=== PATIENT | female | born 1950 | race Caucasian/White ===

== ENCOUNTER 2016-01-20 12:05 | Inpatient (IN) | payer MEDICARE ==
[~2016-01-20] VITALS: Ht 154.9 cm; Wt 47.7 kg
[2016-01-20] VITALS (10 sets, daily range): BP systolic 81–174; BP diastolic 50–77
[~2016-01-20 12:05] MED LIST: ADV500INH INH; ALB2.5NEB INH; ALEN70TA39 PO; ASCO25TA PO; BACITAB3 PO; DOCU100C PO; DULO1CAP PO; FLEC50TA PO; FLUT1SPR2; GUAI1TAB PO; LEVA12INH INH; PRED10TA PO; PROTPAK PO; RANI300T PO; SPIR1CAP INH; TAMBOCAR PO; VITA100066 PO; VITMTA PO; XOPEAER INH
[2016-01-20] MEDS ORDERED: FLUMAZENIL 0.5 MG/5 ML VIAL As Ordered ONE (13:40)
[2016-01-20] MEDS ORDERED: MIDAZOLAM INJ 2 MG/2 ML VIAL (J2250) As Ordered ONE ×2 (13:40→13:41)
[2016-01-20] MEDS ORDERED: LIDOCAINE 1% MDV 20ML VIAL As Ordered ONE (13:41)
[2016-01-20] MEDS: LEVALBUTEROL 1.25 MG/0.5 ML CONCENTRATE NEB NEB SCH ×2 (14:00→21:18)
[2016-01-20] MEDS ORDERED: KCL 20MEQ IN D5/NS 1000ML 1,000 ML IV SCH (14:04)
[2016-01-20] MEDS ORDERED: ACETAMINOPHEN TAB 650MG DOSE (2X325MG) PO PRN (14:15)
[2016-01-20] MEDS ORDERED: BISACODYL 10 MG SUPP PR PRN (14:15)
[2016-01-20] MEDS ORDERED: LEVALBUTEROL 1.25 MG/0.5 ML CONCENTRATE NEB NEB PRN (14:15)
[2016-01-20] MEDS ORDERED: ONDANSETRON 4MG/2ML VIAL (J2405) IV PRN (14:15)
[2016-01-20] MEDS ORDERED: zolPIDEM TARTRATE 5 MG TAB PO PRN (14:15)
--- NOTE | 2016-01-20 14:19 | REP ---
CT chest without contrast 01/20/2016 Indication: Pneumothorax Comparison: CT chest without contrast 01/10/2016 Technique: 3 mm contiguous spiral axial sections were performed through the chest without contrast. Findings: The thoracic aorta is without aneurysm and there are scattered small nonspecific mediastinal nodes. There is right perihilar consolidation with diffuse infiltrate and/or atelectatic changes in the superior segment of the right lower lobe.. There does appear to be filling defect in the right side of the trachea on image 32 series 201 most compatible with retained secretions. There is significant hyperinflation and flattening of diaphragms consistent with COPD. There is a large right anterior pneumothorax of approximately 50% volume. Dense consolidation is present within the posterior segment right upper lobe, and to a greater extent superior segment right lower lobe. . There is posterior layering small right pleural effusion (hydropneumothorax ) Extensive bullous changes are noted bilaterally. Stranding densities and bullae are seen within the left upper lung field . There is a 6 mm pulmonary nodule in the superior segment left lower lobe image 67 series 201, and a 5 mm pulmonary nodule also superior segment left lower lobe image 58 series 201.. The liver is generous in size without focal lesions identified. The spleen is within normal limits. Visualized portions of the pancreas are unremarkable. There is likely a small right adrenal adenoma Impression: 1. Severe COPD with interval 50% right anterior pneumothorax. 2. Consolidation noted in the posterior segment right upper lobe and superior segment right lower lobe compatible with infiltrate Ddx includes atelectasis, inflammatory process . Small posterior layering right pleural effusion/ hydropneumothorax. 3. 2 lower lobe noncalcified pulmonary nodules are identified, largest 6 mm diameter. Interval follow-up is recommended for a visualized secretions within the trachea. Narrowing within the lobar and segmental bronchi to the right upper and right lower lobe Signed by Analisa Marks MD 01/20/2016 02:11 P
[2016-01-20 14:22] LABS: ABG BASE EXCESS -3.3 (-2.0-2.0); ABG HCO3 23.6 MEQ/L (22.0-26.0); ABG PARTIAL PRESSURE CO2 50.7 mmHg (35.0-45.0); ABG PARTIAL PRESSURE O2 214.6 mmHg (75.0-100.0); ABG STANDARD HCO3 21.8 MEQ/L (22.0-26.0); ABG TOTAL CO2 25.1 MEQ/L (23.0-31.0); ABG pH (ARTERIAL) 7.285 UNITS (7.350-7.450)
[2016-01-20] MEDS ORDERED: PRED10TA PO (14:24)
[2016-01-20] MEDS ORDERED: PROT1TAB2 PO (14:24)
[2016-01-20] MEDS ORDERED: LEVA500T PO (14:24)
[2016-01-20] MEDS ORDERED: ALBU0.63 INH (14:26)
[2016-01-20] MEDS: KETOROLAC 30 MG/ML VIAL (J1885) IV SCH ×2 (14:48→20:20)
[2016-01-20] MEDS: PERCOCET 5MG/325MG TAB PO PRN (14:56)
--- NOTE | 2016-01-20 15:26 | REP ---
Portable chest: 01/20/2016. Comparison CT chest 01/20/2016, PA and lateral chest 01/16/2016, 01/15/2016. Compared to the CT chest there is now a new right apex chest tube seen with the large apex pneumothorax on CT no longer evident. There is extensive consolidative opacity in the perihilar region involving posterior segment of the right upper lobe and superior segment right lower lobe. There is no pleural effusion. There is no left pneumothorax although there is severe bullous emphysematous change in the left upper lung zone. Cardiomediastinal silhouette unchanged. Pulmonary artery hypertension noted. Impression: 1. New right apex chest tube evacuating the right pneumothorax seen on chest CT within the past 1/2 hour. There is a consolidative opacity right mid lung zone and severe bullous emphysematous changes in both upper lung zones with basilar fibrosis. No other change. Signed by Dominick Chavira MD 01/20/2016 05:25 P
[2016-01-20 15:28] LABS: ANION GAP 8 MEQ/L (8-16); BLOOD UREA NITROGEN 11 MG/DL (7-18); CALCIUM LEVEL 8.2 MG/DL (8.8-10.2); CARBON DIOXIDE LEVEL 29 MEQ/L (21-32); CHLORIDE LEVEL 100 MEQ/L (98-107); CREATININE FOR GFR 0.75 MG/DL (0.55-1.02); GLOMERULAR FILTRATION RATE > 60.0 (>45); GLUCOSE, FASTING 334 MG/DL (80-110); POTASSIUM SERUM 4.6 MEQ/L (3.5-5.1); SODIUM LEVEL 137 MEQ/L (136-145)
[2016-01-20 16:27] LABS: MEAN CORPUSCULAR HEMOGLOBIN 32.2 pg (27.0-33.0); MEAN CORPUSCULAR HGB CONC 29.3 g/dl (32.0-36.5); MEAN CORPUSCULAR VOLUME 109.7 fl (80.0-96.0); PLATELET COUNT, AUTOMATED 452 k/mm3 (150-450); RED CELL DISTRIBUTION WIDTH 16.3 % (11.5-14.5); WHITE BLOOD COUNT 15.7 K/mm3 (4.0-10.0)
[2016-01-20] MEDS: ASCORBIC ACID 250 MG TAB PO SCH ×2 (17:19→20:20)
[2016-01-20] MEDS ORDERED: FLUMAZENIL 0.5 MG/5 ML VIAL IV STA (18:14)
[2016-01-20] MEDS ORDERED: MIDAZOLAM INJ 2 MG/2 ML VIAL (J2250) IV STA (18:14)
[2016-01-20] MEDS ORDERED: LIDOCAINE 1% MDV 20ML VIAL SC ONE (18:15)
[2016-01-20] MEDS: ADVAIR DISKUS 500/50 INH PWD INH SCH (19:15)
--- NOTE | 2016-01-20 19:24 | HPE ---
DATE OF ADMISSION: 01/20/2016 I received a call from the [place] [facility] at [facility] that Ms. Harrison was back in their emergency room with a large pneumothorax and very short of breath. I asked that she be sent immediately up here, and she was directly admitted to the progressive care unit (PCU). Upon getting to the PCU, she was in near respiratory failure. A chest tube was immediately placed with relief of her respiratory failure. I did not take an extensive history, only to note that she awoke this morning short of breath and presented to the emergency room. It is notable that she is a 65-year-old white female who was just discharged from here a few days ago after suffering the same problem with a persistent air leak on the right side. She has extensive emphysematous disease and end-stage lung disease. I undertook a blood patch when she was in the hospital, which seemed to have at least temporarily worked, such that I could remove her chest tube and send her home. I did not think that she was at all an operative candidate for talc pleurodesis or a wedge resection. It would be very unclear to me where she was leaking as her chest CT shows bulla and blebs throughout. She has a chronic cough at home and has been on chronic suppressive antibiotic therapy. She was bringing up green sputum, but by the end of her hospitalization here a few days ago, she was bringing up white sputum. She denied fever, chills or sweats. She does not choke with swallowing and has no dysphagia. She has a history of three pneumothoraces now, one iatrogenic after a needle biopsy and the second one in 2011 which was spontaneous. She now has a history of three spontaneous pneumothoraces. PAST MEDICAL HISTORY: 1. Chronic obstructive pulmonary disease (COPD). 2. The above mentioned pneumothoraces. 3. Uterine cancer for which she has undergone three cycles of chemotherapy, a total of six cycles are planned. 4. Prior pancreatitis. 5. Unknown heart arrhythmia, on flecainide. 6. Osteoporosis. 7. Depression. 8. Gastroesophageal reflux disease. PRIOR SURGERIES: 1. Hand surgery. 2. Remote appendectomy. HOME MEDICATIONS: - albuterol nebulizers every 4 hours as needed for shortness of breath - alendronate 70 mg every week - ascorbic acid 250 mg three times a day - vitamin D 1000 units daily - docusate twice a day - duloxetine 20 mg daily - flecainide 50 mg twice a day - Bacid one tablet daily - Xopenex 1.25 mg neb every 6 hours - Levaquin 500 mg nightly - Protonix 40 mg twice a day - prednisone 20 mg daily - ranitidine 300 mg nightly - Advair Diskus 500-50 one puff twice a day - Spiriva 18 mcg one puff daily EXPOSURES: Has a Mitchell Tzu dog at home. No cats or birds. HABITS: Smoked one pack per day for 40 years, brand of choice was Labette. She quit in the . Occasionally imbibes a glass of wine. No illicit drugs or marijuana. 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 There is no known asbestos exposure. TRAVEL HISTORY: She has been to [place]. No travel to the [facility] or to the extreme [facility]. No foreign travel. FAMILY HISTORY: To be determined at a later time, noncontributory due to the emergency at this point. ALLERGIES: None. REVIEW OF SYSTEMS: Not obtained at this admission due to emergent nature. Prior, however, her eyes were without diplopia, without transient monocular blindness, without prior jaundice. Nose with an occasional nosebleed from the drying effect of her oxygen that she wears at home. Mouth: Has upper dentures, has her own lower teeth. Pulmonary: See history of the present illness. Cardiac: Without prior history of myocardial infarction. She has occasional palpitations. No peripheral edema. No orthopnea or paroxysmal nocturnal dyspnea. GI: Without nausea, vomiting, diarrhea but does have occasional constipation. Without melena, hematochezia, hematemesis or abdominal pain. : Without hematuria, dysuria or prior history of renal stones. Endocrine: Without diabetes, without thyroid disease. Neurologic: Without paresthesias, paralyses or prior seizures. Lymphatics: Without lumps and bumps in her neck, axilla or groin. Psychiatric: Without pathological anxieties, depression, or psychosis. Hematological: Without prolonged bleeding times. PHYSICAL EXAMINATION: VITAL SIGNS: Temperature is 96.0, respiratory rate is 28 with the use of accessory muscles. Her pulse is 118. Blood pressure is 102/62. She is 100% saturated on a nonrebreather at 15 liters per minute. She is in obvious distress and with labored respirations. She is in a sinus rhythm. EYES: Pupils equal, round and reactive to light. Extraocular motor intact. Sclerae nonicteric. NOSE: Without deformity. MOUTH: Shows her mucous membranes to be pink and moist. Lips and commissures without lesions. There is no thrush. HEAD: Normocephalic. NECK: Supple. There is no jugular venous distention. No subcutaneous emphysema. Trachea is midline. There is no thyromegaly, no lymphadenopathy. LUNGS: Show markedly decreased breath sounds on the right side and also decreased breath sounds on the left but not as markedly decreased on the right. Percussion note is hyperresonant on the right. CARDIAC: Exam shows distant heart sounds without murmurs, clicks, gallops or rubs. I cannot feel her point of maximum impulse (PMI). S1, S2 are normal. ABDOMEN: Soft, nontender. Bowel sounds are positive but hypoactive. There is no hepatomegaly. No costovertebral angle tenderness. EXTREMITIES: Show no pretibial edema, no calf tenderness, no differential swelling of the upper extremities. SKIN: Sallow and mottled around the knees and nail beds. She looks very anemic. NEUROLOGIC: Shows II-XII intact along with gross motor and gross sensation intact. Gait is not tested. PSYCHIATRIC: Shows her to be somnolent and struggling to breathe and not able to really communicate. INVESTIGATIONS After placement of the chest tube, her electrolytes are normal with a BUN and creatinine of 11 and 0.75, a glucose of 334 with a calcium of 8.2. Blood gases taken after the chest tube was placed showed a pH of 7.28, a pCO2 of 50, a pO2 of 214 with a base excess of -3.3. Her hematology is pending. Her chest x-ray done at [facility] was sent on a disk; it is difficult to interpret, and I cannot tell if there are strands of parenchyma and bulla up to the chest wall anteriorly and superiorly. She certainly has a subpulmonic air collection. I did take her down to chest CT very quickly to find the distribution of the pneumothorax. Chest CT showed the pneumothorax extending into the cupola and anteriorly. There is one large bullous underneath the sternum, although I do not see it connected to anything. The second intercostal space is available for placement of a chest tube. She has what looks to be a left lower lobe 5 mm nodule. There is a small amount of fluid in the posterior portion of the right hemithorax. There is a consolidative pattern in the posterior aspect of the upper lobe. The heart and mediastinum are shifted over to the left side. IMPRESSION: 1. Respiratory failure. 2. Tension pneumothorax. 3. Chronic obstructive pulmonary disease. 4. Osteoporosis. 5. Uterine cancer, undergoing chemotherapy. 6. Depression. PLAN AND DISCUSSION: I have immediately placed a chest tube, and she is feeling better. She presently has a large air leak. This is going to be a very difficult problem to manage as I am not at all keen on taking her to the operating room for a talc pleurodesis. Even if I did, I would not know where to the place the staple line as I have no idea where she is leaking. Tomorrow I will obtain another CT scan. I do not think that she would tolerate one lung anesthesia. Perhaps the best we could do is a talc pleurodesis with a slurry. If that failed, however, there would be no other course to treat her operatively. OLIVER
[2016-01-20] MEDS: HEPARIN SOD (PORCINE) 5000 UNITS/ML VIAL SC SCH (20:19)
[2016-01-20 20:20] LABS: BANDS 8 % (< 11)
[2016-01-20] MEDS: FLECAINIDE 50MG TABLET PO SCH (20:20)
[2016-01-20] MEDS: LevoFLOXacin 500 MG TABLET PO SCH (20:20)
[2016-01-20] MEDS: DOCUSATE SODIUM 100 MG CAP PO SCH (20:20)
[2016-01-20 20:21] LABS: ANISOCYTOSIS 1+; HYPOCHROMASIA 2+; OVALOCYTES 1+; POIKILOCYTOSIS 1+; POLYCHROMASIA 1+
--- NOTE | 2016-01-20 21:48 | RO ---
DATE OF PROCEDURE: 01/20/2016 PREPROCEDURE DIAGNOSIS: Respiratory failure, tension pneumothorax. POSTPROCEDURE DIAGNOSIS: Respiratory failure, tension pneumothorax. PROCEDURE: Emergent insertion of right anterior superior chest tube. SURGEON: Dr. Rell Alvarado DETAIL MAKER AND FITTER: ANESTHESIA: DESCRIPTION OF PROCEDURE: Under satisfactory moderate sedation achieved with 2 mg of Versed, the patient was prepped and draped in the usual sterile fashion. Incision was made over the second rib and a tunnel created in the chest, into the first intercostal space. A #20 chest tube was placed without difficulty and then hooked to the Pleur-evac. Chest tube was secured to the chest wall with a #2 Tevdek suture. The patient was seen to have a very large persistent air leak even after evacuating the initial gush of air. The patient tolerated the procedure well and was given 0.2 mg of Romazicon to reverse her Versed.
[2016-01-21] VITALS: BP 86/53
[2016-01-21] MEDS: LEVALBUTEROL 1.25 MG/0.5 ML CONCENTRATE NEB NEB SCH ×4 (01:35→19:33)
[2016-01-21] MEDS: KETOROLAC 30 MG/ML VIAL (J1885) IV SCH ×4 (02:38→20:54)
[2016-01-21 04:00] VITALS: BP 81/52
[2016-01-21 05:36] LABS: BASO % 0.2 % (0.0-1.0); EOS % 0.3 % (0.0-3.0); LARGE UNSTAINED CELL # 0.1 K/mm3 (0.0-0.4); LARGE UNSTAINED CELL % 1.8 % (0.0-4.0); LYMPH # 0.6 K/mm3 (1.5-4.5); LYMPH % 8.1 % (24.0-44.0); MEAN CORPUSCULAR HEMOGLOBIN 32.6 pg (27.0-33.0); MEAN CORPUSCULAR HGB CONC 31.5 g/dl (32.0-36.5); MONO # 0.3 K/mm3 (0.0-0.8); MONO % 4.2 % (0.0-5.0); NEUTROPHILS # 6.1 K/mm3 (1.8-7.7); NEUTROPHILS % 85.5 % (36.0-66.0); PLATELET COUNT, AUTOMATED 355 k/mm3 (150-450); RED CELL DISTRIBUTION WIDTH 15.4 % (11.5-14.5); WHITE BLOOD COUNT 7.2 K/mm3 (4.0-10.0)
[2016-01-21 05:52] LABS: MEAN CORPUSCULAR VOLUME 103.4 fl (80.0-96.0)
[2016-01-21 06:05] LABS: ABG BASE EXCESS 4.3 (-2.0-2.0); ABG HCO3 29.1 MEQ/L (22.0-26.0); ABG PARTIAL PRESSURE CO2 44.9 mmHg (35.0-45.0); ABG PARTIAL PRESSURE O2 97.6 mmHg (75.0-100.0); ABG STANDARD HCO3 28.4 MEQ/L (22.0-26.0); ABG TOTAL CO2 30.5 MEQ/L (23.0-31.0)
[2016-01-21 06:08] LABS: ANION GAP 7 MEQ/L (8-16); BLOOD UREA NITROGEN 12 MG/DL (7-18); CALCIUM LEVEL 7.8 MG/DL (8.8-10.2); CARBON DIOXIDE LEVEL 30 MEQ/L (21-32); CHLORIDE LEVEL 104 MEQ/L (98-107); CREATININE FOR GFR 0.45 MG/DL (0.55-1.02); GLOMERULAR FILTRATION RATE > 60.0 (>45); GLUCOSE, FASTING 80 MG/DL (80-110); POTASSIUM SERUM 3.8 MEQ/L (3.5-5.1); SODIUM LEVEL 141 MEQ/L (136-145)
--- NOTE | 2016-01-21 06:30 | REPUSA ---
CLINICAL HISTORY: Pneumothorax. TECHNIQUE: Multiple axial CT images were obtained through chest without IV contrast material. MPR cor onal and sagittal sequences were obtained. COMMENTS: Comparison is made to the prior exam on 01/20/2016. Severe pulmonary emphysema. There has been insertion of the right pleural drainage catheter with its tip in the apex of the right pleural cavity. Resolution of pulmonary collapse. Residual small right pleural effusion. Residual associated passive atelectatic airspace disease of the right lower lobe. No change in pulmonary nodules. Decreased basilar atelectatic airspace disease of the lungs. The visualized portions of the liver are of uniform attenuation without mass or defect. There is no i ntra or extrahepatic biliary ductal dilatation. The spleen is unremarkable. The visualized pancreas i s of normal contour and attenuation characteristics. There is no evidence of adrenal mass. The visual ized portions of the kidneys present no abnormalities. The bony structures are free of lytic or blastic lesions. Multilevel degenerative changes are seen in volving the thoracic spine. Scattered calcifications are seen involving the aorta and visualized hossein r branches compatible with atherosclerosis. IMPRESSION: Severe pulmonary emphysema. Insertion of right chest tube in good pedestrian. Resolution of pulmonary collapse. Residual small right pleural effusion. This has mildly increased. Residual basilar atelectatic airspace disease of the right lower lobe. Thank you for your kind referral of this patient.
[2016-01-21] MEDS: ADVAIR DISKUS 500/50 INH PWD INH SCH ×2 (07:37→19:51)
[2016-01-21] MEDS: TIOTROPIUM INHALER/CAPSULE (SPIRIVA) INH SCH (07:37)
[2016-01-21 08:00] VITALS: BP 83/51
--- NOTE | 2016-01-21 08:55 | REP ---
CHEST X-RAY, PA AND LATERAL, 01/21/2016: Comparison portable chest 01/20/2016, CT chest 01/21/2016. Advanced bullous emphysematous changes are again seen bilaterally with large upper lung zone bullae as before. There is a right apex chest tube as before. I do not see definite recurrence of that pneumothorax. No left pneumothorax identified. Heavy fibrotic changes in the bases and dense air space opacification perihilar region in the superior segment of the left lower lobe on the lateral view. This is unchanged. Linear fibrotic changes notable in the perihilar region on the left. No gross effusion on the left. Trace CP angle blunting on the right suggesting a small effusion. No other changes. IMPRESSION: 1. Right apex chest tube without definite recurrence of pneumothorax with extensive advanced COPD, bullous emphysematous changes and giant bullae in the upper lung zones, left larger than right. 2. Extensive consolidative air space opacity posteriorly in the right mid chest presumably in the superior segment of the right lower lobe. Signed by Dominick Chavira MD 01/21/2016 04:23 P
[2016-01-21] MEDS: PANTOPRAZOLE 40MG TAB (PROTONIX) PO SCH (08:58)
[2016-01-21] MEDS: ASCORBIC ACID 250 MG TAB PO SCH ×3 (08:58→20:53)
[2016-01-21] MEDS: HEPARIN SOD (PORCINE) 5000 UNITS/ML VIAL SC SCH ×2 (08:59→20:53)
[2016-01-21] MEDS: FLECAINIDE 50MG TABLET PO SCH ×2 (08:59→20:53)
[2016-01-21] MEDS: predniSONE 10 MG TAB PO SCH (08:59)
[2016-01-21] MEDS: DULoxetine 20 MG CAP (CYMBALTA) PO SCH (08:59)
[2016-01-21] MEDS: DOCUSATE SODIUM 100 MG CAP PO SCH ×2 (08:59→20:53)
[2016-01-21] MEDS: MULTIVITAMINS/MINERALS THERAP 1 TAB PO SCH (08:59)
[2016-01-21] MEDS: VITAMIN D 1,000 INTERNATIONAL UNITS TABLET PO SCH (08:59)
[2016-01-21] MEDS ORDERED: PANTOPRAZOLE 40MG INJ (PROTONIX) (C9113) IV SCH (09:00)
[2016-01-21] MEDS: FLUTICASONE PROP 0.05% NASAL SPRAY 16 GM (FLONASE) SCH (09:00)
[2016-01-21] MEDS: MOM 30ML SUSPENSION UDC PO SCH (09:00)
[2016-01-21] MEDS: LACTOBACILLUS ACIDOPHILUS CAP (BACID) PO SCH (09:03)
[2016-01-21] MEDS: PERCOCET 5MG/325MG TAB PO PRN ×4 (09:04→23:35)
[2016-01-21] MEDS ORDERED: BABY POWDER 120GM TOP ONE (10:00)
[2016-01-21] MEDS ORDERED: SCLEROSOL INTRAPLEURAL AEROSOL IPL ONE (10:30)
[2016-01-21] MEDS ORDERED: FLUMAZENIL 0.5 MG/5 ML VIAL As Ordered ONE (10:45)
[2016-01-21] MEDS ORDERED: MIDAZOLAM INJ 2 MG/2 ML VIAL (J2250) As Ordered ONE (10:45)
[2016-01-21] MEDS ORDERED: LIDOCAINE 1% MDV 20ML VIAL As Ordered ONE (11:17)
[2016-01-21] MEDS ORDERED: MIDAZOLAM INJ 2 MG/2 ML VIAL (J2250) IV STA (12:27)
--- NOTE | 2016-01-21 12:33 | REP ---
AP PORTABLE CHEST: 01/21/2016 at 12:01 PM Clinical history: Right chest tube. This supine portable chest compared to the upright PA and lateral chest earlier today, A CT chest earlier today and a portable chest yesterday. Hyperinflation with severe bullous emphysematous changes noted in the upper lung zones with giant bulla. The right chest tube is at the apex. Opacity in the left mid lung zone with linear and nodular appearance unchanged representing fibrotic scarring. There is apical pleural thickening on the right with the right chest tube to that apex. No gross pneumothorax on this supine chest which would be relatively insensitive for that finding. Heart has projectional enlargement from AP portable technique. The perihilar chronic atelectasis or infiltrate in that superior segment of the right upper lobe again seen with patchy areas of atelectasis adjacent. All of this unchanged. No new finding. Impression: 1. Isabela right chest tube without gross evidence of pneumothorax. There is apical pleural thickening on the right and extensive airspace opacity representing chronic atelectasis or infiltrate in the superior segment of the right lower lobe in the right midchest, adjacent patchy atelectasis or infiltrates noted. There is bilateral lower lung zone fibrotic or atelectatic changes. No effusion suggested. The bullous emphysematous changes are as seen previously. Signed by Dominick Chavira MD 01/21/2016 04:27 P
[2016-01-21 16:20] VITALS: BP 93/58
--- NOTE | 2016-01-21 19:27 | REP ---
PORTABLE CHEST: HISTORY: Followup pneumothorax. Comparison 01/21/2016 obtained at 12:01 pm. Right-sided thoracotomy tube unchanged. Cardiomediastinal silhouette and lung dugan unchanged. Osseous structures unchanged. The technique utilized in obtaining the radiograph has magnified the cardiac silhouette and accentuated the interstitial markings. IMPRESSION: No significant change from the exam obtained earlier. Right upper lobe opacities with basilar opacities and chronic lung field changes and right sided thoracotomy tubes, status quo. There is no evidence of a pneumothorax. Signed by Baljeet Soto DO 01/23/2016 04:31 P
[2016-01-21 20:20] VITALS: BP 84/50
[2016-01-21] MEDS: LevoFLOXacin 500 MG TABLET PO SCH (20:53)
[2016-01-21 23:27] VITALS: BP 86/52
[2016-01-22] MEDS: LEVALBUTEROL 1.25 MG/0.5 ML CONCENTRATE NEB NEB SCH ×4 (01:36→19:14)
[2016-01-22 03:15] VITALS: BP 99/62
[2016-01-22] MEDS: KETOROLAC 30 MG/ML VIAL (J1885) IV SCH ×4 (03:17→21:09)
[2016-01-22] MEDS: SLF 3 ML SYR IV SCH ×3 (03:18→21:09)
[2016-01-22] MEDS: PERCOCET 5MG/325MG TAB PO PRN ×5 (03:48→23:11)
[2016-01-22 04:42] LABS: BASO % 0.1 % (0.0-1.0); EOS % 0.2 % (0.0-3.0); LARGE UNSTAINED CELL # 0.1 K/mm3 (0.0-0.4); LARGE UNSTAINED CELL % 1.2 % (0.0-4.0); LYMPH # 0.4 K/mm3 (1.5-4.5); LYMPH % 5.7 % (24.0-44.0); MEAN CORPUSCULAR HEMOGLOBIN 31.6 pg (27.0-33.0); MEAN CORPUSCULAR VOLUME 102.1 fl (80.0-96.0); MONO # 0.4 K/mm3 (0.0-0.8); MONO % 5.1 % (0.0-5.0); NEUTROPHILS # 6.4 K/mm3 (1.8-7.7); NEUTROPHILS % 87.6 % (36.0-66.0); PLATELET COUNT, AUTOMATED 332 k/mm3 (150-450); RED CELL DISTRIBUTION WIDTH 15.7 % (11.5-14.5); WHITE BLOOD COUNT 7.3 K/mm3 (4.0-10.0)
[2016-01-22 04:54] LABS: ANION GAP 5 MEQ/L (8-16); BLOOD UREA NITROGEN 8 MG/DL (7-18); CALCIUM LEVEL 8.2 MG/DL (8.8-10.2); CARBON DIOXIDE LEVEL 31 MEQ/L (21-32); CHLORIDE LEVEL 100 MEQ/L (98-107); CREATININE FOR GFR 0.52 MG/DL (0.55-1.02); GLOMERULAR FILTRATION RATE > 60.0 (>45); GLUCOSE, FASTING 118 MG/DL (80-110); SODIUM LEVEL 136 MEQ/L (136-145)
[2016-01-22 08:00] VITALS: BP 104/52
[2016-01-22] MEDS: HEPARIN SOD (PORCINE) 5000 UNITS/ML VIAL SC SCH ×2 (08:00→21:09)
[2016-01-22] MEDS: MULTIVITAMINS/MINERALS THERAP 1 TAB PO SCH (08:01)
[2016-01-22] MEDS: VITAMIN D 1,000 INTERNATIONAL UNITS TABLET PO SCH (08:01)
[2016-01-22] MEDS: predniSONE 10 MG TAB PO SCH (08:01)
[2016-01-22] MEDS: ASCORBIC ACID 250 MG TAB PO SCH ×3 (08:01→21:08)
[2016-01-22] MEDS: DULoxetine 20 MG CAP (CYMBALTA) PO SCH (08:01)
[2016-01-22] MEDS: LACTOBACILLUS ACIDOPHILUS CAP (BACID) PO SCH (08:01)
[2016-01-22] MEDS: FLUTICASONE PROP 0.05% NASAL SPRAY 16 GM (FLONASE) SCH (08:01)
[2016-01-22] MEDS: DOCUSATE SODIUM 100 MG CAP PO SCH ×2 (08:01→21:09)
[2016-01-22] MEDS: FLECAINIDE 50MG TABLET PO SCH ×2 (08:01→21:09)
[2016-01-22] MEDS: PANTOPRAZOLE 40MG TAB (PROTONIX) PO SCH (08:01)
--- NOTE | 2016-01-22 08:55 | REP ---
CHEST X-RAY, PA AND LATERAL: 01/22/2016 COMPARISON: Portable chest 01/21/2016, 01/20/2016, 01/16/2016. CT chest 01/21/2016 CLINICAL HISTORY: Pneumothorax. FINDINGS: Right apex chest tube again seen. There is a very small apical pneumothorax visible on the right with an air gap just less than 2 mm. Advanced bullous emphysematous changes, fibrosis, and extensive airspace opacity in the right mid and lower lung zone, all unchanged. Giant bulla in both apices. Blunting of the right CP angle consistent with some scarring. Trace effusion difficult to exclude. No other significant finding. IMPRESSION: Right apex chest tube with a tiny apical pneumothorax with a nearly 2 mm air gap. Giant bullae in both upper lung zones with severe emphysematous changes, fibrosis, chronic airspace opacity in the right mid and lower lung zone, all stable. Signed by Dominick Chavira MD 01/22/2016 04:35 P
[2016-01-22] MEDS: MOM 30ML SUSPENSION UDC PO SCH (09:00)
[2016-01-22] MEDS: ADVAIR DISKUS 500/50 INH PWD INH SCH ×2 (09:47→21:02)
[2016-01-22] MEDS: TIOTROPIUM INHALER/CAPSULE (SPIRIVA) INH SCH (09:47)
[2016-01-22 12:00] VITALS: BP 102/58
[2016-01-22 15:50] VITALS: BP 108/58
--- NOTE | 2016-01-22 16:43 | IPN ---
DATE: 01/22/2016 This is now the 2nd hospital day for Mrs. Harrison. She underwent a talc pleurodesis with a talc slurry through the chest tube yesterday. She however is still leaking today. The chest tube output however is serosanguineous with definite blood in it hopefully secondary to the inflammation response from the talc. She has not yet run a fever and her pain is being well controlled. Her vital signs show a maximum temperature (t-max) of 97.8 with a heart rate that ranges between 93 and 100 in a sinus rhythm, respiratory rate of 22 to 24 without the use of accessory muscles, who is 96 to 93% saturated on 6 liters nasal cannula, and whose blood pressure is ranging between 99/62 to 104/82. Her intake and output over the past 24 hours has been recorded as 960 in and 1477 out for a negativity 517 mL. She has put 227 mL out the chest tube. Weight today is at 51.7 compared to 50.7 yesterday. PHYSICAL EXAMINATION: She has equal breath sounds on either side, but they are still very decreased on either side, I do not hear pleural friction rub. Percussion is full to the diaphragm. CARDIAC EXAMINATION: Without murmurs, clicks, gallops or rubs. I cannot feel her point of maximum impulse (PMI). S1, S2 are normal. ABDOMEN: Soft, nontender. Bowel sounds positive. There is no hepatomegaly. No CVA tenderness. EXTREMITIES: Show no pretibial edema. No calf tenderness. No differential swelling of the upper extremities. SKIN: Warm, dry and perfused without cyanosis or mottling, including that of the nail beds and knees. NECK: Supple. There is no jugular venous distention. No subcutaneous emphysema. Trachea is midline. MOUTH: Shows his mucous membranes to be pink and moist. Lips and commissures without lesions. There is no thrush. EYES: Show her pupils to be equal and reactive. Extraocular motion intact. Sclerae anicteric. NEUROLOGIC: Shows II through XII intact with gross motor and gross sensation intact. Gait is not tested. PSYCHIATRIC: Shows her to be awake and alert, oriented times three with appropriate mood and affect and conversational. Her white count today is 7.3 unchanged from yesterday with a hemoglobin and hematocrit of 9.0 and 29.0, slightly up from 8.6 and 27.2 yesterday. Platelet count of 332. Her differential shows 87% neutrophils, 5% lymphocytes. There are no immature forms, no toxic granulations. There are no blood gases on her today. Her electrolytes are normal with a BUN and creatinine of 8 and 0.52 with a glucose of 1148 and a calcium 8.2. Her chest x-ray today shows the lung fully expanded to the chest wall. There may be a 1 mm airspace at the cupola. Right costophrenic angle has an opacity within it. There certainly seems to more of a diffuse opacity of the right chest versus the left chest which is hopefully secondary to pleural thickening from the inflammatory response. IMPRESSION: 1. Recurrent right pneumothorax with bronchoalveolar fistula. 2. Chronic obstructive pulmonary disease (COPD) severe. 3. Osteoporosis. 4. Uterine cancer, presently undergoing chemotherapy. 5. Depression PLAN AND DISCUSSION: I will give her 5 to 6 days to stop her air leak. Hopefully in the next couple of days the inflammatory response will become more intense and help her seal that air leak. I have warned her that her worst case scenario is having to go home with the chest tube and a Heimlich valve. She may develop a chronic bronchopleural fistula.
[2016-01-22 20:00] VITALS: BP 99/55
[2016-01-22] MEDS: LevoFLOXacin 500 MG TABLET PO SCH (21:08)
[2016-01-22 23:25] VITALS: BP 96/54
[2016-01-23] MEDS: LEVALBUTEROL 1.25 MG/0.5 ML CONCENTRATE NEB NEB SCH ×4 (01:45→20:00)
[2016-01-23] MEDS: KETOROLAC 30 MG/ML VIAL (J1885) IV SCH ×4 (03:52→20:33)
[2016-01-23] MEDS: SLF 3 ML SYR IV SCH ×3 (03:53→22:00)
[2016-01-23] MEDS: PERCOCET 5MG/325MG TAB PO PRN ×2 (03:55→16:19)
[2016-01-23 03:56] VITALS: BP 102/63
[2016-01-23 05:36] LABS: BASO # 0.1 K/mm3 (0.0-0.2); BASO % 1.8 % (0.0-1.0); EOS % 0.9 % (0.0-3.0); LARGE UNSTAINED CELL # 0.1 K/mm3 (0.0-0.4); LARGE UNSTAINED CELL % 1.2 % (0.0-4.0); LYMPH # 0.4 K/mm3 (1.5-4.5); LYMPH % 5.3 % (24.0-44.0); MEAN CORPUSCULAR HEMOGLOBIN 31.8 pg (27.0-33.0); MEAN CORPUSCULAR VOLUME 102.9 fl (80.0-96.0); MONO # 0.3 K/mm3 (0.0-0.8); MONO % 5.1 % (0.0-5.0); NEUTROPHILS % 85.6 % (36.0-66.0); PLATELET COUNT, AUTOMATED 312 k/mm3 (150-450); RED CELL DISTRIBUTION WIDTH 16.5 % (11.5-14.5); WHITE BLOOD COUNT 5.8 K/mm3 (4.0-10.0)
[2016-01-23 05:46] LABS: ANION GAP 5 MEQ/L (8-16); BLOOD UREA NITROGEN 7 MG/DL (7-18); CALCIUM LEVEL 8.4 MG/DL (8.8-10.2); CARBON DIOXIDE LEVEL 31 MEQ/L (21-32); CHLORIDE LEVEL 103 MEQ/L (98-107); GLOMERULAR FILTRATION RATE > 60.0 (>45); GLUCOSE, FASTING 100 MG/DL (80-110); POTASSIUM SERUM 4.2 MEQ/L (3.5-5.1); SODIUM LEVEL 139 MEQ/L (136-145)
[2016-01-23] MEDS: ADVAIR DISKUS 500/50 INH PWD INH SCH ×2 (07:16→20:52)
[2016-01-23] MEDS: TIOTROPIUM INHALER/CAPSULE (SPIRIVA) INH SCH (07:16)
[2016-01-23 08:00] VITALS: BP 113/57
[2016-01-23] MEDS: FLUTICASONE PROP 0.05% NASAL SPRAY 16 GM (FLONASE) SCH (08:54)
[2016-01-23] MEDS: predniSONE 10 MG TAB PO SCH (08:55)
[2016-01-23] MEDS: MOM 30ML SUSPENSION UDC PO SCH (08:55)
[2016-01-23] MEDS: ASCORBIC ACID 250 MG TAB PO SCH ×3 (08:55→20:33)
[2016-01-23] MEDS: VITAMIN D 1,000 INTERNATIONAL UNITS TABLET PO SCH (08:55)
[2016-01-23] MEDS: LACTOBACILLUS ACIDOPHILUS CAP (BACID) PO SCH (08:55)
[2016-01-23] MEDS: HEPARIN SOD (PORCINE) 5000 UNITS/ML VIAL SC SCH ×2 (08:56→20:34)
[2016-01-23] MEDS: DULoxetine 20 MG CAP (CYMBALTA) PO SCH (08:57)
[2016-01-23] MEDS: MULTIVITAMINS/MINERALS THERAP 1 TAB PO SCH (08:57)
[2016-01-23] MEDS: DOCUSATE SODIUM 100 MG CAP PO SCH ×2 (08:57→20:33)
[2016-01-23] MEDS: FLECAINIDE 50MG TABLET PO SCH ×2 (08:57→20:33)
[2016-01-23] MEDS: PANTOPRAZOLE 40MG TAB (PROTONIX) PO SCH (08:57)
[2016-01-23] MEDS: SLF 3 ML SYR IV PRN (08:58)
--- NOTE | 2016-01-23 09:02 | REP ---
Chest PA and lateral: 01/23/2016. Comparison: 01/22/2016, 01/21/2016, CT chest 01/21/2016. Clinical history: Followup pneumothorax, advanced COPD. Right apex chest tube is again seen. There is bullous emphysematous change in the bilateral upper lung zones with giant bulla larger left than right. Extensive consolidative opacity perihilar region and superior segment right lower lobe and other areas of linear and subsegmental atelectatic change right middle and lower lobes. Hyperinflation with flattening of the diaphragms, increased AP diameter of the chest and and significant pulmonary artery hypertension again seen, all consistent with advanced COPD. Aortic calcified at the arch, but without aneurysm. Heart size not grossly enlarged for degree of inflation. At the right apex there is a small right apical pneumothorax evident, the air gap is about 7 mm today, yesterday was about 2 mm. No other changes. Impression: 1. Right apex chest tube tip of the apex. The pneumothorax at the right apex now measuring 7 mm air gap, yesterday it was a 2 mm air gap. No other changes. Signed by Dominick Chavira MD 01/23/2016 08:00 P
[2016-01-23 12:00] VITALS: BP 100/53
[2016-01-23 16:00] VITALS: BP 105/56
[2016-01-23 19:50] VITALS: BP 94/56
[2016-01-23] MEDS: LevoFLOXacin 500 MG TABLET PO SCH (20:34)
--- NOTE | 2016-01-23 23:09 | IPN ---
DATE: 01/23/2016 Ms. Harrison still continues to have a rolling air leak. I have turned her suction up to 20 as the lung has from the chest wall today on chest x-ray. Her vital signs show a maximum temperature (T max) of 97.8 with a heart rate that ranges between 94 and 105 and is sinus rhythm, a respiratory rate of 18 to 20 without the use of accessory muscles who 96 to 92% saturated on 5 liters nasal cannula and a blood pressure that is ranging between 102/63 to113/57. Her intake and output over the past 24 hours has been recorded as 1200 in and 2175 out for a negativity of 975 mL. Her weight today is 52.3 kg compared to 51.7 kg yesterday. PHYSICAL EXAMINATION: Her lungs still show equal but decreased breath sounds on either side. Right lung, of course, shows an audible air leak. Percussion note is full to the diaphragm. There is no subcutaneous emphysema. Cardiac exam is without murmurs, clicks, gallops or rubs. I cannot feel her point of maximum impulse (PMI). S1, S2 are normal. Abdomen is soft and nontender. Bowel sounds are positive. There is no hepatomegaly. No costovertebral angle tenderness. Extremities show no pretibial edema. No calf tenderness. No differential swelling of the upper extremities. Skin is warm, dry and perfused without cyanosis or mottling, including that of the nail beds and the knees. Neck is supple. There is no jugular venous distention, no subcutaneous emphysema. Trachea is midline. Mouth shows her mucous membranes to be pink and moist. Lips and commissures without lesions. There is no thrush. Eyes show her pupils to be equal and reactive. Extraocular motions intact. Sclerae anicteric. Neurologic shows II-XII intact along with gross motor and gross sensation intact. Gait is not tested. Psychiatric shows her to be awake and alert, oriented times three with appropriate mood and affect and conversational. Her white count today is 5.8 with a hemoglobin and hematocrit of 8.6 and 27.9, essentially unchanged from yesterday. Platelet count is 312 with a differential that shows 85% neutrophils, 5% lymphocytes and 5% monocytes. There are no immature forms. No toxic granulations. Her chemistries show normal electrolytes with a BUN and creatinine of 7 and 0.50, glucose of 100 and a calcium of 8.4. There are no blood gases on her today. Her chest x-ray shows her lung having from the chest wall by 6 mm, which is greater than it was yesterday. She still has the infiltrative pneumonic process in the posterior segment of the upper lobe. Chest tube looks to be in good place. The second hole is definitely within the chest with the tip at the very apex of the hemithorax. IMPRESSION: 1. Recurrent right pneumothorax with bronchopleural fistula. 2. Chronic obstructive pulmonary disease, severe. 3. Osteoporosis. 4. Uterine cancer, presently undergoing chemotherapy. 5. Depression. PLAN AND DISCUSSION: We really are between a rock and a hard place. Dr. Mckeon and I have discussed it and have decided that perhaps the best strategy will be to isolate the bronchus that is leaking and inject glue within that subsegmental or if we are joya the subsegmental bronchus. Hopefully that will stop the leak. We plan, therefore, to do that tomorrow in the operating room under conscious sedation. She may need to be intubated, but we will try to do it without. I have explained the risks and benefits of the procedure to the patient, and she is willing to undertake it.
[2016-01-23 23:47] VITALS: BP 84/51
[2016-01-24] VITALS (10 sets, daily range): BP systolic 84–128; BP diastolic 50–62
[2016-01-24] MEDS: NORCO, ANEXSIA 5/325MG TABLET (HYDROcodone/ACETAMINOPHEN) PO PRN (01:31)
[2016-01-24] MEDS: LEVALBUTEROL 1.25 MG/0.5 ML CONCENTRATE NEB NEB SCH ×4 (02:00→20:00)
[2016-01-24] MEDS: KETOROLAC 30 MG/ML VIAL (J1885) IV SCH ×4 (02:35→21:15)
[2016-01-24 05:34] LABS: BASO % 0.1 % (0.0-1.0); EOS # 0.1 K/mm3 (0.0-0.50); EOS % 1.2 % (0.0-3.0); LARGE UNSTAINED CELL # 0.1 K/mm3 (0.0-0.4); LARGE UNSTAINED CELL % 1.4 % (0.0-4.0); LYMPH # 0.3 K/mm3 (1.5-4.5); LYMPH % 6.4 % (24.0-44.0); MEAN CORPUSCULAR HEMOGLOBIN 31.6 pg (27.0-33.0); MEAN CORPUSCULAR HGB CONC 30.1 g/dl (32.0-36.5); MONO # 0.2 K/mm3 (0.0-0.8); NEUTROPHILS # 4.6 K/mm3 (1.8-7.7); NEUTROPHILS % 86.9 % (36.0-66.0); PLATELET COUNT, AUTOMATED 349 k/mm3 (150-450); RED CELL DISTRIBUTION WIDTH 15.3 % (11.5-14.5); WHITE BLOOD COUNT 5.3 K/mm3 (4.0-10.0)
[2016-01-24 05:39] LABS: ANION GAP 5 MEQ/L (8-16); BLOOD UREA NITROGEN 8 MG/DL (7-18); CALCIUM LEVEL 8.9 MG/DL (8.8-10.2); CARBON DIOXIDE LEVEL 33 MEQ/L (21-32); CHLORIDE LEVEL 102 MEQ/L (98-107); CREATININE FOR GFR 0.44 MG/DL (0.55-1.02); GLOMERULAR FILTRATION RATE > 60.0 (>45); GLUCOSE, FASTING 90 MG/DL (80-110); POTASSIUM SERUM 4.3 MEQ/L (3.5-5.1); SODIUM LEVEL 140 MEQ/L (136-145)
[2016-01-24] MEDS: SLF 3 ML SYR IV SCH ×3 (06:00→21:16)
[2016-01-24] MEDS: TIOTROPIUM INHALER/CAPSULE (SPIRIVA) INH SCH (07:21)
[2016-01-24] MEDS: ADVAIR DISKUS 500/50 INH PWD INH SCH ×2 (07:21→19:55)
[2016-01-24] MEDS: PERCOCET 5MG/325MG TAB PO PRN ×2 (08:27→17:08)
--- NOTE | 2016-01-24 08:38 | REP ---
CHEST, TWO VIEWS: HISTORY: Pneumothorax. COMPARISON: 7:50 a.m., 01/23/2016. The lungs are hyperinflated. Bulla are present in the upper lobes. Increased density is present in the right middle and lower lobe consistent with atelectasis, unchanged compared to the previous study. A small right apical pneumothorax is present, unchanged compared to the previous study. The heart is normal in size. The pulmonary vasculature is normal in appearance. The bony structure is intact. A chest tube is present in the right hemithorax. IMPRESSION: 1. COPD. 2. Right middle and lower lobe atelectasis, unchanged compared to the previous study. 3. Small right apical pneumothorax, unchanged compared to the previous study. Signed by Nawaf Jose MD 01/26/2016 08:37 A
[2016-01-24] MEDS: MOM 30ML SUSPENSION UDC PO SCH (09:00)
[2016-01-24] MEDS ORDERED: SUCCINYLCHOLINE 100 MG/5 ML SYRINGE (J0330) As Ordered ONE (09:10)
[2016-01-24] MEDS ORDERED: ONDANSETRON 4MG/2ML VIAL (J2405) As Ordered ONE (09:10)
[2016-01-24] MEDS ORDERED: PROPOFOL 200 MG/20 ML VIAL As Ordered ONE (09:10)
[2016-01-24] MEDS ORDERED: LIDOCAINE 2% INJ 100 MG/5 ML SDV (FOR ANES.) As Ordered ONE (09:10)
[2016-01-24] MEDS ORDERED: MIDAZOLAM INJ 2 MG/2 ML VIAL (J2250) As Ordered ONE (09:11)
[2016-01-24] MEDS ORDERED: fentaNYL 100 MCG/2 ML INJECTION (J3010) As Ordered ONE (09:11)
[2016-01-24] MEDS ORDERED: KETAMINE HCL 200 MG/20 ML VIAL As Ordered ONE (09:15)
[2016-01-24] MEDS ORDERED: EPINEPHrine 1MG/10ML SYRINGE 1.5IN As Ordered ONE (09:34)
[2016-01-24] MEDS ORDERED: LIDOCAINE 1% SDV INJ 30 ML VIAL As Ordered ONE (09:43)
[2016-01-24] MEDS ORDERED: LR 1,000 ML IV SCH (11:00)
[2016-01-24] MEDS ORDERED: fentaNYL 100 MCG/2 ML INJECTION (J3010) IV PRN (11:00)
[2016-01-24] MEDS ORDERED: PERCOCET 5MG/325MG TAB PO PRN (11:00)
[2016-01-24] MEDS ORDERED: ONDANSETRON 4MG/2ML VIAL (J2405) IV PRN (11:00)
--- NOTE | 2016-01-24 12:30 | REP ---
PA AND LATERAL CHEST: 01/24/2016. Comparison: 01/22, 01/21 and 01/21/2016. Clinical history: Pneumothorax. Findings: Right apex chest tube is again seen. There is a tiny right apical pneumothorax suggested, very difficult to evaluate in the setting of advanced COPD, fibrosis and some apical pleural thickening. There is severe bullous emphysematous changes with giant bulla in both upper lung zones, left worse than right. Extensive airspace opacity in the superior segment of the right lower lobe at the level of the hilum and with some chronic atelectatic change in the perihilar region extending toward the periphery on the frontal view along with fibrosis and linear scarring in the left mid lung zone and hyperinflation throughout both lung zones from advanced COPD. Pulmonary hypertension is again seen. No new or superimposed findings. Impression: 1. No significant interval change, tiny right apical pneumothorax seen with right chest tube as before. No other change. Signed by Dominick Chavira MD 01/24/2016 07:34 P
[2016-01-24] MEDS: BENZONATATE 100 MG CAP PO SCH ×3 (13:10→21:14)
[2016-01-24] MEDS: predniSONE 10 MG TAB PO SCH (13:10)
[2016-01-24] MEDS: LACTOBACILLUS ACIDOPHILUS CAP (BACID) PO SCH (13:10)
[2016-01-24] MEDS: ASCORBIC ACID 250 MG TAB PO SCH ×3 (13:10→21:14)
[2016-01-24] MEDS: PANTOPRAZOLE 40MG TAB (PROTONIX) PO SCH (13:11)
[2016-01-24] MEDS: FLECAINIDE 50MG TABLET PO SCH ×2 (13:11→21:14)
[2016-01-24] MEDS: MULTIVITAMINS/MINERALS THERAP 1 TAB PO SCH (13:11)
[2016-01-24] MEDS: DULoxetine 20 MG CAP (CYMBALTA) PO SCH (13:11)
[2016-01-24] MEDS: DOCUSATE SODIUM 100 MG CAP PO SCH ×2 (13:11→21:14)
[2016-01-24] MEDS: HEPARIN SOD (PORCINE) 5000 UNITS/ML VIAL SC SCH ×2 (13:11→21:15)
[2016-01-24] MEDS: FLUTICASONE PROP 0.05% NASAL SPRAY 16 GM (FLONASE) SCH (13:12)
[2016-01-24] MEDS: VITAMIN D 1,000 INTERNATIONAL UNITS TABLET PO SCH (13:16)
[2016-01-24] MEDS: LevoFLOXacin 500 MG TABLET PO SCH (21:14)
[2016-01-25] MEDS: LEVALBUTEROL 1.25 MG/0.5 ML CONCENTRATE NEB NEB SCH ×4 (02:48→20:00)
[2016-01-25] MEDS: KETOROLAC 30 MG/ML VIAL (J1885) IV SCH ×2 (03:47→09:20)
[2016-01-25] MEDS: SLF 3 ML SYR IV PRN (03:48)
[2016-01-25 05:26] LABS: BASO % 0.5 % (0.0-1.0); EOS % 1.1 % (0.0-3.0); LARGE UNSTAINED CELL # 0.1 K/mm3 (0.0-0.4); LARGE UNSTAINED CELL % 2.1 % (0.0-4.0); LYMPH # 0.4 K/mm3 (1.5-4.5); MEAN CORPUSCULAR HEMOGLOBIN 31.7 pg (27.0-33.0); MEAN CORPUSCULAR HGB CONC 30.5 g/dl (32.0-36.5); MEAN CORPUSCULAR VOLUME 104.1 fl (80.0-96.0); MONO # 0.2 K/mm3 (0.0-0.8); MONO % 4.2 % (0.0-5.0); NEUTROPHILS % 83.2 % (36.0-66.0); PLATELET COUNT, AUTOMATED 382 k/mm3 (150-450); RED CELL DISTRIBUTION WIDTH 15.2 % (11.5-14.5); WHITE BLOOD COUNT 4.8 K/mm3 (4.0-10.0)
[2016-01-25 05:35] LABS: ANION GAP 8 MEQ/L (8-16); BLOOD UREA NITROGEN 6 MG/DL (7-18); CALCIUM LEVEL 8.6 MG/DL (8.8-10.2); CARBON DIOXIDE LEVEL 32 MEQ/L (21-32); CHLORIDE LEVEL 103 MEQ/L (98-107); CREATININE FOR GFR 0.42 MG/DL (0.55-1.02); GLOMERULAR FILTRATION RATE > 60.0 (>45); GLUCOSE, FASTING 94 MG/DL (80-110); SODIUM LEVEL 143 MEQ/L (136-145)
[2016-01-25] MEDS: SLF 3 ML SYR IV SCH ×3 (06:51→21:16)
[2016-01-25] MEDS: ADVAIR DISKUS 500/50 INH PWD INH SCH ×2 (07:16→20:08)
[2016-01-25] MEDS: TIOTROPIUM INHALER/CAPSULE (SPIRIVA) INH SCH (07:16)
[2016-01-25 08:00] VITALS: BP 115/55
[2016-01-25] MEDS: MOM 30ML SUSPENSION UDC PO SCH (09:00)
--- NOTE | 2016-01-25 09:02 | REP ---
CHEST, PA AND LATERAL: 01/24/2016. Clinical history: Right pneumothorax, chest tube. Findings: A single chest tube towards the right apex again noted. The tiny right apical pneumothorax is visible when magnified measuring about 5 mm air gap in the medial apex. Extensive bullous emphysematous change throughout the lungs with giant bulla in both upper lung zones, left more than right. Extensive perihilar opacity with fibrosis, consolidation and linear atelectatic or fibrotic change right mid lung zone, all stable from previous studies. Blunting right CP angle on the frontal view suggesting scar. No new or superimposed findings. Heart, mediastinal and hilar contours unchanged with pulmonary artery hypertension. Impression: 1. A right apex chest tube, unchanged in position with a tiny apical pneumothorax about 5 mm thick that may vary a few millimeters day to day, but is not completely resolved. No other changes of the extensive chronic findings. Signed by Dominick Chavira MD 01/25/2016 06:51 P
[2016-01-25] MEDS: FLECAINIDE 50MG TABLET PO SCH ×2 (09:19→21:14)
[2016-01-25] MEDS: PANTOPRAZOLE 40MG TAB (PROTONIX) PO SCH (09:19)
[2016-01-25] MEDS: DOCUSATE SODIUM 100 MG CAP PO SCH ×2 (09:19→21:14)
[2016-01-25] MEDS: BENZONATATE 100 MG CAP PO SCH ×3 (09:19→21:15)
[2016-01-25] MEDS: ASCORBIC ACID 250 MG TAB PO SCH ×3 (09:19→21:14)
[2016-01-25] MEDS: predniSONE 10 MG TAB PO SCH (09:19)
[2016-01-25] MEDS: MULTIVITAMINS/MINERALS THERAP 1 TAB PO SCH (09:19)
[2016-01-25] MEDS: DULoxetine 20 MG CAP (CYMBALTA) PO SCH (09:19)
[2016-01-25] MEDS: LACTOBACILLUS ACIDOPHILUS CAP (BACID) PO SCH (09:19)
[2016-01-25] MEDS: ALENDRONATE 70 MG TABLET (FOSAMAX) PO SCH (09:19)
[2016-01-25] MEDS: VITAMIN D 1,000 INTERNATIONAL UNITS TABLET PO SCH (09:19)
[2016-01-25] MEDS: FLUTICASONE PROP 0.05% NASAL SPRAY 16 GM (FLONASE) SCH (09:21)
[2016-01-25] MEDS: HEPARIN SOD (PORCINE) 5000 UNITS/ML VIAL SC SCH ×2 (09:21→21:14)
--- NOTE | 2016-01-25 10:14 | REP ---
CHEST, PA AND LATERAL: 01/25/2016. Clinical history: Pneumothorax follow-up. Comparison: Chest x-rays 01/24/2016, 01/23/2016, 01/21/2016. Findings: Right apex chest tube again seen. There is a 5-6 mm air gap at the right apex grossly unchanged from yesterday and best seen with zoom magnification of the image in that right apex. The advanced, severe bullous emphysematous changes of chronic perihilar opacities right mid lung zone are stable. Other chronic changes also stable without finding or interval change. Signed by Dominick Chavira MD 01/25/2016 06:56 P
[2016-01-25] MEDS ORDERED: KETOROLAC 30 MG/ML VIAL (J1885) IV PRN ×2 (10:15→15:00)
[2016-01-25 12:00] VITALS: BP 104/55
--- NOTE | 2016-01-25 13:21 | IPN ---
DATE: 01/24/2016 Ms. Harrison is still leaking, it is less than she was this morning, however. Dr. Mckeon and I took her to the operating room where she underwent a bronchial localization, which showed the posterior segmental bronchus of the upper lobe was the culprit where the leak was emanating. This was also the same bronchus where she has a necrotizing pneumonia. Tisseel glue was injected with diminution of her air leak. It did not completely clear, however. Her vital signs show a maximum temperature (T max) of 98.9 with a heart rate that ranges between 107 and 98 in a sinus rhythm, a respiratory rate of 18 to 20 without the use of accessory muscles who 96% saturated on 4 liters nasal cannula and a blood pressure that is ranging between 108/59 to 126/58. Her intake and output over the past 24 hours has been recorded as 1740 in and 1050 out for a positivity of 690 mL. She put out 100 mL from the chest tube this morning. Her weight today is 52.5 kg compared to 52.3 kg yesterday. PHYSICAL EXAMINATION: LUNGS: Her lungs show adventitial sounds consistent with a large air leak. Percussion note is full to the diaphragm. There is no subcutaneous emphysema on the chest wall. CARDIAC: Exam is without murmurs, clicks, gallops or rubs. I cannot feel her point of maximum impulse (PMI). S1, S2 are normal. ABDOMEN: Soft and nontender. Bowel sounds are positive. There is no hepatomegaly. No costovertebral angle tenderness. EXTREMITIES: Show no pretibial edema. No calf tenderness. No differential swelling of the upper extremities. SKIN: Warm, dry and perfused without cyanosis or mottling, including that of the nail beds and the knees. NECK: Supple. There is no jugular venous distention. No subcutaneous emphysema. Trachea is midline. Mouth shows her mucous membranes to be pink and moist. Lips and commissures without lesions. There is no thrush. Eyes show her pupils to be equal and reactive. Extraocular motions intact. Sclerae anicteric. NEUROLOGIC: Shows II-XII intact, along with gross motor and gross sensation intact. Gait is not tested. PSYCHIATRIC: Shows her to be awake and alert, oriented times three with appropriate mood and affect and conversational. Her white count today is 5.3 with a hemoglobin and hematocrit of 8.7 and 28.8 and a platelet count of 349 and stable. Differential that shows 86% neutrophils, 6% lymphocytes and 4% monocytes. There are no immature forms. No toxic granulations. Her electrolytes are normal except for a marginally high CO2 of 33. BUN and creatinine are 8 and 0.5, glucose of 90 and a calcium of 8.9. Her chest x-ray shows the lung fully expanded to the chest wall. There is the posterior segmental infiltrate of the right upper lobe. Costophrenic angles are fairly sharp. There is no subcutaneous emphysema. IMPRESSION: 1. Recurrent right pneumothorax with bronchopleural fistula. 2. Chronic obstructive pulmonary disease, severe. 3. Osteoporosis. 4. Uterine cancer, presently undergoing chemotherapy. 5. Depression. 6. Necrotizing pneumonia. PLAN AND DISCUSSION: As noted above, we will await to see if her air leak now stops after taking her to the operating room and doing the bronchial obliteration and gluing.
[2016-01-25 16:00] VITALS: BP 103/54
[2016-01-25] MEDS: PERCOCET 5MG/325MG TAB PO PRN ×2 (16:33→21:15)
[2016-01-25 20:00] VITALS: BP 102/58
[2016-01-25] MEDS: LevoFLOXacin 500 MG TABLET PO SCH (21:15)
[2016-01-26] VITALS (7 sets, daily range): BP systolic 100–118; BP diastolic 52–66
[2016-01-26] MEDS: LEVALBUTEROL 1.25 MG/0.5 ML CONCENTRATE NEB NEB SCH ×4 (01:37→19:31)
[2016-01-26 05:53] LABS: BASO % 0.9 % (0.0-1.0); EOS # 0.1 K/mm3 (0.0-0.50); EOS % 2.1 % (0.0-3.0); LARGE UNSTAINED CELL # 0.1 K/mm3 (0.0-0.4); LARGE UNSTAINED CELL % 2.2 % (0.0-4.0); LYMPH # 0.7 K/mm3 (1.5-4.5); LYMPH % 12.1 % (24.0-44.0); MEAN CORPUSCULAR HEMOGLOBIN 31.2 pg (27.0-33.0); MEAN CORPUSCULAR HGB CONC 29.8 g/dl (32.0-36.5); MEAN CORPUSCULAR VOLUME 104.7 fl (80.0-96.0); MONO # 0.2 K/mm3 (0.0-0.8); NEUTROPHILS # 3.6 K/mm3 (1.8-7.7); NEUTROPHILS % 77.7 % (36.0-66.0); PLATELET COUNT, AUTOMATED 379 k/mm3 (150-450); RED CELL DISTRIBUTION WIDTH 16.3 % (11.5-14.5); WHITE BLOOD COUNT 4.6 K/mm3 (4.0-10.0)
[2016-01-26 06:01] LABS: ANION GAP 7 MEQ/L (8-16); BLOOD UREA NITROGEN 7 MG/DL (7-18); CALCIUM LEVEL 8.8 MG/DL (8.8-10.2); CARBON DIOXIDE LEVEL 34 MEQ/L (21-32); CHLORIDE LEVEL 103 MEQ/L (98-107); GLOMERULAR FILTRATION RATE > 60.0 (>45); GLUCOSE, FASTING 82 MG/DL (80-110); POTASSIUM SERUM 4.4 MEQ/L (3.5-5.1); SODIUM LEVEL 144 MEQ/L (136-145)
[2016-01-26] MEDS: PERCOCET 5MG/325MG TAB PO PRN ×2 (06:12→20:47)
[2016-01-26] MEDS: SLF 3 ML SYR IV SCH ×3 (06:13→20:47)
[2016-01-26] MEDS: TIOTROPIUM INHALER/CAPSULE (SPIRIVA) INH SCH (07:34)
[2016-01-26] MEDS: ADVAIR DISKUS 500/50 INH PWD INH SCH ×2 (07:34→19:31)
--- NOTE | 2016-01-26 07:59 | RO ---
DATE OF PROCEDURE: 01/24/2016 PREPROCEDURE DIAGNOSIS: Bronchopleural fistula. POSTPROCEDURE DIAGNOSIS: Bronchopleural fistula. PROCEDURE: Fiberoptic bronchoscopy with installation of 6 mL of Fisseel glue into the anterior subsegment of the posterior segment of the right upper lobe following balloon occlusion maneuvers. SURGEON: Dr. Rick Mckeon. LIFTER/DRIVER: ANESTHESIA: ESTIMATED BLOOD LOSS: The patient was seen and the procedure explained to the patient as were all of the possible complications pertaining thereto. A written and informed consent were obtained and placed in the chart. The patient was brought to the operative suite, placed under conscious sedation. When the anesthetic had sufficient time to take effect, the left nares was topically anesthetized with Xylocaine and the bronchoscope prepared and placed in through the left nares and into the posterior pharynx. The epiglottis and vocal cords were visualized noted to be free of lesion, moving normally. The bronchoscope was placed through the vocal cords and into the trachea. The trachea was ectatic. Berenice was sharp. Airways of the left lung were examined in a subsegmental fashion for any evidence of tumor, ulcer, necrosis, vessel engorgement or mucosal irregularity. There was hypertrophy of mucus pits and copious tenacious albeit clear sputum appreciated. This was suctioned free. The bronchoscope was then retracted and reintroduced into the right main stem bronchus. The right lung was examined in a similar fashion to the left with similar findings. The upper lobe was cannulated and using an occluder balloon, sequential subsegmental occlusion was performed throughout the segments of the right upper lobe. When occluding the anterior most subsegment of the posterior segment of the right upper lobe, a significant reduction in air through the patient's chest tube was identified. This maneuver was repeated to confirm this finding. Having confirmed the area of significant leak, the balloon catheter was removed and an infusion catheter placed into the same segment. Using direct visualization after photographs were taken, the catheter was placed distally into the anterior most segment of the posterior segment of the right upper lobe and 6 mL of Fisseel glue was slowly introduced while the catheter was being withdrawn. The catheter was fully withdrawn and allowed to remain in position for a short time. The catheter was then removed out through the bronchoscope and the bronchoscope retracted out through the patient's nose. The bronchoscope was reintroduced and the area inspected and photographs taken. Near total occlusion of the posterior segment was identified with a small amount of material laying on the lateral wall of the right upper lobe bronchus. The anterior segment of the right upper lobe and the apical segment remained patent. The bronchoscope was then retracted out through the patient's nose. She tolerated the procedure well, suffered no apparent complication and is in stable condition in the recovery room. OLIVER
[2016-01-26] MEDS: MOM 30ML SUSPENSION UDC PO SCH (09:00)
[2016-01-26] MEDS: FLUTICASONE PROP 0.05% NASAL SPRAY 16 GM (FLONASE) SCH (09:03)
[2016-01-26] MEDS: VITAMIN D 1,000 INTERNATIONAL UNITS TABLET PO SCH (09:04)
[2016-01-26] MEDS: DULoxetine 20 MG CAP (CYMBALTA) PO SCH (09:04)
[2016-01-26] MEDS: predniSONE 10 MG TAB PO SCH (09:04)
[2016-01-26] MEDS: DOCUSATE SODIUM 100 MG CAP PO SCH ×2 (09:04→20:46)
[2016-01-26] MEDS: BENZONATATE 100 MG CAP PO SCH ×3 (09:04→20:46)
[2016-01-26] MEDS: ASCORBIC ACID 250 MG TAB PO SCH ×3 (09:04→20:46)
[2016-01-26] MEDS: MULTIVITAMINS/MINERALS THERAP 1 TAB PO SCH (09:05)
[2016-01-26] MEDS: PANTOPRAZOLE 40MG TAB (PROTONIX) PO SCH (09:05)
[2016-01-26] MEDS: HEPARIN SOD (PORCINE) 5000 UNITS/ML VIAL SC SCH ×2 (09:05→20:47)
[2016-01-26] MEDS: FLECAINIDE 50MG TABLET PO SCH ×2 (09:05→20:46)
[2016-01-26] MEDS: LACTOBACILLUS ACIDOPHILUS CAP (BACID) PO SCH (09:06)
--- NOTE | 2016-01-26 10:00 | REP ---
CHEST X-RAY: TWO VIEWS. History: Pneumothorax. Comparison chest x-ray January 25, 2016. Findings: A right apical chest tube is again seen. There is perihilar plate-like atelectasis on the right and some linear fibrosis in the perihilar region on the left. The lungs are hyperinflated bilaterally consistent with COPD with upper lobe emphysema. I cannot resolve the small pneumothorax noted on the previous day's radiograph. The EKG monitoring electrodes overlie the right apex. There is no evidence of large right-sided pneumothorax. There is a little less parenchymal opacification posteriorly in the right mid chest. No new infiltrate is seen. Signed by David Llamas MD 01/26/2016 01:09 P
[2016-01-26] MEDS: NORCO, ANEXSIA 5/325MG TABLET (HYDROcodone/ACETAMINOPHEN) PO PRN (13:06)
--- NOTE | 2016-01-26 13:53 | IPN ---
DATE OF SERVICE: 01/25/2016 Ms. Harrison still has an air leak. I perceive that it is smaller than it has been, but it is still quite prominent. She states that she has not coughed up anything unusual. Other than that, she is pain-free and not short of breath. Pain is being well controlled at the chest insertion site. Her vital signs show a maximum temperature (Tmax) of 98.3 with a heart rate that ranges between 57 and 99 in a sinus rhythm, a respiratory rate of 18-20 without the use of accessory muscles, who 96% to 98% saturated on 3 liters nasal cannula. Blood pressure is ranging between 84/51 to 115/55. Her intake and output over the past 24 hours has been recorded as 1120 in and 680 out for a positivity of 440 mL. She has put 80 mL out from the chest tube, and there is a moderate-sized air leak. She has only put out 10 mL today. Weight today is 51.6 kg compared to 52.5 kg yesterday. On physical examination, she has equal breath sounds on either side. They are both, however, markedly decreased. CARDIAC: Examination is without murmurs, clicks, gallops, or rubs. I cannot feel her point of maximum impulse (PMI). S1 and S2 are normal. ABDOMEN: Soft and nontender. Bowel sounds are positive. There is no hepatomegaly. No costovertebral angle tenderness. EXTREMITIES: Show no pretibial edema. No calf tenderness. No differential swelling of the upper extremities. SKIN: Warm, dry, and perfused without cyanosis or mottling, including that of the nail beds and the knees. NECK: Supple. There is no jugular venous distention. No subcutaneous emphysema. Trachea is midline. Mouth shows her mucous membranes to be pink and moist. Lips and commissures without lesions. There is no thrush. Eyes show her pupils to be equal and reactive. Extraocular motions intact. Sclerae anicteric. NEUROLOGIC: Shows II-XII intact, along with gross motor and gross sensation intact. Gait is not tested. PSYCHIATRIC: Shows her to be awake and alert, oriented times three with appropriate mood and affect and conversational. Her white count today is 4.8 with a hemoglobin and hematocrit of 8.7 and 28.5 with a platelet count of 382 and stable. Differential shows 83% neutrophils, 9% lymphocytes, and 4% monocytes. There are no immature forms. No toxic granulations. Her electrolytes are normal with a BUN and creatinine of 6 and 0.42 with a glucose of 94 and a calcium of 8.6. Her chest x-ray shows her lung fully expanded to the chest wall with maybe a 5 mm air space at the top. She has the posterior segmental upper lobe consolidation. IMPRESSION: 1. Bronchopleural fistula. 2. Chronic obstructive pulmonary disease. 3. Status post necrotizing pneumonia. 4. Osteoporosis. 5. Uterine cancer, presently undergoing chemotherapy. 6. Depression. PLAN AND DISCUSSION: Dr. Mckeon and I will take her back to the operating room tomorrow, where we will undertake yet another gluing of the posterior bronchus. We will completely fill the posterior segment and both subsegments completely with Tisseel glue, assuming that posterior segment is completely obliterated and necrotic. I will keep her on a chest tube. This is quite a problematic issue. If we cannot stop this air leak by bronchial occlusion, she is going to have to go home with a chest tube.
[2016-01-26] MEDS: LevoFLOXacin 500 MG TABLET PO SCH (20:46)
[2016-01-27] VITALS (7 sets, daily range): BP systolic 97–116; BP diastolic 57–64
[2016-01-27] MEDS: SLF 3 ML SYR IV SCH ×3 (05:26→20:09)
[2016-01-27] MEDS: PERCOCET 5MG/325MG TAB PO PRN ×3 (06:12→23:31)
--- NOTE | 2016-01-27 07:26 | IPN ---
DATE: 01/26/2016 Mrs. Harrison is still leaking. We took her off suction yesterday. She did not have any complaints of pressure or chest pain or shortness of breath. Nonetheless, with forceful cough, she still leaks. We were going to take her back down to the operating room today, however, we do not have the proper equipment at the present time and it is being delivered to the hospital tomorrow. She is breathing well and her pain is being well controlled at chest tube insertion site. Her vital signs show a T-max of 98.2 with a heart rate that ranges between 82-99 in sinus rhythm, respiratory rate is constant at 18 who is 98% saturated on 2 liters nasal cannula, and has blood pressures ranging between 102/65 to 118/56. Her intake and output over the past 24 hours has been recorded at 3300 in and 1745 out for a positivity of 1555 mL. She has put out 10 mL from the chest tube. She has put out 1735 mL in urine output. She weighs 46.9 kg today compared to 51.6 kg yesterday. On physical examination, her lungs show equal breath sounds on either side although they have both decreased. I can hear an air leak when she coughs. Percussion note is full to the diaphragm. Cardiac exam is without murmurs, clicks, gallops or rubs. I cannot feel her PMI. S1 and S2 are normal. Abdomen is soft, nontender, bowel sounds are positive. There is no hepatomegaly. No CVA tenderness. Extremities show no pretibial edema. No calf tenderness. No differential swelling of the upper extremities. Skin is warm, dry and perfused without cyanosis or mottling including that of the nail beds and knees. Neck is supple. There is no jugular venous distention. No subcutaneous emphysema. Trachea is midline. Mouth shows her mucous membranes to be pink and moist. Lips and commissures are without lesions. No thrush. Eyes show her pupils to be equal and reactive. Extraocular motor intact. Sclera anicteric. Neuro shows II through XII intact with gross motor and gross sensation intact. Gait is not tested. Psychiatric shows her to be awake and alert, oriented times three with appropriate mood and affect and conversational. Her white count today is 4.6 with hemoglobin and hematocrit of 9.3 and 31.1 increased from yesterday of 8.7 and 28.5. Platelet count is 379 and differential shows 77% neutrophils, 12% lymphocytes, 5% monocytes. There are no immature forms. No toxic granulations. Electrolytes are normal except for a marginally high CO2 of 34. BUN and creatinine are 7 and 0.50 with glucose of 82 and calcium of 8.8. Chest x-ray probably shows her lung fully expanded to the chest wall, though there is a line down the middle of the hemithorax. We saw the same line yesterday and it had lung markings beyond it. Today I cannot reliably demonstrate lung markings beyond the line, but it is quite discrete and loculated. The lateral chest x-ray does not show any air accumulation anteriorly. There is no subcutaneous emphysema either on the lateral or the PA views. IMPRESSION: 1. Necrotizing pneumonia. 2. Bronchopleural fistula. 3. Resultant right pneumothorax. 4. Depression. 5. Uterine cancer presently undergoing chemotherapy. 6. Osteoporosis. 7. Chronic obstructive pulmonary disease (COPD), severe. PLAN AND DISCUSSION: We will try re-gluing her bronchus tomorrow. The double lumen catheter to deliver the glue has got to be delivered to the hospital. She is doing very well otherwise.
[2016-01-27] MEDS: LEVALBUTEROL 1.25 MG/0.5 ML CONCENTRATE NEB NEB SCH ×3 (08:00→19:08)
[2016-01-27] MEDS: TIOTROPIUM INHALER/CAPSULE (SPIRIVA) INH SCH (08:08)
[2016-01-27] MEDS: ADVAIR DISKUS 500/50 INH PWD INH SCH ×2 (08:08→21:49)
[2016-01-27 09:00] LABS: BASO % 0.6 % (0.0-1.0); EOS # 0.1 K/mm3 (0.0-0.50); EOS % 2.6 % (0.0-3.0); LARGE UNSTAINED CELL # 0.1 K/mm3 (0.0-0.4); LARGE UNSTAINED CELL % 1.9 % (0.0-4.0); LYMPH # 0.6 K/mm3 (1.5-4.5); LYMPH % 10.5 % (24.0-44.0); MEAN CORPUSCULAR HEMOGLOBIN 30.8 pg (27.0-33.0); MEAN CORPUSCULAR HGB CONC 29.3 g/dl (32.0-36.5); MEAN CORPUSCULAR VOLUME 105.1 fl (80.0-96.0); MONO # 0.3 K/mm3 (0.0-0.8); MONO % 5.7 % (0.0-5.0); NEUTROPHILS # 4.2 K/mm3 (1.8-7.7); NEUTROPHILS % 78.6 % (36.0-66.0); PLATELET COUNT, AUTOMATED 372 k/mm3 (150-450); RED CELL DISTRIBUTION WIDTH 16.4 % (11.5-14.5); WHITE BLOOD COUNT 5.3 K/mm3 (4.0-10.0)
[2016-01-27] MEDS: MOM 30ML SUSPENSION UDC PO SCH (09:00)
[2016-01-27 09:23] LABS: ANION GAP 8 MEQ/L (8-16); BLOOD UREA NITROGEN 7 MG/DL (7-18); CALCIUM LEVEL 8.9 MG/DL (8.8-10.2); CARBON DIOXIDE LEVEL 33 MEQ/L (21-32); CHLORIDE LEVEL 103 MEQ/L (98-107); CREATININE FOR GFR 0.43 MG/DL (0.55-1.02); GLOMERULAR FILTRATION RATE > 60.0 (>45); GLUCOSE, FASTING 94 MG/DL (80-110); POTASSIUM SERUM 4.2 MEQ/L (3.5-5.1); SODIUM LEVEL 144 MEQ/L (136-145)
[2016-01-27] MEDS: VITAMIN D 1,000 INTERNATIONAL UNITS TABLET PO SCH (09:40)
[2016-01-27] MEDS: DULoxetine 20 MG CAP (CYMBALTA) PO SCH (09:40)
[2016-01-27] MEDS: BENZONATATE 100 MG CAP PO SCH ×3 (09:40→20:08)
[2016-01-27] MEDS: predniSONE 10 MG TAB PO SCH (09:40)
[2016-01-27] MEDS: ASCORBIC ACID 250 MG TAB PO SCH ×3 (09:40→20:08)
[2016-01-27] MEDS: LACTOBACILLUS ACIDOPHILUS CAP (BACID) PO SCH (09:40)
[2016-01-27] MEDS: DOCUSATE SODIUM 100 MG CAP PO SCH ×2 (09:41→20:08)
[2016-01-27] MEDS: HEPARIN SOD (PORCINE) 5000 UNITS/ML VIAL SC SCH ×2 (09:41→20:09)
[2016-01-27] MEDS: PANTOPRAZOLE 40MG TAB (PROTONIX) PO SCH (09:41)
[2016-01-27] MEDS: FLECAINIDE 50MG TABLET PO SCH ×2 (09:41→20:08)
[2016-01-27] MEDS: MULTIVITAMINS/MINERALS THERAP 1 TAB PO SCH (09:41)
[2016-01-27] MEDS: FLUTICASONE PROP 0.05% NASAL SPRAY 16 GM (FLONASE) SCH (09:47)
--- NOTE | 2016-01-27 09:47 | REP ---
TWO VIEW CHEST: Two views of the chest are performed and compared with a prior study of 01/26/2016. Scattered fibrotic changes are again seen in the left lung as well as bilateral upper lobe emphysematous change. A band of parenchymal opacity in the right mid lung is unchanged. Cardiomediastinal silhouette is unchanged. There is a right chest tube with no significant pneumothorax identified. IMPRESSION: Stable exam. Signed by Kory Peña MD 01/27/2016 01:06 P
[2016-01-27] MEDS ORDERED: KETAMINE HCL 200 MG/20 ML VIAL As Ordered ONE (14:52)
[2016-01-27] MEDS ORDERED: MIDAZOLAM INJ 2 MG/2 ML VIAL (J2250) As Ordered ONE (15:23)
[2016-01-27] MEDS ORDERED: LIDOCAINE 2% MDV 20 ML VIAL As Ordered ONE (15:25)
[2016-01-27] MEDS ORDERED: LIDOCAINE VISCOUS 2% SOLN 15ML UDC As Ordered ONE (15:25)
[2016-01-27] MEDS ORDERED: EPINEPHrine 1MG/10ML SYRINGE 1.5IN As Ordered ONE (15:25)
[2016-01-27] MEDS: LevoFLOXacin 500 MG TABLET PO SCH (20:08)
[2016-01-28 00:54] VITALS: BP 100/59
[2016-01-28] MEDS: LEVALBUTEROL 1.25 MG/0.5 ML CONCENTRATE NEB NEB SCH ×4 (02:00→20:00)
[2016-01-28 05:33] VITALS: BP 116/67
[2016-01-28] MEDS: SLF 3 ML SYR IV SCH ×3 (05:49→21:06)
[2016-01-28] MEDS: PERCOCET 5MG/325MG TAB PO PRN ×4 (06:15→21:52)
[2016-01-28] MEDS: TIOTROPIUM INHALER/CAPSULE (SPIRIVA) INH SCH (07:28)
[2016-01-28 07:44] VITALS: BP 110/59
[2016-01-28] MEDS: DULoxetine 20 MG CAP (CYMBALTA) PO SCH (08:30)
[2016-01-28] MEDS: DOCUSATE SODIUM 100 MG CAP PO SCH ×2 (08:30→21:00)
[2016-01-28] MEDS: LACTOBACILLUS ACIDOPHILUS CAP (BACID) PO SCH (08:30)
[2016-01-28] MEDS: MULTIVITAMINS/MINERALS THERAP 1 TAB PO SCH (08:31)
[2016-01-28] MEDS: VITAMIN D 1,000 INTERNATIONAL UNITS TABLET PO SCH (08:31)
[2016-01-28] MEDS: PANTOPRAZOLE 40MG TAB (PROTONIX) PO SCH (08:31)
[2016-01-28] MEDS: MOM 30ML SUSPENSION UDC PO SCH (08:31)
[2016-01-28] MEDS: BENZONATATE 100 MG CAP PO SCH ×3 (08:31→21:06)
[2016-01-28] MEDS: FLECAINIDE 50MG TABLET PO SCH ×2 (08:31→21:05)
[2016-01-28] MEDS: predniSONE 10 MG TAB PO SCH (08:31)
[2016-01-28] MEDS: ASCORBIC ACID 250 MG TAB PO SCH ×3 (08:31→21:06)
[2016-01-28] MEDS: HEPARIN SOD (PORCINE) 5000 UNITS/ML VIAL SC SCH ×2 (08:32→21:05)
[2016-01-28] MEDS: FLUTICASONE PROP 0.05% NASAL SPRAY 16 GM (FLONASE) SCH (09:10)
--- NOTE | 2016-01-28 09:23 | REP ---
TWO-VIEW CHEST: Two views of the chest are performed and compared to a prior study of 01/27/2016. The right chest tube remains in place. I do not see a significant pneumothorax. A band-like opacity in the right perihilar region is unchanged. Bilateral fibrotic changes are stable. The cardiomediastinal silhouette is unchanged. IMPRESSION: Stable exam. Signed by Kory Peña MD 01/28/2016 02:03 P
[2016-01-28] MEDS: ADVAIR DISKUS 500/50 INH PWD INH SCH ×2 (10:01→20:36)
[2016-01-28 11:16] LABS: ANION GAP 4 MEQ/L (8-16); BLOOD UREA NITROGEN 9 MG/DL (7-18); CARBON DIOXIDE LEVEL 37 MEQ/L (21-32); CHLORIDE LEVEL 100 MEQ/L (98-107); CREATININE FOR GFR 0.57 MG/DL (0.55-1.02); GLOMERULAR FILTRATION RATE > 60.0 (>45); GLUCOSE, FASTING 90 MG/DL (80-110); SODIUM LEVEL 141 MEQ/L (136-145)
[2016-01-28 11:38] LABS: BASO % 0.2 % (0.0-1.0); EOS # 0.1 K/mm3 (0.0-0.50); EOS % 0.8 % (0.0-3.0); LARGE UNSTAINED CELL # 0.1 K/mm3 (0.0-0.4); LARGE UNSTAINED CELL % 0.6 % (0.0-4.0); LYMPH # 0.3 K/mm3 (1.5-4.5); LYMPH % 3.3 % (24.0-44.0); MEAN CORPUSCULAR HEMOGLOBIN 31.8 pg (27.0-33.0); MEAN CORPUSCULAR HGB CONC 30.4 g/dl (32.0-36.5); MEAN CORPUSCULAR VOLUME 104.6 fl (80.0-96.0); MONO # 0.3 K/mm3 (0.0-0.8); MONO % 3.3 % (0.0-5.0); NEUTROPHILS # 7.5 K/mm3 (1.8-7.7); NEUTROPHILS % 91.8 % (36.0-66.0); PLATELET COUNT, AUTOMATED 427 k/mm3 (150-450); RED CELL DISTRIBUTION WIDTH 15.6 % (11.5-14.5); WHITE BLOOD COUNT 8.1 K/mm3 (4.0-10.0)
[2016-01-28 12:00] VITALS: BP 102/60
[2016-01-28 12:02] LABS: ADD MORPHOLOGY? YES
[2016-01-28 12:21] LABS: HYPOCHROMASIA 2+
[2016-01-28 12:22] LABS: ANISOCYTOSIS 2+; OVALOCYTES 1+; POLYCHROMASIA 1+
[2016-01-28 15:45] VITALS: BP 111/55
--- NOTE | 2016-01-28 19:09 | IPN ---
DATE: 01/27/2016 Mrs. Harrison continues to leak and we are going to bring her down to the operating room (OR) to reapply glue to the posterior segment. She is leaking less. She remains off suction and her lung is up to the chest wall. Her vital signs show a T-max of 99.4, with a heart rate that ranges between 88 and 111 in a sinus rhythm, a respiratory rate of 18 to 22 without the use of accessory muscles who is 98% saturated on 2 liters nasal cannula. Blood pressure is ranging between 98/58 to 116/58. Intake and output the past 24 hours has been recorded as 1320 in and 1485 out for a negativity of 165 mL. She has put out 10 mL from the chest tube. Weight today is 50.1 kg compared to 46.9 kg yesterday. On physical examination, she has equal breath sounds on either side. I can hear the air leak on the right side. Percussion note is full to the diaphragm. I feel no subcutaneous emphysema. Cardiac Exam: Without murmurs, clicks, gallops, or rubs. I cannot feel her PMI. S1, S2 are normal. Abdomen: Soft. Nontender. Bowel sounds are positive. There is no hepatomegaly. No costovertebral angle (CVA) tenderness. Extremities: Show no pretibial edema. No calf tenderness. No differential swelling of the upper extremities. Skin: Warm, dry and perfused. Without cyanosis or mottling, including that of the nail beds and knees. Neck: Supple. There is no jugular venous distention. No subcutaneous emphysema. Trachea is midline. Mouth: Shows her mucous membranes to be pink and moist. Lips and commissures are without lesions. There is no thrush. Eyes: Show her pupils to be equal and reactive. Extraocular movements intact. Sclerae nonicteric. Neurologic: Shows II-XII intact along with gross motor and gross sensation intact. Gait is not tested. Psychiatric shows her to be awake, alert, and oriented times three with appropriate mood and affect and conversational. Her white count today is 5.3 with a hemoglobin and hematocrit of 9.6 and 32.6, essentially unchanged from yesterday. Platelet count is 372. Her differential shows 78% neutrophils, 10% lymphocytes and 5% monocytes. There are no immature forms and no toxic granulations. Her electrolytes today are normal with a BUN and creatinine of 7 and 0.43. Glucose is 94 with a calcium of 8.9. There are no blood gases on her today. Her chest x-ray today shows the lung fully expanded to the chest wall. I see no pneumothorax. She has the necrotizing pneumonia and consolidation in the posterior segment of the upper lobe. Costophrenic angles are sharp. IMPRESSION: 1. Bronchopleural fistula. 2. Necrotizing pneumonia. 3. Resultant right pneumothorax. 4. Depression. 5. Uterine cancer, presently undergoing chemotherapy. 6. Osteoporosis. 7. Chronic obstructive pulmonary disease. PLAN AND DISCUSSION: As noted above, Dr. Mckeon and I are going to take her to the operating room later today and undertake a reocclusion of her posterior segment subsegmental bronchi in order to stop her air leak. Will keep her chest tube off suction so long as the lung remains applied to the chest wall.
[2016-01-28 20:00] VITALS: BP 108/64
[2016-01-28] MEDS: LevoFLOXacin 500 MG TABLET PO SCH (21:05)
--- NOTE | 2016-01-28 23:30 | REPUSA ---
HISTORY: Shortness of breath TECHNIQUE : Frontal and lateral radiograph views of the chest were obtained. COMPARISON : Chest x-ray 01/11/2016 FINDINGS: Cardiac silhouette within normal limits. Grossly stable inferior right upper lobe/perihilar opacity w ith associated atelectasis. Increased lucency left upper lobe which may be secondary to emphysematous or bullous changes. No definitive pneumothorax. Osseous structures demonstrate no acute displaced fracture, destructive lesion, or compression deform ity. Soft tissues demonstrate no suspicious focal abnormalities. No evidence of gross subdiaphragmatic jason e air. Lines and devices : Stable right apical directed chest tube. IMPRESSION: Stable inferior right upper lobe perihilar opacity for which further evaluation with CT chest is zaina mmended to exclude possibility of neoplasm. Thank you for the kind referral of this patient.
[2016-01-29 00:31] VITALS: BP 105/66
[2016-01-29] MEDS: LEVALBUTEROL 1.25 MG/0.5 ML CONCENTRATE NEB NEB SCH ×4 (01:26→20:00)
[2016-01-29 04:00] VITALS: BP 117/67
[2016-01-29 05:38] LABS: MEAN CORPUSCULAR HEMOGLOBIN 32.4 pg (27.0-33.0); MEAN CORPUSCULAR VOLUME 104.4 fl (80.0-96.0); RED CELL DISTRIBUTION WIDTH 15.7 % (11.5-14.5); WHITE BLOOD COUNT 5.2 K/mm3 (4.0-10.0)
[2016-01-29] MEDS: SLF 3 ML SYR IV SCH ×3 (06:07→21:20)
[2016-01-29] MEDS: PERCOCET 5MG/325MG TAB PO PRN (06:08)
[2016-01-29 07:05] VITALS: BP 114/65
--- NOTE | 2016-01-29 07:14 | RO ---
DATE OF PROCEDURE: 01/27/2016 PREOPERATIVE DIAGNOSIS: Bronchopleural fistula. POSTOPERATIVE DIAGNOSIS: Bronchopleural fistula. PROCEDURE: Fiberoptic bronchoscopy with transbronchoscopic washing and balloon occlusion of the right upper lobe, followed by Tisseel glue application right upper lobe posterior segment. SURGEON: Rick Mckeon DO SEAFOOD PROCESSOR: ANESTHESIA: DESCRIPTION OF PROCEDURE: The patient was seen and the procedure explained to the patient as were all possible complications pertaining thereto. Written and informed consent were obtained and placed in the chart. Patient was brought to the operative suite, placed under conscious sedation using ketamine and Versed. When the anesthetic had sufficient time to take effect, the bronchoscope was placed in through the left nares into the posterior pharynx. The epiglottis and vocal cords were visualized and noted be free of lesion moving normally. The bronchoscope was placed through the vocal cords and into the trachea. The lwoell was sharp. The airways of the left lung were briefly evaluated. There was copious mucus this was suctioned free the right lung was examined in similar fashion was copious mucus again suctioned free. The right upper lobe was entered and the previous application of glue was observed. There was a flap of cement, which was removed with a biopsy forceps. One of two sub segments of the posterior segment of the right upper lobe remained occluded and the other a balloon-tip catheter was inserted and inflated with significant improvement in air leak. The balloon was deflated and reinflated in each segment of the right lung, right middle lobe, right lower lobe superior segment of the right lower lobe, anterior segment right upper lobe and apical segment right upper lobe. On none of these occasions did the air leak change significantly. When the balloon was inserted into the remaining patent segments of the posterior segment of right upper lobe, there was a significant reduction in bubbling in the Pleur-Evac. The balloon catheter was removed and glue instilling catheter was placed into the patent posterior segment. Slowly glue was infused and the catheter was slowly withdrawn. When the airway was completely occluded by the Tisseel glue, the catheter and bronchoscope were retracted out through the patient's nose. She tolerated procedure well, suffered no apparent complication. At this time, on waterseal, there is no air leak in the Pleur-Evac identified.
[2016-01-29] MEDS: ADVAIR DISKUS 500/50 INH PWD INH SCH ×2 (07:24→20:03)
[2016-01-29] MEDS: TIOTROPIUM INHALER/CAPSULE (SPIRIVA) INH SCH (07:24)
[2016-01-29] MEDS ORDERED: LIDOCAINE 1% MDV 20ML VIAL As Ordered ONE (08:21)
[2016-01-29] MEDS: LACTOBACILLUS ACIDOPHILUS CAP (BACID) PO SCH (08:24)
[2016-01-29] MEDS: FLECAINIDE 50MG TABLET PO SCH ×2 (08:25→21:20)
[2016-01-29] MEDS: MOM 30ML SUSPENSION UDC PO SCH (08:25)
[2016-01-29] MEDS: PANTOPRAZOLE 40MG TAB (PROTONIX) PO SCH (08:25)
[2016-01-29] MEDS: DOCUSATE SODIUM 100 MG CAP PO SCH ×2 (08:25→21:19)
[2016-01-29] MEDS: DULoxetine 20 MG CAP (CYMBALTA) PO SCH (08:25)
[2016-01-29] MEDS: predniSONE 10 MG TAB PO SCH (08:25)
[2016-01-29] MEDS: BENZONATATE 100 MG CAP PO SCH ×3 (08:26→21:20)
[2016-01-29] MEDS: ASCORBIC ACID 250 MG TAB PO SCH ×3 (08:26→21:19)
[2016-01-29] MEDS: VITAMIN D 1,000 INTERNATIONAL UNITS TABLET PO SCH (08:26)
[2016-01-29] MEDS: HEPARIN SOD (PORCINE) 5000 UNITS/ML VIAL SC SCH (08:26)
[2016-01-29] MEDS: MULTIVITAMINS/MINERALS THERAP 1 TAB PO SCH (08:26)
[2016-01-29] MEDS: FLUTICASONE PROP 0.05% NASAL SPRAY 16 GM (FLONASE) SCH (08:27)
--- NOTE | 2016-01-29 08:52 | REP ---
TWO VIEW CHEST: Two views of the chest performed and compared to a prior study of 01/28/2016. Right chest tube remains in place. I do not see a significant pneumothorax. Bilateral parenchymal opacities are unchanged. The cardiomediastinal silhouette is unchanged. IMPRESSION: Stable exam. Signed by Kory Peña MD 01/29/2016 04:40 P
[2016-01-29 10:55] LABS: ALBUMIN 2.5 GM/DL (3.2-5.2); ALBUMIN/GLOBULIN RATIO 0.81 (1.00-1.93); ALKALINE PHOSPHATASE 59 U/L (45-117); ALT/SGPT 19 U/L (12-78); ANION GAP 7 MEQ/L (8-16); AST/SGOT 18 U/L (15-37); BILIRUBIN,TOTAL 0.3 MG/DL (0.2-1.0); BLOOD UREA NITROGEN 10 MG/DL (7-18); CALCIUM LEVEL 8.6 MG/DL (8.8-10.2); CARBON DIOXIDE LEVEL 35 MEQ/L (21-32); CHLORIDE LEVEL 101 MEQ/L (98-107); CHOLESTEROL LEVEL 172 MG/DL (< 200); CREATININE FOR GFR 0.52 MG/DL (0.55-1.02); GLOMERULAR FILTRATION RATE > 60.0 (>45); GLUCOSE, FASTING 85 MG/DL (80-110); PHOSPHORUS LEVEL 2.9 MG/DL (2.5-4.9); SODIUM LEVEL 143 MEQ/L (136-145); TOTAL PROTEIN 5.6 GM/DL (6.4-8.2); TRIGLYCERIDES LEVEL 170 MG/DL (<150)
[2016-01-29 12:00] VITALS: BP 112/60
--- NOTE | 2016-01-29 13:43 | IPN ---
DATE: 01/28/2016 Ms. Harrison is not leaking from her chest tube today. She is feeling a bit more subjectively short of breath and I can see that just in speaking with her. She is complaining of some pain at the chest tube insertion site. The big news is that she is not leaking however. Her vital signs show a T-max of 99.0 and now 97.8. Heart rate ranges between 84 to 100 in a sinus rhythm with a respiratory rate of 17 to 20 without the use of accessory muscles who is 97% saturated with an increasing oxygen requirement of 4 liters per minute. Her blood pressure is 110/59 two 102/57. Her intake and output the past 24 hours has been recorded as nothing in as she was nothing by mouth yesterday and 980 out for a negativity of 980 mL. She put 5 mL out the chest tube. Weight today is 49.8 kg compared to 50.1 kg yesterday. On physical examination, lungs show equally decreased breath sounds on either side. Percussion notes are full to the diaphragm. Cardiac exam is without murmurs, clicks, gallops or rubs. I cannot feel her PMI. S1, S2 are normal. Abdomen is soft, nontender. Bowel sounds are positive. No hepatomegaly. No costovertebral angle tenderness. Extremities show no pretibial edema and no calf tenderness. No differential swelling of the upper extremities. Skin is warm, dry and perfused, without cyanosis or mottling, including that of the nail beds and the knees. Neck is supple. There is no jugular venous distension. No subcutaneous emphysema. Trachea is midline. Mouth shows the mucous membranes to be pink and moist. Lips and commissures without lesions. There is no thrush. Eyes show her pupils to be equal and reactive. Extraocular movements intact. Sclerae nonicteric. Neurologic shows II-XII intact along with gross motor and gross sensation intact. Gait is not tested. Psychiatric shows her to be awake, alert and oriented times three with appropriate mood and affect and conversational. Her laboratories are still pending. Her chest x-ray shows her lung fully expanded to the chest wall with the same necrotizing pneumonia and infiltrative process in the posterior segment of the upper lobe. Costophrenic angles are sharp. There is no subcutaneous emphysema. IMPRESSION: 1. Necrotizing pneumonia. 2. Bronchopleural fistula, hopefully resolved with occlusion of the posterior segment bronchi. 3. Resultant right pneumothorax, resolved. 4. Depression. 5. Uterine cancer, presently undergoing chemotherapy. 6. Osteoporosis. 7. Severe chronic obstructive pulmonary disease. PLAN AND DISCUSSION: Later on today we will clamp the chest tube. If her lung remains expanded to the chest wall, we will remove the chest tube tomorrow and even consider discharging her tomorrow. I am a little bit more concerned about shortness of breath and I will review her labs in a couple of minutes when they come back. I see no change in the chest x-ray to explain her shortness of breath. It may be that she has some minimally functioning open alveoli in the posterior segment which are now occluded and could be giving her subjective shortness of breath as she has such severe COPD.
[2016-01-29 16:00] VITALS: BP 119/62
[2016-01-29 20:00] VITALS: BP 116/62
[2016-01-29] MEDS: LevoFLOXacin 500 MG TABLET PO SCH (21:19)
[2016-01-30] VITALS (7 sets, daily range): BP systolic 102–129; BP diastolic 57–72
[2016-01-30] MEDS: LEVALBUTEROL 1.25 MG/0.5 ML CONCENTRATE NEB NEB SCH ×4 (02:14→19:14)
[2016-01-30 05:39] LABS: BASO % 0.3 % (0.0-1.0); EOS % 0.8 % (0.0-3.0); LARGE UNSTAINED CELL # 0.1 K/mm3 (0.0-0.4); LARGE UNSTAINED CELL % 1.4 % (0.0-4.0); LYMPH # 0.5 K/mm3 (1.5-4.5); LYMPH % 8.9 % (24.0-44.0); MEAN CORPUSCULAR HEMOGLOBIN 31.8 pg (27.0-33.0); MEAN CORPUSCULAR HGB CONC 30.8 g/dl (32.0-36.5); MEAN CORPUSCULAR VOLUME 103.3 fl (80.0-96.0); MONO # 0.4 K/mm3 (0.0-0.8); MONO % 6.3 % (0.0-5.0); NEUTROPHILS # 4.8 K/mm3 (1.8-7.7); NEUTROPHILS % 82.2 % (36.0-66.0); PLATELET COUNT, AUTOMATED 437 k/mm3 (150-450); RED CELL DISTRIBUTION WIDTH 15.7 % (11.5-14.5); WHITE BLOOD COUNT 5.8 K/mm3 (4.0-10.0)
[2016-01-30 05:54] LABS: ALBUMIN 2.8 GM/DL (3.2-5.2); ALBUMIN/GLOBULIN RATIO 0.78 (1.00-1.93); ALKALINE PHOSPHATASE 66 U/L (45-117); ALT/SGPT 20 U/L (12-78); ANION GAP 5 MEQ/L (8-16); AST/SGOT 17 U/L (15-37); BILIRUBIN,TOTAL 0.3 MG/DL (0.2-1.0); BLOOD UREA NITROGEN 8 MG/DL (7-18); CALCIUM LEVEL 9.1 MG/DL (8.8-10.2); CARBON DIOXIDE LEVEL 34 MEQ/L (21-32); CHLORIDE LEVEL 89 MEQ/L (98-107); CHOLESTEROL LEVEL 184 MG/DL (< 200); CREATININE FOR GFR 0.48 MG/DL (0.55-1.02); GLOMERULAR FILTRATION RATE > 60.0 (>45); GLUCOSE, FASTING 100 MG/DL (80-110); PHOSPHORUS LEVEL 2.7 MG/DL (2.5-4.9); POTASSIUM SERUM 3.1 MEQ/L (3.5-5.1); SODIUM LEVEL 128 MEQ/L (136-145); TOTAL PROTEIN 6.4 GM/DL (6.4-8.2); TRIGLYCERIDES LEVEL 152 MG/DL (<150)
[2016-01-30] MEDS: SLF 3 ML SYR IV SCH ×3 (06:41→21:39)
[2016-01-30] MEDS: ADVAIR DISKUS 500/50 INH PWD INH SCH ×2 (07:04→19:59)
[2016-01-30] MEDS: TIOTROPIUM INHALER/CAPSULE (SPIRIVA) INH SCH (07:04)
[2016-01-30] MEDS: MULTIVITAMINS/MINERALS THERAP 1 TAB PO SCH (08:01)
[2016-01-30] MEDS: FLECAINIDE 50MG TABLET PO SCH ×2 (08:01→21:38)
[2016-01-30] MEDS: VITAMIN D 1,000 INTERNATIONAL UNITS TABLET PO SCH (08:02)
[2016-01-30] MEDS: PANTOPRAZOLE 40MG TAB (PROTONIX) PO SCH (08:02)
[2016-01-30] MEDS: ASCORBIC ACID 250 MG TAB PO SCH ×3 (08:02→21:38)
[2016-01-30] MEDS: DULoxetine 20 MG CAP (CYMBALTA) PO SCH (08:02)
[2016-01-30] MEDS: LACTOBACILLUS ACIDOPHILUS CAP (BACID) PO SCH (08:02)
[2016-01-30] MEDS: BENZONATATE 100 MG CAP PO SCH ×3 (08:03→21:38)
[2016-01-30] MEDS: MOM 30ML SUSPENSION UDC PO SCH (08:04)
[2016-01-30] MEDS: predniSONE 10 MG TAB PO SCH (08:04)
[2016-01-30] MEDS: DOCUSATE SODIUM 100 MG CAP PO SCH ×2 (08:04→21:38)
[2016-01-30] MEDS: PERCOCET 5MG/325MG TAB PO PRN ×4 (08:05→21:39)
[2016-01-30] MEDS: FLUTICASONE PROP 0.05% NASAL SPRAY 16 GM (FLONASE) SCH (08:09)
--- NOTE | 2016-01-30 09:33 | IPN ---
DATE: 01/29/2016 Ms. Harrison had a little bit of pain last night, for which she was given some Percocet. She does feel a bit short of breath, I do not perceive that as any different from her baseline. Her chest tube has been clamped for 24 hours. Her chest x-ray shows the lung fully expanded to the chest wall except for a very slight sliver of accumulated air with a small air fluid level at the diaphragm. Her vital signs show a maximum temperature (t-max) of 98.1, with a heart rate that ranges between 80 and 93 in a sinus rhythm, respiratory rate of 18 to 24 without the use of accessory muscles who is 97 to 98% saturated on 3 liters nasal cannula, and whose blood pressure is ranging between 105/66 to 117/67. Her intake and output for the past 24 hours has been recorded as 960 in and 1100 out for a negativity of 140 mL. As her chest tube has been clamped, there has been no output from the chest tube. Her weight today is 50.9 kg compared to 49.8 kg yesterday. PHYSICAL EXAMINATION: LUNGS: She has equal breath sounds on either side. They are both equally decreased, however, secondary to her underlying lung disease. Percussion notes are full to the diaphragm. There is no subcutaneous emphysema over the chest wall or at the base of the neck. CARDIAC EXAM: Without murmurs, clicks, gallops or rubs. I cannot feel his point of maximum impulse (PMI). S1, S2 are normal. ABDOMEN: Soft, nontender. Bowel sounds positive. There is no hepatomegaly. No costovertebral angle tenderness. EXTREMITIES: Show no pretibial edema. No calf tenderness. No differential swelling of the upper extremities. SKIN: Warm, dry and perfused without cyanosis or mottling, including that of the nail beds and knees. NECK: Supple. There is no jugular venous distention. No subcutaneous emphysema. Trachea is midline. MOUTH: Shows his mucous membranes to be pink and moist. Lips and commissures without lesions. There is no thrush. EYES: Show her pupils to be equal and reactive. Extraocular muscles are intact. Sclerae nonicteric. NEUROLOGIC: Shows II through XII intact with gross motor and gross sensation intact. Gait is not tested. PSYCHIATRIC: Shows her to be awake and alert, oriented times three with appropriate mood and affect and conversational. Her white count today is 5.2 with a hemoglobin and hematocrit of 9.6 and 31.1. Platelet count is 363. Electrolytes are normal except for a high total CO2 of 37. BUN and creatinine are 9 and 0.57 with a calcium of 9.0 and a glucose of 90. IMPRESSION: 1. Bronchopleural fistula, now hopefully resolved with bronchial obstruction and talc pleurodesis. 2. Necrotizing pneumonia. 3. Resultant right pneumothorax. 4. Depression. 5. Uterine cancer, presently undergoing chemotherapy. 6. Osteoporosis. 7. Severe chronic obstructive pulmonary disease. PLAN AND DISCUSSION: I am going to remove her chest tube today. So she does not suck air in through the chest tube site, because she is quite thin and emaciated, I will place a purse-string suture. We will hold her for 24 more hours, even though her chest tube has been clamped, and plan for discharge in the morning, per the patient's request, as she is very anxious.
[2016-01-30 09:35] LABS: ANION GAP 3 MEQ/L (8-16); BLOOD UREA NITROGEN 7 MG/DL (7-18); CARBON DIOXIDE LEVEL 38 MEQ/L (21-32); CHLORIDE LEVEL 98 MEQ/L (98-107); CREATININE FOR GFR 0.55 MG/DL (0.55-1.02); GLOMERULAR FILTRATION RATE > 60.0 (>45); GLUCOSE, FASTING 157 MG/DL (80-110); POTASSIUM SERUM 3.7 MEQ/L (3.5-5.1); SODIUM LEVEL 139 MEQ/L (136-145)
--- NOTE | 2016-01-30 09:38 | REP ---
TWO VIEW CHEST: Two views of the chest are performed and compared to a prior study of 01/29/2016. A right chest tube has been removed. There is subcutaneous emphysema in the right chest wall which is new. There appears to be a small right basilar pneumothorax. Bilateral parenchymal opacities in the lungs are stable. The cardiomediastinal silhouette is unchanged. IMPRESSION: Removal of right chest tube. There is new subcutaneous emphysema in the right chest wall. There appears to be a small right basilar pneumothorax. Signed by Kory Peña MD 01/30/2016 04:13 P
[2016-01-30] MEDS ORDERED: LIDOCAINE 1% MDV 20ML VIAL As Ordered ONE (09:48)
[2016-01-30] MEDS: NORCO, ANEXSIA 5/325MG TABLET (HYDROcodone/ACETAMINOPHEN) PO PRN ×2 (10:53→13:48)
[2016-01-30] MEDS: HEPARIN SOD (PORCINE) 5000 UNITS/ML VIAL SC SCH ×3 (12:20→21:38)
--- NOTE | 2016-01-30 15:11 | REP ---
TWO VIEW CHEST: Two views of the chest are performed status post right chest tube insertion. A pigtail catheter is seen in the anterior right hemithorax. The recently noted pneumothorax is not definitely visualized. There is extensive subcutaneous emphysema in the right chest wall. There is mild atelectatic change in the right lung base. The lungs otherwise appear unchanged. The cardiomediastinal silhouette is essentially unchanged. IMPRESSION: Placement of right pigtail catheter chest tube. I do not see a significant pneumothorax. Mild atelectatic changes right lung base. Extensive subcutaneous emphysema in the right chest wall. Signed by Kory Peña MD 01/30/2016 04:19 P
--- NOTE | 2016-01-30 15:27 | REP ---
CT study of the chest without IV contrast: History: Subcutaneous air on chest x-ray, possible loculated pneumothorax. Findings: Noncontrast chest CT demonstrates a large right-sided recurrent pneumothorax approximately 60%. There is a large amount of subcutaneous air in the extrathoracic soft tissues. There is advanced COPD as before. Impression: Large recurrent right-sided pneumothorax. A right-sided pleural drainage catheter will be placed. Right chest tube placement: At Dr. Lau's request a right chest tube was positioned. The patient was interviewed and informed consent was obtained. The patient was placed semi-erect and supine. After patient safety time-out was articulated and agreed to, the right inframammary fold skin was prepped and draped and 8 ml of 1% lidocaine was instilled into the skin subcutaneous space and intercostal soft tissues in the right inframammary fold region. A 10-Bulgarian string fixed multi side-hole pigtail catheter was passed over a trocar into the right pleural space without significant technical difficulty. This was connected to Pleur-Evac and wall suction drainage and the patient's dyspnea improved promptly. Impression: Right chest tube placement procedure. Signed by David Llamas MD 01/30/2016 04:56 P
[2016-01-30] MEDS: KETOROLAC 30 MG/ML VIAL (J1885) IV SCH (17:50)
--- NOTE | 2016-01-30 18:10 | REP ---
Clinical: Follow up chest tube placement. Comparison: 01/30/2016 at 10:26 a.m. Findings: Right pigtail catheter in stable position. Moderate to significant subcutaneous emphysema involving the right hemithorax is again identified along with subtle areas of predominately perihilar, mid lung and basilar atelectasis suggested. No obvious pneumothorax identified. Left hemithorax demonstrates stable chronic significant bullous and emphysematous changes as well as possible left basilar atelectasis. No obvious pneumothorax identified. Mediastinum and cardiac silhouette within normal limits. Skeletal structures appear intact. Impression: 1. Right subcutaneous emphysema along with scattered right-sided atelectasis essentially unchanged. No obvious right pneumothorax. 2. Chronic emphysematous and bullous changes as well as left basilar atelectasis. Signed by Brannon Zepeda MD 01/30/2016 06:03 P
[2016-01-30] MEDS: LevoFLOXacin 500 MG TABLET PO SCH (21:38)
[2016-01-31] VITALS (7 sets, daily range): BP systolic 90–107; BP diastolic 51–58; O2SAT 97
[2016-01-31] MEDS: KETOROLAC 30 MG/ML VIAL (J1885) IV SCH ×5 (00:45→22:22)
[2016-01-31] MEDS: LEVALBUTEROL 1.25 MG/0.5 ML CONCENTRATE NEB NEB SCH ×4 (01:47→20:00)
[2016-01-31 05:16] LABS: BASO % 0.5 % (0.0-1.0); EOS % 0.9 % (0.0-3.0); LARGE UNSTAINED CELL # 0.1 K/mm3 (0.0-0.4); LARGE UNSTAINED CELL % 1.6 % (0.0-4.0); LYMPH # 0.5 K/mm3 (1.5-4.5); LYMPH % 8.5 % (24.0-44.0); MEAN CORPUSCULAR HEMOGLOBIN 31.7 pg (27.0-33.0); MEAN CORPUSCULAR HGB CONC 30.5 g/dl (32.0-36.5); MEAN CORPUSCULAR VOLUME 103.8 fl (80.0-96.0); MONO # 0.3 K/mm3 (0.0-0.8); MONO % 5.8 % (0.0-5.0); NEUTROPHILS # 4.5 K/mm3 (1.8-7.7); NEUTROPHILS % 82.6 % (36.0-66.0); PLATELET COUNT, AUTOMATED 398 k/mm3 (150-450); RED CELL DISTRIBUTION WIDTH 15.4 % (11.5-14.5); WHITE BLOOD COUNT 5.4 K/mm3 (4.0-10.0)
[2016-01-31 05:34] LABS: ALBUMIN 2.6 GM/DL (3.2-5.2); ALBUMIN/GLOBULIN RATIO 0.76 (1.00-1.93); ALKALINE PHOSPHATASE 62 U/L (45-117); ALT/SGPT 18 U/L (12-78); ANION GAP 7 MEQ/L (8-16); AST/SGOT 17 U/L (15-37); BILIRUBIN,TOTAL 0.3 MG/DL (0.2-1.0); BLOOD UREA NITROGEN 15 MG/DL (7-18); CALCIUM LEVEL 9.4 MG/DL (8.8-10.2); CARBON DIOXIDE LEVEL 34 MEQ/L (21-32); CHLORIDE LEVEL 100 MEQ/L (98-107); CHOLESTEROL LEVEL 168 MG/DL (< 200); CREATININE FOR GFR 0.62 MG/DL (0.55-1.02); GLOMERULAR FILTRATION RATE > 60.0 (>45); GLUCOSE, FASTING 93 MG/DL (80-110); PHOSPHORUS LEVEL 4.2 MG/DL (2.5-4.9); POTASSIUM SERUM 4.1 MEQ/L (3.5-5.1); SODIUM LEVEL 141 MEQ/L (136-145); TRIGLYCERIDES LEVEL 133 MG/DL (<150)
[2016-01-31] MEDS: SLF 3 ML SYR IV SCH ×3 (06:14→22:22)
--- NOTE | 2016-01-31 07:55 | DSES ---
DATE OF ADMISSION: 01/20/2016 DATE OF DISCHARGE: DISCHARGE DIAGNOSES: 1. Necrotizing pneumonia. 2. Resultant bronchopleural fistula. 3. Resultant right recurrent pneumothorax. 4. Depression. 5. Severe chronic obstructive pulmonary disease. 6. Osteoporosis. 7. Uterine cancer presently undergoing chemotherapy. 8. Acute respiratory failure. HOSPITAL COURSE: Patient is a 65-year-old white female who had been discharged from this hospital in early January for a pneumothorax. She had originally come from [facility] emergency room at that time, and again, appeared in [facility] emergency room on 01/20/2016 with a very large pneumothorax and very short of breath. She was immediately sent here and was in near respiratory failure when she got here. Chest tube was replaced with immediate relief of her shortness of breath. After placement of the chest tube, she continued to have an air leak. She previously had been judged not to be able to undergo a talc pleurodesis and wedge resection, potential leaking bulla or of her necrotizing pneumonic process because of her very severe chronic obstructive pulmonary disease (COPD). Therefore a talc slurry pleurodesis was undertaken through the chest tube. Chest tube was off suction for 24 hours but she still continued to leak. It was placed back on suction. She continued to leak after 3 or 4 days and we therefore decided to obstruct the offending bronchi that were contributing to the bronchopleural fistula. She was therefore taken to the operating room and under MAC anesthesia, Dr. Mckeon undertook a bronchoscopy. The various orifice of the segmental bronchi and sub-bronchi were cleared with a balloon and it was found that the posterior segment of the upper lobe which corresponded to her necrotizing pneumonia were the offenders that were contributing to the bronchopleural fistula. These were then filled with fibrin glue with initial diminution of her air leak. The next day, however, she was leaking again but not as much and she was therefore taken back to the operating room where another subsegment was completely filled by placing the catheter very distally and injecting the whole bronchus with fibrin glue so as to make a cast as we did prior with the other subsegmental bronchus 2 days prior. This time, she stopped leaking. Chest tube was kept off suction for 24 hours and then subsequently clamped. She had a little bit of pain and a subsequent chest x-ray after her chest tube was clamped showed a very small sliver of a some subpulmonic air with a very small air fluid level in the costophrenic angle. 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 The tube was then removed and a purse string suture placed. She is being discharged today on her home medications which include albuterol inhaler every 4 hours, two puffs every 4 hours as needed shortness of breath, alendronate 70 mg every weekly, ascorbic acid 250 mg three times daily, cholecalciferol 1000 units daily, docusate sodium 100 mg twice daily as needed constipation, duloxetine 20 mg daily, flecainide 50 mg twice daily, Bacid one tablet daily, levofloxacin 500 mg daily at bedtime, multivitamins one tablet daily, Protonix 40 mg twice daily, prednisone 20 mg daily, ranitidine 300 mg daily at bedtime, Advair Discus 500/50 one puff twice daily, and Spiriva 18 mcg one puff daily. Dr. Mckeon will see her back in followup in 1 week. I will see her back in followup in 2-1/2 weeks when I return from vacation. She has been instructed that should he become more short of breath, that she should immediately again contact the emergency room. This is going to be last try we make to keep her from a permanent chest tube for a chronic bronchopleural fistula. If she returns with a pneumothorax, we will have to place a small tube and place it to a Heimlich valve for chronic control for her bronchopleural fistula. Her discharge white count is 5.2 with a discharge hemoglobin and hematocrit of 9.6 and 31.1. Her electrolytes are normal except for a high total CO2 of 37 reflecting on her severe chronic obstructive pulmonary disease (COPD), and BUN and creatinine of 9 and 0.57.
[2016-01-31] MEDS: ADVAIR DISKUS 500/50 INH PWD INH SCH ×2 (08:17→20:52)
[2016-01-31] MEDS: TIOTROPIUM INHALER/CAPSULE (SPIRIVA) INH SCH (08:17)
[2016-01-31] MEDS: FLECAINIDE 50MG TABLET PO SCH ×2 (08:28→22:21)
[2016-01-31] MEDS: DULoxetine 20 MG CAP (CYMBALTA) PO SCH (08:28)
[2016-01-31] MEDS: PANTOPRAZOLE 40MG TAB (PROTONIX) PO SCH (08:28)
[2016-01-31] MEDS: HEPARIN SOD (PORCINE) 5000 UNITS/ML VIAL SC SCH ×2 (08:28→22:21)
[2016-01-31] MEDS: MOM 30ML SUSPENSION UDC PO SCH (08:28)
[2016-01-31] MEDS: DOCUSATE SODIUM 100 MG CAP PO SCH ×2 (08:28→22:21)
[2016-01-31] MEDS: LACTOBACILLUS ACIDOPHILUS CAP (BACID) PO SCH (08:28)
[2016-01-31] MEDS: BENZONATATE 100 MG CAP PO SCH ×3 (08:28→22:21)
[2016-01-31] MEDS: MULTIVITAMINS/MINERALS THERAP 1 TAB PO SCH (08:28)
[2016-01-31] MEDS: VITAMIN D 1,000 INTERNATIONAL UNITS TABLET PO SCH (08:28)
[2016-01-31] MEDS: ASCORBIC ACID 250 MG TAB PO SCH ×3 (08:28→22:21)
[2016-01-31] MEDS: predniSONE 10 MG TAB PO SCH (08:28)
[2016-01-31] MEDS: FLUTICASONE PROP 0.05% NASAL SPRAY 16 GM (FLONASE) SCH (08:29)
--- NOTE | 2016-01-31 09:20 | REP ---
Clinical: Follow up pneumothorax and chest tube placement. Comparison: 01/30/2016. Findings: Right pigtail catheter again identified in the mid lung zone. Extensive subcutaneous emphysema involving the right hemithorax extending into the right shoulder. Underlying perihilar and right basilar atelectasis/opacities may be minimally improved compared to prior examination. No obvious pneumothorax. Left hemithorax demonstrates chronic stable emphysematous and bullous changes without acute/new process. Mediastinum and cardiac silhouette stable and normal position. Skeletal structures intact. Impression: 1. Right pigtail catheter. 2. Extensive subcutaneous emphysema involving the right hemithorax into the right shoulder. 3. No obvious new acute pulmonary parenchymal process or pneumothorax. Signed by Brannon Zepeda MD 01/31/2016 09:12 A
[2016-01-31] MEDS: NORCO, ANEXSIA 5/325MG TABLET (HYDROcodone/ACETAMINOPHEN) PO PRN (15:46)
[2016-01-31] MEDS: PERCOCET 5MG/325MG TAB PO PRN ×2 (18:31→22:21)
[2016-01-31] MEDS: LevoFLOXacin 500 MG TABLET PO SCH (22:21)
[2016-02-01] VITALS (7 sets, daily range): BP systolic 94–106; BP diastolic 52–59; O2SAT 97
[2016-02-01] MEDS: LEVALBUTEROL 1.25 MG/0.5 ML CONCENTRATE NEB NEB SCH ×4 (01:56→19:46)
[2016-02-01 05:12] LABS: ALBUMIN 2.5 GM/DL (3.2-5.2); ALBUMIN/GLOBULIN RATIO 0.81 (1.00-1.93); ALKALINE PHOSPHATASE 52 U/L (45-117); ALT/SGPT 17 U/L (12-78); ANION GAP 8 MEQ/L (8-16); AST/SGOT 15 U/L (15-37); BILIRUBIN,TOTAL 0.2 MG/DL (0.2-1.0); BLOOD UREA NITROGEN 13 MG/DL (7-18); CALCIUM LEVEL 8.4 MG/DL (8.8-10.2); CARBON DIOXIDE LEVEL 35 MEQ/L (21-32); CHLORIDE LEVEL 101 MEQ/L (98-107); CHOLESTEROL LEVEL 168 MG/DL (< 200); CREATININE FOR GFR 0.63 MG/DL (0.55-1.02); GLOMERULAR FILTRATION RATE > 60.0 (>45); GLUCOSE, FASTING 87 MG/DL (80-110); PHOSPHORUS LEVEL 3.3 MG/DL (2.5-4.9); POTASSIUM SERUM 4.1 MEQ/L (3.5-5.1); SODIUM LEVEL 144 MEQ/L (136-145); TOTAL PROTEIN 5.6 GM/DL (6.4-8.2); TRIGLYCERIDES LEVEL 125 MG/DL (<150)
[2016-02-01 05:15] LABS: BASO % 0.1 % (0.0-1.0); EOS # 0.1 K/mm3 (0.0-0.50); EOS % 1.5 % (0.0-3.0); LARGE UNSTAINED CELL # 0.2 K/mm3 (0.0-0.4); LARGE UNSTAINED CELL % 2.7 % (0.0-4.0); LYMPH # 0.5 K/mm3 (1.5-4.5); LYMPH % 9.2 % (24.0-44.0); MEAN CORPUSCULAR HEMOGLOBIN 31.5 pg (27.0-33.0); MEAN CORPUSCULAR HGB CONC 30.2 g/dl (32.0-36.5); MEAN CORPUSCULAR VOLUME 104.4 fl (80.0-96.0); MONO # 0.3 K/mm3 (0.0-0.8); MONO % 5.3 % (0.0-5.0); NEUTROPHILS # 4.6 K/mm3 (1.8-7.7); NEUTROPHILS % 81.2 % (36.0-66.0); PLATELET COUNT, AUTOMATED 378 k/mm3 (150-450); RED CELL DISTRIBUTION WIDTH 15.7 % (11.5-14.5); WHITE BLOOD COUNT 5.7 K/mm3 (4.0-10.0)
[2016-02-01] MEDS: KETOROLAC 30 MG/ML VIAL (J1885) IV SCH ×3 (06:47→17:54)
[2016-02-01] MEDS: SLF 3 ML SYR IV SCH ×3 (06:47→20:47)
[2016-02-01] MEDS: TIOTROPIUM INHALER/CAPSULE (SPIRIVA) INH SCH (07:52)
[2016-02-01] MEDS: ADVAIR DISKUS 500/50 INH PWD INH SCH ×2 (07:52→19:46)
[2016-02-01] MEDS: DULoxetine 20 MG CAP (CYMBALTA) PO SCH (08:00)
[2016-02-01] MEDS: VITAMIN D 1,000 INTERNATIONAL UNITS TABLET PO SCH (08:00)
[2016-02-01] MEDS: ALENDRONATE 70 MG TABLET (FOSAMAX) PO SCH (08:00)
[2016-02-01] MEDS: LACTOBACILLUS ACIDOPHILUS CAP (BACID) PO SCH (08:00)
[2016-02-01] MEDS: DOCUSATE SODIUM 100 MG CAP PO SCH ×2 (08:01→20:46)
[2016-02-01] MEDS: ASCORBIC ACID 250 MG TAB PO SCH ×3 (08:01→20:46)
[2016-02-01] MEDS: BENZONATATE 100 MG CAP PO SCH ×3 (08:01→20:46)
[2016-02-01] MEDS: HEPARIN SOD (PORCINE) 5000 UNITS/ML VIAL SC SCH ×2 (08:01→20:47)
[2016-02-01] MEDS: predniSONE 10 MG TAB PO SCH (08:01)
[2016-02-01] MEDS: MULTIVITAMINS/MINERALS THERAP 1 TAB PO SCH (08:01)
[2016-02-01] MEDS: PANTOPRAZOLE 40MG TAB (PROTONIX) PO SCH (08:01)
[2016-02-01] MEDS: FLECAINIDE 50MG TABLET PO SCH ×2 (08:01→20:46)
[2016-02-01] MEDS: MOM 30ML SUSPENSION UDC PO SCH (08:02)
[2016-02-01] MEDS: FLUTICASONE PROP 0.05% NASAL SPRAY 16 GM (FLONASE) SCH (08:03)
--- NOTE | 2016-02-01 08:33 | REP ---
Clinical: Follow up pneumothorax and chest tube placement. Comparison: 01/31/2016. Findings: Right pigtail catheter identified at the lung base. Extensive right-sided subcutaneous emphysema is again noted along with underlying right mid and bibasilar pulmonary opacities and evidence for COPD and extensive bullous disease bilaterally. Small residual right apical pneumothorax cannot be excluded. Mediastinum and cardiac silhouette are normal. Impression: 1. Repositioned pigtail catheter now along the right lung base. II. Similar findings compared to prior examination. Cannot exclude increased basilar infiltrates. Signed by Brannon Zepeda MD 02/01/2016 08:25 A
[2016-02-01] MEDS: LevoFLOXacin 500 MG TABLET PO SCH (20:46)
[2016-02-01] MEDS: PERCOCET 5MG/325MG TAB PO PRN (20:48)
[2016-02-02] VITALS (7 sets, daily range): BP systolic 83–128; BP diastolic 50–68
[2016-02-02] MEDS: KETOROLAC 30 MG/ML VIAL (J1885) IV SCH ×5 (00:46→23:22)
[2016-02-02] MEDS: LEVALBUTEROL 1.25 MG/0.5 ML CONCENTRATE NEB NEB SCH ×4 (02:00→19:08)
[2016-02-02] MEDS: SLF 3 ML SYR IV SCH ×3 (05:07→20:58)
[2016-02-02 05:43] LABS: BASO % 0.3 % (0.0-1.0); EOS # 0.1 K/mm3 (0.0-0.50); EOS % 1.9 % (0.0-3.0); LARGE UNSTAINED CELL # 0.1 K/mm3 (0.0-0.4); LARGE UNSTAINED CELL % 2.3 % (0.0-4.0); LYMPH # 0.6 K/mm3 (1.5-4.5); LYMPH % 9.5 % (24.0-44.0); MEAN CORPUSCULAR HEMOGLOBIN 31.9 pg (27.0-33.0); MEAN CORPUSCULAR HGB CONC 30.2 g/dl (32.0-36.5); MEAN CORPUSCULAR VOLUME 105.9 fl (80.0-96.0); MONO # 0.3 K/mm3 (0.0-0.8); MONO % 4.3 % (0.0-5.0); NEUTROPHILS # 4.7 K/mm3 (1.8-7.7); NEUTROPHILS % 81.6 % (36.0-66.0); PLATELET COUNT, AUTOMATED 384 k/mm3 (150-450); RED CELL DISTRIBUTION WIDTH 15.6 % (11.5-14.5); WHITE BLOOD COUNT 5.8 K/mm3 (4.0-10.0)
[2016-02-02 06:06] LABS: ALBUMIN 2.4 GM/DL (3.2-5.2); ALBUMIN/GLOBULIN RATIO 0.75 (1.00-1.93); ALKALINE PHOSPHATASE 50 U/L (45-117); ALT/SGPT 16 U/L (12-78); ANION GAP 7 MEQ/L (8-16); AST/SGOT 16 U/L (15-37); BILIRUBIN,TOTAL 0.3 MG/DL (0.2-1.0); BLOOD UREA NITROGEN 17 MG/DL (7-18); CALCIUM LEVEL 8.3 MG/DL (8.8-10.2); CARBON DIOXIDE LEVEL 32 MEQ/L (21-32); CHLORIDE LEVEL 103 MEQ/L (98-107); CHOLESTEROL LEVEL 165 MG/DL (< 200); CREATININE FOR GFR 0.56 MG/DL (0.55-1.02); GLOMERULAR FILTRATION RATE > 60.0 (>45); GLUCOSE, FASTING 83 MG/DL (80-110); PHOSPHORUS LEVEL 2.9 MG/DL (2.5-4.9); POTASSIUM SERUM 3.8 MEQ/L (3.5-5.1); SODIUM LEVEL 142 MEQ/L (136-145); TOTAL PROTEIN 5.6 GM/DL (6.4-8.2); TRIGLYCERIDES LEVEL 129 MG/DL (<150)
[2016-02-02] MEDS: ADVAIR DISKUS 500/50 INH PWD INH SCH ×2 (07:03→19:08)
[2016-02-02] MEDS: TIOTROPIUM INHALER/CAPSULE (SPIRIVA) INH SCH (07:03)
--- NOTE | 2016-02-02 09:18 | REP ---
Clinical: Follow up pneumothorax. Comparison: 02/01/2016. Findings: Pigtail catheter at the right lung base is again identified. Subcutaneous emphysema along the right chest wall noted and essentially unchanged. Improved aeration to the right hemithorax is suggested and no obvious pleural fluid or definite pneumothorax is appreciated. Underlying chronic ill-defined opacities and scarring predominantly involving the right mid lung zone are similar to prior examination. Chronic COPD and emphysematous changes noted. Impression: 1. Findings suggest mildly improved aeration to the right hemithorax. 2. No obvious residual pneumothorax. 3. Evidence for chronic COPD and ill-defined opacities/scarring. Signed by Brannon Zepeda MD 02/02/2016 09:10 A
[2016-02-02] MEDS: VITAMIN D 1,000 INTERNATIONAL UNITS TABLET PO SCH (09:52)
[2016-02-02] MEDS: MOM 30ML SUSPENSION UDC PO SCH (09:52)
[2016-02-02] MEDS: LACTOBACILLUS ACIDOPHILUS CAP (BACID) PO SCH (09:52)
[2016-02-02] MEDS: ASCORBIC ACID 250 MG TAB PO SCH ×3 (09:53→20:57)
[2016-02-02] MEDS: BENZONATATE 100 MG CAP PO SCH ×3 (09:53→20:57)
[2016-02-02] MEDS: predniSONE 10 MG TAB PO SCH (09:53)
[2016-02-02] MEDS: DULoxetine 20 MG CAP (CYMBALTA) PO SCH (09:53)
[2016-02-02] MEDS: FLECAINIDE 50MG TABLET PO SCH ×2 (09:54→20:57)
[2016-02-02] MEDS: PANTOPRAZOLE 40MG TAB (PROTONIX) PO SCH (09:54)
[2016-02-02] MEDS: MULTIVITAMINS/MINERALS THERAP 1 TAB PO SCH (09:54)
[2016-02-02] MEDS: DOCUSATE SODIUM 100 MG CAP PO SCH ×2 (09:54→20:57)
[2016-02-02] MEDS: FLUTICASONE PROP 0.05% NASAL SPRAY 16 GM (FLONASE) SCH (09:55)
[2016-02-02] MEDS: HEPARIN SOD (PORCINE) 5000 UNITS/ML VIAL SC SCH ×2 (09:55→20:58)
[2016-02-02] MEDS: PERCOCET 5MG/325MG TAB PO PRN ×2 (10:04→16:12)
--- NOTE | 2016-02-02 16:24 | REP ---
Clinical: Follow up pneumothorax. Comparison: 02/02/2016 at 07:37 a.m. Findings: Pigtail catheter at the right lung base stable. Moderate subcutaneous emphysema along the right chest wall extends to the neck. Lung dugan demonstrate diffuse chronic COPD/emphysematous changes with bullae as well as scattered scarring and ill-defined opacities primarily involving the right mid lung zone and left base. Findings are stable. No obvious residual pneumothorax identified. Mediastinum and cardiac silhouette normal Impression: Stable changes. No obvious residual pneumothorax. Signed by Brannon Zepeda MD 02/02/2016 04:16 P
[2016-02-02] MEDS: LevoFLOXacin 500 MG TABLET PO SCH (20:58)
[2016-02-03] MEDS: LEVALBUTEROL 1.25 MG/0.5 ML CONCENTRATE NEB NEB SCH ×4 (02:00→20:00)
[2016-02-03 04:00] VITALS: BP 105/58
[2016-02-03] MEDS: KETOROLAC 30 MG/ML VIAL (J1885) IV SCH ×3 (05:41→18:06)
[2016-02-03] MEDS: SLF 3 ML SYR IV SCH ×3 (05:41→20:57)
[2016-02-03 06:16] LABS: ALBUMIN 2.4 GM/DL (3.2-5.2); ALBUMIN/GLOBULIN RATIO 0.73 (1.00-1.93); ALKALINE PHOSPHATASE 54 U/L (45-117); ALT/SGPT 14 U/L (12-78); ANION GAP 7 MEQ/L (8-16); AST/SGOT 15 U/L (15-37); BILIRUBIN,TOTAL 0.2 MG/DL (0.2-1.0); BLOOD UREA NITROGEN 13 MG/DL (7-18); CALCIUM LEVEL 8.6 MG/DL (8.8-10.2); CARBON DIOXIDE LEVEL 32 MEQ/L (21-32); CHLORIDE LEVEL 105 MEQ/L (98-107); CHOLESTEROL LEVEL 172 MG/DL (< 200); GLOMERULAR FILTRATION RATE > 60.0 (>45); GLUCOSE, FASTING 84 MG/DL (80-110); PHOSPHORUS LEVEL 2.6 MG/DL (2.5-4.9); POTASSIUM SERUM 4.2 MEQ/L (3.5-5.1); SODIUM LEVEL 144 MEQ/L (136-145); TOTAL PROTEIN 5.7 GM/DL (6.4-8.2); TRIGLYCERIDES LEVEL 139 MG/DL (<150)
[2016-02-03 06:18] LABS: BASO % 0.4 % (0.0-1.0); EOS # 0.1 K/mm3 (0.0-0.50); EOS % 2.1 % (0.0-3.0); LARGE UNSTAINED CELL # 0.1 K/mm3 (0.0-0.4); LARGE UNSTAINED CELL % 1.5 % (0.0-4.0); LYMPH # 0.6 K/mm3 (1.5-4.5); LYMPH % 9.2 % (24.0-44.0); MEAN CORPUSCULAR HEMOGLOBIN 32.1 pg (27.0-33.0); MEAN CORPUSCULAR HGB CONC 30.1 g/dl (32.0-36.5); MEAN CORPUSCULAR VOLUME 106.8 fl (80.0-96.0); MONO # 0.3 K/mm3 (0.0-0.8); MONO % 4.6 % (0.0-5.0); NEUTROPHILS # 5.1 K/mm3 (1.8-7.7); NEUTROPHILS % 82.3 % (36.0-66.0); PLATELET COUNT, AUTOMATED 387 k/mm3 (150-450); RED CELL DISTRIBUTION WIDTH 15.5 % (11.5-14.5); WHITE BLOOD COUNT 6.2 K/mm3 (4.0-10.0)
[2016-02-03] MEDS: TIOTROPIUM INHALER/CAPSULE (SPIRIVA) INH SCH (07:15)
[2016-02-03] MEDS: ADVAIR DISKUS 500/50 INH PWD INH SCH ×2 (07:15→20:15)
[2016-02-03 08:00] VITALS: BP 119/68
[2016-02-03] MEDS: MOM 30ML SUSPENSION UDC PO SCH ×2 (09:00→09:14)
[2016-02-03] MEDS: DULoxetine 20 MG CAP (CYMBALTA) PO SCH (09:14)
[2016-02-03] MEDS: FLECAINIDE 50MG TABLET PO SCH ×2 (09:14→20:56)
[2016-02-03] MEDS: FLUTICASONE PROP 0.05% NASAL SPRAY 16 GM (FLONASE) SCH (09:14)
[2016-02-03] MEDS: MULTIVITAMINS/MINERALS THERAP 1 TAB PO SCH (09:14)
[2016-02-03] MEDS: PANTOPRAZOLE 40MG TAB (PROTONIX) PO SCH (09:14)
[2016-02-03] MEDS: HEPARIN SOD (PORCINE) 5000 UNITS/ML VIAL SC SCH ×2 (09:14→20:56)
[2016-02-03] MEDS: predniSONE 10 MG TAB PO SCH (09:14)
[2016-02-03] MEDS: DOCUSATE SODIUM 100 MG CAP PO SCH ×2 (09:15→20:56)
[2016-02-03] MEDS: VITAMIN D 1,000 INTERNATIONAL UNITS TABLET PO SCH (09:15)
[2016-02-03] MEDS: ASCORBIC ACID 250 MG TAB PO SCH ×3 (09:15→20:56)
[2016-02-03] MEDS: LACTOBACILLUS ACIDOPHILUS CAP (BACID) PO SCH (09:15)
[2016-02-03] MEDS: BENZONATATE 100 MG CAP PO SCH ×3 (09:15→20:56)
--- NOTE | 2016-02-03 09:38 | REP ---
SINGLE VIEW CHEST: Single view of the chest is performed. COMPARISON: 02/02/2016. There may be a tiny right apical pneumothorax. The right chest tube is seen inferiorly. Bilateral pleural and parenchymal opacities are unchanged. The cardiomediastinal silhouette is unchanged. There is subcutaneous emphysema again seen in the right chest wall. IMPRESSION: There may be a tiny right apical pneumothorax. Otherwise stable. Signed by Kory Peña MD 02/03/2016 04:10 P
[2016-02-03 12:00] VITALS: BP 98/62
[2016-02-03 16:00] VITALS: BP 87/59
[2016-02-03 20:00] VITALS: BP 113/60
[2016-02-03] MEDS: LevoFLOXacin 500 MG TABLET PO SCH (20:56)
[2016-02-04] VITALS (7 sets, daily range): BP systolic 111–123; BP diastolic 56–68
[2016-02-04] MEDS: LEVALBUTEROL 1.25 MG/0.5 ML CONCENTRATE NEB NEB SCH ×4 (01:46→19:05)
[2016-02-04] MEDS: PERCOCET 5MG/325MG TAB PO PRN ×2 (02:00→23:52)
[2016-02-04 05:36] LABS: BASO % 0.4 % (0.0-1.0); EOS # 0.1 K/mm3 (0.0-0.50); EOS % 1.6 % (0.0-3.0); LARGE UNSTAINED CELL # 0.2 K/mm3 (0.0-0.4); LARGE UNSTAINED CELL % 2.4 % (0.0-4.0); LYMPH # 0.6 K/mm3 (1.5-4.5); LYMPH % 10.3 % (24.0-44.0); MEAN CORPUSCULAR HEMOGLOBIN 31.7 pg (27.0-33.0); MEAN CORPUSCULAR HGB CONC 30.1 g/dl (32.0-36.5); MEAN CORPUSCULAR VOLUME 105.4 fl (80.0-96.0); MONO # 0.3 K/mm3 (0.0-0.8); NEUTROPHILS % 80.2 % (36.0-66.0); PLATELET COUNT, AUTOMATED 380 k/mm3 (150-450); RED CELL DISTRIBUTION WIDTH 15.4 % (11.5-14.5); WHITE BLOOD COUNT 6.2 K/mm3 (4.0-10.0)
[2016-02-04 05:56] LABS: ALBUMIN 2.5 GM/DL (3.2-5.2); ALBUMIN/GLOBULIN RATIO 0.81 (1.00-1.93); ALKALINE PHOSPHATASE 51 U/L (45-117); ALT/SGPT 15 U/L (12-78); ANION GAP 6 MEQ/L (8-16); AST/SGOT 13 U/L (15-37); BILIRUBIN,TOTAL 0.2 MG/DL (0.2-1.0); BLOOD UREA NITROGEN 12 MG/DL (7-18); CALCIUM LEVEL 8.5 MG/DL (8.8-10.2); CARBON DIOXIDE LEVEL 33 MEQ/L (21-32); CHLORIDE LEVEL 105 MEQ/L (98-107); CHOLESTEROL LEVEL 176 MG/DL (< 200); CREATININE FOR GFR 0.56 MG/DL (0.55-1.02); GLOMERULAR FILTRATION RATE > 60.0 (>45); GLUCOSE, FASTING 93 MG/DL (80-110); PHOSPHORUS LEVEL 2.6 MG/DL (2.5-4.9); POTASSIUM SERUM 4.6 MEQ/L (3.5-5.1); SODIUM LEVEL 144 MEQ/L (136-145); TOTAL PROTEIN 5.6 GM/DL (6.4-8.2); TRIGLYCERIDES LEVEL 139 MG/DL (<150)
[2016-02-04] MEDS: SLF 3 ML SYR IV SCH ×3 (06:35→20:54)
[2016-02-04] MEDS: ADVAIR DISKUS 500/50 INH PWD INH SCH ×2 (07:14→20:40)
[2016-02-04] MEDS: TIOTROPIUM INHALER/CAPSULE (SPIRIVA) INH SCH (07:14)
[2016-02-04] MEDS: FLECAINIDE 50MG TABLET PO SCH ×2 (08:18→20:53)
[2016-02-04] MEDS: MULTIVITAMINS/MINERALS THERAP 1 TAB PO SCH (08:18)
[2016-02-04] MEDS: DULoxetine 20 MG CAP (CYMBALTA) PO SCH (08:18)
[2016-02-04] MEDS: BENZONATATE 100 MG CAP PO SCH ×3 (08:18→20:53)
[2016-02-04] MEDS: ASCORBIC ACID 250 MG TAB PO SCH ×3 (08:18→20:53)
[2016-02-04] MEDS: VITAMIN D 1,000 INTERNATIONAL UNITS TABLET PO SCH (08:18)
[2016-02-04] MEDS: DOCUSATE SODIUM 100 MG CAP PO SCH ×2 (08:18→20:53)
[2016-02-04] MEDS: PANTOPRAZOLE 40MG TAB (PROTONIX) PO SCH (08:18)
[2016-02-04] MEDS: HEPARIN SOD (PORCINE) 5000 UNITS/ML VIAL SC SCH ×2 (08:18→20:53)
[2016-02-04] MEDS: LACTOBACILLUS ACIDOPHILUS CAP (BACID) PO SCH (08:18)
[2016-02-04] MEDS: FLUTICASONE PROP 0.05% NASAL SPRAY 16 GM (FLONASE) SCH (08:19)
[2016-02-04] MEDS: MOM 30ML SUSPENSION UDC PO SCH (08:19)
[2016-02-04] MEDS: predniSONE 10 MG TAB PO SCH (08:19)
--- NOTE | 2016-02-04 10:21 | REP ---
PORTABLE CHEST X-RAY: SITTING AP VIEW. HISTORY: Chest tube, pneumothorax. COMPARISON STUDY: February 03, 2016 FINDINGS: Oxygen tubing and EKG electrodes are seen. A right-sided pleural pigtail catheter is again noted projecting at the base. There is no discernible pneumothorax. Subcutaneous gas is seen in the extrathoracic soft tissues as on the previous day's film. There is advanced evidence of COPD especially in the upper lobes. A right parahilar opacity persists, and there is some fibronodular change in the left parahilar region. No new infiltrate is seen. Signed by David Llamas MD 02/04/2016 02:42 P
[2016-02-04] MEDS: NORCO, ANEXSIA 5/325MG TABLET (HYDROcodone/ACETAMINOPHEN) PO PRN ×2 (10:53→20:59)
[2016-02-04] MEDS: LevoFLOXacin 500 MG TABLET PO SCH (20:53)
[2016-02-05] MEDS: LEVALBUTEROL 1.25 MG/0.5 ML CONCENTRATE NEB NEB SCH ×4 (01:33→18:51)
[2016-02-05 04:54] VITALS: BP 121/67
[2016-02-05 05:47] LABS: MEAN CORPUSCULAR HEMOGLOBIN 31.6 pg (27.0-33.0); MEAN CORPUSCULAR HGB CONC 30.1 g/dl (32.0-36.5); MEAN CORPUSCULAR VOLUME 104.9 fl (80.0-96.0); RED CELL DISTRIBUTION WIDTH 15.4 % (11.5-14.5); WHITE BLOOD COUNT 5.8 K/mm3 (4.0-10.0)
[2016-02-05] MEDS: SLF 3 ML SYR IV SCH ×3 (05:53→21:22)
[2016-02-05 05:56] LABS: ANION GAP 6 MEQ/L (8-16); BLOOD UREA NITROGEN 11 MG/DL (7-18); CARBON DIOXIDE LEVEL 34 MEQ/L (21-32); CHLORIDE LEVEL 104 MEQ/L (98-107); CREATININE FOR GFR 0.56 MG/DL (0.55-1.02); GLOMERULAR FILTRATION RATE > 60.0 (>45); GLUCOSE, FASTING 91 MG/DL (80-110); POTASSIUM SERUM 4.3 MEQ/L (3.5-5.1); SODIUM LEVEL 144 MEQ/L (136-145)
[2016-02-05] MEDS: ADVAIR DISKUS 500/50 INH PWD INH SCH ×2 (07:01→20:37)
[2016-02-05] MEDS: TIOTROPIUM INHALER/CAPSULE (SPIRIVA) INH SCH (07:01)
[2016-02-05 07:44] VITALS: BP 109/65
[2016-02-05] MEDS: BENZONATATE 100 MG CAP PO SCH ×3 (07:49→21:22)
[2016-02-05] MEDS: FLECAINIDE 50MG TABLET PO SCH ×2 (07:49→21:22)
[2016-02-05] MEDS: LACTOBACILLUS ACIDOPHILUS CAP (BACID) PO SCH (07:49)
[2016-02-05] MEDS: PANTOPRAZOLE 40MG TAB (PROTONIX) PO SCH (07:49)
[2016-02-05] MEDS: HEPARIN SOD (PORCINE) 5000 UNITS/ML VIAL SC SCH ×2 (07:49→21:22)
[2016-02-05] MEDS: DULoxetine 20 MG CAP (CYMBALTA) PO SCH (07:49)
[2016-02-05] MEDS: MULTIVITAMINS/MINERALS THERAP 1 TAB PO SCH (07:49)
[2016-02-05] MEDS: DOCUSATE SODIUM 100 MG CAP PO SCH ×2 (07:49→21:22)
[2016-02-05] MEDS: VITAMIN D 1,000 INTERNATIONAL UNITS TABLET PO SCH (07:49)
[2016-02-05] MEDS: MOM 30ML SUSPENSION UDC PO SCH (07:50)
[2016-02-05] MEDS: predniSONE 10 MG TAB PO SCH (07:50)
[2016-02-05] MEDS: ASCORBIC ACID 250 MG TAB PO SCH ×3 (07:50→21:22)
[2016-02-05] MEDS: FLUTICASONE PROP 0.05% NASAL SPRAY 16 GM (FLONASE) SCH (07:51)
[2016-02-05] MEDS: PERCOCET 5MG/325MG TAB PO PRN ×2 (07:59→18:50)
--- NOTE | 2016-02-05 09:49 | REP ---
SINGLE VIEW CHEST: Single view of the chest is performed and compared to a prior study of 02/04/2016. A right chest tube inferiorly is again seen. There may be a tiny pneumothorax at the right costophrenic angle. Bilateral parenchymal opacities are unchanged. The cardiomediastinal silhouette is unchanged. There is persistent subcutaneous emphysema in the right chest wall. IMPRESSION: Essentially stable exam. Signed by Kory Peña MD 02/05/2016 04:49 P
[2016-02-05 12:00] VITALS: BP 111/65
[2016-02-05 15:37] VITALS: BP 105/68
[2016-02-05 20:42] VITALS: BP 119/57
[2016-02-05] MEDS: LevoFLOXacin 500 MG TABLET PO SCH (21:22)
[2016-02-06] VITALS (16 sets, daily range): BP systolic 103–129; BP diastolic 59–73
[2016-02-06] MEDS: LEVALBUTEROL 1.25 MG/0.5 ML CONCENTRATE NEB NEB SCH ×4 (01:14→20:00)
--- NOTE | 2016-02-06 03:40 | REPUSA ---
CLINICAL HISTORY: Chest tube placement. COMMENTS: Comparison is made to the prior exam performed on 01/28/2016. Right chest tube is in good position. Right hilar opacity is again noted without change. Minimal right apical pneumothorax. The heart, mediastinum and pulmonary vessels appear normal. IMPRESSION: Minimal right apical pneumothorax. Right chest tube is in good position. Right hilar opacity. Thank you for your kind referral of this patient.
[2016-02-06 05:02] LABS: MEAN CORPUSCULAR HEMOGLOBIN 31.8 pg (27.0-33.0); MEAN CORPUSCULAR HGB CONC 30.5 g/dl (32.0-36.5); MEAN CORPUSCULAR VOLUME 104.3 fl (80.0-96.0); RED CELL DISTRIBUTION WIDTH 15.4 % (11.5-14.5); WHITE BLOOD COUNT 5.8 K/mm3 (4.0-10.0)
[2016-02-06 05:16] LABS: ANION GAP 6 MEQ/L (8-16); BLOOD UREA NITROGEN 13 MG/DL (7-18); CALCIUM LEVEL 8.9 MG/DL (8.8-10.2); CARBON DIOXIDE LEVEL 35 MEQ/L (21-32); CHLORIDE LEVEL 103 MEQ/L (98-107); CREATININE FOR GFR 0.65 MG/DL (0.55-1.02); GLOMERULAR FILTRATION RATE > 60.0 (>45); GLUCOSE, FASTING 91 MG/DL (80-110); POTASSIUM SERUM 4.3 MEQ/L (3.5-5.1); SODIUM LEVEL 144 MEQ/L (136-145)
[2016-02-06] MEDS: SLF 3 ML SYR IV SCH ×3 (05:17→20:18)
[2016-02-06] MEDS: ADVAIR DISKUS 500/50 INH PWD INH SCH ×2 (07:28→20:05)
[2016-02-06] MEDS: TIOTROPIUM INHALER/CAPSULE (SPIRIVA) INH SCH (07:28)
[2016-02-06] MEDS: LACTOBACILLUS ACIDOPHILUS CAP (BACID) PO SCH (08:59)
[2016-02-06] MEDS: BENZONATATE 100 MG CAP PO SCH ×3 (08:59→20:15)
[2016-02-06] MEDS: predniSONE 10 MG TAB PO SCH (08:59)
[2016-02-06] MEDS: VITAMIN D 1,000 INTERNATIONAL UNITS TABLET PO SCH (08:59)
[2016-02-06] MEDS: DOCUSATE SODIUM 100 MG CAP PO SCH ×2 (09:00→20:14)
[2016-02-06] MEDS: MULTIVITAMINS/MINERALS THERAP 1 TAB PO SCH (09:00)
[2016-02-06] MEDS: FLECAINIDE 50MG TABLET PO SCH ×2 (09:00→20:14)
[2016-02-06] MEDS: MOM 30ML SUSPENSION UDC PO SCH (09:00)
[2016-02-06] MEDS: HEPARIN SOD (PORCINE) 5000 UNITS/ML VIAL SC SCH ×2 (09:00→20:15)
[2016-02-06] MEDS: DULoxetine 20 MG CAP (CYMBALTA) PO SCH (09:00)
[2016-02-06] MEDS: PANTOPRAZOLE 40MG TAB (PROTONIX) PO SCH (09:00)
[2016-02-06] MEDS: ASCORBIC ACID 250 MG TAB PO SCH ×3 (09:00→20:14)
[2016-02-06] MEDS: FLUTICASONE PROP 0.05% NASAL SPRAY 16 GM (FLONASE) SCH (09:07)
--- NOTE | 2016-02-06 10:33 | REP ---
Portable chest x-ray: Single semi-erect AP view. History: Pneumothorax. Findings: There is extensive soft tissue extrathoracic emphysema as on the previous day's study. A right pleural drainage catheter is seen a little lower in the right base. There is no discernible pneumothorax. Evidence of COPD is again seen with emphysematous changes in the upper lobes bilaterally. There is some improved aeration in the right perihilar region although this may be due to change in projection. Impression: No pneumothorax visible. Pigtail catheter noted at the right base. Extensive extrathoracic soft tissue emphysema on the right. Signed by David Llamas MD 02/06/2016 10:56 A
--- NOTE | 2016-02-06 11:37 | REP ---
CT study of the chest without contrast: History: Increasing subcutaneous air. Comparison chest CT study January 30, 2016. Findings: Today's repeat CT study again demonstrates a [id number] size right-sided pneumothorax recurrent despite the presence of a pigtail catheter in good position in the pleural space. The catheter does not appear to be kinked on CT images. There are atelectatic and bronchiectatic changes in the right perihilar region again noted essentially unchanged. Advanced emphysematous changes are noted in the left lung. There is extensive extrathoracic soft tissue emphysema on the right as noted radiographically. Impression: Recurrent large right-sided pneumothorax despite the presence of a pigtail catheter in the right pleural space. The catheter does not appear kinked. Signed by David Llamas MD 02/06/2016 02:42 P
[2016-02-06] MEDS: PERCOCET 5MG/325MG TAB PO PRN ×2 (14:22→20:16)
[2016-02-06] MEDS ORDERED: LIDOCAINE 1% MDV 20ML VIAL IM ONE (18:00)
[2016-02-06] MEDS ORDERED: MIDAZOLAM INJ 2 MG/2 ML VIAL (J2250) IV STA (18:00)
[2016-02-06] MEDS ORDERED: FLUMAZENIL 0.5 MG/5 ML VIAL As Ordered ONE (18:06)
[2016-02-06] MEDS: LevoFLOXacin 500 MG TABLET PO SCH (20:14)
[2016-02-06] MEDS: KETOROLAC 30 MG/ML VIAL (J1885) IV SCH (22:24)
[2016-02-07] VITALS (7 sets, daily range): BP systolic 100–116; BP diastolic 53–64
[2016-02-07] MEDS: LEVALBUTEROL 1.25 MG/0.5 ML CONCENTRATE NEB NEB SCH ×4 (03:29→20:00)
[2016-02-07] MEDS: PERCOCET 5MG/325MG TAB PO PRN ×3 (03:39→15:38)
[2016-02-07 05:28] LABS: MEAN CORPUSCULAR HEMOGLOBIN 31.6 pg (27.0-33.0); MEAN CORPUSCULAR HGB CONC 30.4 g/dl (32.0-36.5); RED CELL DISTRIBUTION WIDTH 16.6 % (11.5-14.5); WHITE BLOOD COUNT 5.7 K/mm3 (4.0-10.0)
[2016-02-07 05:33] LABS: ANION GAP 7 MEQ/L (8-16); BLOOD UREA NITROGEN 18 MG/DL (7-18); CARBON DIOXIDE LEVEL 33 MEQ/L (21-32); CHLORIDE LEVEL 103 MEQ/L (98-107); CREATININE FOR GFR 0.49 MG/DL (0.55-1.02); GLOMERULAR FILTRATION RATE > 60.0 (>45); GLUCOSE, FASTING 100 MG/DL (80-110); SODIUM LEVEL 143 MEQ/L (136-145)
[2016-02-07] MEDS: KETOROLAC 30 MG/ML VIAL (J1885) IV SCH ×4 (05:37→23:31)
[2016-02-07] MEDS: SLF 3 ML SYR IV SCH ×3 (05:38→20:32)
[2016-02-07] MEDS: TIOTROPIUM INHALER/CAPSULE (SPIRIVA) INH SCH (07:03)
[2016-02-07] MEDS: ADVAIR DISKUS 500/50 INH PWD INH SCH ×2 (07:03→19:36)
[2016-02-07] MEDS: MOM 30ML SUSPENSION UDC PO SCH (08:19)
[2016-02-07] MEDS: HEPARIN SOD (PORCINE) 5000 UNITS/ML VIAL SC SCH ×2 (08:19→20:32)
[2016-02-07] MEDS: LACTOBACILLUS ACIDOPHILUS CAP (BACID) PO SCH (08:20)
[2016-02-07] MEDS: FLECAINIDE 50MG TABLET PO SCH ×2 (08:20→20:31)
[2016-02-07] MEDS: DULoxetine 20 MG CAP (CYMBALTA) PO SCH (08:20)
[2016-02-07] MEDS: DOCUSATE SODIUM 100 MG CAP PO SCH ×2 (08:20→20:31)
[2016-02-07] MEDS: predniSONE 10 MG TAB PO SCH (08:20)
[2016-02-07] MEDS: PANTOPRAZOLE 40MG TAB (PROTONIX) PO SCH (08:20)
[2016-02-07] MEDS: ASCORBIC ACID 250 MG TAB PO SCH ×3 (08:20→20:31)
[2016-02-07] MEDS: MULTIVITAMINS/MINERALS THERAP 1 TAB PO SCH (08:20)
[2016-02-07] MEDS: BENZONATATE 100 MG CAP PO SCH ×3 (08:20→20:31)
--- NOTE | 2016-02-07 08:27 | REP ---
Clinical: Follow up pneumothorax. Technique: Portable semiupright. Comparison: 02/06/2016. Findings: Right apical chest tube is in stable position. No obvious residual pneumothorax is appreciated. Right mid lung and right basilar atelectasis along with suspected trace left basilar atelectasis is appreciated. Underlying chronic COPD and emphysematous changes noted. Overlying subcutaneous emphysema involving the right hemithorax extending into the neck and right flank similar to prior examination. Impression: 1. Right apical chest tube without obvious residual pneumothorax. 2. Increasing areas of opacity/atelectasis in the right mid lung zone and bilateral bases. 3. Extensive subcutaneous emphysema. Signed by Brannon Zepeda MD 02/07/2016 08:18 A
[2016-02-07] MEDS: FLUTICASONE PROP 0.05% NASAL SPRAY 16 GM (FLONASE) SCH (08:28)
[2016-02-07] MEDS: VITAMIN D 1,000 INTERNATIONAL UNITS TABLET PO SCH (08:28)
--- NOTE | 2016-02-07 09:32 | REP ---
Clinical: Status post chest tube placement. Comparison: 02/06/1967. Findings: Right apical chest tube. No obvious residual pneumothorax. Right mid to lower lobe opacities with underlying chronic COPD and emphysematous changes noted. Left basilar atelectasis cannot be excluded. Extensive right sided subcutaneous emphysema. Impression: Right apical chest tube without significant residual pneumothorax identified. Right mid lung and suspected bibasilar atelectasis. Extensive right-sided subcutaneous emphysema. Signed by Brannon Zepeda MD 02/07/2016 09:24 A
[2016-02-07] MEDS: NORCO, ANEXSIA 5/325MG TABLET (HYDROcodone/ACETAMINOPHEN) PO PRN ×2 (10:48→20:46)
[2016-02-07] MEDS: LevoFLOXacin 500 MG TABLET PO SCH (20:31)
[2016-02-08] MEDS: LEVALBUTEROL 1.25 MG/0.5 ML CONCENTRATE NEB NEB SCH ×4 (02:00→20:00)
[2016-02-08 04:00] VITALS: BP 109/58
[2016-02-08] MEDS: SLF 3 ML SYR IV SCH ×3 (04:37→21:31)
[2016-02-08] MEDS: KETOROLAC 30 MG/ML VIAL (J1885) IV SCH ×3 (04:37→16:20)
[2016-02-08] MEDS: PERCOCET 5MG/325MG TAB PO PRN ×4 (05:19→22:03)
[2016-02-08 06:12] LABS: ANION GAP 8 MEQ/L (8-16); BLOOD UREA NITROGEN 14 MG/DL (7-18); CALCIUM LEVEL 8.6 MG/DL (8.8-10.2); CARBON DIOXIDE LEVEL 32 MEQ/L (21-32); CHLORIDE LEVEL 102 MEQ/L (98-107); GLOMERULAR FILTRATION RATE > 60.0 (>45); GLUCOSE, FASTING 82 MG/DL (80-110); SODIUM LEVEL 142 MEQ/L (136-145)
[2016-02-08 06:17] LABS: MEAN CORPUSCULAR HEMOGLOBIN 32.3 pg (27.0-33.0); MEAN CORPUSCULAR HGB CONC 31.2 g/dl (32.0-36.5); MEAN CORPUSCULAR VOLUME 103.3 fl (80.0-96.0); RED CELL DISTRIBUTION WIDTH 15.5 % (11.5-14.5); WHITE BLOOD COUNT 6.4 K/mm3 (4.0-10.0)
[2016-02-08] MEDS: TIOTROPIUM INHALER/CAPSULE (SPIRIVA) INH SCH (07:21)
[2016-02-08] MEDS: ADVAIR DISKUS 500/50 INH PWD INH SCH ×2 (07:21→19:39)
[2016-02-08 07:49] VITALS: BP_SYST 110; BP_SYST 133; BP_DIAS 60; BP_DIAS 61
--- NOTE | 2016-02-08 08:49 | REP ---
Clinical: Follow up pneumothorax. Comparison: 02/07/2016. Findings: Right apical chest tube in stable position. No obvious residual right pneumothorax. Chronic pleural parenchymal changes are appreciated with right mid lung opacities similar to prior examination. Subcutaneous emphysema again noted and relatively unchanged. Left hemithorax appears stable and trace basilar atelectasis cannot be excluded. Impression: 1. Extensive subcutaneous emphysema similar to prior examination. II. No obvious pneumothorax. 3. Right mid lung opacities similar to prior examination. Trace left basilar atelectasis cannot be excluded. Signed by Brannon Zepeda MD 02/08/2016 08:39 A
[2016-02-08] MEDS: VITAMIN D 1,000 INTERNATIONAL UNITS TABLET PO SCH (09:09)
[2016-02-08] MEDS: predniSONE 10 MG TAB PO SCH (09:09)
[2016-02-08] MEDS: LACTOBACILLUS ACIDOPHILUS CAP (BACID) PO SCH (09:09)
[2016-02-08] MEDS: HEPARIN SOD (PORCINE) 5000 UNITS/ML VIAL SC SCH ×2 (09:09→21:31)
[2016-02-08] MEDS: BENZONATATE 100 MG CAP PO SCH ×3 (09:09→21:30)
[2016-02-08] MEDS: DULoxetine 20 MG CAP (CYMBALTA) PO SCH (09:10)
[2016-02-08] MEDS: ALENDRONATE 70 MG TABLET (FOSAMAX) PO SCH (09:10)
[2016-02-08] MEDS: ASCORBIC ACID 250 MG TAB PO SCH ×3 (09:10→21:31)
[2016-02-08] MEDS: FLECAINIDE 50MG TABLET PO SCH ×2 (09:10→21:30)
[2016-02-08] MEDS: MULTIVITAMINS/MINERALS THERAP 1 TAB PO SCH (09:10)
[2016-02-08] MEDS: DOCUSATE SODIUM 100 MG CAP PO SCH ×2 (09:10→21:31)
[2016-02-08] MEDS: PANTOPRAZOLE 40MG TAB (PROTONIX) PO SCH (09:10)
[2016-02-08] MEDS: MOM 30ML SUSPENSION UDC PO SCH (09:11)
[2016-02-08] MEDS: FLUTICASONE PROP 0.05% NASAL SPRAY 16 GM (FLONASE) SCH (09:11)
[2016-02-08 12:00] VITALS: BP 120/62
[2016-02-08 16:00] VITALS: BP 112/68
[2016-02-08 20:28] VITALS: BP 119/59
[2016-02-08 23:59] VITALS: BP 104/58
[2016-02-09] MEDS: KETOROLAC 30 MG/ML VIAL (J1885) IV SCH ×4 (00:47→20:05)
[2016-02-09] MEDS: LEVALBUTEROL 1.25 MG/0.5 ML CONCENTRATE NEB NEB SCH ×4 (03:13→20:06)
--- NOTE | 2016-02-09 04:26 | CR ---
DATE OF CONSULTATION: 02/06/2016 REASON FOR CONSULTATION: Recurrent pneumothorax right chest. HISTORY OF PRESENT ILLNESS: Patient is a very pleasant 65-year-old woman with severe emphysematous changes both lungs. She has recently had problems with a pneumothorax on the right. This was treated with a chest tube, with a blood patch and her leak seemed to have cleared. She was discharged, but returned with a recurrent pneumothorax. She had a chest tube inserted again. She has apparently also undergone a talc slurry pleurodesis attempt, as well as two bronchoscopies with injection of Tisseel into the bronchus that appeared to be responsible for her air leak. She had been doing fairly well recently. A recurrent pneumothorax had been treated with a small percutaneous drain just below the right breast. However, repeat imaging today suggested a recurrent pneumothorax and a chest CT confirmed a large right-sided pneumothorax, particularly in the upper lung dugan. I was counseled to place a chest tube. MEDICATIONS: The patient's current medications include: - analgesics as needed - Protonix 40 mg by mouth daily - docusate and milk of magnesia - heparin 5000 units subcutaneously every 12 hours - Xopenex nebulizers - Fosamax - vitamin C - vitamin D - Cymbalta - Tambocor - Flonase nasal spray - Bacid - Levaquin - multivitamin - prednisone - Advair Diskus - Spiriva HandiHaler - Tessalon Perles ALLERGIES: Reported to BETA BLOCKERS and CIPROFLOXACIN. MEDICAL HISTORY: Significant for her severe chronic lung disease with bullous emphysema. She has a history of some gastroesophageal reflux. She has had some sort of cardiac arrhythmia leading to her current medications. SURGICAL HISTORY: Includes an appendectomy and there is a report that she has had a tubal ligation in the past and then the various chest tubes and bronchoscopies associated with her current problem. PHYSICAL EXAMINATION: Reveals a pleasant woman appearing older than her stated age of 65 years. She is alert and oriented. She appears to be breathing fairly comfortably. Sclerae are anicteric. Her mucous membranes are moist. The neck is supple. She has some significant subcutaneous emphysema of the right upper chest wall and right upper lateral chest wall. This is fairly impressive and also involves the right breast. There is an old sutured wound just to the right of the sternum at about the third or fourth intercostal space. This appears to be healed. There is another scar with a suture in place on the lateral chest wall on the right. Heart exam shows a regular rhythm at about 95-100. Breath sounds are very distant. Abdomen is soft and nontender. She had a CBC today, as well as a BMP and these are reviewed. She had a CT scan of her chest, as well as a plain chest x-ray. She has very prominent and severe chronic lung changes noted on the CT scan in particular. On the plain chest x-ray, the upper lung dugan are very hyperlucent bilaterally. The CT scan confirms a large pneumothorax on the right with primarily collapse of the upper lobe. There is a suggestion of some tethering of the lateral aspect of the lung at about the mid chest level laterally. The existing small bore chest catheter is noted anteriorly in the lower aspect of the lung dugan. IMPRESSION: Recurrent pneumothorax with inadequate drainage. PLAN: The patient was counseled for placement of an anterior chest tube in the right upper chest. I advised her that there is a small risk of bleeding or infection. There is a chance that this will not adequately control her air leak. 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 She had an opportunity to ask questions and she desires to proceed. The patient will have a right tube thoracostomy performed at the bedside. OLIVER
[2016-02-09 04:57] VITALS: BP 115/56
[2016-02-09 05:20] LABS: MEAN CORPUSCULAR HEMOGLOBIN 31.7 pg (27.0-33.0); MEAN CORPUSCULAR HGB CONC 30.3 g/dl (32.0-36.5); MEAN CORPUSCULAR VOLUME 104.6 fl (80.0-96.0); RED CELL DISTRIBUTION WIDTH 15.3 % (11.5-14.5)
[2016-02-09] MEDS: SLF 3 ML SYR IV SCH ×3 (05:21→21:13)
[2016-02-09 05:40] LABS: ANION GAP 6 MEQ/L (8-16); BLOOD UREA NITROGEN 12 MG/DL (7-18); CALCIUM LEVEL 8.7 MG/DL (8.8-10.2); CARBON DIOXIDE LEVEL 33 MEQ/L (21-32); CHLORIDE LEVEL 103 MEQ/L (98-107); CREATININE FOR GFR 0.56 MG/DL (0.55-1.02); GLOMERULAR FILTRATION RATE > 60.0 (>45); GLUCOSE, FASTING 90 MG/DL (80-110); POTASSIUM SERUM 4.2 MEQ/L (3.5-5.1); SODIUM LEVEL 142 MEQ/L (136-145)
[2016-02-09] MEDS: TIOTROPIUM INHALER/CAPSULE (SPIRIVA) INH SCH (07:07)
[2016-02-09] MEDS: ADVAIR DISKUS 500/50 INH PWD INH SCH ×2 (07:07→21:00)
[2016-02-09 08:00] VITALS: BP 109/55
--- NOTE | 2016-02-09 08:07 | RO ---
DATE OF PROCEDURE: 02/06/2016 PREPROCEDURE DIAGNOSIS: Recurrent right pneumothorax. POSTPROCEDURE DIAGNOSIS: Recurrent right pneumothorax. PROCEDURE PERFORMED: Insertion of 28-Libyan right tube thoracostomy. SURGEON: Dr. Rell Celaya PROGRAM OR PROJECT ADMINISTRATOR: ANESTHESIA: Local of 1% Xylocaine with Versed 2 mg IV. INDICATIONS FOR PROCEDURE: The patient is a 65-year-old woman with severe bullous emphysema. She has had recurring problems with a pneumothorax. She has undergone a talc slurry pleurodesis as well as attempts to occlude the offending bronchus using bronchoscopy. She has now redeveloped a right pneumothorax, particularly in the upper lung dugan. I was requested to insert a chest tube. OPERATIVE PROCEDURE: The patient was placed supine in bed with the head raised slightly. The right upper chest was prepped with a Chloraprep prep stick and then draped sterilely. She received 1 mg of Versed intravenously while the prep was taking place. A second milligram of Versed was administered. Local anesthesia was achieved at approximately the third to fourth interspace slightly to the right of the midline. This was several centimeters lateral to a suture from a previous chest tube. 1% Xylocaine was infiltrated down into the deeper tissues of the chest wall and then onto the underlying rib and then superiorly above that rib. An approximately 1 to 1.5 cm skin incision was made. There was release of a moderately large amount of air from some significant subcutaneous emphysema of the chest wall. A small clamp was used to spread the subcutaneous tissues and then to extend the tract down to and then up over the underlying rib. The pleura was penetrated. A 28-Libyan trocared chest tube was then inserted through the skin opening and advanced into the thoracic cavity over the underlying rib. The chest tube was then advanced off the trocar to a depth of approximately 14 cm at the skin. There was immediate return of some air. The tube was clamped. A U-stitch of #2-0 silk was placed at the entry site. A second #2-0 silk was placed in the skin and tied about the tube. 2x2s were placed about the tube and the tube was then taped securely to the chest with tape. The chest tube was then connected to the Pleur-Evac suction unit on water seal and the tube was unclamped. The patient had immediate return of air and with each breath she was noted to have some significant bubbling. With coughing , there was a large return of air. She was connected to 10 cm of water suction with additional return of air. She appeared to have a continuing small air leak with a few bubbles returning with every breath. The small chest drainage catheter below the right breast was then removed and the site dressed sterilely with an occlusive chlorhexidine gluconate OpSite. Several additional sutures from old chest tube sites of the lateral chest and the anterior chest were then removed. The patient tolerated the procedure well without apparent complication. A chest x-ray was ordered. MIKD
--- NOTE | 2016-02-09 08:50 | REP ---
Clinical: Follow up pneumothorax. Comparison: 02/08/2016. Findings: Right apical chest tube in stable position. No obvious residual pneumothorax. Decreased subcutaneous emphysema is appreciated. Mediastinum remains stable. Underlying bilateral pleuroparenchymal changes are essentially unchanged. Impression: Decreased subcutaneous emphysema noted. No obvious residual pneumothorax. Stable pleuroparenchymal changes noted bilaterally. Signed by Brannon Zepeda MD 02/09/2016 08:42 A
[2016-02-09] MEDS: MOM 30ML SUSPENSION UDC PO SCH (09:00)
[2016-02-09] MEDS: HEPARIN SOD (PORCINE) 5000 UNITS/ML VIAL SC SCH ×2 (09:08→21:12)
[2016-02-09] MEDS: MULTIVITAMINS/MINERALS THERAP 1 TAB PO SCH (09:09)
[2016-02-09] MEDS: FLECAINIDE 50MG TABLET PO SCH ×2 (09:09→21:12)
[2016-02-09] MEDS: PANTOPRAZOLE 40MG TAB (PROTONIX) PO SCH (09:09)
[2016-02-09] MEDS: DULoxetine 20 MG CAP (CYMBALTA) PO SCH (09:09)
[2016-02-09] MEDS: VITAMIN D 1,000 INTERNATIONAL UNITS TABLET PO SCH (09:09)
[2016-02-09] MEDS: predniSONE 10 MG TAB PO SCH (09:09)
[2016-02-09] MEDS: BENZONATATE 100 MG CAP PO SCH ×3 (09:09→21:12)
[2016-02-09] MEDS: LACTOBACILLUS ACIDOPHILUS CAP (BACID) PO SCH (09:09)
[2016-02-09] MEDS: PERCOCET 5MG/325MG TAB PO PRN ×3 (09:10→21:13)
[2016-02-09] MEDS: ASCORBIC ACID 250 MG TAB PO SCH ×3 (09:10→21:13)
[2016-02-09] MEDS: DOCUSATE SODIUM 100 MG CAP PO SCH ×2 (09:10→21:12)
[2016-02-09 12:00] VITALS: BP 110/63
[2016-02-09] MEDS: FLUTICASONE PROP 0.05% NASAL SPRAY 16 GM (FLONASE) SCH (12:06)
[2016-02-09 16:00] VITALS: BP 106/55
[2016-02-09 19:17] VITALS: BP 108/55
[2016-02-09 23:56] VITALS: BP 120/60
[2016-02-10] MEDS: LEVALBUTEROL 1.25 MG/0.5 ML CONCENTRATE NEB NEB SCH ×5 (01:29→20:00)
[2016-02-10 04:51] VITALS: BP 102/59
[2016-02-10] MEDS: SLF 3 ML SYR IV SCH ×3 (06:22→22:24)
[2016-02-10 08:00] VITALS: BP 109/62
[2016-02-10] MEDS: PANTOPRAZOLE 40MG TAB (PROTONIX) PO SCH (08:02)
[2016-02-10] MEDS: MULTIVITAMINS/MINERALS THERAP 1 TAB PO SCH (08:02)
[2016-02-10] MEDS: ASCORBIC ACID 250 MG TAB PO SCH ×3 (08:02→22:23)
[2016-02-10] MEDS: DOCUSATE SODIUM 100 MG CAP PO SCH ×2 (08:02→22:23)
[2016-02-10] MEDS: PERCOCET 5MG/325MG TAB PO PRN ×3 (08:02→22:30)
[2016-02-10] MEDS: VITAMIN D 1,000 INTERNATIONAL UNITS TABLET PO SCH (08:02)
[2016-02-10] MEDS: FLECAINIDE 50MG TABLET PO SCH ×2 (08:02→22:23)
[2016-02-10] MEDS: DULoxetine 20 MG CAP (CYMBALTA) PO SCH (08:02)
[2016-02-10] MEDS: HEPARIN SOD (PORCINE) 5000 UNITS/ML VIAL SC SCH ×2 (08:03→22:24)
[2016-02-10] MEDS: predniSONE 10 MG TAB PO SCH (08:03)
[2016-02-10] MEDS: BENZONATATE 100 MG CAP PO SCH ×3 (08:03→22:23)
[2016-02-10] MEDS: FLUTICASONE PROP 0.05% NASAL SPRAY 16 GM (FLONASE) SCH (08:04)
[2016-02-10] MEDS: TIOTROPIUM INHALER/CAPSULE (SPIRIVA) INH SCH (08:42)
[2016-02-10] MEDS: ADVAIR DISKUS 500/50 INH PWD INH SCH ×2 (08:42→20:14)
[2016-02-10] MEDS: MOM 30ML SUSPENSION UDC PO SCH (09:00)
[2016-02-10 12:00] VITALS: BP 106/57
[2016-02-10] MEDS: LACTOBACILLUS ACIDOPHILUS CAP (BACID) PO SCH (12:06)
--- NOTE | 2016-02-10 15:16 | REP ---
PORTABLE CHEST: Single view of the chest is performed and compared to a prior study of 02/09/2016. Right chest tube drains in place. I do not see a significant pneumothorax. Subcutaneous emphysema is again seen in the right chest wall. Bilateral parenchymal opacities are stable. The cardiomediastinal silhouette is unchanged. IMPRESSION: Stable exam. Signed by Kory Peña MD 02/10/2016 03:29 P
[2016-02-10 16:00] VITALS: BP 101/57
[2016-02-10 20:04] VITALS: BP 106/57
[2016-02-10 23:59] VITALS: BP 99/57
[2016-02-11] MEDS: LEVALBUTEROL 1.25 MG/0.5 ML CONCENTRATE NEB NEB SCH ×4 (02:00→19:06)
[2016-02-11 04:53] VITALS: BP 97/57
[2016-02-11] MEDS: SLF 3 ML SYR IV SCH ×3 (05:13→20:35)
[2016-02-11] MEDS: ADVAIR DISKUS 500/50 INH PWD INH SCH ×2 (07:34→19:06)
[2016-02-11] MEDS: TIOTROPIUM INHALER/CAPSULE (SPIRIVA) INH SCH (07:35)
[2016-02-11 08:00] VITALS: BP 110/57
[2016-02-11] MEDS: predniSONE 10 MG TAB PO SCH (08:23)
[2016-02-11] MEDS: MULTIVITAMINS/MINERALS THERAP 1 TAB PO SCH (08:23)
[2016-02-11] MEDS: FLECAINIDE 50MG TABLET PO SCH ×2 (08:23→20:35)
[2016-02-11] MEDS: PANTOPRAZOLE 40MG TAB (PROTONIX) PO SCH (08:23)
[2016-02-11] MEDS: ASCORBIC ACID 250 MG TAB PO SCH ×3 (08:23→20:35)
[2016-02-11] MEDS: DULoxetine 20 MG CAP (CYMBALTA) PO SCH (08:23)
[2016-02-11] MEDS: LACTOBACILLUS ACIDOPHILUS CAP (BACID) PO SCH (08:23)
[2016-02-11] MEDS: DOCUSATE SODIUM 100 MG CAP PO SCH ×2 (08:23→20:35)
[2016-02-11] MEDS: VITAMIN D 1,000 INTERNATIONAL UNITS TABLET PO SCH (08:23)
[2016-02-11] MEDS: BENZONATATE 100 MG CAP PO SCH ×3 (08:24→20:35)
[2016-02-11] MEDS: HEPARIN SOD (PORCINE) 5000 UNITS/ML VIAL SC SCH ×2 (08:24→20:35)
[2016-02-11] MEDS: MOM 30ML SUSPENSION UDC PO SCH (08:24)
[2016-02-11] MEDS: FLUTICASONE PROP 0.05% NASAL SPRAY 16 GM (FLONASE) SCH (08:25)
--- NOTE | 2016-02-11 09:14 | REP ---
CHEST, PORTABLE: AP portable view of the chest is performed and compared to prior study of 02/10/2016. Right chest tube remains in place. I do not see a significant pneumothorax. Bilateral parenchymal opacities are unchanged. Cardiomediastinal silhouette is unchanged. Subcutaneous emphysema is again seen in the right chest wall. IMPRESSION: Stable exam. Signed by Kory Peña MD 02/11/2016 05:18 P
[2016-02-11] MEDS: PERCOCET 5MG/325MG TAB PO PRN ×2 (10:44→22:38)
[2016-02-11 12:00] VITALS: BP 111/56
[2016-02-11 16:00] VITALS: BP 120/65
[2016-02-11 20:00] VITALS: BP 112/57
[2016-02-11 23:59] VITALS: BP 106/56
[2016-02-12] MEDS: LEVALBUTEROL 1.25 MG/0.5 ML CONCENTRATE NEB NEB SCH ×4 (02:00→19:21)
[2016-02-12] MEDS: PERCOCET 5MG/325MG TAB PO PRN ×4 (03:42→22:24)
[2016-02-12 04:00] VITALS: BP 107/58
[2016-02-12] MEDS: SLF 3 ML SYR IV SCH ×3 (05:23→22:20)
[2016-02-12] MEDS: TIOTROPIUM INHALER/CAPSULE (SPIRIVA) INH SCH (07:06)
[2016-02-12] MEDS: ADVAIR DISKUS 500/50 INH PWD INH SCH ×2 (07:06→19:20)
[2016-02-12 07:30] VITALS: BP 117/59
[2016-02-12 07:58] LABS: BASO % 0.2 % (0.0-1.0); EOS # 0.2 K/mm3 (0.0-0.50); EOS % 4.1 % (0.0-3.0); LARGE UNSTAINED CELL # 0.1 K/mm3 (0.0-0.4); LARGE UNSTAINED CELL % 2.3 % (0.0-4.0); LYMPH # 0.6 K/mm3 (1.5-4.5); LYMPH % 13.7 % (24.0-44.0); MEAN CORPUSCULAR HEMOGLOBIN 31.9 pg (27.0-33.0); MEAN CORPUSCULAR HGB CONC 30.8 g/dl (32.0-36.5); MEAN CORPUSCULAR VOLUME 103.6 fl (80.0-96.0); MONO # 0.3 K/mm3 (0.0-0.8); MONO % 5.7 % (0.0-5.0); NEUTROPHILS # 3.5 K/mm3 (1.8-7.7); PLATELET COUNT, AUTOMATED 285 k/mm3 (150-450); RED CELL DISTRIBUTION WIDTH 15.3 % (11.5-14.5); WHITE BLOOD COUNT 4.7 K/mm3 (4.0-10.0)
[2016-02-12 08:32] LABS: ANION GAP 8 MEQ/L (8-16); BLOOD UREA NITROGEN 11 MG/DL (7-18); CALCIUM LEVEL 8.6 MG/DL (8.8-10.2); CARBON DIOXIDE LEVEL 31 MEQ/L (21-32); CHLORIDE LEVEL 104 MEQ/L (98-107); GLOMERULAR FILTRATION RATE > 60.0 (>45); GLUCOSE, FASTING 86 MG/DL (80-110); POTASSIUM SERUM 3.9 MEQ/L (3.5-5.1); SODIUM LEVEL 143 MEQ/L (136-145)
[2016-02-12] MEDS: MOM 30ML SUSPENSION UDC PO SCH (09:00)
[2016-02-12] MEDS: VITAMIN D 1,000 INTERNATIONAL UNITS TABLET PO SCH (09:06)
[2016-02-12] MEDS: DULoxetine 20 MG CAP (CYMBALTA) PO SCH (09:06)
[2016-02-12] MEDS: LACTOBACILLUS ACIDOPHILUS CAP (BACID) PO SCH (09:06)
[2016-02-12] MEDS: DOCUSATE SODIUM 100 MG CAP PO SCH ×2 (09:06→22:21)
[2016-02-12] MEDS: predniSONE 10 MG TAB PO SCH (09:06)
[2016-02-12] MEDS: BENZONATATE 100 MG CAP PO SCH ×3 (09:06→22:21)
[2016-02-12] MEDS: MULTIVITAMINS/MINERALS THERAP 1 TAB PO SCH (09:06)
[2016-02-12] MEDS: ASCORBIC ACID 250 MG TAB PO SCH ×3 (09:06→22:22)
[2016-02-12] MEDS: FLECAINIDE 50MG TABLET PO SCH ×2 (09:06→22:21)
[2016-02-12] MEDS: HEPARIN SOD (PORCINE) 5000 UNITS/ML VIAL SC SCH ×2 (09:06→22:21)
[2016-02-12] MEDS: PANTOPRAZOLE 40MG TAB (PROTONIX) PO SCH (09:07)
--- NOTE | 2016-02-12 09:34 | REP ---
Clinical: Pneumothorax. Comparison: 02/11/2016. Findings: Right apical chest tube in satisfactory and stable position. Right-sided subcutaneous emphysema appears to be improving. Diffuse bilateral pleuroparenchymal changes (right greater than left) and underlying chronic COPD remains relatively stable. No new acute process identified. No residual pneumothorax appreciated. Skeletal structures intact. Impression: Improving subcutaneous emphysema. Remainder examination appears relatively stable and without acute process. No residual pneumothorax identified. Signed by Brannon Zepeda MD 02/12/2016 09:25 A
[2016-02-12] MEDS: FLUTICASONE PROP 0.05% NASAL SPRAY 16 GM (FLONASE) SCH (09:41)
[2016-02-12 12:00] VITALS: BP 109/64
[2016-02-12 16:00] VITALS: BP 97/63
[2016-02-12 20:00] VITALS: BP 107/64
[2016-02-12 23:59] VITALS: BP 107/62
[2016-02-13] MEDS: LEVALBUTEROL 1.25 MG/0.5 ML CONCENTRATE NEB NEB SCH ×4 (01:25→20:00)
[2016-02-13 04:00] VITALS: BP 101/60
[2016-02-13] MEDS: SLF 3 ML SYR IV SCH ×3 (05:21→22:00)
[2016-02-13] MEDS: PERCOCET 5MG/325MG TAB PO PRN ×3 (05:25→22:10)
[2016-02-13 07:05] VITALS: BP 103/58
[2016-02-13] MEDS: TIOTROPIUM INHALER/CAPSULE (SPIRIVA) INH SCH (08:24)
[2016-02-13] MEDS: ADVAIR DISKUS 500/50 INH PWD INH SCH ×2 (08:24→21:01)
--- NOTE | 2016-02-13 08:28 | REP ---
Clinical: Follow up pneumothorax. Comparison: 02/12/2016. Findings: Right apical chest tube in stable position. Decreased subcutaneous emphysema over the right hemithorax noted. Increasing area of opacity in the right mid lung zone is concerning for active process. Remainder of the bilateral lung dugan appear relatively stable again demonstrating underlying COPD and emphysematous changes with fibrosis and scarring. Mediastinum and cardiac silhouette stable within normal limits. Skeletal structures intact. Impression: 1. Increasing area of opacity in the right mid lung zone concerning for active process. 2. Decreased subcutaneous emphysema. Signed by Brannon Zepeda MD 02/13/2016 08:19 A
[2016-02-13] MEDS: MULTIVITAMINS/MINERALS THERAP 1 TAB PO SCH (08:58)
[2016-02-13] MEDS: DULoxetine 20 MG CAP (CYMBALTA) PO SCH (08:58)
[2016-02-13] MEDS: LACTOBACILLUS ACIDOPHILUS CAP (BACID) PO SCH (08:58)
[2016-02-13] MEDS: MOM 30ML SUSPENSION UDC PO SCH (08:58)
[2016-02-13] MEDS: predniSONE 10 MG TAB PO SCH (08:58)
[2016-02-13] MEDS: DOCUSATE SODIUM 100 MG CAP PO SCH ×2 (08:59→22:09)
[2016-02-13] MEDS: FLECAINIDE 50MG TABLET PO SCH ×2 (08:59→22:10)
[2016-02-13] MEDS: HEPARIN SOD (PORCINE) 5000 UNITS/ML VIAL SC SCH ×2 (08:59→22:09)
[2016-02-13] MEDS: ASCORBIC ACID 250 MG TAB PO SCH ×3 (08:59→22:10)
[2016-02-13] MEDS: VITAMIN D 1,000 INTERNATIONAL UNITS TABLET PO SCH (08:59)
[2016-02-13] MEDS: BENZONATATE 100 MG CAP PO SCH ×3 (08:59→22:08)
[2016-02-13] MEDS: PANTOPRAZOLE 40MG TAB (PROTONIX) PO SCH (08:59)
[2016-02-13] MEDS: FLUTICASONE PROP 0.05% NASAL SPRAY 16 GM (FLONASE) SCH (09:00)
[2016-02-13 12:00] VITALS: BP 103/55
--- NOTE | 2016-02-13 13:59 | REP ---
PORTABLE CHEST: AP portable view of the chest is performed. I see no definite pneumothorax. The right chest tube remains in place. Comparing to the prior study of 02/13/2016, I see no definite change in the bilateral parenchymal opacities in the cardiomediastinal silhouette. There is still some subcutaneous emphysema in the right chest wall. IMPRESSION: Essentially stable exam. Signed by Kory Peña MD 02/13/2016 05:26 P
[2016-02-13 16:00] VITALS: BP 98/57
[2016-02-13 20:28] VITALS: BP 108/62
[2016-02-13 23:59] VITALS: BP 113/69
[2016-02-14] MEDS: LEVALBUTEROL 1.25 MG/0.5 ML CONCENTRATE NEB NEB SCH ×4 (02:00→19:42)
[2016-02-14 04:57] VITALS: BP 108/64
[2016-02-14] MEDS: SLF 3 ML SYR IV SCH ×3 (04:57→20:37)
[2016-02-14] MEDS: TIOTROPIUM INHALER/CAPSULE (SPIRIVA) INH SCH (07:34)
[2016-02-14] MEDS: ADVAIR DISKUS 500/50 INH PWD INH SCH ×2 (07:35→19:41)
[2016-02-14 08:00] VITALS: BP 112/57
[2016-02-14] MEDS: BENZONATATE 100 MG CAP PO SCH ×3 (08:20→20:37)
[2016-02-14] MEDS: PANTOPRAZOLE 40MG TAB (PROTONIX) PO SCH (08:20)
[2016-02-14] MEDS: LACTOBACILLUS ACIDOPHILUS CAP (BACID) PO SCH (08:20)
[2016-02-14] MEDS: FLECAINIDE 50MG TABLET PO SCH ×2 (08:20→20:37)
[2016-02-14] MEDS: VITAMIN D 1,000 INTERNATIONAL UNITS TABLET PO SCH (08:20)
[2016-02-14] MEDS: HEPARIN SOD (PORCINE) 5000 UNITS/ML VIAL SC SCH ×2 (08:20→20:36)
[2016-02-14] MEDS: MULTIVITAMINS/MINERALS THERAP 1 TAB PO SCH (08:20)
[2016-02-14] MEDS: ASCORBIC ACID 250 MG TAB PO SCH ×3 (08:20→20:37)
[2016-02-14] MEDS: FLUTICASONE PROP 0.05% NASAL SPRAY 16 GM (FLONASE) SCH (08:21)
[2016-02-14] MEDS: predniSONE 10 MG TAB PO SCH (08:21)
[2016-02-14] MEDS: DULoxetine 20 MG CAP (CYMBALTA) PO SCH (08:21)
[2016-02-14] MEDS: DOCUSATE SODIUM 100 MG CAP PO SCH ×2 (08:21→20:36)
[2016-02-14] MEDS: MOM 30ML SUSPENSION UDC PO SCH (08:23)
--- NOTE | 2016-02-14 08:24 | REP ---
Portable chest x-ray: Sitting AP view. History: Pneumothorax. Findings: EKG monitoring electrodes overlie the chest. Oxygen tubing is seen. A right apical chest tube remains in place with soft-tissue emphysematous change in the extrathoracic soft tissues on the right. This soft tissue emphysema is slightly more prominent in the axillary region. There is no visible pneumothorax. There is coarse fibroatelectatic change in the right mid lung zone. Advanced emphysematous changes are seen with bolus emphysema on the left and right upper lobe region. No new infiltrate. Signed by David Llamas MD 02/14/2016 08:47 A
[2016-02-14] MEDS: PERCOCET 5MG/325MG TAB PO PRN ×2 (11:42→22:54)
[2016-02-14 12:00] VITALS: BP 132/61
[2016-02-14 16:00] VITALS: BP 122/62
[2016-02-14 21:25] VITALS: BP 112/71
[2016-02-14 23:59] VITALS: BP 111/65
[2016-02-15 04:53] VITALS: BP 107/64
[2016-02-15] MEDS: SLF 3 ML SYR IV SCH ×3 (04:58→21:57)
[2016-02-15 05:58] LABS: MEAN CORPUSCULAR HEMOGLOBIN 31.9 pg (27.0-33.0); MEAN CORPUSCULAR VOLUME 106.2 fl (80.0-96.0); RED CELL DISTRIBUTION WIDTH 16.4 % (11.5-14.5); WHITE BLOOD COUNT 5.4 K/mm3 (4.0-10.0)
--- NOTE | 2016-02-15 06:50 | REPUSA ---
CLINICAL HISTORY: Bronchopleural fistula. TECHNIQUE: Multiple axial CT images were obtained through chest without IV contrast material. MPR cor onal and sagittal sequences were obtained. COMMENTS: Comparison is made to prior exam performed on 01/20/2016. Right pig tail pleural drainage catheter was removed. Right thoracostomy was inserted in good position with its tip in the apex of the right pleural cavity . Significant decrease in right pneumothorax. Decrease in mediastinal shift to the left side. Mild residual right apical pneumothorax. Decreased right subcutaneous soft tissue emphysema. Mild increase in right pleural effusion which remains small. There is no evidence of pleural or parenchymal mass. There is no evidence of hilar or mediastinal lymphadenopathy. The heart and great vessels are within normal limits. The visualized portions of the liver are of uniform attenuation without mass or defect. There is no i ntra or extrahepatic biliary ductal dilatation. The spleen is unremarkable. The visualized pancreas i s of normal contour and attenuation characteristics. There is no evidence of adrenal mass. The visual ized portions of the kidneys present no abnormalities. The bony structures are free of lytic or blastic lesions. Multilevel degenerative changes are seen in volving the thoracic spine. Scattered calcifications are seen involving the aorta and visualized hossein r branches compatible with atherosclerosis. IMPRESSION: Significant decrease in right pneumothorax. Right pigtail pleural drainage catheter was removed. Right thoracostomy tube was inserted in good position with its tip in the apex of the right pleural c avity. Better aeration of the right lung with decreased atelectasis. Addendum percent residual right pneumothorax. Decreased right subcutaneous soft tissue emphysema. Mild increase in right pleural effusion which remains small. Thank you for your kind referral of this patient.
[2016-02-15] MEDS: ADVAIR DISKUS 500/50 INH PWD INH SCH ×2 (07:35→19:27)
[2016-02-15] MEDS: TIOTROPIUM INHALER/CAPSULE (SPIRIVA) INH SCH (07:35)
[2016-02-15] MEDS: LEVALBUTEROL 1.25 MG/0.5 ML CONCENTRATE NEB NEB SCH ×4 (07:37→19:32)
[2016-02-15 08:00] VITALS: BP 112/63
[2016-02-15] MEDS: predniSONE 1 MG TAB PO SCH (08:48)
[2016-02-15] MEDS: DOCUSATE SODIUM 100 MG CAP PO SCH ×2 (08:48→21:54)
[2016-02-15] MEDS: predniSONE 5 MG TAB PO SCH (08:49)
[2016-02-15] MEDS: FLECAINIDE 50MG TABLET PO SCH ×2 (08:49→21:55)
[2016-02-15] MEDS: LACTOBACILLUS ACIDOPHILUS CAP (BACID) PO SCH (08:49)
[2016-02-15] MEDS: PANTOPRAZOLE 40MG TAB (PROTONIX) PO SCH (08:49)
[2016-02-15] MEDS: MULTIVITAMINS/MINERALS THERAP 1 TAB PO SCH (08:49)
[2016-02-15] MEDS: ALENDRONATE 70 MG TABLET (FOSAMAX) PO SCH (08:50)
[2016-02-15] MEDS: BENZONATATE 100 MG CAP PO SCH ×3 (08:50→21:55)
[2016-02-15] MEDS: VITAMIN D 1,000 INTERNATIONAL UNITS TABLET PO SCH (08:50)
[2016-02-15] MEDS: ASCORBIC ACID 250 MG TAB PO SCH ×3 (08:50→21:55)
[2016-02-15] MEDS: DULoxetine 20 MG CAP (CYMBALTA) PO SCH (08:50)
[2016-02-15] MEDS: MOM 30ML SUSPENSION UDC PO SCH (08:51)
[2016-02-15] MEDS: FLUTICASONE PROP 0.05% NASAL SPRAY 16 GM (FLONASE) SCH (08:51)
[2016-02-15] MEDS: HEPARIN SOD (PORCINE) 5000 UNITS/ML VIAL SC SCH ×2 (08:51→21:55)
[2016-02-15 11:30] LABS: ALKALINE PHOSPHATASE 51 U/L (45-117); ALT/SGPT 16 U/L (12-78); ANION GAP 8 MEQ/L (8-16); AST/SGOT 13 U/L (15-37); BILIRUBIN,TOTAL 0.4 MG/DL (0.2-1.0); BLOOD UREA NITROGEN 13 MG/DL (7-18); CALCIUM LEVEL 8.8 MG/DL (8.8-10.2); CARBON DIOXIDE LEVEL 32 MEQ/L (21-32); CHLORIDE LEVEL 104 MEQ/L (98-107); CREATININE FOR GFR 0.52 MG/DL (0.55-1.02); GLOMERULAR FILTRATION RATE > 60.0 (>45); GLUCOSE, FASTING 77 MG/DL (80-110); POTASSIUM SERUM 3.6 MEQ/L (3.5-5.1); SODIUM LEVEL 144 MEQ/L (136-145)
[2016-02-15 12:00] VITALS: BP 108/68
[2016-02-15] MEDS: PERCOCET 5MG/325MG TAB PO PRN (12:07)
[2016-02-15] MEDS: NORCO, ANEXSIA 5/325MG TABLET (HYDROcodone/ACETAMINOPHEN) PO PRN (14:15)
[2016-02-15 16:00] VITALS: BP 100/67
[2016-02-15 20:24] VITALS: BP 111/60
[2016-02-15 23:51] VITALS: BP 118/66
[2016-02-16] MEDS: PERCOCET 5MG/325MG TAB PO PRN ×2 (00:20→15:10)
[2016-02-16] MEDS: LEVALBUTEROL 1.25 MG/0.5 ML CONCENTRATE NEB NEB SCH ×4 (01:25→20:00)
[2016-02-16 04:44] VITALS: BP 108/57
[2016-02-16] MEDS: SLF 3 ML SYR IV SCH ×3 (06:39→20:55)
[2016-02-16] MEDS: ADVAIR DISKUS 500/50 INH PWD INH SCH ×2 (07:19→20:34)
[2016-02-16] MEDS: TIOTROPIUM INHALER/CAPSULE (SPIRIVA) INH SCH (07:19)
[2016-02-16 08:00] VITALS: BP 108/53
[2016-02-16] MEDS: predniSONE 1 MG TAB PO SCH (08:26)
[2016-02-16] MEDS: MOM 30ML SUSPENSION UDC PO SCH (08:26)
[2016-02-16] MEDS: VITAMIN D 1,000 INTERNATIONAL UNITS TABLET PO SCH (08:27)
[2016-02-16] MEDS: MULTIVITAMINS/MINERALS THERAP 1 TAB PO SCH (08:27)
[2016-02-16] MEDS: FLECAINIDE 50MG TABLET PO SCH ×2 (08:27→20:54)
[2016-02-16] MEDS: BENZONATATE 100 MG CAP PO SCH ×3 (08:27→20:54)
[2016-02-16] MEDS: DOCUSATE SODIUM 100 MG CAP PO SCH ×2 (08:27→20:54)
[2016-02-16] MEDS: predniSONE 5 MG TAB PO SCH (08:27)
[2016-02-16] MEDS: ASCORBIC ACID 250 MG TAB PO SCH ×3 (08:27→20:54)
[2016-02-16] MEDS: LACTOBACILLUS ACIDOPHILUS CAP (BACID) PO SCH (08:27)
[2016-02-16] MEDS: HEPARIN SOD (PORCINE) 5000 UNITS/ML VIAL SC SCH ×2 (08:28→20:54)
[2016-02-16] MEDS: PANTOPRAZOLE 40MG TAB (PROTONIX) PO SCH (08:28)
[2016-02-16] MEDS: DULoxetine 20 MG CAP (CYMBALTA) PO SCH (08:28)
[2016-02-16] MEDS: FLUTICASONE PROP 0.05% NASAL SPRAY 16 GM (FLONASE) SCH (08:29)
--- NOTE | 2016-02-16 09:17 | REP ---
CHEST X-RAY: TWO VIEWS. HISTORY: Pneumothorax. Comparison chest x-ray is from February 14, 2016. FINDINGS: A right apical chest tube remains in place. No definite pneumothorax is seen. Extrathoracic subcutaneous emphysema persists along the right lateral chest wall unchanged. There are extensive emphysematous changes in the upper lobes on both sides. Interstitial markings are prominent in the left base and there is some linear atelectasis and/or fibrosis in the right perihilar region. IMPRESSION: Stable chest x-ray findings. Right chest tube in the apex. No discernible pneumothorax. Unreviewed
[2016-02-16 11:55] VITALS: BP 127/56
[2016-02-16 16:00] VITALS: BP 127/66
--- NOTE | 2016-02-16 16:36 | IPN ---
DATE: 02/16/2016 Water has gone under the bridge since I took vacation in late January. After having removed her chest tube prior to discharge and then having her reaccumulate a small pneumothorax the day that I left, we kept her in for 1 more day and, indeed, she accumulated even more air within the chest with subcutaneous emphysema and a pigtail catheter was placed. This did not quite suffice and another pigtail catheter was placed, still without salient results in order to control the air leak. Finally, a large chest tube was placed, A #28, anteriorly and was placed at 40 cm of suction. The suction was attempted to be weaned from a 40 to a 20, and she, again, reaccumulated her subcutaneous emphysema indicating that the lung leak was not at all controlled. Following the last three days, she has tolerated a decrease in the suction to -20. Throughout this time, her temperature has been below 99 and, in fact, her maximum temperature (T max) over these past 2 weeks has been between 97 and 98. She shows no sign of sepsis. She is in sinus rhythm with a respiratory rate that is constant at 18, who is 97-98% saturated on 3 liters nasal cannula and whose blood pressure is ranging between 108/57 to 118/66. Her intake and output have been essentially equal over the last few weeks with a little bit more in than out. On physical examination, she has equal breath sounds on either side with decreased breath sounds on either side consistent with her pulmonary emphysema. I can hear the sounds of an air leak on the right side. At this point in time, there is no palpable subcutaneous emphysema. Her cardiac exam is without murmurs, clicks, gallops or rubs. I cannot feel her point of maximum impulse (PMI). S1, S2 are normal. Abdomen is soft and nontender. Bowel sounds are positive. There is no hepatomegaly. No costovertebral angle tenderness. Extremities show no pretibial edema. No calf tenderness. No differential swelling of the upper extremities. Skin is warm, dry and perfused without cyanosis or mottling, including that of the nail beds and the knees. Neck is supple. There is no jugular venous distention, no subcutaneous emphysema. Trachea is midline. Mouth shows her mucous membranes to be pink and moist. Lips and commissures without lesions. There is no thrush. Eyes show her pupils to be equal and reactive. Extraocular motions are intact. Sclerae anicteric. Neurologic shows II-XII intact along with gross motor and gross sensation intact. Gait is not tested. Psychiatric shows her to be awake and alert, oriented times three with appropriate mood and affect and conversational. During my absence, the question of do not resuscitate was posed, and she has completely rejected nonintervention. She wants to be FULLY RESUSCITATED. Her white count yesterday was 5.4. Throughout my absence, the white count has never risen above 8.1. Her hemoglobin and hematocrit are 9.8 and 32.6, again stable over the last 2 weeks, with a platelet count of 287. Her chemistry showed normal creatine of 0.52 to 0.49. Electrolytes are normal. Calcium is 8.8 with a glucose of 77. Albumin is 3.0. Albumin, in fact, has improved over her hospitalization. Her chest x-ray today again now shows the lung fully expanded to the chest wall. There is the same infiltrative findings in the posterior segment of the upper lobe. This looks to have actually improved since I left with the area being more aerated and less dense, both on the PA and the lateral film. There was still some residual subcutaneous emphysema on the lateral chest wall, but none on the neck on today's film. A chest CT done yesterday again shows the severe emphysematous changes. I see no hint of where the air leak is coming from, other than from the necrotic segment of the posterior upper lobe. The air leak looks so big that I suspect it is coming from a wide open bronchus. IMPRESSION: 1. Necrotizing pneumonia. 2. 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 3. Resultant right pneumothorax. 4. Depression. 5. Uterine cancer, presently undergoing chemotherapy. 6. Osteoporosis. 7. Severe chronic obstructive pulmonary disease. PLAN AND DISCUSSION: I have had a long talk with Mrs. Harrison regarding our options. It seems as though nothing we do can control this air leak, and our hand may be forced to go to the operating room. If that is the case, I would have to do an open thoracotomy as she would not tolerate one-lung anesthesia for thoracoscopic intervention. Tomorrow I am going to undertake a ventilation study to see if I can at least locate the general vicinity of her bronchopleural fistula. After that, we will talk seriously about taking her to the operating room. I have told her even at this point that an operative intervention would be a very high risk without the secure guarantee that it would even work. OLIVER
--- NOTE | 2016-02-16 17:19 | REP ---
PA and lateral chest 02/16/2016 Indication: Chest tube suction was decreased Comparison made with prior chest radiograph 02/16/2016 and 09/2001 I am, prior portable chest 02/08/2016 Findings: The cardiomediastinal silhouette is borderline in size. As hyperinflation and flattening of diaphragms consistent with COPD. Bullous changes are seen with upper lobe predominance, left greater than right. There is persistent right apical chest tube, unchanged. Right perihilar fibro atelectatic changes are again noted and stable. Small amount of left upper lobe fibro atelectatic changes are also stable. Interstitial changes are seen within the lung bases bilaterally. There are [id number] degenerative changes in thoracic spine Impression: COPD with persistent large bullous changes within the upper lobes, left greater than right. Right apical chest tube is unchanged. There is interval improvement in subcutaneous emphysema within the right lateral chest ,axillary region, and neck when compared with prior studies dating back to 02/08/2016 Stable right perihilar fibro atelectatic changes. Small stable left upper lobe fibro atelectatic changes. Bibasilar interstitial changes, most compatible with scarring Signed by Analisa Marks MD 02/16/2016 05:10 P
[2016-02-16 20:00] VITALS: BP 112/65; PULSE 63
[2016-02-17] VITALS: BP 109/57; PULSE 62
[2016-02-17] MEDS: LEVALBUTEROL 1.25 MG/0.5 ML CONCENTRATE NEB NEB SCH ×4 (02:00→20:00)
[2016-02-17 04:00] VITALS: BP 106/56; PULSE 75
[2016-02-17] MEDS: SLF 3 ML SYR IV SCH ×3 (05:09→20:47)
[2016-02-17] MEDS ORDERED: ceFAZolin SOD 1 GM in D5W MINI-BAG PLUS 50 ML IV ONE (06:00)
[2016-02-17] MEDS: ADVAIR DISKUS 500/50 INH PWD INH SCH ×2 (07:24→19:20)
[2016-02-17] MEDS: TIOTROPIUM INHALER/CAPSULE (SPIRIVA) INH SCH (07:24)
[2016-02-17 07:57] VITALS: BP 108/60
[2016-02-17] MEDS: MOM 30ML SUSPENSION UDC PO SCH (09:00)
[2016-02-17] MEDS: HEPARIN SOD (PORCINE) 5000 UNITS/ML VIAL SC SCH ×2 (09:48→20:46)
[2016-02-17] MEDS: DULoxetine 20 MG CAP (CYMBALTA) PO SCH (09:48)
[2016-02-17] MEDS: VITAMIN D 1,000 INTERNATIONAL UNITS TABLET PO SCH (09:49)
[2016-02-17] MEDS: LACTOBACILLUS ACIDOPHILUS CAP (BACID) PO SCH (09:49)
[2016-02-17] MEDS: MULTIVITAMINS/MINERALS THERAP 1 TAB PO SCH (09:49)
[2016-02-17] MEDS: FLECAINIDE 50MG TABLET PO SCH ×2 (09:49→20:46)
[2016-02-17] MEDS: ASCORBIC ACID 250 MG TAB PO SCH ×3 (09:49→20:46)
[2016-02-17] MEDS: predniSONE 5 MG TAB PO SCH (09:49)
[2016-02-17] MEDS: PANTOPRAZOLE 40MG TAB (PROTONIX) PO SCH (09:49)
[2016-02-17] MEDS: PERCOCET 5MG/325MG TAB PO PRN ×2 (09:50→20:47)
[2016-02-17] MEDS: DOCUSATE SODIUM 100 MG CAP PO SCH ×2 (09:51→20:46)
[2016-02-17] MEDS: FLUTICASONE PROP 0.05% NASAL SPRAY 16 GM (FLONASE) SCH (09:52)
[2016-02-17] MEDS: BENZONATATE 100 MG CAP PO SCH ×3 (09:53→20:46)
[2016-02-17 11:49] VITALS: BP 115/68
[2016-02-17 12:04] LABS: MEAN CORPUSCULAR HEMOGLOBIN 33.2 pg (27.0-33.0); MEAN CORPUSCULAR HGB CONC 31.5 g/dl (32.0-36.5); MEAN CORPUSCULAR VOLUME 105.2 fl (80.0-96.0); RED CELL DISTRIBUTION WIDTH 15.2 % (11.5-14.5); WHITE BLOOD COUNT 10.9 K/mm3 (4.0-10.0)
--- NOTE | 2016-02-17 12:32 | REP ---
Ventilation lung scan with SPECT: History: Right-sided intractable bronchopleural fistula. Chest tube in place. Question localization of the bronchopleural fistula. Comparison is made with recent chest x-rays and chest CT, the most recent chest CT study is from February 15, 2016. Technique: The patient's chest tube was placed on water seal and 3.0 mCi of technetium-99m DTPA aerosol is utilized for upright the ventilation. Supine planar imaging is acquired with eight planar images including anterior-posterior bilateral lateral and bilateral anterior and posterior oblique images. Following this an a SPECT acquisition of the lungs was acquired and axial, coronal and sagittal imaging planes were utilized. 3-D cine loop display is reviewed as well. Scintigraphic findings: There is very heterogeneous distribution of inspired tracer bilaterally in this patient with advanced COPD. There are is improved tracer deposition in the lower lobes generally compared to the upper lobes. Patchy uptake is seen bilaterally and there is some tracheal bronchial deposition. Initial anterior and posterior planar images demonstrate a hot spot in the periphery of the upper lung field on the right which is felt to correspond to the area of parenchymal consolidation with air bronchograms in the right upper lobe distribution on recent CT study. This hot spot shows more avid uptake than the multifocal deposition of parenchymal uptake seen elsewhere. Suggesting that this may be the origin of the bronchopleural fistula. Interestingly and somewhat surprisingly, tracer is not observed within the chest tube or extrathoracic tubing. This is presumably because the patient was placed on water seal during the exam. Impression: Evidence of advanced COPD. There is a peripheral dominant hot spot in the posterior aspect right upper lobe region which corresponds to some focal parenchymal disease seen in this location on CT study. This may relate to the site of the bronchopleural fistula. Signed by David Llamas MD 02/17/2016 01:03 P
[2016-02-17 12:37] LABS: ALBUMIN 3.2 GM/DL (3.2-5.2); ALBUMIN/GLOBULIN RATIO 1.03 (1.00-1.93); ALKALINE PHOSPHATASE 56 U/L (45-117); ALT/SGPT 18 U/L (12-78); ANION GAP 8 MEQ/L (8-16); AST/SGOT 16 U/L (15-37); BILIRUBIN,TOTAL 0.5 MG/DL (0.2-1.0); BLOOD UREA NITROGEN 12 MG/DL (7-18); CALCIUM LEVEL 8.8 MG/DL (8.8-10.2); CARBON DIOXIDE LEVEL 33 MEQ/L (21-32); CHLORIDE LEVEL 100 MEQ/L (98-107); CREATININE FOR GFR 0.41 MG/DL (0.55-1.02); GLOMERULAR FILTRATION RATE > 60.0 (>45); GLUCOSE, FASTING 89 MG/DL (80-110); POTASSIUM SERUM 3.6 MEQ/L (3.5-5.1); SODIUM LEVEL 141 MEQ/L (136-145); TOTAL PROTEIN 6.3 GM/DL (6.4-8.2)
[2016-02-17 14:00] VITALS: BP 110/65
--- NOTE | 2016-02-17 14:52 | IPN ---
DATE: 02/17/2016 Ms. Harrison went down for a nuclear ventilation study today. I was present during this study and disconnected her chest tube suction while the study was being performed. She tolerated it fairly well. We did see a very hot spot which occurred early on in the posterior segment of the upper lobe consistent with where she has necrotizing findings. I suspect this is where the air leak is emanating. Otherwise, she has done well over the night. Her vital signs show a T-max of 98.4 with a heart rate that ranges between 94 and 87 and is sinus rhythm, respiratory rate that is constant at 18 without the use of accessory muscles who is 95% saturated on 3 liters nasal cannula and whose blood pressure is ranging between 106/56 to 115/68. Her intake and output the past 24 hours has been recorded at 900 in and 75 out for a positivity of 875 mL. She put out 50 mL from the chest tube and there is still a rolling air leak on suction. Weight today is 50.8 kg compared to 51.5 kg yesterday. On physical examination, her lungs show equally decreased breath sounds on either side consistent with her severe emphysema. She has sounds consistent with her air leak. Percussion note is full to the diaphragm. Cardiac exam is without murmurs, clicks, gallops or rubs. I cannot feel his PMI. S1 and S2 are normal. Abdomen is soft, nontender. Bowel sounds are positive. There is no hepatomegaly. No CVA tenderness. Extremities show no pretibial edema. No calf tenderness. No differential swelling of the upper extremities. Skin is warm, dry and perfused without cyanosis or mottling including that of the nail beds and knees Neck is supple. There is no jugular venous distention (JVD). No subcutaneous emphysema. Trachea is midline. Mouth shows her mucous membranes to be pink and moist. Lips and commissures without lesions. There is no thrush. Eyes show her pupils to be equal and reactive. Extraocular motions are intact. Sclera nonicteric. Neuro shows II through XII intact along with gross motor and gross sensation intact. Gait is also intact. Psychiatric shows her to be awake and alert, oriented times three with appropriate mood and affect, and conversational. Her white count today is 10.9 with a hemoglobin and hematocrit of 11.2 and 35.4. Platelet count is 223. Her chemistries show essentially normal electrolytes with a BUN and creatinine of 12 and 0.41, glucose of 89 and calcium of 8.8. AST and ALT are normal and her albumin is 3.2. Her chest x-ray today shows the lung again fully expanded to the chest wall. There is still some subcutaneous emphysema on the lateral chest wall. The necrotizing segment is clearly identified. Costophrenic angles are sharp. I have presented the options of continued hospitalization with a Pleur-evac. She does not tolerate having her chest tube to water seal or Heimlich valve. The other option is obviously surgery and we both agreed that neither option is great but the surgical option is probably more hopeful. I am therefore going to take her to operating room and undertake and open thoracotomy with a wedge resection of what I think now is the necrotizing portion of the lung to close the bronchopleural fistula. I have asked the operating room to order in Peristrips in for the staplers. This is an extraordinarily high risk operation for her. Hopefully this is going to be technically easy but physiologically very difficult for her. I will try her under one lung anesthesia, although we will have to keep the pressures very low. I have my doubts that she is going to tolerate one lung anesthesia. We will have to be cognizant of the fact that she could have a pneumothorax on the contralateral side during positive pressure ventilation. All in all this represents the proverbial rock and a hard place. She cannot go on on chest tube suction and the operation is extraordinarily high risk physiologically for her. I have clearly explained to her the risks and she is willing to proceed. Dr. Mosqueda has offered to be in the operating room during the anesthesia to give helpful guidance for ventilation strategies.
[2016-02-17 20:00] VITALS: BP 125/64
[2016-02-18] VITALS (24 sets, daily range): BP systolic 60–174; BP diastolic 37–87; O2SAT 97
[2016-02-18] MEDS: LEVALBUTEROL 1.25 MG/0.5 ML CONCENTRATE NEB NEB SCH ×4 (02:00→20:00)
[2016-02-18] MEDS: PERCOCET 5MG/325MG TAB PO PRN (03:07)
[2016-02-18] MEDS ORDERED: ceFAZolin SOD 1 GM in D5W MINI-BAG PLUS 50 ML IV ONE (06:00)
[2016-02-18] MEDS ORDERED: MUPIROCIN 2% OINT 22 GM TUBE TOP ONE ×2 (06:00→13:52)
[2016-02-18 06:02] LABS: MEAN CORPUSCULAR HEMOGLOBIN 32.5 pg (27.0-33.0); MEAN CORPUSCULAR HGB CONC 32.1 g/dl (32.0-36.5); MEAN CORPUSCULAR VOLUME 101.2 fl (80.0-96.0); RED CELL DISTRIBUTION WIDTH 15.1 % (11.5-14.5); WHITE BLOOD COUNT 8.8 K/mm3 (4.0-10.0)
[2016-02-18 06:15] LABS: ALBUMIN 2.6 GM/DL (3.2-5.2); ALBUMIN/GLOBULIN RATIO 0.81 (1.00-1.93); ALKALINE PHOSPHATASE 47 U/L (45-117); ALT/SGPT 12 U/L (12-78); ANION GAP 8 MEQ/L (8-16); AST/SGOT 8 U/L (15-37); BILIRUBIN,TOTAL 0.7 MG/DL (0.2-1.0); BLOOD UREA NITROGEN 12 MG/DL (7-18); CALCIUM LEVEL 8.3 MG/DL (8.8-10.2); CARBON DIOXIDE LEVEL 30 MEQ/L (21-32); CHLORIDE LEVEL 102 MEQ/L (98-107); GLOMERULAR FILTRATION RATE > 60.0 (>45); GLUCOSE, FASTING 100 MG/DL (80-110); POTASSIUM SERUM 3.7 MEQ/L (3.5-5.1); SODIUM LEVEL 140 MEQ/L (136-145); TOTAL PROTEIN 5.8 GM/DL (6.4-8.2)
[2016-02-18] MEDS: SLF 3 ML SYR IV SCH (07:03)
[2016-02-18] MEDS: ADVAIR DISKUS 500/50 INH PWD INH SCH ×2 (08:12→21:39)
[2016-02-18] MEDS: TIOTROPIUM INHALER/CAPSULE (SPIRIVA) INH SCH (08:12)
[2016-02-18] MEDS: FLECAINIDE 50MG TABLET PO SCH ×2 (09:00→21:46)
[2016-02-18] MEDS: PANTOPRAZOLE 40MG TAB (PROTONIX) PO SCH (09:00)
[2016-02-18] MEDS: DULoxetine 20 MG CAP (CYMBALTA) PO SCH (09:00)
[2016-02-18] MEDS: FLUTICASONE PROP 0.05% NASAL SPRAY 16 GM (FLONASE) SCH (09:00)
[2016-02-18] MEDS: ASCORBIC ACID 250 MG TAB PO SCH ×3 (09:00→21:46)
[2016-02-18] MEDS: DOCUSATE SODIUM 100 MG CAP PO SCH ×2 (09:00→21:46)
[2016-02-18] MEDS: MOM 30ML SUSPENSION UDC PO SCH (09:00)
[2016-02-18] MEDS: predniSONE 5 MG TAB PO SCH (09:00)
[2016-02-18] MEDS: BENZONATATE 100 MG CAP PO SCH (09:00)
[2016-02-18] MEDS: VITAMIN D 1,000 INTERNATIONAL UNITS TABLET PO SCH (09:00)
[2016-02-18] MEDS: MULTIVITAMINS/MINERALS THERAP 1 TAB PO SCH (09:00)
[2016-02-18] MEDS: LACTOBACILLUS ACIDOPHILUS CAP (BACID) PO SCH (09:00)
[2016-02-18] MEDS ORDERED: fentaNYL 100 MCG/2 ML INJECTION (J3010) As Ordered ONE ×2 (09:14→13:49)
[2016-02-18] MEDS ORDERED: MIDAZOLAM INJ 2 MG/2 ML VIAL (J2250) As Ordered ONE ×4 (09:14→17:10)
[2016-02-18] MEDS ORDERED: MORPHINE 2 MG/ML 1ML SYRINGE IV ONE (09:15)
[2016-02-18] MEDS ORDERED: ROCURONIUM BROMIDE 50 MG/5 ML VIAL As Ordered ONE (09:59)
[2016-02-18] MEDS ORDERED: PROPOFOL 200 MG/20 ML VIAL As Ordered ONE (09:59)
[2016-02-18] MEDS ORDERED: BUPIVACAINE LIPOSOME/PF 1.3% 20ML (266MG/20ML) VIAL (EXPAREL) As Ordered ONE (09:59)
[2016-02-18] MEDS ORDERED: dexameTHASONE 4 MG/ML 1ML VIAL (J1100) As Ordered ONE (09:59)
[2016-02-18] MEDS ORDERED: KETOROLAC 60 MG/2 ML VIAL (J1885) As Ordered ONE (09:59)
[2016-02-18] MEDS ORDERED: ONDANSETRON 4MG/2ML VIAL (J2405) As Ordered ONE (09:59)
[2016-02-18] MEDS ORDERED: BUPIVACAINE HCL 0.5% 30 ML VIAL As Ordered ONE (09:59)
[2016-02-18] MEDS ORDERED: LIDOCAINE 2% INJ 100 MG/5 ML SDV (FOR ANES.) As Ordered ONE (09:59)
[2016-02-18] MEDS ORDERED: CETACAINE SPRAY 20GM (FLOOR STOCK) As Ordered ONE (10:13)
[2016-02-18] MEDS ORDERED: ceFAZolin 1GM INJ (J0690) As Ordered ONE (10:14)
[2016-02-18] MEDS ORDERED: MUPIROCIN 2% OINT 22 GM TUBE As Ordered ONE (10:18)
[2016-02-18] MEDS ORDERED: MIDAZOLAM INJ 2 MG/2 ML VIAL (J2250) IV PRN (11:15)
[2016-02-18] MEDS ORDERED: fentaNYL 100 MCG/2 ML INJECTION (J3010) IV PRN ×2 (11:15→16:30)
[2016-02-18 12:26] LABS: ABG BASE EXCESS 3.5 (-2.0-2.0); ABG DEVICE MECHAN. VENT; ABG HCO3 32.2 MEQ/L (22.0-26.0); ABG PARTIAL PRESSURE O2 104.2 mmHg (75.0-100.0); ABG STANDARD HCO3 27.6 MEQ/L (22.0-26.0); ABG TOTAL CO2 34.5 MEQ/L (23.0-31.0); ABG pH (ARTERIAL) 7.257 UNITS (7.350-7.450)
[2016-02-18 12:29] LABS: ABG PARTIAL PRESSURE CO2 73.9 mmHg (35.0-45.0)
[2016-02-18 13:44] LABS: ABG BASE EXCESS 4.6 (-2.0-2.0); ABG DEVICE MECHAN. VENT; ABG HCO3 38.1 MEQ/L (22.0-26.0); ABG STANDARD HCO3 28.5 MEQ/L (22.0-26.0); ABG TOTAL CO2 42.2 MEQ/L (23.0-31.0)
[2016-02-18 13:49] LABS: ABG pH (ARTERIAL) 7.073 UNITS (7.350-7.450)
[2016-02-18] MEDS ORDERED: fentaNYL 250 MCG/5 ML INJECTION (J3010) As Ordered ONE (13:49)
[2016-02-18 13:50] LABS: ABG PARTIAL PRESSURE CO2 133.6 mmHg (35.0-45.0)
[2016-02-18] MEDS ORDERED: SCLEROSOL INTRAPLEURAL AEROSOL As Ordered ONE (13:50)
[2016-02-18] MEDS ORDERED: BUPIVACAINE HCL 0.5% 30 ML VIAL XX ONE (13:52)
[2016-02-18] MEDS ORDERED: BUPIVACAINE LIPOSOME/PF 1.3% 20ML (266MG/20ML) VIAL (EXPAREL) XX ONE (13:52)
[2016-02-18] MEDS ORDERED: FENTANYL 2MCG/ML BUPIVACAINE 0.0625% NACL 250ML CADD As Ordered ONE (13:58)
[2016-02-18 14:50] LABS: ABG BASE EXCESS -0.1 (-2.0-2.0); ABG DEVICE MECHAN. VENT; ABG HCO3 32.4 MEQ/L (22.0-26.0); ABG PARTIAL PRESSURE O2 100.7 mmHg (75.0-100.0); ABG STANDARD HCO3 24.3 MEQ/L (22.0-26.0); ABG TOTAL CO2 35.9 MEQ/L (23.0-31.0)
[2016-02-18 14:53] LABS: ABG pH (ARTERIAL) 7.067 UNITS (7.350-7.450)
[2016-02-18 14:55] LABS: ABG PARTIAL PRESSURE CO2 115.2 mmHg (35.0-45.0)
[2016-02-18] MEDS ORDERED: SCLEROSOL INTRAPLEURAL AEROSOL IPL ONE (15:36)
[2016-02-18 16:13] LABS: ABG DEVICE MECHAN. VENT; ABG PARTIAL PRESSURE CO2 75.8 mmHg (35.0-45.0); ABG PARTIAL PRESSURE O2 136.9 mmHg (75.0-100.0); ABG STANDARD HCO3 27.2 MEQ/L (22.0-26.0); ABG TOTAL CO2 34.3 MEQ/L (23.0-31.0); ABG pH (ARTERIAL) 7.243 UNITS (7.350-7.450)
[2016-02-18] MEDS ORDERED: NALOXONE INJ 0.4 MG/1 ML VIAL (J2310) IV PRN (16:30)
[2016-02-18] MEDS ORDERED: MORPHINE 2 MG/ML 1ML SYRINGE IV PRN (16:30)
[2016-02-18] MEDS ORDERED: EPIDURAL/PCA KEYS XX PRN (16:30)
[2016-02-18] MEDS ORDERED: LR 1,000 ML IV SCH (16:30)
[2016-02-18] MEDS ORDERED: METOCLOPRAMIDE INJ 10MG/2ML VIAL (J2765) IV PRN (16:30)
[2016-02-18] MEDS ORDERED: diphenhydrAMINE INJ 50MG/ML VIAL (J1200) IV PRN (16:30)
[2016-02-18] MEDS ORDERED: ONDANSETRON 4MG/2ML VIAL (J2405) IV PRN ×2 (16:30)
[2016-02-18] MEDS ORDERED: WALLBOXKEY XX PRN (16:30)
[2016-02-18] MEDS ORDERED: ACETAMINOPHEN TAB 650MG DOSE (2X325MG) PO PRN (16:45)
[2016-02-18] MEDS ORDERED: LEVALBUTEROL 1.25 MG/0.5 ML CONCENTRATE NEB NEB PRN (16:45)
[2016-02-18] MEDS ORDERED: BISACODYL 10 MG SUPP PR PRN (16:45)
[2016-02-18 16:47] LABS: ABG BASE EXCESS 3.2 (-2.0-2.0); ABG HCO3 28.3 MEQ/L (22.0-26.0); ABG PARTIAL PRESSURE CO2 45.5 mmHg (35.0-45.0); ABG PARTIAL PRESSURE O2 249.5 mmHg (75.0-100.0); ABG STANDARD HCO3 27.4 MEQ/L (22.0-26.0); ABG TOTAL CO2 29.7 MEQ/L (23.0-31.0); ABG pH (ARTERIAL) 7.412 UNITS (7.350-7.450)
[2016-02-18 16:53] LABS: BASO % 0.1 % (0.0-1.0); EOS % 0.2 % (0.0-3.0); LARGE UNSTAINED CELL # 0.2 K/mm3 (0.0-0.4); LYMPH # 0.5 K/mm3 (1.5-4.5); LYMPH % 2.1 % (24.0-44.0); MEAN CORPUSCULAR HEMOGLOBIN 31.3 pg (27.0-33.0); MEAN CORPUSCULAR HGB CONC 31.1 g/dl (32.0-36.5); MEAN CORPUSCULAR VOLUME 100.9 fl (80.0-96.0); MONO # 1.1 K/mm3 (0.0-0.8); MONO % 4.8 % (0.0-5.0); NEUTROPHILS # 20.6 K/mm3 (1.8-7.7); NEUTROPHILS % 91.8 % (36.0-66.0); WHITE BLOOD COUNT 22.5 K/mm3 (4.0-10.0)
[2016-02-18 16:54] LABS: PLATELET COUNT, AUTOMATED 402 k/mm3 (150-450)
[2016-02-18] MEDS ORDERED: MIDAZOLAM INJ 2 MG/2 ML VIAL (J2250) IV SCH ×2 (17:02→17:14)
[2016-02-18 17:12] LABS: ANION GAP 5 MEQ/L (8-16); BLOOD UREA NITROGEN 13 MG/DL (7-18); CALCIUM LEVEL 8.2 MG/DL (8.8-10.2); CARBON DIOXIDE LEVEL 34 MEQ/L (21-32); CHLORIDE LEVEL 100 MEQ/L (98-107); CREATININE FOR GFR 0.55 MG/DL (0.55-1.02); GLOMERULAR FILTRATION RATE > 60.0 (>45); GLUCOSE, FASTING 209 MG/DL (80-110); POTASSIUM SERUM 4.9 MEQ/L (3.5-5.1); SODIUM LEVEL 139 MEQ/L (136-145)
[2016-02-18] MEDS ORDERED: REFRIGERATOR IV KEYS XX PRN (17:15)
--- NOTE | 2016-02-18 17:35 | REP ---
AP portable chest 02/18/2016 04:46 p.m. Comparison is a two-view chest x-ray 02/16/2016, CT chest 02/15/2016, portable chest 02/14/2016. Clinical history: Postoperative chest x-ray in recovery room. There is now a right base chest tube coursing across the transverse aspect of the right lower lung zone. The right upper lung chest tube extends to the apex as before. There has been an endotracheal tube 4.5 cm above the lowell. Epidural catheter is seen. Advanced bullous emphysematous changes are seen in the left upper lobe. There is extensive airspace opacity in the right upper lung zone currently with chronic atelectatic changes in the right mid lung. There is no definite pleural effusion. Small apical pneumothorax laterally difficult to exclude. There is pulmonary hypertension from COPD. Tortuous calcified aorta, unchanged. Impression: 1. New right base chest tube with a right apex chest tube as before and with question of a small lateral apical pneumothorax versus skin fold. There is now a fairly extensive consolidative opacity right mid and upper lung zone not present on the 02/16/2016 prior. Linear fibrotic changes left mid lung zone increased and in the right mid lung zone as on previous study with superimposed infiltrate. Signed by Dominick Chavira MD 02/18/2016 08:02 P
[2016-02-18 17:55] LABS: ABG BASE EXCESS 4.9 (-2.0-2.0); ABG HCO3 29.6 MEQ/L (22.0-26.0); ABG PARTIAL PRESSURE CO2 44.4 mmHg (35.0-45.0); ABG PARTIAL PRESSURE O2 98.6 mmHg (75.0-100.0); ABG STANDARD HCO3 28.9 MEQ/L (22.0-26.0); ABG pH (ARTERIAL) 7.442 UNITS (7.350-7.450)
[2016-02-18] MEDS ORDERED: MIDAZOLAM HCL 100 MG in D5W 80 ML IV SCH (18:00)
[2016-02-18] MEDS: FENTANYL/BUPIVACAINE/NACL CADD 250 ML EPIDURAL SCH (18:02)
[2016-02-18] MEDS ORDERED: PHENYLephrine HCL 500 MCG/5 ML (100MCG/ML) SYRINGE (J2370) As Ordered ONE (18:04)
[2016-02-18] MEDS ORDERED: SODIUM CHLORIDE 0.9% 1000 ML IV ONE (18:15)
[2016-02-18] MEDS: KCL 20MEQ IN D5/NS 1000ML 1,000 ML IV SCH (18:23)
[2016-02-18] MEDS: KETOROLAC 30 MG/ML VIAL (J1885) IV SCH ×2 (18:24→23:26)
[2016-02-18] MEDS: predniSONE 10 MG TAB PO SCH (18:26)
[2016-02-18] MEDS ORDERED: NOREPINEPHRINE BITARTRATE 8 MG in D5W 500 ML IV SCH (18:45)
--- NOTE | 2016-02-18 18:46 | CCN ---
DATE: 02/18/2016 CRITICAL CARE TIME: Two hours. This excludes all procedures. SUBJECTIVE: I have attended the patient during the first hour of surgery to monitor ventilation and then immediately postoperative from the time of closure up until the point in time where she arrived to the intensive care unit (ICU). The patient had one-lung ventilation during surgery with hypercapnic during the procedure, and her dual-lumen tube was switched over by anesthesia to an 8.0 endotracheal tube on arrival to the recovery room. Pressures were approximately 24, 25 on volume control, tidal volume of 320, respiratory rate of 20, and FIO2 of 0.8. There were decreased breath sounds on the left; however, the patient has known decreased breath sounds. Chest x-ray was performed. There was some question of a possible pneumothorax. Therefore, chest CT was performed showing bleb formation without pneumothorax. The patient was taken directly from recovery to CT to the intensive care unit. In the recovery room, the patient was also hypotensive. I placed a central line and started Levophed for vasopressor therapy to maintain a mean arterial pressure greater than 65. She was on Isaac-Synephrine coming out of the operating room (OR). Upon arrival to the ICU, clinically she was much better. The chest CT confirmed no evidence of pneumothorax and, therefore, the patient was placed on pressure support ventilation, tolerated this well at 40% FIO2 and therefore a trial extubation was performed. It was felt that it was important for the patient to be extubated as soon as possible to prevent any barotrauma. PHYSICAL EXAMINATION: VITAL SIGNS: Temperature is 98.9, pulse is 112 in a sinus tachycardia, blood pressure is 111/48, oxygen saturation is 97% on 0.40 FiO2. Respiratory rate is 20. GENERAL: The patient is awake, able to answer questions. HEENT: Pupils are equal, reactive to light. Mucous membranes are moist without lesions. NECK: Is supple. No tracheal deviation. There is a right internal jugular (IJ) in place without surrounding erythema or exudate. LYMPHATIC: No cervical, supraclavicular or axillary adenopathy. CARDIAC: Distant S1, S2, tachycardiac without murmur, rub or gallop. No elevated jugular venous pulse (JVP). No systemic edema. Point of maximum impulse (PMI) is nondisplaced. PULMONARY: Decreased breath sounds bilaterally. There are actually better breath sounds on the right. Chest tube is in place at 10 cm of suction without any evidence of air leak currently. There is no accessory muscle use. ABDOMEN: Soft, nontender, nondistended. No hepatosplenomegaly. No masses or hernia. SKIN: Pale with multiple seborrheic keratoses. No jaundice or bruising. MUSCULOSKELETAL: Significant muscle wasting. No joint effusions. LABORATORY DATA: Laboratory evaluation shows a pH of 7.44, pCO2 of 44, pAO2 of 98.6 on 0.40 FIO2. This is when the patient was on volume control with a tidal volume of 320, respiratory rate of 20 and PEEP of five. Postoperative labs show sodium 139, potassium 4.9, chloride 100, bicarb of 34, BUN of 13, creatinine of 0.55. The patient has an elevated white count to 22.5 due to the stress of surgery, hemoglobin 9.6, platelet count of 402. Postoperative imaging as described above. Chest CT shows no evidence of pneumothorax, significant emphysema bilaterally. There is an apical chest tube and a lower chest tube in place. Nonspecific infiltrate on the right with a small pleural effusion; however, talc was placed during the procedure. IMPRESSION: 1. Respiratory failure, hypercarbic in nature. After adjusting mechanical ventilator settings as above, trial of extubation so far is successful. Will continue to monitor closely in ICU for the need for reintubation. The patient will be provided with the usual inhaled therapy including Spiriva and Advair 500, and Xopenex as needed. 2. Pneumothorax, status post surgical resection of area of persistent BP fistula and talk pleurodesis. Will continue to monitor for air leak. I greatly appreciate Dr. Alvarado's efforts towards the salvage therapy. 3. Deep venous thrombosis (DVT) prophylaxis. Will initiate heparin tomorrow. Will place thromboembolism deterrent stockings (TEDs) and Roland's. 4. Gastrointestinal (GI) prophylaxis on Protonix. 5. Chronic steroid use. We will attempt to continue to taper prednisone as tolerated. She will be down to 10 mg tomorrow as she shows no signs of adrenal insufficiency. Critical care time as mentioned above. This excludes all procedures.
--- NOTE | 2016-02-18 19:02 | REP ---
CT CHEST WITHOUT CONTRAST: 02/18/16. Clinical history: Bronchopleural fistula, evaluate for pneumothorax. New extensive consolidation by x-ray in the right upper lung zone. Comparison: Chest x-ray today, CT chest 02/15/2016, 02/06/2016. Coronal and sagittal reconstructions were obtained. No IV contrast used. Volume loss in the right hemithorax noted. The right apex chest tube is again seen with an anterior approach unchanged. There is a new right base chest tube coursing transversely anterior to posterior above the right diaphragm. No effusion inferiorly however there appears to be some loculated fluid in the mid and upper lung zone posteriorly on the right and a loculated hydropneumothorax laterally in the right upper lung zone. Appear to be some lung staple lines and fairly extensive consolidative opacity right upper lung zone involving the upper lobe and superior segment of the lower lobe. Fibrotic changes are seen in the right middle lobe and extensive bullous emphysematous changes, quite severe in the left upper and mid lung zone as well. Peripheral nodular opacity in the left lower lobe on image 61 seen. The heart size not enlarged. Some minor pericardial thickening noted. The aorta is calcified at the aortic valve plane arch and descending portion without gross aneurysm. No pathologic sized mediastinal or hilar adenopathy. Soft-tissue density at the hilum, similar to previous study but the a consolidation in the right upper lobe is much increased since the previous CT chronic fibrotic and bullous changes are otherwise stable. Bony thorax shows no acute compression deformity. There is an endotracheal tube ending a few centimeters above the lowell, this is new. Chest wall soft tissues on the right show subcutaneous emphysema increased posteriorly in the right upper chest wall similar or less in the right lateral and superior anterior chest wall. There is rib trauma involving the right lateral 6th rib in the midclavicular line, new since previous study. Best seen on axial image 50. Reviewed in bone window settings. No change in the upper abdomen. No other finding. Impression: 1. New right base chest tube with no change at the right apex chest tube. 2. The new small lateral right upper lung zone pneumothorax loculated with pleural fluid suggesting an hydropneumothorax only in the mid and upper chest on that right side. Extensive consolidation in this region is new. An endotracheal tube is seen, a few centimeters above the lowell. 3. There is advanced bullous emphysematous change, fibrotic changes and the nodules as described. 4. Right lateral sixth rib fracture, also new from the previous study. Signed by Dominick Chavira MD 02/18/2016 08:04 P
[2016-02-18] MEDS ORDERED: NOREPINEPHRINE 4 MG/4 ML AMP ONE (19:10)
--- NOTE | 2016-02-18 19:35 | REP ---
Portable chest: 02/18/2016 at 05:08 p.m. Comparison: 02/18/2016 at 04:46 p.m., chest x-ray 02/16/2016. Clinical history: Status-post closure of bronchopleural fistula. There is a right jugular central catheter now present with tip in the SVC. Right apex and right base chest tubes are as noted on the study just prior. There is an endotracheal tube about 4 cm above the lowell and a epidural catheter is again seen. Advanced bullous emphysematous changes mid and upper lung zone on the left with underlying COPD. There is extensive consolidative opacity in the right mid and upper lung zone. Question of a loculated right lateral upper lung zone pneumothorax is raised as on the previous study. There is pulmonary hypertension. Tortuous aorta without aneurysm. Heart not enlarged. No edema. Aside from the new right jugular central catheter, no interval change. Signed by Dominick Chavira MD 02/18/2016 08:06 P
[2016-02-18] MEDS: ceFAZolin SOD 1 GM in D5W MINI-BAG PLUS 50 ML IV SCH (19:46)
--- NOTE | 2016-02-18 21:11 | RO ---
DATE OF PROCEDURE: 02/18/2016 PREPROCEDURE DIAGNOSIS: Hypotension. POSTPROCEDURE DIAGNOSIS: Hypotension. PROCEDURE: Right internal jugular vein triple-lumen catheter placement. SURGEON: Dr. Mosqueda TIN POT OPERATOR: None Consent deemed emergent after OR, patient was mechanically ventilated therefore no consent was obtained. PROCEDURE: The patient was sedated on mechanical ventilation. The right IJ was ultrasounded and she was prepped and draped in a sterile fashion. The right IJ was then again identified under ultrasound. Trinidad syringe was then inserted into the right IJ in the first pass with return of venous blood flow. Wire was threaded and the needle was removed. The triple-lumen catheter was placed via modified Seldinger technique. The wire was removed. All ports returned venous blood flow and flushed easily. The central line was sutured in at 15 cm. A sterile impregnated dressing was placed over the site and chest x-ray confirmed placement. No observed complications. [facility] C[facility]ERTommy
[2016-02-18] MEDS: HEPARIN SOD (PORCINE) 5000 UNITS/ML VIAL SC SCH (21:46)
[2016-02-19] VITALS (27 sets, daily range): BP systolic 88–150; BP diastolic 50–70
[2016-02-19] MEDS: LEVALBUTEROL 1.25 MG/0.5 ML CONCENTRATE NEB NEB SCH ×4 (02:24→20:00)
[2016-02-19] MEDS: ceFAZolin SOD 1 GM in D5W MINI-BAG PLUS 50 ML IV SCH ×3 (03:58→20:36)
[2016-02-19] MEDS: KCL 20MEQ IN D5/NS 1000ML 1,000 ML IV SCH ×2 (05:30→20:37)
[2016-02-19] MEDS: KETOROLAC 30 MG/ML VIAL (J1885) IV SCH ×3 (05:30→17:59)
[2016-02-19 05:47] LABS: ABG BASE EXCESS 0.2 (-2.0-2.0); ABG HCO3 25.9 MEQ/L (22.0-26.0); ABG PARTIAL PRESSURE CO2 46.5 mmHg (35.0-45.0); ABG PARTIAL PRESSURE O2 136.2 mmHg (75.0-100.0); ABG STANDARD HCO3 24.7 MEQ/L (22.0-26.0); ABG TOTAL CO2 27.3 MEQ/L (23.0-31.0); ABG pH (ARTERIAL) 7.364 UNITS (7.350-7.450)
[2016-02-19 06:16] LABS: ANION GAP 5 MEQ/L (8-16); BLOOD UREA NITROGEN 9 MG/DL (7-18); CALCIUM LEVEL 7.1 MG/DL (8.8-10.2); CARBON DIOXIDE LEVEL 32 MEQ/L (21-32); CHLORIDE LEVEL 106 MEQ/L (98-107); GLOMERULAR FILTRATION RATE > 60.0 (>45); GLUCOSE, FASTING 170 MG/DL (80-110); POTASSIUM SERUM 4.1 MEQ/L (3.5-5.1); SODIUM LEVEL 143 MEQ/L (136-145)
[2016-02-19 06:19] LABS: BASO % 0.1 % (0.0-1.0); EOS % 0.3 % (0.0-3.0); LARGE UNSTAINED CELL # 0.1 K/mm3 (0.0-0.4); LARGE UNSTAINED CELL % 0.9 % (0.0-4.0); LYMPH # 0.2 K/mm3 (1.5-4.5); LYMPH % 1.4 % (24.0-44.0); MEAN CORPUSCULAR HGB CONC 31.9 g/dl (32.0-36.5); MEAN CORPUSCULAR VOLUME 103.6 fl (80.0-96.0); MONO # 0.5 K/mm3 (0.0-0.8); MONO % 3.8 % (0.0-5.0); NEUTROPHILS # 11.8 K/mm3 (1.8-7.7); NEUTROPHILS % 93.6 % (36.0-66.0); RED CELL DISTRIBUTION WIDTH 14.8 % (11.5-14.5); WHITE BLOOD COUNT 12.6 K/mm3 (4.0-10.0)
[2016-02-19 06:20] LABS: PLATELET COUNT, AUTOMATED 209 k/mm3 (150-450)
[2016-02-19] MEDS: MOM 30ML SUSPENSION UDC PO SCH (09:00)
[2016-02-19] MEDS: MULTIVITAMINS/MINERALS THERAP 1 TAB PO SCH (09:00)
[2016-02-19] MEDS: FLUTICASONE PROP 0.05% NASAL SPRAY 16 GM (FLONASE) SCH (09:00)
[2016-02-19] MEDS: ASCORBIC ACID 250 MG TAB PO SCH ×3 (09:00→20:38)
[2016-02-19] MEDS: DULoxetine 20 MG CAP (CYMBALTA) PO SCH (09:00)
[2016-02-19] MEDS: LACTOBACILLUS ACIDOPHILUS CAP (BACID) PO SCH (09:00)
[2016-02-19] MEDS: DOCUSATE SODIUM 100 MG CAP PO SCH ×2 (09:00→20:38)
[2016-02-19] MEDS: FLECAINIDE 50MG TABLET PO SCH ×2 (09:00→21:00)
[2016-02-19] MEDS ORDERED: PANTOPRAZOLE 40MG INJ (PROTONIX) (C9113) IV SCH (09:00)
[2016-02-19] MEDS: HEPARIN SOD (PORCINE) 5000 UNITS/ML VIAL SC SCH ×2 (09:00→20:37)
[2016-02-19] MEDS: predniSONE 10 MG TAB PO SCH (09:00)
--- NOTE | 2016-02-19 09:30 | REP ---
Clinical: Status post bronchopulmonary fistula closure. Technique: PA and lateral. Comparison: 02/18/2016. Findings: Two right-sided chest tubes are in stable position. Right IJ line with tip in the SVC. Epidural catheter in the mid thoracic level. Right-sided pleuroparenchymal changes and subcutaneous emphysema are appreciated along with trace left basilar atelectasis and underlying chronic changes including left apical bullae. Small air fluid levels in the right hemithorax cannot be excluded. Impression: Bilateral pleuroparenchymal changes as described above. Allowing for differences in technique, changes are relatively similar to prior examination. Signed by Brannon Zepeda MD 02/19/2016 09:22 A
[2016-02-19] MEDS: ADVAIR DISKUS 500/50 INH PWD INH SCH ×2 (10:28→21:03)
--- NOTE | 2016-02-19 13:35 | RO ---
DATE OF PROCEDURE: 02/18/2016 PREPROCEDURE DIAGNOSIS: Bronchopleural fistula, necrotizing pneumonia. POSTPROCEDURE DIAGNOSIS: PROCEDURE: Closure of bronchopleural fistula with multiple wedge resections, open thoracotomy, talc pleurodesis, exploratory thoracotomy, extensive lysis of adhesions and bronchoscopy and five level rib block. SURGEON: Dr. Rell Alvarado. DRAPERY CUTTER: ANESTHESIA: ESTIMATED BLOOD LOSS: FINDINGS: The bronchoscopy revealed a normal branching tracheobronchial tree. The previous glue that we had placed in the posterior segment of the upper lobe was gone with three clear patent airways. She had ectasia and extensive pitting of the trachea and airways. The exploratory thoracotomy revealed the lung extensive adhesed particularly posteriorly. Her lung was incredibly fragile and torn in multiple placed. I believe that I did isolate the bronchopleural fistula which looked to be a large tear in the parenchyma. I was expecting a more discrete fistula but looked as though the lung was necrotic. This was closed with multiple staple lines and wedges. The holes were filled with glue and oversewn. PROCEDURE: Under satisfactory general anesthesia and single lumen tube endotracheal anesthesia, bronchoscope was placed into the tracheobronchial tree with the above results. Each bronchopulmonary segment was thoroughly investigated. In particular, the right upper lobe was segmented into three bronchi and there was none of the glue that we had placed in the posterior segment still there. Patient was then turned into the right lateral decubitus position. Prior chest tube that was placed was kept in. Posterior lateral incision was made and the chest was entered through the fifth intercostal space. Therein was commenced a very long tedious lysis of adhesions. Multiple sections of lung were stapled that were adherent to the chest wall as dissection only created tears. The leslee were protected with Lynnette-strips. There was a very large tear within the parenchyma of the lung. I think that was the bronchopleural fistula and it was not iatrogenic but I could not be absolutely sure. Nonetheless, after the extensive lysis of adhesions and mobilization of the lung, the chest was filled with water and a large amount of air consistent with the large bronchopleural fistula she had preoperatively emanating from its large deep cavity. There was no way I was going to close this cavity completely by removing it and therefore, Tisseel glue was first placed extensively within it. It was then closed with pledgeted pericardium with #4-0 Prolene. The remainder of the suture line was composed of a large strip of pericardium which was bordered on the medial side by Lynnette-strip . This was filled extensively with Tisseel glue and then oversewn with running #4-0 Prolene suture so as not to damage the lung any more than we had to. Second portion of the cavity was likewise oversewn after taking down more adhesions from the prior chest tube that was already in place. This allowed enough mobility and closed the second cavity after again extensively placing Tisseel glue. It has to be appreciated that this procedure was made up as we went along in order to close this bronchopleural fistula. It was not at all straight forward or cookbook. After closing the second cavity with running #4-0 Prolene suture, two chest tubes were placed, one anteriorly and one posteriorly. Posterior was a #28 curved chest tube which was placed under direct vision and the anterior chest tube was a #24 placed under direct vision. The thoracic scope was used extensively throughout to help with visualization. Five level rib block consisting of Exparel was injected and then talc was insufflated throughout the pleural cavity. It should be noted that she surprisingly tolerated one lung anesthesia, although her CO2 went up to 115 mmHg and her pH was low of 1.01. Nonetheless, she tolerated it well and continued oxygenating between 50-80% FiO1. Tidal volumes were kept low at 150 for the one lung. The ribs were reapproximated by use of #1 [id number] Prolene sutures and the extrathoracic muscles were reapproximated by use of running #0 Vicryl suture. Exparel was placed within the muscle of closures of both the serratus and the latissimus dorsi. Subcutaneous tissue was closed with running #3-0 Vicryl suture and the skin was closed with running #3-0 Monocryl subcuticular suture. Patient surprisingly tolerated the procedure well and left the operating room in satisfactory condition intubated.
[2016-02-19] MEDS: FENTANYL/BUPIVACAINE/NACL CADD 250 ML EPIDURAL SCH (16:07)
[2016-02-19] MEDS: PERCOCET 5MG/325MG TAB PO PRN (20:39)
--- NOTE | 2016-02-19 23:34 | RO ---
DATE OF PROCEDURE: 01/21/2016 PREPROCEDURE DIAGNOSIS: Recurrent pneumothorax, alveolar-pleural fistula. POSTPROCEDURE DIAGNOSIS: Recurrent pneumothorax, alveolar-pleural fistula. PROCEDURE: Talc slurry pleurodesis. SURGEON: Dr. Rell Alvarado PLATFORM WORKER: ANESTHESIA: DESCRIPTION OF PROCEDURE: The patient was sedated with 2 mg of Versed and the previously placed chest tube was disconnected from the Pleur-evac and 60 mL of talc slurry was then infused into the chest tube anteriorly. The patient was then turned from side to side and put prone and then placed in Trendelenburg for 10 minutes in order to distribute the talc slurry. Chest tube was clamped, and we unclamped at 4 hours. The patient tolerated the procedure well.
[2016-02-20] VITALS (25 sets, daily range): BP systolic 89–119; BP diastolic 50–70; O2SAT 96
[2016-02-20] MEDS: KETOROLAC 30 MG/ML VIAL (J1885) IV SCH ×5 (00:12→23:07)
[2016-02-20] MEDS: LEVALBUTEROL 1.25 MG/0.5 ML CONCENTRATE NEB NEB SCH ×4 (01:57→20:00)
[2016-02-20] MEDS: ceFAZolin SOD 1 GM in D5W MINI-BAG PLUS 50 ML IV SCH ×2 (04:11→12:13)
[2016-02-20] MEDS: PERCOCET 5MG/325MG TAB PO PRN ×4 (04:11→16:47)
[2016-02-20 06:04] LABS: BASO % 0.4 % (0.0-1.0); EOS # 0.1 K/mm3 (0.0-0.50); EOS % 0.9 % (0.0-3.0); LARGE UNSTAINED CELL # 0.1 K/mm3 (0.0-0.4); LARGE UNSTAINED CELL % 0.7 % (0.0-4.0); LYMPH # 0.2 K/mm3 (1.5-4.5); LYMPH % 1.1 % (24.0-44.0); MEAN CORPUSCULAR HEMOGLOBIN 31.5 pg (27.0-33.0); MEAN CORPUSCULAR HGB CONC 30.5 g/dl (32.0-36.5); MEAN CORPUSCULAR VOLUME 103.3 fl (80.0-96.0); MONO # 0.6 K/mm3 (0.0-0.8); MONO % 4.1 % (0.0-5.0); NEUTROPHILS # 12.5 K/mm3 (1.8-7.7); NEUTROPHILS % 92.8 % (36.0-66.0); PLATELET COUNT, AUTOMATED 197 k/mm3 (150-450); RED CELL DISTRIBUTION WIDTH 15.7 % (11.5-14.5); WHITE BLOOD COUNT 13.5 K/mm3 (4.0-10.0)
[2016-02-20 06:12] LABS: ANION GAP 6 MEQ/L (8-16); BLOOD UREA NITROGEN 6 MG/DL (7-18); CARBON DIOXIDE LEVEL 30 MEQ/L (21-32); CHLORIDE LEVEL 106 MEQ/L (98-107); CREATININE FOR GFR 0.37 MG/DL (0.55-1.02); GLOMERULAR FILTRATION RATE > 60.0 (>45); GLUCOSE, FASTING 146 MG/DL (80-110); POTASSIUM SERUM 3.7 MEQ/L (3.5-5.1); SODIUM LEVEL 142 MEQ/L (136-145)
[2016-02-20] MEDS: ADVAIR DISKUS 500/50 INH PWD INH SCH ×2 (08:33→19:39)
[2016-02-20] MEDS: KCL 20MEQ IN D5/NS 1000ML 1,000 ML IV SCH (08:37)
--- NOTE | 2016-02-20 08:56 | REP ---
Chest x-ray: Two views. History: Status post thoracotomy with closure of bronchopleural fistula. Comparison chest x-ray February 19, 2016. Findings: Two right-sided chest tubes remain in place. Surgical suture lines are seen in their distribution in the right upper lobe. A right internal jugular central venous catheter is noted with its tip in the expected location in the superior vena cava. An epidural catheter is seen. There is pleuroparenchymal opacity in the right upper lobe distribution with a small superolateral pleural air fluid level. There is some extrathoracic soft tissue gas less prominent today. No other change from previous day's study. Signed by David Llamas MD 02/20/2016 01:41 P
[2016-02-20] MEDS ORDERED: predniSONE 5 MG TAB PO SCH (09:00)
[2016-02-20] MEDS ORDERED: POTASSIUM CHLORIDE 10 MEQ SR TABLET PO ONE (09:00)
[2016-02-20] MEDS: MOM 30ML SUSPENSION UDC PO SCH (09:00)
[2016-02-20] MEDS: LACTOBACILLUS ACIDOPHILUS CAP (BACID) PO SCH (09:03)
[2016-02-20] MEDS: HEPARIN SOD (PORCINE) 5000 UNITS/ML VIAL SC SCH ×2 (09:03→21:20)
[2016-02-20] MEDS: PANTOPRAZOLE 40MG TAB (PROTONIX) PO SCH (09:04)
[2016-02-20] MEDS: MULTIVITAMINS/MINERALS THERAP 1 TAB PO SCH (09:05)
[2016-02-20] MEDS: DOCUSATE SODIUM 100 MG CAP PO SCH ×2 (09:05→21:20)
[2016-02-20] MEDS: ASCORBIC ACID 250 MG TAB PO SCH ×3 (09:06→21:00)
[2016-02-20] MEDS: DULoxetine 20 MG CAP (CYMBALTA) PO SCH (09:13)
[2016-02-20] MEDS: FLUTICASONE PROP 0.05% NASAL SPRAY 16 GM (FLONASE) SCH (09:14)
--- NOTE | 2016-02-20 09:34 | IPN ---
DATE: 02/20/2016 This is now the second postoperative day for Mrs. Harrison. There is still no air leak and she is now off suction. Her chest x-ray shows her lung fully expanded to the chest wall and there is no increase in the prior subcutaneous emphysema. Her pain is being well controlled. It turns out that her epidural had not been going and her pain is still controlled and so while the catheter is in the epidural itself is not running. Her vital signs show a T-max of 100.0 with a heart rate that ranges between 98 and 103 in a sinus rhythm, a respiratory rate of 18 to 24 without the use of accessory muscles, who is 96-97% saturated on 3 liters nasal cannula, and whose blood pressure is ranging between 94/51 to 105/56. Her intake and output the past 24 hours has been recorded as 3142 in and 1540 out for a positivity of 1600 mL. She received 2100 mL in IV intake yesterday. Urine output has been 1445 and her chest tube output has been 95 mL. Today's weight is still pending. On physical examination, she has coarse breath sounds in the right upper hemithorax and right mid hemithorax. It almost sounds like bronchophony. Percussion note however is full to the diaphragm. Left sound shows markedly decreased breath sounds, but I hear no wheezes, rhonchi or rales. Percussion note is full to the diaphragm on the left. Cardiac Exam: Without murmurs, clicks, gallops, or rubs. I cannot feel her PMI. S1, S2 are normal. Abdomen: Soft. Nontender. Bowel sounds are positive, but hypoactive. She is slightly distended. There is no hepatomegaly and no costovertebral angle (CVA) tenderness. Extremities: Show no pretibial edema. No calf tenderness. No differential swelling of the upper extremities. Skin: Warm, dry and perfused. Without cyanosis or mottling, including that of the nail beds and knees. Neck: Supple. There is no jugular venous distention. No subcutaneous emphysema. Trachea is midline. Mouth: Shows her mucous membranes to be pink and moist. Lips and commissures are without lesions. There is no thrush. Eyes: Show her pupils to be equal and reactive. Extraocular movements intact. Sclerae nonicteric. Neurologic: Shows II-XII intact along with gross motor and gross sensation intact. Gait is not tested. Her white count today is 13.5 with hemoglobin and hematocrit of 7.3 and 23.9 respectively, down from 8.4 and 26.4 yesterday. This is probably secondary to hemodilution in combination with estimated blood loss. Platelet count is 197. Her differential shows 92% neutrophils, 1% lymphocytes, 4% monocytes. There are no immature forms and no toxic granulations. Her electrolytes are normal with a BUN and creatinine of 6 and 0.37. Glucose is 146 with a calcium of 7.0. Her chest x-ray today shows her lung fully expanded to the chest wall. There looks to be an infiltrative hemorrhagic process in the right upper lobe. This looks more translucent today than it did yesterday however. Again, there is no increase in subcutaneous emphysema. Left lung shows almost no lung markings in the upper lobe, consistent with her extensive bullous disease. IMPRESSION: 1. Postoperative day #2 status post closure of a bronchopleural fistula. Surprisingly doing well. 2. Anemia secondary to hemodilution and blood loss. 3. Necrotizing pneumonia. 4. Bronchopulmonary fistula, hopefully resolved with the above procedure. 5. Right pneumothorax, resolved. 6. Depression. 7. Uterine cancer, presently undergoing chemotherapy. 8. Osteoporosis. 9. Severe chronic obstructive pulmonary disease. PLAN AND DISCUSSION: I will transfuse her 2 units of blood today. I will keep her in the intensive care unit (ICU) one more day. I have discontinued her chest tube suction. I am very concerned about the next few postoperative days when the Tisseel glue which was injected into the bronchopleural fistula may be reabsorbed. Nonetheless, the lung has been oversewn and stapled.
[2016-02-20] MEDS ORDERED: SODIUM CHLORIDE 0.9% INJ 10 ML SYR IV PRN (14:15)
[2016-02-20] MEDS: FLECAINIDE 50MG TABLET PO SCH ×2 (14:18→21:20)
--- NOTE | 2016-02-20 16:02 | IPN ---
DATE: 02/19/2016 Ms. Harrison has had a surprisingly fairly stable first night of surgery. This is her first postoperative day. She did require some pressors yesterday but they have been weaned. She is awake, alert, and oriented. She was extubated early yesterday evening and is only requiring aerosol mask and nasal cannula. Her vital signs show a maximum temperature (T max) of 101.0 with a heart rate that ranges between 97 and 103 and is sinus rhythm, respiratory rate of 20 to 28 without the use of accessory muscles who is 98% saturated on 4 liters nasal cannula along with an aerosol mask of 40%. Her blood pressure is ranging between 125/55 to 150/70. Her intake and output the past 24 hours has been recorded as approximately 2000 in and 2700 out for a negativity of 700 mL. That includes an estimated blood loss of 300 mL. Her urine output has been 410 mL and overnight her chest tube has put out 205 mL. Gratifyingly, there is no air leak as of yet. She was on 10 cm of suction yesterday and now I have discontinued the suction. On physical examination, she has rhonchus air sounds on the right along with inspiratory crackles. I hear almost no breath sounds on the left. Percussion notes are full to the diaphragm. Cardiac exam is without murmurs, clicks, gallops or rubs. I cannot feel her point of maximum impulse (PMI). S1 and S2 are normal. Abdomen is soft, nontender. Bowel sounds are positive but hypoactive. There is no hepatomegaly. No costovertebral angle (CVA) tenderness. Extremities show no pretibial edema. No calf tenderness. No differential swelling of the upper extremities. Skin is warm, dry and perfused without cyanosis or mottling including that of the nail beds and the knees Neck is supple. There is no jugular venous distention (JVD). No subcutaneous emphysema. Trachea is midline. Mouth shows her mucous membranes to be pink and moist. Lips and commissures without lesions. There is no thrush. Eyes show her pupils to be equal and reactive. Extraocular motions are intact. Sclerae nonicteric. Neurologic shows II through XII intact along with gross motor and gross sensation intact. Gait is not tested. Psychiatric shows her to be awake and alert, oriented times three with appropriate mood and affect, and conversational. Her white count today is 12.6 down from 22.5 immediately yesterday after surgery. Hemoglobin and hematocrit of 8.4 and 26.4 respectively with a platelet count of 209. Differential shows 93% neutrophils, 1% lymphocytes, 3% monocytes. There are no immature forms, no toxic granulations. Chemistries today show normal electrolytes with a BUN and creatinine of 9 and 0.50. Glucose is 170 with a calcium of 7.1. Blood gases this morning show a pH of 7.36, pCO2 of 46 and a pO2 of 136. Base excess is 0.2. Her chest x-ray today shows her lung fully expanded to the chest wall. There is infiltrative compressive process in the upper lobe, particularly posteriorly which could be seen clearly on the lateral chest x-ray. There is no new subcutaneous emphysema and in fact it is less. The right costophrenic angle is sharp. Chest tube are in good place. Central line is in good place. There is a slight mediastinal shift to the right from her volume loss of the upper lobe. IMPRESSION: 1. Bronchopleural fistula; hopefully resolved with the procedure yesterday. 2. Severe chronic obstructive pulmonary disease (COPD). 3. Prior necrotizing pneumonia. 4. Right pneumothorax, resolved. 5. Depression. 6. Uterine cancer, presently undergoing chemotherapy. 7. Osteoporosis. PLAN AND DISCUSSION: We will discontinue her arterial line today. She was only on 10 cm of suction and I will discontinue the suction. She is now off all the pressors. Right now I do not think that I need to give her any volume, although she is net negative. If she does require volume, my preference would be blood as more volume would only hemodilute her. I will keep her in the intensive care unit (ICU) today. Our next sudhir is possible pulmonary infection on the operative site where her bronchopleural fistula was glued with Tisseel glue along with being oversewn and stapled.
[2016-02-20] MEDS: SODIUM CHLORIDE 0.9% INJ 10 ML SYR IV SCH (21:20)
[2016-02-20] MEDS: NORCO, ANEXSIA 5/325MG TABLET (HYDROcodone/ACETAMINOPHEN) PO PRN (21:20)
[2016-02-21] VITALS: BP 112/58
[2016-02-21] MEDS: LEVALBUTEROL 1.25 MG/0.5 ML CONCENTRATE NEB NEB SCH ×4 (01:22→20:00)
[2016-02-21 04:00] VITALS: BP 146/73
[2016-02-21] MEDS: NORCO, ANEXSIA 5/325MG TABLET (HYDROcodone/ACETAMINOPHEN) PO PRN ×3 (05:12→15:00)
[2016-02-21] MEDS: KETOROLAC 30 MG/ML VIAL (J1885) IV SCH ×3 (05:12→17:45)
[2016-02-21] MEDS: SODIUM CHLORIDE 0.9% INJ 10 ML SYR IV SCH ×3 (05:12→21:18)
[2016-02-21 05:42] LABS: EOS # 0.2 K/mm3 (0.0-0.50); EOS % 2.2 % (0.0-3.0); LARGE UNSTAINED CELL # 0.1 K/mm3 (0.0-0.4); LARGE UNSTAINED CELL % 1.2 % (0.0-4.0); LYMPH # 0.2 K/mm3 (1.5-4.5); LYMPH % 1.7 % (24.0-44.0); MEAN CORPUSCULAR HEMOGLOBIN 31.3 pg (27.0-33.0); MEAN CORPUSCULAR HGB CONC 31.6 g/dl (32.0-36.5); MONO # 0.4 K/mm3 (0.0-0.8); MONO % 4.1 % (0.0-5.0); NEUTROPHILS # 9.8 K/mm3 (1.8-7.7); NEUTROPHILS % 90.8 % (36.0-66.0); PLATELET COUNT, AUTOMATED 210 k/mm3 (150-450); WHITE BLOOD COUNT 10.8 K/mm3 (4.0-10.0)
[2016-02-21 06:10] LABS: ANION GAP 7 MEQ/L (8-16); BLOOD UREA NITROGEN 7 MG/DL (7-18); CALCIUM LEVEL 7.5 MG/DL (8.8-10.2); CARBON DIOXIDE LEVEL 29 MEQ/L (21-32); CHLORIDE LEVEL 102 MEQ/L (98-107); CREATININE FOR GFR 0.23 MG/DL (0.55-1.02); GLOMERULAR FILTRATION RATE > 60.0 (>45); GLUCOSE, FASTING 121 MG/DL (80-110); POTASSIUM SERUM 4.2 MEQ/L (3.5-5.1); SODIUM LEVEL 138 MEQ/L (136-145)
--- NOTE | 2016-02-21 07:49 | REP ---
Clinical: Status post repair for bronchopulmonary fistula. Comparison: 02/20/2016. Findings: Two right-sided chest tubes are in stable position. Thoracic epidural catheter in stable position. Right subclavian catheter with tip in the SVC. Mediastinum is within normal limits and stable. Diffuse bilateral pleuroparenchymal changes and subcutaneous emphysema along the right hemithorax remain relatively stable. No obvious pneumothorax. No obvious new acute process. Impression: Stable chest x-ray. Signed by Brannon Zepeda MD 02/21/2016 07:41 A
[2016-02-21] MEDS: ADVAIR DISKUS 500/50 INH PWD INH SCH ×2 (07:52→20:25)
[2016-02-21 08:00] VITALS: BP 139/74
[2016-02-21] MEDS ORDERED: FUROSEMIDE 40 MG/4 ML VIAL (J1940) IV ONE (09:00)
[2016-02-21] MEDS: HEPARIN SOD (PORCINE) 5000 UNITS/ML VIAL SC SCH ×2 (09:17→21:17)
[2016-02-21] MEDS: DOCUSATE SODIUM 100 MG CAP PO SCH ×2 (09:18→21:17)
[2016-02-21] MEDS: MOM 30ML SUSPENSION UDC PO SCH (09:18)
[2016-02-21] MEDS: PANTOPRAZOLE 40MG TAB (PROTONIX) PO SCH (09:18)
[2016-02-21] MEDS: FLECAINIDE 50MG TABLET PO SCH ×2 (09:18→21:17)
[2016-02-21] MEDS: MULTIVITAMINS/MINERALS THERAP 1 TAB PO SCH (09:18)
[2016-02-21] MEDS: LACTOBACILLUS ACIDOPHILUS CAP (BACID) PO SCH (09:18)
[2016-02-21] MEDS: ASCORBIC ACID 250 MG TAB PO SCH ×3 (09:19→21:17)
[2016-02-21] MEDS: DULoxetine 20 MG CAP (CYMBALTA) PO SCH (09:19)
[2016-02-21] MEDS: FLUTICASONE PROP 0.05% NASAL SPRAY 16 GM (FLONASE) SCH (09:21)
--- NOTE | 2016-02-21 11:34 | IPN ---
DATE: 02/21/2016 This is now the third postoperative day for Mrs. Harrison. She has had a physiologically stable 24 hours after having undergone a blood transfusion. She is more edematous today with an imbalance in her input and output. She is coughing up blood, which is not at all unexpected. Her vital signs show a maximum temperature (t-max) of 99.0. Heart rate ranges between 80 and 100 in a sinus rhythm with a respiratory rate of 18 to 22 without the use of accessory muscles. She is 93 to 94% saturated on 3 liters nasal cannula, and her blood pressure is ranging between 112/58 to 146/73. Her intake and output the past 24 hours has been recorded as 2970 in and 1145 out for a positivity of 1800 mL. For the past two days, she is positive approximately 3200 mL. Her urine output has been 1080 mL with a chest tube output being 65 mL. Weight is pending today. There is no air leak in the chest tube with forcible coughing. PHYSICAL EXAMINATION: LUNGS: Show coarse breath sounds in the right upper hemithorax. I hear no wheezes, rhonchi or rales on the left, however. Percussion note is full to the diaphragm. CARDIAC: Cardiac exam is without murmurs, clicks, gallops, or rubs. I cannot feel her PMI. S1, S2 are normal. ABDOMEN: Soft. Nontender. Bowel sounds are positive. There is no hepatomegaly. No costovertebral angle (CVA) tenderness. EXTREMITIES: Shows 2+ pretibial edema. No calf tenderness. No differential swelling of the upper extremities. SKIN: Warm, dry and perfused without cyanosis or mottling, including that of the nail beds and knees. NECK: Supple. There is no jugular venous distention. No subcutaneous emphysema. Trachea is midline. MOUTH: Shows her mucous membranes to be pink and moist. Lips and commissures are without lesions. There is no thrush. EYES: Show her pupils to be equal and reactive. Extraocular motions intact. Sclerae nonicteric. NEUROLOGIC: Shows II-XII intact along with gross motor and gross sensation intact. Gait is not tested. PSYCHIATRIC: Shows her to be awake and alert, oriented times three. She has a bit of a depressive affect today. Her white count today is down to 10.8 with hemoglobin and hematocrit of 9.7 and 30.6, respectively after 2 unit transfusion. Platelet count is 210. Differential shows 90% neutrophils, 1% lymphocytes, 4% monocytes. There are no immature forms and no toxic granulations. Her electrolytes are normal with a BUN and creatinine of 7 and 0.23. Glucose is 121 and a calcium of 7.5. There are no blood gases on her today. Her chest x-ray today again shows her lung fully expanded to the chest wall. I do see a small air-fluid level in the cupula, which is unchanged from yesterday. Subcutaneous emphysema is continuing to dissipate. Chest tubes are in good place. There is the unchanged opacity in the right upper lobe secondary to postoperative changes and to closure of a bronchopleural fistula with a Tisseel glue matrix. IMPRESSION: 1. Postoperative day #3 status post closure of a bronchopleural fistula. Continuing to do surprisingly well. 2. Anemia secondary to hemodilution and blood loss, resolved with a transfusion. 3. Necrotizing pneumonia. 4. Bronchopulmonary fistula. Hopefully, resolved with the above procedure. 5. Right pneumothorax, resolved. 6. Depression. 7. Uterine cancer, presently undergoing chemotherapy. 8. Osteoporosis. 9. Severe chronic obstructive pulmonary disease. PLAN AND DISCUSSION: Today, I am going to diurese her. Her chest tubes are off suction and I will keep them in today. This is now the third postoperative day and this is the time period where the fibrin glue would start to be reabsorbed. We will anxiously await the next couple of days to see if her bronchopleural fistula reappears. I decreased her steroids yesterday and I will discontinue them today, as she is only on five a day. I hear no wheezes, rhonchi, or rales on the left side, which is the good side, although there is very little lung tissue there. If she starts having pulmonary symptoms, we will have to consider restarting them, but I would like to give her as much opportunity to heal and fibrose the operative wounds. We will discontinue her Hicks today. Her pain is being well controlled, and I will have the epidural catheter discontinued.
[2016-02-21 12:00] VITALS: BP 138/75
[2016-02-21 16:00] VITALS: BP 116/65
[2016-02-21] MEDS: PERCOCET 5MG/325MG TAB PO PRN ×2 (17:46→21:17)
[2016-02-21 20:00] VITALS: BP 104/59
[2016-02-22] VITALS: BP 139/68
[2016-02-22] MEDS: NORCO, ANEXSIA 5/325MG TABLET (HYDROcodone/ACETAMINOPHEN) PO PRN (00:12)
[2016-02-22] MEDS: KETOROLAC 30 MG/ML VIAL (J1885) IV SCH ×4 (00:13→17:34)
[2016-02-22] MEDS: LEVALBUTEROL 1.25 MG/0.5 ML CONCENTRATE NEB NEB SCH ×4 (02:00→20:17)
[2016-02-22 04:00] VITALS: BP 121/63
[2016-02-22] MEDS: SODIUM CHLORIDE 0.9% INJ 10 ML SYR IV SCH ×3 (05:22→21:28)
[2016-02-22] MEDS: PERCOCET 5MG/325MG TAB PO PRN ×3 (05:23→17:34)
[2016-02-22 05:46] LABS: BASO % 0.1 % (0.0-1.0); EOS # 0.3 K/mm3 (0.0-0.50); LARGE UNSTAINED CELL # 0.1 K/mm3 (0.0-0.4); LARGE UNSTAINED CELL % 1.9 % (0.0-4.0); LYMPH # 0.3 K/mm3 (1.5-4.5); MEAN CORPUSCULAR HEMOGLOBIN 30.7 pg (27.0-33.0); MEAN CORPUSCULAR HGB CONC 30.8 g/dl (32.0-36.5); MEAN CORPUSCULAR VOLUME 99.8 fl (80.0-96.0); MONO # 0.4 K/mm3 (0.0-0.8); MONO % 5.5 % (0.0-5.0); NEUTROPHILS % 84.5 % (36.0-66.0); PLATELET COUNT, AUTOMATED 236 k/mm3 (150-450); RED CELL DISTRIBUTION WIDTH 15.9 % (11.5-14.5); WHITE BLOOD COUNT 7.1 K/mm3 (4.0-10.0)
[2016-02-22 05:56] LABS: ANION GAP 7 MEQ/L (8-16); BLOOD UREA NITROGEN 7 MG/DL (7-18); CALCIUM LEVEL 7.6 MG/DL (8.8-10.2); CARBON DIOXIDE LEVEL 31 MEQ/L (21-32); CHLORIDE LEVEL 102 MEQ/L (98-107); CREATININE FOR GFR 0.27 MG/DL (0.55-1.02); GLOMERULAR FILTRATION RATE > 60.0 (>45); GLUCOSE, FASTING 100 MG/DL (80-110); POTASSIUM SERUM 3.5 MEQ/L (3.5-5.1); SODIUM LEVEL 140 MEQ/L (136-145)
[2016-02-22] MEDS: ADVAIR DISKUS 500/50 INH PWD INH SCH ×2 (07:51→21:24)
[2016-02-22 08:00] VITALS: BP 111/61
[2016-02-22] MEDS: ACETYLCYSTEINE 20% 4 ML VIAL (200MG/ML) INH SCH ×2 (08:19→20:00)
[2016-02-22] MEDS: DULoxetine 20 MG CAP (CYMBALTA) PO SCH (08:34)
[2016-02-22] MEDS: ASCORBIC ACID 250 MG TAB PO SCH ×3 (08:34→21:27)
[2016-02-22] MEDS: PANTOPRAZOLE 40MG TAB (PROTONIX) PO SCH (08:34)
[2016-02-22] MEDS: MOM 30ML SUSPENSION UDC PO SCH (08:34)
[2016-02-22] MEDS: FLECAINIDE 50MG TABLET PO SCH ×2 (08:34→21:27)
[2016-02-22] MEDS: HEPARIN SOD (PORCINE) 5000 UNITS/ML VIAL SC SCH ×2 (08:34→21:28)
[2016-02-22] MEDS: LACTOBACILLUS ACIDOPHILUS CAP (BACID) PO SCH (08:34)
[2016-02-22] MEDS: DOCUSATE SODIUM 100 MG CAP PO SCH ×2 (08:34→21:27)
[2016-02-22] MEDS: MULTIVITAMINS/MINERALS THERAP 1 TAB PO SCH (08:34)
[2016-02-22] MEDS: FLUTICASONE PROP 0.05% NASAL SPRAY 16 GM (FLONASE) SCH (08:35)
--- NOTE | 2016-02-22 08:53 | REP ---
Clinical: Status post bronchopulmonary fistula repair. Comparison: 02/21/2016. Findings: Right-sided chest tubes are in stable position. Diffuse bilateral pleuroparenchymal changes are again noted and similar to prior examination. Decreased subcutaneous emphysema along the right chest wall is suggested on current examination and possibly mildly improved aeration to the right hemithorax. No new acute process identified. Impression: Minimally decreased subcutaneous emphysema along the right lateral chest wall and minimally improved aeration to the right hemithorax is suggested. Bilateral pleuroparenchymal changes are otherwise similar. Signed by Brannon Zepeda MD 02/22/2016 08:44 A
[2016-02-22] MEDS: ALENDRONATE 70 MG TABLET (FOSAMAX) PO SCH (09:31)
[2016-02-22] MEDS ORDERED: FUROSEMIDE 40 MG/4 ML VIAL (J1940) IV ONE (11:15)
[2016-02-22] MEDS: POTASSIUM CHLORIDE 10 MEQ SR TABLET PO SCH ×2 (11:58→21:27)
[2016-02-22 12:00] VITALS: BP 132/63
--- NOTE | 2016-02-22 12:10 | IPN ---
DATE: 02/22/2016 This is now the fourth postoperative day for Ms. Harrison. She still does not have an air leak. She has good tidaling in the chest tube. She is still having trouble mobilizing her secretions. It sounds as if they are just in the proximal trachea, and she is not able to get them up past her glottis. She is trying, however. Her vital signs show a maximum temperature (T max) of 98.7 with a heart rate that ranges between 88 and 98 and is sinus rhythm, a respiratory rate of 18 to 20 without the use of accessory muscles who is 93 to 92% saturated on 3 liters nasal cannula. Blood pressure is ranging between 111/61 to 121/63. Her intake and output the past 24 hours has been recorded as 1700 mL in and 2795 mL out for a negativity of 1000 mL. Her chest tube output has been 20 mL. Urine output has been 2775 mL with diuresis yesterday. PHYSICAL EXAMINATION: Shows coarse rhonchi throughout both lungs, probably emanating from her trachea. She has rales in the upper lobe along with transmitted breath sounds in the upper lobe on the right. Percussion notes are full to the diaphragm. Cardiac exam is without murmurs, clicks, gallops or rubs. I cannot feel her point of maximum impulse (PMI). S1, S2 are normal. Abdomen is soft and nontender. Bowel sounds are positive. There is no hepatomegaly. No costovertebral angle tenderness. Extremities show 2+ pretibial edema. No calf tenderness. No differential swelling of the upper extremities. Skin is warm, dry and perfused without cyanosis or mottling, including that of the nail beds and the knees. Neck is supple. There is no jugular venous distention, no subcutaneous emphysema. Trachea is midline. Mouth shows her mucous membranes to be pink and moist. Lips and commissures without lesions. There is no thrush. Eyes show her pupils to be equal and reactive. Extraocular motions intact. Sclerae anicteric. Neurologic shows II-XII intact along with gross motor and gross sensation intact. Gait is not tested. Psychiatric shows her to be awake and alert, oriented times three with appropriate mood and affect. Over the last 2 days, she is still positive approximately 2000 mL, having a positivity of 1600 mL on 02/19/2016, 1800 mL on 02/14/2016 and a negativity of 1095 mL yesterday. I am, therefore, going to continue to diurese her. Her white count is 7.1 with a hemoglobin and hematocrit of 9.6 and 31.1. Platelet count is 236. Differential shows 84% neutrophils, 4% lymphocytes, 5% monocytes. There are no immature forms. No toxic granulations. Her sodium is 140 with a potassium of 3.5. BUN and creatinine are 7 and 0.27 respectively with a calcium of 7.6 and a glucose of 100. I will check her albumin tomorrow. Her chest x-ray again shows the lung fully expanded to the chest wall. The posterior segment of the right upper lobe looks more translucent today with less opacifications. The subcutaneous emphysema has all but disappeared. Right costophrenic angle is minimally blunted. Chest tubes are in good place with the anterior being anterior and superior and the posterior being in the costophrenic angle. There are postoperative compressive atelectatic changes. IMPRESSION: 1. Postoperative day #4 status post closure of bronchopleural fistula. Continuing to do relatively well. 2. Anemia secondary to hemodilution and blood loss, partially resolved with transfusion. 3. Necrotizing pneumonia. 4. Bronchopleural fistula, hopefully resolved with the above procedure. 5. Right pneumothorax, resolved. 6. Depression. 7. Uterine cancer. 8. Osteoporosis. 9. Severe chronic obstructive pulmonary disease. 10. Intake and output in balance. I will again diurese her today. I will check her albumin tomorrow. I will also give her prophylactic potassium as her potassium is trending down, and I am going to be giving her Lasix.
[2016-02-22 16:00] VITALS: BP 115/63
[2016-02-22 20:00] VITALS: BP 120/64
[2016-02-23] VITALS (7 sets, daily range): BP systolic 97–146; BP diastolic 55–81; O2SAT 95
[2016-02-23] MEDS: PERCOCET 5MG/325MG TAB PO PRN ×5 (00:12→21:20)
[2016-02-23] MEDS: KETOROLAC 30 MG/ML VIAL (J1885) IV SCH ×3 (00:12→14:07)
[2016-02-23] MEDS: LEVALBUTEROL 1.25 MG/0.5 ML CONCENTRATE NEB NEB SCH ×4 (01:12→20:30)
[2016-02-23] MEDS: SODIUM CHLORIDE 0.9% INJ 10 ML SYR IV SCH ×3 (05:13→21:20)
[2016-02-23 05:55] LABS: BASO % 0.2 % (0.0-1.0); EOS # 0.2 K/mm3 (0.0-0.50); EOS % 2.5 % (0.0-3.0); LARGE UNSTAINED CELL # 0.1 K/mm3 (0.0-0.4); LYMPH # 0.3 K/mm3 (1.5-4.5); LYMPH % 4.7 % (24.0-44.0); MEAN CORPUSCULAR HEMOGLOBIN 31.1 pg (27.0-33.0); MEAN CORPUSCULAR HGB CONC 31.4 g/dl (32.0-36.5); MEAN CORPUSCULAR VOLUME 99.1 fl (80.0-96.0); MONO # 0.5 K/mm3 (0.0-0.8); MONO % 7.4 % (0.0-5.0); NEUTROPHILS # 5.8 K/mm3 (1.8-7.7); NEUTROPHILS % 83.2 % (36.0-66.0); PLATELET COUNT, AUTOMATED 259 k/mm3 (150-450); RED CELL DISTRIBUTION WIDTH 15.5 % (11.5-14.5); WHITE BLOOD COUNT 6.9 K/mm3 (4.0-10.0)
[2016-02-23 06:33] LABS: ALBUMIN 1.9 GM/DL (3.2-5.2); ALBUMIN/GLOBULIN RATIO 0.68 (1.00-1.93); ALKALINE PHOSPHATASE 94 U/L (45-117); ALT/SGPT 24 U/L (12-78); ANION GAP 4 MEQ/L (8-16); AST/SGOT 15 U/L (15-37); BILIRUBIN,TOTAL 0.5 MG/DL (0.2-1.0); BLOOD UREA NITROGEN 8 MG/DL (7-18); CALCIUM LEVEL 8.2 MG/DL (8.8-10.2); CARBON DIOXIDE LEVEL 35 MEQ/L (21-32); CHLORIDE LEVEL 100 MEQ/L (98-107); CHOLESTEROL LEVEL 129 MG/DL (< 200); CREATININE FOR GFR 0.31 MG/DL (0.55-1.02); GLOMERULAR FILTRATION RATE > 60.0 (>45); GLUCOSE, FASTING 111 MG/DL (80-110); PHOSPHORUS LEVEL 2.6 MG/DL (2.5-4.9); POTASSIUM SERUM 3.9 MEQ/L (3.5-5.1); SODIUM LEVEL 139 MEQ/L (136-145); TOTAL PROTEIN 4.7 GM/DL (6.4-8.2); TRIGLYCERIDES LEVEL 117 MG/DL (<150)
[2016-02-23] MEDS: ADVAIR DISKUS 500/50 INH PWD INH SCH ×2 (07:47→20:30)
[2016-02-23] MEDS: ACETYLCYSTEINE 20% 4 ML VIAL (200MG/ML) INH SCH ×2 (07:48→20:30)
[2016-02-23] MEDS ORDERED: FUROSEMIDE 40 MG/4 ML VIAL (J1940) IV ONE (08:30)
[2016-02-23] MEDS: FLECAINIDE 50MG TABLET PO SCH ×2 (08:37→21:19)
[2016-02-23] MEDS: POTASSIUM CHLORIDE 10 MEQ SR TABLET PO SCH ×2 (08:37→21:19)
[2016-02-23] MEDS: ASCORBIC ACID 250 MG TAB PO SCH ×4 (08:37→21:19)
[2016-02-23] MEDS: DULoxetine 20 MG CAP (CYMBALTA) PO SCH (08:37)
[2016-02-23] MEDS: PANTOPRAZOLE 40MG TAB (PROTONIX) PO SCH (08:37)
[2016-02-23] MEDS: DOCUSATE SODIUM 100 MG CAP PO SCH ×2 (08:38→21:19)
[2016-02-23] MEDS: MULTIVITAMINS/MINERALS THERAP 1 TAB PO SCH (08:38)
[2016-02-23] MEDS: LACTOBACILLUS ACIDOPHILUS CAP (BACID) PO SCH (08:38)
[2016-02-23] MEDS: HEPARIN SOD (PORCINE) 5000 UNITS/ML VIAL SC SCH ×2 (08:38→21:00)
[2016-02-23] MEDS: MOM 30ML SUSPENSION UDC PO SCH (08:38)
[2016-02-23] MEDS: FLUTICASONE PROP 0.05% NASAL SPRAY 16 GM (FLONASE) SCH (09:00)
--- NOTE | 2016-02-23 09:31 | REP ---
Chest x-ray: Two views. History: Status post closure bronchopleural fistula. Findings: Two views of the chest demonstrate a right upper chest tube in place. Postoperative changes and suture lines are visible in the right apex. There is a tiny amount of apical pleural air with an air-fluid level unchanged in the right apex. Some right upper thoracic pleural thickening is seen also unchanged. No other pleural air collection is appreciated. No new infiltrate is noted. The chest tube previously noted in the right base has been removed. EKG electrodes are seen. Emphysematous changes remain on the left unchanged. A right internal jugular line terminates in the expected location of the superior vena cava. Signed by David Llamas MD 02/23/2016 01:35 P
--- NOTE | 2016-02-23 09:44 | IPN ---
DATE: 02/23/2016 This is now the 5th postoperative day for Mrs. Harrison. Her inferior tube was pulled yesterday. There is no still air leak. Chest x-ray shows her lung fully expanded to the chest wall and I am therefore going to pull her upper chest tube. She is complaining of more shortness of breath and difficulty breathing. I did take her off her steroids. She has been off the steroids for now two days. Her vital signs show a T-max of 98.5 with a heart rate that ranges between 84 and 107 in a sinus rhythm, a respiratory rate of 16 to 18 without the use of accessory muscles who is 93% saturated on 2 liters nasal cannula and whose blood pressure is ranging between 97/55 to 146/81. Her intake and output over the past 24 hours has been recorded as 1480 in and 1465 out for a near equality. She has put out 15 mL from the chest tube and there is no air leak. She weighs 52.3 kg today compared to 53.2 kg yesterday. She is still approximately 1.5 liters ahead over the last three days. On physical examination, her lungs show coarse breath sounds in the right upper lobe with transmitted breath sounds and bronchophony. Left lung shows markedly decreased breath sounds. Most notably, I do not hear any wheezing. There are coarse rhonchi in the right side. Percussion notes are full to the diaphragm. Cardiac exam is without murmurs, clicks, gallops or rubs. She is tachycardiac. S1, S2 are normal. I cannot feel her PMI. Abdomen is soft, nontender. Bowel sounds are positive. There is no hepatomegaly. No costovertebral tenderness. Extremities still show 2+ pretibial edema and no calf tenderness. No differential swelling of the upper extremities. Skin is warm, dry and perfused without cyanosis or mottling including that of the nail beds and the knees. Neck is supple. There is no jugular venous distention. No subcutaneous emphysema. Trachea is midline. Mouth shows her mucous membranes to be pink and moist. Lips and commissures without lesions or thrush. Eyes show her pupils to be equal and reactive. Extraocular movements intact. Sclerae nonicteric. Neurologic shows II-XII intact along with gross motor and gross sensation intact. Gait is also intact. Psychiatric shows her to be awake, alert and oriented times three with a bit of a depressed mood and affect. Her white count today is 6.9, down from 7.1 yesterday. Hemoglobin and hematocrit are 9.6 and 30.6 respectively. Platelet count is 259. Her differential shows 83% neutrophils, 4% lymphocytes ,7% monocytes. There are no immature forms and no toxic granulations. Her sodium is 139 with potassium of 3.9. BUN and creatinine are 8 and 0.31. Glucose is 111 with a calcium of 8.2. Her albumin is 1.9. Liver functions are normal. Her chest x-ray shows her lung fully expanded to the chest wall. There is some increase in a pleural fluid density in the right upper hemithorax. It is slightly changed from yesterday however. Given the changes in magnification, this probably looks bigger than yesterday, although it is slightly denser. I do not see any air fluid levels. Lateral chest x-ray shows the same opacity in the posterior segment of the upper lobe. Diaphragms are flat. IMPRESSION: 1. Postoperative day #5 status post closure of bronchopleural fistula, continuing to do surprisingly well. 2. Anemia secondary to hemodilution and blood loss, partially resolved with a transfusion. 3. Prior necrotizing pneumonia. Bronchopleural fistula. Hopefully resolved from the above procedure. 4. Right pneumothorax, resolved. 5. Depression. 7. Uterine cancer. 8. Osteoporosis. 9. Severe chronic obstructive pulmonary disease. PLAN AND DISCUSSION: I am going to remove her upper chest tube today. I am considering that she subjectively feels more short of breath. As noted in the introduction, I have discontinued her steroids. I would rather keep her off her steroids until she completely heals this bronchopleural fistula over the next few weeks. She still has an in and out imbalance and I will again diurese her, although yesterday her input and output were equal with only 1450 mL out in urine. She still has pretibial edema, but that can certainly be secondary to an inflammatory response from both the talc and the bronchopleural fistula (BPF) closure. I am gratified that her white count continues to fall. I see no evidence for a recurring pneumonia at this point in time. I will keep her once again in the intensive care unit. Dr. Mckeon is also following her from the pulmonary point of view and if he feels strongly that he has to restart her steroids, I will acquiesce to that.
[2016-02-23 10:07] LABS: CORTISOL AM 16.5 UG/DL (4.3-22.4)
--- NOTE | 2016-02-23 14:08 | REP ---
CHEST PA AND LATERAL: 02/23/2016 at 12:29 PM. Comparison: 02/23/2016 and 08:16 a.m., 02/22/2016, 02/21/2016. Clinical History: Status post closure of bronchopleural fistula, right pneumothorax, removal of right chest tube since this AM exam. Findings: The right chest tube and right jugular central catheter have been removed. Tiny apical air gap noted with a small amount of fluid surrounding it. This is unchanged. Chronic airspace opacity and pleural thickening/fluid peripherally in the mid and upper lung zone on the right, unchanged and advanced bullous emphysematous changes on the left. Underlying fibrosis and COPD unchanged. No other significant or new finding. Signed by Dominick Chavira MD 02/23/2016 02:57 P
[2016-02-24] VITALS: BP 102/51
[2016-02-24] MEDS: LEVALBUTEROL 1.25 MG/0.5 ML CONCENTRATE NEB NEB SCH ×4 (02:15→20:31)
[2016-02-24 04:00] VITALS: BP 154/74
[2016-02-24] MEDS: PERCOCET 5MG/325MG TAB PO PRN ×4 (05:24→21:09)
[2016-02-24 05:30] LABS: ANION GAP 7 MEQ/L (8-16); BASO % 0.2 % (0.0-1.0); BLOOD UREA NITROGEN 10 MG/DL (7-18); CALCIUM LEVEL 8.9 MG/DL (8.8-10.2); CARBON DIOXIDE LEVEL 33 MEQ/L (21-32); CHLORIDE LEVEL 97 MEQ/L (98-107); CREATININE FOR GFR 0.31 MG/DL (0.55-1.02); EOS # 0.2 K/mm3 (0.0-0.50); EOS % 3.2 % (0.0-3.0); GLOMERULAR FILTRATION RATE > 60.0 (>45); GLUCOSE, FASTING 106 MG/DL (80-110); LARGE UNSTAINED CELL # 0.2 K/mm3 (0.0-0.4); LYMPH # 0.4 K/mm3 (1.5-4.5); LYMPH % 4.6 % (24.0-44.0); MEAN CORPUSCULAR HGB CONC 31.2 g/dl (32.0-36.5); MEAN CORPUSCULAR VOLUME 99.4 fl (80.0-96.0); MONO # 0.6 K/mm3 (0.0-0.8); MONO % 7.4 % (0.0-5.0); NEUTROPHILS # 6.7 K/mm3 (1.8-7.7); NEUTROPHILS % 82.8 % (36.0-66.0); PLATELET COUNT, AUTOMATED 307 k/mm3 (150-450); POTASSIUM SERUM 4.6 MEQ/L (3.5-5.1); RED CELL DISTRIBUTION WIDTH 15.5 % (11.5-14.5); SODIUM LEVEL 137 MEQ/L (136-145); WHITE BLOOD COUNT 8.1 K/mm3 (4.0-10.0)
[2016-02-24] MEDS: SODIUM CHLORIDE 0.9% INJ 10 ML SYR IV SCH ×2 (06:00→14:26)
--- NOTE | 2016-02-24 07:42 | REP ---
Clinical: Status post bronchopulmonary fistula repair. Comparison: 02/23/2016. Findings: PA and lateral views of the chest demonstrate stable pleuroparenchymal changes (right greater than left). No obvious pneumothorax. No obvious new process identified. Impression: No change from prior examination. No evidence for pneumothorax. Signed by Brannon Zepeda MD 02/24/2016 07:34 A
[2016-02-24 08:00] VITALS: BP 110/62
[2016-02-24] MEDS: ADVAIR DISKUS 500/50 INH PWD INH SCH ×2 (08:42→20:31)
[2016-02-24] MEDS: ACETYLCYSTEINE 20% 4 ML VIAL (200MG/ML) INH SCH ×2 (08:46→20:31)
[2016-02-24] MEDS: FLECAINIDE 50MG TABLET PO SCH ×2 (08:59→20:25)
[2016-02-24] MEDS: DOCUSATE SODIUM 100 MG CAP PO SCH ×2 (08:59→20:26)
[2016-02-24] MEDS: PANTOPRAZOLE 40MG TAB (PROTONIX) PO SCH (08:59)
[2016-02-24] MEDS: DULoxetine 20 MG CAP (CYMBALTA) PO SCH (08:59)
[2016-02-24] MEDS: LACTOBACILLUS ACIDOPHILUS CAP (BACID) PO SCH (08:59)
[2016-02-24] MEDS: MULTIVITAMINS/MINERALS THERAP 1 TAB PO SCH (08:59)
[2016-02-24] MEDS: ASCORBIC ACID 250 MG TAB PO SCH ×3 (08:59→20:27)
[2016-02-24] MEDS ORDERED: FUROSEMIDE 40 MG/4 ML VIAL (J1940) IV ONE (09:00)
[2016-02-24] MEDS: HEPARIN SOD (PORCINE) 5000 UNITS/ML VIAL SC SCH ×2 (09:00→20:25)
[2016-02-24] MEDS: MOM 30ML SUSPENSION UDC PO SCH (09:04)
[2016-02-24] MEDS: FLUTICASONE PROP 0.05% NASAL SPRAY 16 GM (FLONASE) SCH (09:05)
--- NOTE | 2016-02-24 09:11 | IPN ---
DATE: 02/14/2016 This is now the sixth postoperative day for Mrs. Harrison. Her chest x-ray today does not show any subcutaneous emphysema and she is breathing fairly well. Her breathing yesterday was secondary to pain. Her vital signs show a maximum temperature (t-max) of 98.5 with a heart rate that ranges between 92 and 100 in a sinus rhythm with a respiratory rate of 18 to 22 without the use of accessory muscles. She is 93 to 94% saturated on 2 liters nasal cannula, and her blood pressure is ranging between 154/74 to 102/51. Her intake and output the past 24 hours has been recorded as 830 in and 1535 out for a negativity of 700 mL. There is no longer any chest tube in her. She weighs 52 kg today compared to 52.3 kg yesterday. PHYSICAL EXAMINATION: LUNGS: Her lungs show coarse breath sounds in the right upper hemithorax. Percussion note is full to the diaphragm. I do not hear any wheezing. CARDIAC: Cardiac exam is without murmurs, clicks, gallops, or rubs. I cannot feel her PMI. S1, S2 are normal. ABDOMEN: Soft. Nontender. Bowel sounds are positive. There is no hepatomegaly. No costovertebral angle (CVA) tenderness. EXTREMITIES: Shows 2+ pretibial edema. No calf tenderness. No differential swelling of the upper extremities. SKIN: Warm, dry and perfused without cyanosis or mottling, including that of the nail beds and knees. NECK: Supple. There is no jugular venous distention. No subcutaneous emphysema. Trachea is midline. MOUTH: Shows her mucous membranes to be pink and moist. Lips and commissures are without lesions. There is no thrush. EYES: Show her pupils to be equal and reactive. Extraocular motions intact. Sclerae nonicteric. NEUROLOGIC: Shows II-XII intact along with gross motor and gross sensation intact. Gait is not tested. PSYCHIATRIC: Shows her to be awake and alert, oriented times three with appropriate mood and affect and conversational. Her white count today is 8.1 with a hemoglobin and hematocrit of 10.3 and 33.1, respectively. Platelet count is 307 and stable. Differential shows 82% neutrophils, 4% lymphocytes, 7% monocytes. There are no immature forms and no toxic granulations. Her electrolytes are essentially normal with a marginally elevated total CO2 of 33. BUN and creatinine are 10 and 0.31 with a calcium of 8.9 and a glucose of 106. Her chest x-ray shows her lung fully expanded to the chest wall. There is no subcutaneous emphysema. There is still the opacity in the posterior upper lobe, which has been there all along, essentially unchanged from yesterday. Chest tube has been removed. IMPRESSION: 1. Postoperative day #6 status post closure of a bronchopleural fistula. Continuing to do surprisingly well. 2. Anemia secondary to hemodilution and blood loss, partially resolved with a transfusion. 3. Prior necrotizing pneumonia. 4. Bronchopulmonary fistula. Hopefully, resolved with the above procedure. 5. Right pneumothorax, resolved. 6. Depression. 7. Uterine cancer. 8. Osteoporosis. 9. Severe chronic obstructive pulmonary disease. PLAN AND DISCUSSION: I am going to transfer her to the progressive care unit (PCU) today. I am a little bit concerned about the swelling of her legs, although I suspect that it is secondary to the inflammatory response from the talc pleurodesis. I will obtain a bilateral ultrasound on her today. If all goes well, I can envision her being able to go home toward the end of the week.
--- NOTE | 2016-02-24 11:24 | REP ---
Duplex extremity venous ultrasound: Right and left lower extremity. History: Bilateral leg swelling. Question DVT. Findings: The deep veins are anechoic and fully compressible from the groin to the popliteal fossa in the right and left lower extremity. Color flow imaging is homogeneous. Spectral Doppler interrogation demonstrates intact respiratory variation in flow and normal manual augmentation of flow. There is no evidence of deep vein thrombosis. Impression: Negative bilateral lower extremity duplex venous ultrasound. No evidence of deep vein thrombosis. Signed by David Llamas MD 02/24/2016 11:15 A
[2016-02-24 12:00] VITALS: BP 118/62
[2016-02-24 16:00] VITALS: BP 124/68
[2016-02-24 20:00] VITALS: BP 119/63
[2016-02-25] VITALS: BP_SYST 120; BP_SYST 158; BP_DIAS 66; BP_DIAS 76
[2016-02-25 04:00] VITALS: BP 120/60
[2016-02-25] MEDS: PERCOCET 5MG/325MG TAB PO PRN ×5 (05:13→23:32)
[2016-02-25 08:00] VITALS: BP 119/66
[2016-02-25] MEDS: LEVALBUTEROL 1.25 MG/0.5 ML CONCENTRATE NEB NEB SCH ×3 (08:00→19:29)
[2016-02-25] MEDS: ADVAIR DISKUS 500/50 INH PWD INH SCH ×2 (08:15→20:54)
[2016-02-25] MEDS: MULTIVITAMINS/MINERALS THERAP 1 TAB PO SCH (08:40)
[2016-02-25] MEDS: DOCUSATE SODIUM 100 MG CAP PO SCH ×2 (08:40→21:10)
[2016-02-25] MEDS: FLECAINIDE 50MG TABLET PO SCH ×2 (08:40→21:10)
[2016-02-25] MEDS: DULoxetine 20 MG CAP (CYMBALTA) PO SCH (08:40)
[2016-02-25] MEDS: ASCORBIC ACID 250 MG TAB PO SCH ×3 (08:40→21:10)
[2016-02-25] MEDS: MOM 30ML SUSPENSION UDC PO SCH (08:40)
[2016-02-25] MEDS: PANTOPRAZOLE 40MG TAB (PROTONIX) PO SCH (08:40)
[2016-02-25] MEDS: HEPARIN SOD (PORCINE) 5000 UNITS/ML VIAL SC SCH ×2 (08:40→21:10)
[2016-02-25] MEDS: LACTOBACILLUS ACIDOPHILUS CAP (BACID) PO SCH (08:41)
[2016-02-25] MEDS: FLUTICASONE PROP 0.05% NASAL SPRAY 16 GM (FLONASE) SCH (09:00)
--- NOTE | 2016-02-25 09:30 | REP ---
CHEST X-RAY, PA AND LATERAL: 02/25/2016. Comparison 02/24/2016, 02/23/2016, 02/22/2016. Clinical history: Status post closure of bronchopleural fistula right chest. Two views again show chronic extensive changes in the right upper lung zone. There is one small peripheral air collection with fluid or soft tissue density surrounding it unchanged from previous studies. Extensive fibrotic and atelectatic changes in the right upper lung zone and fibrosis in the lower lung zones bilaterally , unchanged and severe bullous emphysematous changes mid and upper lung zone on the left, stable. No cardiomegaly. Pulmonary artery hypertension noted. There is no alok edema. IMPRESSION: 1. Stable chest compared to previous studies. Signed by Dominick Chavira MD 02/25/2016 10:03 A
[2016-02-25 10:13] LABS: BASO % 0.2 % (0.0-1.0); EOS # 0.2 K/mm3 (0.0-0.50); EOS % 2.9 % (0.0-3.0); LARGE UNSTAINED CELL # 0.2 K/mm3 (0.0-0.4); LYMPH # 0.4 K/mm3 (1.5-4.5); LYMPH % 5.6 % (24.0-44.0); MEAN CORPUSCULAR HEMOGLOBIN 30.4 pg (27.0-33.0); MEAN CORPUSCULAR HGB CONC 30.7 g/dl (32.0-36.5); MONO # 0.5 K/mm3 (0.0-0.8); MONO % 6.4 % (0.0-5.0); NEUTROPHILS # 6.4 K/mm3 (1.8-7.7); NEUTROPHILS % 82.9 % (36.0-66.0); PLATELET COUNT, AUTOMATED 345 k/mm3 (150-450); RED CELL DISTRIBUTION WIDTH 15.1 % (11.5-14.5); WHITE BLOOD COUNT 7.7 K/mm3 (4.0-10.0)
[2016-02-25 10:36] LABS: ANION GAP 8 MEQ/L (8-16); BLOOD UREA NITROGEN 9 MG/DL (7-18); CALCIUM LEVEL 8.7 MG/DL (8.8-10.2); CARBON DIOXIDE LEVEL 37 MEQ/L (21-32); CHLORIDE LEVEL 91 MEQ/L (98-107); CREATININE FOR GFR 0.36 MG/DL (0.55-1.02); GLOMERULAR FILTRATION RATE > 60.0 (>45); GLUCOSE, FASTING 121 MG/DL (80-110); POTASSIUM SERUM 4.5 MEQ/L (3.5-5.1); SODIUM LEVEL 136 MEQ/L (136-145)
[2016-02-25] MEDS ORDERED: FUROSEMIDE 40 MG/4 ML VIAL (J1940) IV ONE (12:00)
[2016-02-25 12:09] VITALS: BP 133/61
--- NOTE | 2016-02-25 12:27 | IPN ---
DATE: 02/25/2016 This is now the 7th postoperative day for Mrs. Harrison. Her chest tube has now been out for 48 hours. She still continues to do well, although she has some pain which is being fairly well controlled with both Toradol and oral pain control. She gets short of breath with the pain. The epidural is out. She has been able to walk around the intensive care unit (ICU) circuit. Her vital signs show a T-max of 99.4. Her heart rate ranges between 96-111 in sinus rhythm, respiratory rate of 16-22 without the use of accessory muscles who is 93-91% saturated on 3 liters nasal cannula and has blood pressures ranging between 120/66 to 119/66. Her intake and output over the past 24 hours has been reported as 1260 in and 1950 out for a negativity of nearly 700 mL. She weighs 49.5 kg compared to 52 kg yesterday. She has put out 1950 mL in urine output and has taken in 1250 mL of oral intake. PHYSICAL EXAMINATION: She has coarse breath sounds in the right upper hemithorax bordering a bronchophony. Percussion note full to diaphragm. Her left lung showed markedly decreased breath sounds without wheezes, rhonchi or rales. Cardiac exam is without murmurs, clicks, gallops or rubs. I cannot feel her PMI. S1 and S2 are normal. Abdomen is soft, nontender, bowel sounds are positive. There is no hepatomegaly. Extremities show 2+ pretibial edema. No calf tenderness. No differential swelling of the upper extremities. Skin is warm, dry and perfused without cyanosis or mottling including that of the nail beds and knees. Neck is supple. There is no jugular venous distention. No subcutaneous emphysema. Trachea is midline. Mouth shows her mucous membranes to be pink and moist. Lips and commissures are without lesions. No thrush. Eyes show her pupils to be equal and reactive. Extraocular motor intact. Sclera anicteric. Neuro shows II through XII intact with gross motor and gross sensation intact. Gait is not tested. Psychiatric shows her to be awake and alert, oriented times three with appropriate mood and affect and conversational. Her white count today is 7.7 down from 8.1 yesterday. Hemoglobin and hematocrit are 9.8 and 32.0 essentially unchanged from yesterday with a platelet count of 345 and stable. Differential shows 82% neutrophils, 5% lymphocytes, 6% monocytes. There are immature forms. No toxic granulations. Her chemistries show an increased total CO2 of 37. Sodium and potassium are 136 and 4.5 respectively. BUN and creatinine is 9 and 0.36, unchanged from yesterday with a glucose of 121 and a calcium 8.7. Her venous Doppler studies yesterday done on both legs did not show any evidence of deep venous thrombosis (DVT). Her chest x-ray today still shows her lung fully expanded to the chest wall. There is no subcutaneous emphysema. Her costophrenic angles are sharp. She still has the opacity in the posterior segment of the upper lobe. I do not expect that to go away at all. She is not on any antibiotics. There is pleural thickening along the chest wall which is certainly expected. IMPRESSION: 1. Postoperative day #7 status post closure of bronchopleural fistula and talc pleurodesis with multiple wedge resections. 2. Anemia secondary to hemodilution much improved after transfusion and has remained stable. 3. Prior necrotizing pneumonia. 4. Bronchopleural fistula, hopefully resolved with the above procedure. 5. Right pneumothorax, resolved. 6. Depression. 7. Urinary incontinence. 8. Osteoporosis. 9. Severe chronic obstructive pulmonary disease. 10. Peripheral edema probably secondary to inflammatory response from the talc pleurodesis. PLAN AND DISCUSSION: I will again diurese her today. I have spoken at length with Mrs. Harrison and we agree that it is probably time for her to go home as she has been here nearly a month. She is able to walk and ambulate. We will therefore plan tentatively for discharge tomorrow.
[2016-02-25] MEDS: ACETYLCYSTEINE 20% 4 ML VIAL (200MG/ML) INH SCH ×2 (13:08→19:30)
[2016-02-25 16:00] VITALS: BP 114/61
[2016-02-25] MEDS: NORCO, ANEXSIA 5/325MG TABLET (HYDROcodone/ACETAMINOPHEN) PO PRN (16:30)
[2016-02-25 20:00] VITALS: BP 116/62
[2016-02-26] VITALS: BP 115/60
[2016-02-26] MEDS: LEVALBUTEROL 1.25 MG/0.5 ML CONCENTRATE NEB NEB SCH ×3 (02:00→13:39)
[2016-02-26 05:36] LABS: ANION GAP 5 MEQ/L (8-16); BLOOD UREA NITROGEN 7 MG/DL (7-18); CALCIUM LEVEL 8.8 MG/DL (8.8-10.2); CARBON DIOXIDE LEVEL 39 MEQ/L (21-32); CHLORIDE LEVEL 92 MEQ/L (98-107); CREATININE FOR GFR 0.32 MG/DL (0.55-1.02); GLOMERULAR FILTRATION RATE > 60.0 (>45); GLUCOSE, FASTING 94 MG/DL (80-110); PHOSPHORUS LEVEL 3.7 MG/DL (2.5-4.9); SODIUM LEVEL 136 MEQ/L (136-145)
[2016-02-26 06:00] VITALS: BP 116/70
[2016-02-26] MEDS: PERCOCET 5MG/325MG TAB PO PRN ×2 (06:22→11:58)
[2016-02-26] MEDS: ADVAIR DISKUS 500/50 INH PWD INH SCH (07:43)
[2016-02-26] MEDS: ACETYLCYSTEINE 20% 4 ML VIAL (200MG/ML) INH SCH (07:44)
[2016-02-26 08:00] VITALS: BP 122/66
[2016-02-26] MEDS ORDERED: PERCOCET PO (08:01)
[2016-02-26] MEDS ORDERED: LASI40TA PO (08:04)
[2016-02-26] MEDS: DULoxetine 20 MG CAP (CYMBALTA) PO SCH (08:34)
[2016-02-26] MEDS: PANTOPRAZOLE 40MG TAB (PROTONIX) PO SCH ×2 (08:34→08:44)
[2016-02-26] MEDS: ASCORBIC ACID 250 MG TAB PO SCH (08:34)
[2016-02-26] MEDS: DOCUSATE SODIUM 100 MG CAP PO SCH (08:34)
[2016-02-26] MEDS: FLECAINIDE 50MG TABLET PO SCH (08:34)
[2016-02-26] MEDS: MOM 30ML SUSPENSION UDC PO SCH ×2 (08:34→08:40)
[2016-02-26] MEDS: LACTOBACILLUS ACIDOPHILUS CAP (BACID) PO SCH (08:34)
[2016-02-26] MEDS: MULTIVITAMINS/MINERALS THERAP 1 TAB PO SCH (08:34)
[2016-02-26] MEDS: HEPARIN SOD (PORCINE) 5000 UNITS/ML VIAL SC SCH (08:34)
[2016-02-26] MEDS: FLUTICASONE PROP 0.05% NASAL SPRAY 16 GM (FLONASE) SCH (08:35)
--- NOTE | 2016-02-26 09:13 | REP ---
CHEST, PA AND LATERAL VIEWS: Comparison 02/25/2016. There is a comparison chest CT dated 02/18/2016. There is focal increased density, consolidation and retraction throughout the entire right upper lobe particularly laterally and inferiorly, not significantly changed. I suspect there are faintly visible surgical staple lines in this area in the right upper lobe, also unchanged. The appearance of the right upper lobe is not significantly changed. Large bullae are again noted in the left upper lobe, not significantly changed. There is crowding of the lung markings in the lower lung zones bilaterally compatible with chronic obstructive pulmonary disease (COPD). Cardiac size is normal. No pneumothorax is identified. The paulo, mediastinum, and bony thorax are unchanged. IMPRESSION: No significant interval change. Signed by Kory Muñoz MD 02/27/2016 05:07 P
[2016-02-26] MEDS ORDERED: LEVA500T PO (13:10)
--- NOTE | 2016-02-27 09:15 | DSES ---
DATE OF ADMISSION: 01/19/2017 DATE OF DISCHARGE: 02/26/2016 DISCHARGE DIAGNOSES: 1. Bronchopleural fistula, status post talc pleurodesis and closure of bronchopleural fistula. 2. Anemia secondary to hemodilution and blood loss. 3. Necrotizing pneumonia. 4. Right pneumothorax. 5. Depression. 6. Osteoporosis. 7. Severe chronic obstructive pulmonary disease (COPD). 8. Uterine cancer. HOSPITAL COURSE: The patient is a 65-year-old white female who was admitted on 01/20/2016 where she had been previously seen in the [facility] with a large pneumothorax. She was immediately sent here and upon arrival was in respiratory failure with a chest tube being placed with relief of her respiratory failure. She had just been discharged from this hospital a few days prior to her readmission after suffering the same problem with a persistent air leak on the right side. She has extensive emphysematous disease and end stage lung disease. During that admission, blood patch was undertaken. This temporarily worked, such that the chest tube could be removed, and she was sent home. Within four days, she was back in the [facility] emergency room with a large life threatening pneumothorax. She has had a chronic cough at home and has been on chronic suppressive antibiotic therapy for her necrotic pneumonia. She denied fever, chills or sweats, and she does not choke with swallowing and has no dysphagia. After being admitted to the hospital and having a chest tube placement emergently, she continued to have a leak. Dr. Mckeon and I therefore took her to the operating room where we identified the probable leaking bronchus, which was a posterior upper lobe segmental bronchus. This was then filled with Tisseel glue with some improvement in the air leak. However, shortly thereafter, she began leaking again and we again took her to the operating room where we refilled the bronchus with glue. She was about to go home on 01/29/2016, and in fact the discharge summary was written; however, that morning's x-ray showed a pneumothorax. A chest tube therefore had to be placed again and this time in the form of a pigtail catheter. It was clear that it was not big enough to contain the air leak and Dr. Celaya, in my absence, placed an anterior chest tube on 02/06/2016. While this kept the lung up, she was still leaking quite a bit. The next strategy was to just leave the chest tube in and connect it to a Heimlich valve; however, with the Heimlich valve, she could not keep her lung inflated, as it needed continuous high grade suction. This then basically left us with no other conservative alternative, and I therefore took her to the operating room where I undertook closure of her bronchopleural fistula, multiple wedge resections and talc pleurodesis. Findings at the time of the surgery with regard to the bronchoscopy, revealed all the glue had been gone. She had a very large canyon of a lung caries, which I not only filled with Tisseel, but oversewed with pericardial patches with a continuous suture. She was brought to the recovery room where she did not appear to have an air leak. Over the next seven days, we carefully watched her and she did not have an air leak with a white count staying below 10,000. On postoperative day #6, her last chest tube was removed, and we watched her for two more days to see if she would develop a spontaneous air leak. None appeared and we therefore are discharging her today. She is being discharged on her home medications, which included: - albuterol inhalation every four hours as needed shortness of breath - alendronate 70 mg every week - vitamin C 250 mg three times a day - vitamin D 1000 units every daily - duloxetine 20 mg every day - flecainide 50 mg twice a day - fluconazole nasal spray twice a day - guaifenesin 600 mg twice a day - Bacid one tablet every day - Xopenex nebulizers 1.25 mg every six hours - Levaquin 500 mg every night - multivitamin one every day - Protonix 40 mg twice a day - Reglan 30 mg daily - Spiriva 18 mcg every day In addition, she is being placed on Lasix 40 mg every day for 14 days and oxycodone 5/325 every 4 hours as needed for pain. We have stopped her prednisone approximately 5 days prior to discharge. She never showed any hypertension. Her discharge hemoglobin and hematocrit are 9.8 and 32.0 with a white count of 7.7. She did need a transfusion because of blood loss and hemodilution in the operating room. Platelet count is 345. Chemistries show an increased total CO2 of 39 with a BUN and creatinine of 7 and 0.32, and a sodium and potassium of 136 and 4.0. Her albumin was 2.0. Her chest x-ray shows her lung fully expanded to the chest wall without any subcutaneous emphysema. She has opacity consistent with her posterior upper lobe segmental necrotic pneumonia. I will see her back in one week in postoperative followup. She has been instructed that should she start to get short of breath suddenly, she should again seek the emergency room where they will call me.
[2016-02-29] MEDS ORDERED: ALENDRONATE 70 MG TABLET (FOSAMAX) PO SCH (07:00)
== END 2016-02-26 13:46 | disposition home or self-care (01) | DRG 163 ==
LOC: M PCU 13:20 → EEVIPCON 13:20 → M ICU 02-18 13:17
PROVIDERS: ADMIT Thoracic Surgery (Cardiothoracic Vascular Surgery); ATTEND Internal Medicine Pulmonary Disease
PROC: 0W9930Z Drainage of Right Pleural Cavity with Drainage Device, Percutaneous Approach (ICD-10-PCS; 2016-01-20)
PROC: 3E0L3GC Introduction of Other Therapeutic Substance into Pleural Cavity, Percutaneous Approach (ICD-10-PCS; 2016-01-21)
PROC: 3E0F8GC Introduction of Other Therapeutic Substance into Respiratory Tract, Via Natural or Artificial Opening Endoscopic (ICD-10-PCS; 2016-01-24)
PROC: 3E0F8GC Introduction of Other Therapeutic Substance into Respiratory Tract, Via Natural or Artificial Opening Endoscopic (ICD-10-PCS; 2016-01-27)
PROC: 0W9930Z Drainage of Right Pleural Cavity with Drainage Device, Percutaneous Approach (ICD-10-PCS; 2016-02-06)
PROC: 30253N1 (ICD-10-PCS; 2016-02-17)
PROC: 0BNC0ZZ Release Right Upper Lung Lobe, Open Approach (ICD-10-PCS; 2016-02-18)
PROC: 0BQC0ZZ Repair Right Upper Lung Lobe, Open Approach (ICD-10-PCS; 2016-02-18)
PROC: 05HM33Z Insertion of Infusion Device into Right Internal Jugular Vein, Percutaneous Approach (ICD-10-PCS; 2016-02-18)
PROC: 0BJ08ZZ Inspection of Tracheobronchial Tree, Via Natural or Artificial Opening Endoscopic (ICD-10-PCS; 2016-02-18)
PROC: 0BBC0ZZ Excision of Right Upper Lung Lobe, Open Approach (ICD-10-PCS; principal; 2016-02-18 09:15)
PROC: 5A1935Z Respiratory Ventilation, Less than 24 Consecutive Hours (ICD-10-PCS; 2016-02-24)
DX: J93.0 Spontaneous tension pneumothorax (principal); J96.02 Acute respiratory failure with hypercapnia; J85.0 Gangrene and necrosis of lung; E41 Nutritional marasmus; Z68.20 Body mass index [BMI] 20.0-20.9, adult; J98.4 Other disorders of lung; M81.0 Age-related osteoporosis without current pathological fracture; J44.9 Chronic obstructive pulmonary disease, unspecified; D50.0 Iron deficiency anemia secondary to blood loss (chronic); K21.9 Gastro-esophageal reflux disease without esophagitis; C55 Malignant neoplasm of uterus, part unspecified; R32 Unspecified urinary incontinence; J98.2 Interstitial emphysema; J93.82 Other air leak; F32.9 Major depressive disorder, single episode, unspecified; Z79.899 Other long term (current) drug therapy; Z87.891 Personal history of nicotine dependence; Z79.51 Long term (current) use of inhaled steroids; Z99.81 Dependence on supplemental oxygen

== ENCOUNTER → 2016-03-04 | Outpatient (CLI) | payer MEDICARE ==
[~2016-03-04] MED LIST changes: +ALBU0.63 INH; +LASI40TA PO; +LEVA500T PO; +PERCOCET PO; +PROT1TAB2 PO
--- NOTE | 2016-03-04 10:52 | REP ---
CHEST, TWO VIEWS: HISTORY: Bronchopleural fistula. COMPARISON: 02/26/2016 Diffuse fibrotic change is present throughout the right lung. There has been a decrease in the parenchymal density in the lateral aspect of the right upper lobe. Bulla are present in the left lung. The heart is normal in size. The pulmonary vasculature is normal in appearance. The bony structure is intact. IMPRESSION: 1. There is diffuse fibrosis throughout the right lung. There has been a decrease in the parenchymal density in lateral right upper lobe. 2. Emphysematous change left lung. Signed by Nawaf Jose MD 03/04/2016 10:56 A
== END ==
LOC: M SMT 10:18
PROVIDERS: ATTEND Thoracic Surgery (Cardiothoracic Vascular Surgery)
DX: R91.8 Other nonspecific abnormal finding of lung field (principal)

== ENCOUNTER → 2016-04-22 | Outpatient (CLI) | payer MEDICARE ==
--- NOTE | 2016-04-22 13:39 | REP ---
CHEST X-RAY PA AND LATERAL: 05/02/2016 COMPARISON: 03/04/2016, 02/26/2016, 02/25/2016, CT chest 02/18/2016. CLINICAL HISTORY: Primary spontaneous pneumothorax, status post closure of bronchopleural fistula. Lung dugan are hyperinflated with underlying interstitial fibrosis. There is linear fibrotic change in the left mid lung zone and advanced bullous emphysematous change left mid and upper lung zone greater than right. There are lung leslee in the right upper lung zone and chronic fibrotic or atelectatic changes noted. An air cavity laterally in the right upper lung zone now has an air-fluid level in it and the cavity overall is smaller. I do not see pleural effusion in the CP angles on frontal or lateral views on either side. Minor apical thickening noted. Extensive scarring in the right upper lung zone and the bullous emphysematous changes also noted. The mid and lower lung zone fibrotic changes are seen. No gross cardiomegaly. The aorta is calcified, and the arch mildly tortuous without aneurysm. There is a levorotatory curvature thoracolumbar spine. Visualized ribs are intact. No compression deformity in the vertebral bodies. No free air. IMPRESSION: 1. Advanced COPD with bullous emphysematous changes and fibrosis with some linear fibrotic change, particularly in the left mid and upper lung zone as well as a more extensive perihilar fibrotic or atelectatic changes on the right side, chronic. The cavitary lesion peripherally in the right upper lung zone with lung leslee adjacent to it now shows an air-fluid level filling about one third of its volume but the cavitary lesion or air collection itself is much smaller compared to the February exam. Signed by Dominick Chavira MD 04/22/2016 04:16 P
== END ==
LOC: M SMT 09:24
PROVIDERS: ATTEND Thoracic Surgery (Cardiothoracic Vascular Surgery)
DX: J93.11 Primary spontaneous pneumothorax (principal); J44.9 Chronic obstructive pulmonary disease, unspecified

== ENCOUNTER → 2016-05-05 | Outpatient (CLI) | payer MEDICARE ==
--- NOTE | 2016-05-12 07:30 | RADONC ---
RADIATION ONCOLOGY FOLLOWUP NOTE DATE: 05/05/2016 CHART NUMBER: [id number]. DIAGNOSIS: Endometrial cancer. STAGE: X, TXN0M0. ECOG PERFORMANCE STATUS: 1. FOLLOWUP NOTE: Ms. 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 The patient did not undergo brachytherapy following her 4500 cGy to the pelvis. Since her last visit, the patient had some type of lung surgery. At the present time, the patient is having no urinary or bowel difficulties and no bone pain. She does have some occasional spotting but is having no significant bleeding or other problems. The patient's review of systems is of course positive for shortness of breath and limited physical mobility because of that. She does have occasional spotting. She is having no pain or discomfort in the pelvic area. She denies nausea, vomiting, fevers, chills, night sweats, diplopia, headaches, anxiety, depression, anorexia or further weight loss, bowel difficulties or urinary problems. She has no neurological problems. PHYSICAL EXAMINATION: The patient is a cachectic, chronically ill-appearing white female in no acute distress. HEENT exam is normocephalic, atraumatic. Extraocular movements are intact. There is no palpable cervical, supraclavicular, infraclavicular or axillary lymphadenopathy present. Her lungs have distant breath sounds bilaterally as well as some rhonchi present. Her heart has regular rate and rhythm. Her abdomen is benign with no hepatosplenomegaly or masses. FIREWORKS DISPLAY SPECIALIST examination was deferred. ASSESSMENT: The patient is clinically doing well at this point. She is having no increased pain or other problems from her endometrial carcinoma. I had a lengthy discussion with this patient and her daughter making clear once again that her treatment was only palliative in nature and that the tumor will begin growing again. I have ordered a CT of the abdomen and pelvis to evaluate her present state of disease at the family's request. In addition, I have set them up for routine followup in our office in 4 months' time. She also continue to be followed by her other physicians in the meantime. cc: MD Rick Eddy, DO [facility] *Brannon Pitts MD *Maria Luisa Morgan MD *Bailey Kim DO
== END ==
LOC: M ONCR 14:22
PROVIDERS: ATTEND Radiology Radiation Oncology
DX: C54.1 Malignant neoplasm of endometrium (principal)

== ENCOUNTER → 2016-05-19 | Outpatient (CLI) | payer MEDICARE ==
[~2016-05-19] MED LIST changes: +GASTROGRAFIN SOLUTION 30ML (Q9963) As Ordered ONE; +ISOVUE-370 76% 100ML VIAL (Q9967) As Ordered ONE
--- NOTE | 2016-05-19 16:55 | REP ---
CT abdomen and pelvis multiphase scanning for endometrial carcinoma: There are no comparison CT studies or ultrasound studies of the abdomen and pelvis. Scanning of the liver is accomplished prior IV contrast enhancement. This is followed by IV contrast enhancement during the arterial phase of enhancement from the diaphragms to the pubic symphysis. This is followed by delayed equilibrium IV contrast enhancement of the liver and upper abdomen. Bowel contrast is used on all phases of the study. The visualized lower lung dugan demonstrate numerous bulla throughout the lung dugan bilaterally. There are no infiltrates or effusions. The hepatic parenchyma is homogeneous and unremarkable on all phases of the study. The gallbladder, pancreas and spleen are homogeneous and unremarkable. The adrenals are unremarkable. There are a few small renal cortical cysts bilaterally. No renal masses. There is no hydronephrosis. The abdominal aorta is unremarkable. There is no periaortic/retroperitoneal lymph node enlargement. There is no mesenteric lymph node enlargement. There is no ascites. Pelvis: There is a mass with mottled enhancement in the uterus compatible with the known diagnosis of endometrial carcinoma measuring 4.5 by 3.0 cm. There is no pelvic adenopathy or ascites. The bladder is unremarkable. Additionally, there is a focal air pocket with internal debris interposed between the posterolateral wall of the uterus on the left and adjacent small and large bowel loops, compatible with a contained colonic perforation, most likely diverticular perforation. There is no F there are no lytic, blastic or destructive skeletal changes. Impression: There is a uterine mass compatible with the clinical diagnosis of endometrial carcinoma. There is no abdominal or pelvic adenopathy. There is no ascites. There is a focal air pocket with internal debris interposed between the uterus posterolaterally on the left and adjacent small and large bowel loops. This appears extraluminal and is compatible with a contained air collection. This is likely a contained colonic perforation likely from a colonic diverticulum. There is no abscess or phlegmon at this time. There is no pneumoperitoneum. Signed by Kory Muñoz MD 05/19/2016 04:46 P
== END ==
LOC: M RAD 14:25
PROVIDERS: ATTEND Radiology Radiation Oncology
DX: C54.1 Malignant neoplasm of endometrium (principal); R93.8 Abnormal findings on diagnostic imaging of other specified body structures
CPT/HCPCS: 74178; Q9963; Q9967

== ENCOUNTER → 2016-10-06 | Outpatient (CLI) | payer MEDICARE ==
[~2016-10-06] MED LIST changes: +BACITAB PO; -BACITAB3 PO; -DOCU100C PO; +DOCU100C16 PO; -GASTROGRAFIN SOLUTION 30ML (Q9963) As Ordered ONE; -ISOVUE-370 76% 100ML VIAL (Q9967) As Ordered ONE; +LEVA1TAB2 PO; -LEVA500T PO; +LEVAINH INH; -PRED10TA PO; +PRED10TA2 PO; -XOPEAER INH
--- NOTE | 2016-10-07 10:09 | RADONC ---
RADIATION ONCOLOGY FOLLOWUP NOTE: DATE: 10/06/2016 CHART NUMBER: [id number]. DIAGNOSIS: Endometrial cancer. STAGE: X, TxN0M0. ECOG PERFORMANCE STATUS: Zero. FOLLOWUP NOTE: Ms. Harrison is a very pleasant, 64-year-old white female with the diagnosis of endometrial high grade papillary serous carcinoma who is presenting to us today for routine followup visit 1 year and 2 weeks post completion of external beam radiation therapy. The patient presents today reporting that she is doing quite well with no complaints at this time related to her radiation therapy or disease. She is having no urinary or bowel difficulties, and no bone pain. REVIEW OF SYSTEMS: The patient's review of systems is noncontributory. Denies nausea, vomiting, fevers, chills, night sweats, diplopia, headaches, anxiety or depression, anorexia, weight loss, visual disturbances, chest pain, urinary or bowel difficulties, bone pain, or neurological problems. PHYSICAL EXAMINATION: The patient is a well-developed, well-nourished, white female, in no acute distress. HEENT exam is normocephalic, atraumatic. Extraocular movements are intact. There is no palpable cervical, supraclavicular, infraclavicular, axillary, or inguinal lymphadenopathy present. Lungs are clear to auscultation and percussion. Heart has a regular rate and rhythm. Abdomen is benign with no hepatosplenomegaly, masses, or tenderness. CONSTRUCTION RECRUITER exam deferred. Skeletal examination reveals no tenderness to pressure or percussion of the bony skeleton. Extremities reveal no clubbing, cyanosis, or edema. Neurologic exam is grossly intact, as is the remainder of the physical examination. ASSESSMENT: The patient is clinically stable at this point. She is being scheduled for a consultation at [facility] for a second opinion at this point. She was not deemed to be a candidate for brachytherapy or surgery in the past and now we are 1 year post radiation. Considering that the patient is doing better at this point, I look forward to see if anything can be offered to her at [facility]. In the meantime, I am scheduling her for routine followup in our office in 6 months' time. cc: MD Maria Luisa Ronquillo MD [place], MD David Rechlin, DO [facility] Bailey Kim, DO
== END ==
LOC: M ONCR 13:35
PROVIDERS: ATTEND Radiology Radiation Oncology
DX: C54.1 Malignant neoplasm of endometrium (principal)

== ENCOUNTER → 2016-11-11 | Outpatient (CLI) | payer MEDICARE ==
[~2016-11-11] MED LIST changes: +GASTROGRAFIN SOLUTION 30ML (Q9963) As Ordered ONE; +ISOVUE-370 76% 100ML VIAL (Q9967) As Ordered ONE
--- NOTE | 2016-11-11 16:13 | REP ---
CT of the chest with IV contrast: Comparisons are 02/18/2016. There is extensive bullous replacement of the lung parenchyma bilaterally compatible with bullous emphysema. There is a 8 mm nodule in the lateral segment of the left lower lobe on image 56. This measured 7 mm on the prior study. There is a 12 mm nodule in the right upper lobe on image 31. This measured 14 mm previously. There is a 7 mm nodule anteriorly in the right upper lobe on image 31. There is a chest tube in this location previously. There are no acute infiltrates or effusions. There is chronic pleuroparenchymal scarring posteriorly in the right upper lobe where there was an infiltrate and pleural effusion previously. There is a healed fracture of the right sixth rib. There is a focal parenchymal scar in the left upper lobe, unchanged. There is no mediastinal or hilar adenopathy. Thoracic aorta is unremarkable. Cardiac size normal. No pericardial effusion. No axillary adenopathy. Impression: There are lung nodules as described. There is extensive bullous replacement of the lung udgan compatible with bullous emphysema. Chronic pleural parenchymal scarring in the right upper lobe and chronic parenchymal scar in the left upper lobe. No adenopathy. No lytic, blastic or destructive skeletal changes are identified. Signed by Kory Muñoz MD 11/11/2016 04:05 P
--- NOTE | 2016-11-11 16:28 | REP ---
CT of the abdomen pelvis without and with IV contrast and with bowel contrast: Comparison is 05/19/2016. There is extensive bullous replacement visualized lung dugan. The hepatic parenchyma is homogeneous. No evidence of hepatic metastatic disease is identified. The gallbladder, pancreas and spleen are unremarkable and unchanged. The adrenals, kidneys and abdominal aorta are unchanged. There is no retroperitoneal adenopathy. No mesenteric adenopathy. No bowel distension or obstruction. There is a large volume of fecal residue throughout the colon compatible with stasis. Pelvis: There is no ascites or adenopathy. There is a large uterine mass as previously. There is a focal air collection inferiorly in the pelvis on the left, similar to the prior study, today measuring 3.9 cm greatest diameter. There is no debris air fluid level within this air collection. This may represent a giant colonic diverticulum. There is no associated inflammation or ascites. 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 No evidence of inflammation or perforation. No internal debris or air-fluid level. Uterine mass as previously. Abundant fecal residue throughout the colon compatible with stasis. No adenopathy or ascites. Signed by Kory Muñoz MD 11/11/2016 04:19 P
== END ==
LOC: M RAD 12:49
PROVIDERS: ATTEND Obstetrics & Gynecology Gynecologic Oncology
DX: R91.8 Other nonspecific abnormal finding of lung field (principal); C55 Malignant neoplasm of uterus, part unspecified
CPT/HCPCS: 71260; 74178; Q9963; Q9967

== ENCOUNTER → 2017-01-18 | Outpatient (CLI) | payer MEDICARE ==
[~2017-01-18] MED LIST changes: -GASTROGRAFIN SOLUTION 30ML (Q9963) As Ordered ONE; -ISOVUE-370 76% 100ML VIAL (Q9967) As Ordered ONE
[2017-01-18 16:05] LABS: MEAN CORPUSCULAR HEMOGLOBIN 30.1 pg (27.0-33.0); MEAN CORPUSCULAR HGB CONC 31.1 g/dl (32.0-36.5); PLATELET COUNT, AUTOMATED 357 10^3/uL (150-450); RED CELL DISTRIBUTION WIDTH 14.5 % (11.5-14.5); WHITE BLOOD COUNT 8.9 10^3/uL (4.0-10.0)
[2017-01-18 16:25] LABS: ALBUMIN 3.1 GM/DL (3.2-5.2); ALBUMIN/GLOBULIN RATIO 0.97 (1.00-1.93); ALKALINE PHOSPHATASE 70 U/L (45-117); ALT/SGPT 17 U/L (12-78); ANION GAP 6 MEQ/L (8-16); AST/SGOT 15 U/L (7-37); BILIRUBIN,TOTAL 0.4 MG/DL (0.2-1.0); BLOOD UREA NITROGEN 12 MG/DL (7-18); CARBON DIOXIDE LEVEL 31 MEQ/L (21-32); CHLORIDE LEVEL 102 MEQ/L (98-107); CREATININE FOR GFR 0.48 MG/DL (0.55-1.02); GLOMERULAR FILTRATION RATE > 60.0 (>45); GLUCOSE, FASTING 101 MG/DL (80-110); POTASSIUM SERUM 3.9 MEQ/L (3.5-5.1); SODIUM LEVEL 139 MEQ/L (136-145); TOTAL PROTEIN 6.3 GM/DL (6.4-8.2)
[2017-01-18 18:30] LABS: RBC, URINE 40-50 /hpf (0-3)
[2017-01-18 18:32] LABS: CALCIUM OXALATE CRYSTALS,URINE LARGE AMOUNT /hpf; SQUAMOUS EPITHELIAL CELL URINE SMALL AMOUNT /hpf (SMALL AMT)
[2017-01-18 18:33] LABS: BACTERIA, URINE NONE SEEN; HYALINE CAST, URINE NONE SEEN /lpf (0-1); MICROSCOPIC EXAM PERFORMED
== END ==
LOC: M LAB 15:33
PROVIDERS: ATTEND Specialist
DX: N82.0 Vesicovaginal fistula (principal)

== ENCOUNTER → 2017-02-16 | Outpatient (CLI) | payer MEDICARE ==
[~2017-02-16] MED LIST changes: -ADV500INH INH; -ALB2.5NEB INH; -ALBU0.63 INH; -ALEN70TA39 PO; -ASCO25TA PO; -BACITAB PO; -DOCU100C16 PO; -DULO1CAP PO; -FLEC50TA PO; -FLUT1SPR2; +GASTROGRAFIN SOLUTION 30ML (Q9963) As Ordered; -GUAI1TAB PO; +ISOVUE-370 76% 100ML VIAL (Q9967) As Ordered; -LASI40TA PO; -LEVA12INH INH; -LEVA1TAB2 PO; -LEVAINH INH; -PERCOCET PO; -PRED10TA2 PO; -PROT1TAB2 PO; -PROTPAK PO; -RANI300T PO; -SPIR1CAP INH; -TAMBOCAR PO; -VITA100066 PO; -VITMTA PO
== END ==
LOC: M RAD 12:00
DX: C54.1 Malignant neoplasm of endometrium (principal); R91.8 Other nonspecific abnormal finding of lung field
CPT/HCPCS: Q9963

== ENCOUNTER → 2017-04-01 | Outpatient (CLI) | payer MEDICARE ==
[~2017-04-01] MED LIST changes: +CYSTO-CONRAY II 17.2% 250ML VIAL (Q9958) As Ordered; -GASTROGRAFIN SOLUTION 30ML (Q9963) As Ordered; -ISOVUE-370 76% 100ML VIAL (Q9967) As Ordered
== END ==
LOC: M RADPRO 13:45
DX: N82.0 Vesicovaginal fistula (principal); Z79.899 Other long term (current) drug therapy; Z88.8 Allergy status to other drugs, medicaments and biological substances; Z88.1 Allergy status to other antibiotic agents
CPT/HCPCS: 51610

== ENCOUNTER → 2017-07-05 | Outpatient (REF) | payer MEDICARE | LOC: M LAB REF 16:59 | DX: J47.9 Bronchiectasis, uncomplicated (principal) | CPT/HCPCS: 87205 ==

== ENCOUNTER → 2017-08-17 | Outpatient (REF) | payer MEDICARE ==
[2017-08-17 18:26] LABS: INR 0.95; PROTHROMBIN TIME 12.8 SECONDS (12.1-14.4)
[2017-08-17 18:27] LABS: PARTIAL THROMBOPLASTIN TIME 35.9 SECONDS (25.4-37.6)
[2017-08-19 10:45] LABS: CA 125 62.6 U/ML (<30.2)
== END ==
LOC: M LAB REF 17:09
DX: C54.1 Malignant neoplasm of endometrium (principal); Z79.01 Long term (current) use of anticoagulants
CPT/HCPCS: 86304

== ENCOUNTER → 2017-09-06 | Outpatient (CLI) | payer MEDICARE | LOC: M PLARAD 12:30 | DX: C55 Malignant neoplasm of uterus, part unspecified (principal); N13.30 Unspecified hydronephrosis; N13.4 Hydroureter ==

== ENCOUNTER 2017-09-07 22:30 | Inpatient (IN) | payer MEDICARE ==
[2017-09-08] MEDS ORDERED: ALBUTEROL SULFATE 2.5 MG/0.5 ML INH NEB SOLN INH (00:15)
[2017-09-08] MEDS ORDERED: FLUTICASONE PROP 0.05% NASAL SPRAY 16 GM (FLONASE) (00:15)
[2017-09-08] MEDS ORDERED: LEVALBUTEROL 1.25 MG/0.5 ML CONCENTRATE NEB INH (00:15)
[2017-09-08] MEDS: ADVAIR HFA 230/21MCG INHALER INH ×3 (00:20→19:29)
[2017-09-08] MEDS: PANTOPRAZOLE 40MG TAB (PROTONIX) PO ×3 (00:55→20:41)
[2017-09-08] MEDS: FAMOTIDINE 20 MG TAB PO (00:55)
[2017-09-08] MEDS: ASCORBIC ACID 500 MG TAB PO ×3 (00:55→20:42)
[2017-09-08] MEDS: SENOKOT S TAB PO ×3 (00:55→20:42)
[2017-09-08] MEDS: traMADol 50 MG TAB PO ×3 (00:56→16:08)
[2017-09-08] MEDS: MORPHINE 10MG/0.5ML ORAL CONCENTRATE SOLUTION U/D PO ×5 (02:11→20:42)
[2017-09-08 06:14] LABS: AMORPHOUS SEDIMENT SMALL (NEGATIVE); APPEARANCE, URINE CLEAR (CLEAR); BACTERIA, URINE AUTO 1+ (NEGATIVE); BILIRUBIN, URINE AUTO NEGATIVE (NEGATIVE); BLOOD, URINE BLOOD NEGATIVE (NEGATIVE); COLOR, URINE AMBER (YELLOW); GLUCOSE, URINE (UA) AUTO NEGATIVE (NEGATIVE); KETONE, URINE AUTO TRACE mg/dL (NEGATIVE); LEUKOCYTE ESTERASE, URINE AUTO TRACE (NEGATIVE); MUCUS, URINE SMALL (NEGATIVE); NITRITE, URINE AUTO POSITIVE (NEGATIVE); PROTEIN, URINE AUTO 1+ mg/dL (NEGATIVE); RBC, URINE AUTO 10 /HPF (0-3); SQUAMOUS EPITHELIAL CELL UR AU 0 /HPF (0-6); WBC, URINE AUTO 16 /HPF (0-3)
[2017-09-08] MEDS: TIOTROPIUM INHALER/CAPSULE (SPIRIVA) INH (07:15)
[2017-09-08 07:29] LABS: HEMATOCRIT 27.7 % (36.0-47.0); HEMOGLOBIN 8.4 g/dl (12.0-15.5); MEAN CORPUSCULAR HEMOGLOBIN 28.3 pg (27.0-33.0); MEAN CORPUSCULAR HGB CONC 30.3 g/dl (32.0-36.5); MEAN CORPUSCULAR VOLUME 93.3 fl (80.0-96.0); PLATELET COUNT, AUTOMATED 486 10^3/uL (150-450); RED BLOOD COUNT 2.97 10^6/uL (4.00-5.40); RED CELL DISTRIBUTION WIDTH 16.1 % (11.5-14.5); WHITE BLOOD COUNT 13.3 10^3/uL (4.0-10.0)
[2017-09-08 08:03] LABS: ANION GAP 7 MEQ/L (8-16); BLOOD UREA NITROGEN 7 MG/DL (7-18); CARBON DIOXIDE LEVEL 31 MEQ/L (21-32); CHLORIDE LEVEL 98 MEQ/L (98-107); CREATININE FOR GFR 0.29 MG/DL (0.55-1.30); GLOMERULAR FILTRATION RATE > 60.0 (>45); GLUCOSE, FASTING 94 MG/DL (70-100); MAGNESIUM LEVEL 1.6 MG/DL (1.8-2.4); POTASSIUM SERUM 3.6 MEQ/L (3.5-5.1); SODIUM LEVEL 136 MEQ/L (136-145)
[2017-09-08] MEDS: oxyBUTYnin *DITROPAN XL* 5 MG TABCR PO (08:33)
[2017-09-08] MEDS: LACTOBACILLUS ACIDOPHILUS CAP (BACID) PO (09:00)
[2017-09-08] MEDS: MIRALAX *UNIT DOSE* 17GM PACKET PO (09:00)
[2017-09-08] MEDS: ENOXAPARIN 40 MG/0.4 ML SYRINGE (J1650) SC ×2 (09:00→13:40)
[2017-09-08] MEDS: VITAMIN D 1,000 INTERNATIONAL UNITS TABLET PO (09:00)
[2017-09-08] MEDS: MULTIVITAMINS/MINERALS THERAP 1 TAB PO (09:00)
[2017-09-08] MEDS: METHYLNALTREXONE BROMIDE 12 MG/0.6 ML VIAL (RELISTOR) SC (13:38)
[2017-09-08] MEDS: cefTRIAXone SOD 1 GM in D5W MINI-BAG PLUS 50 ML IV (18:00)
[2017-09-08] MEDS: MOM 30ML SUSPENSION UDC PO (18:46)
[2017-09-08] MEDS: FLEET ENEMA PR (18:46)
[2017-09-08] MEDS: PERCOCET 5MG/325MG TAB PO (18:51)
[2017-09-08] MEDS: MAGNESIUM OXIDE 400 MG TAB (MAG-OX) PO (20:42)
[2017-09-09] MEDS: traMADol 50 MG TAB PO (01:21)
[2017-09-09] MEDS: MORPHINE 10MG/0.5ML ORAL CONCENTRATE SOLUTION U/D PO ×3 (05:04→20:38)
[2017-09-09 07:02] LABS: HEMATOCRIT 26.8 % (36.0-47.0); HEMOGLOBIN 8.2 g/dl (12.0-15.5); MEAN CORPUSCULAR HEMOGLOBIN 27.9 pg (27.0-33.0); MEAN CORPUSCULAR HGB CONC 30.6 g/dl (32.0-36.5); MEAN CORPUSCULAR VOLUME 91.2 fl (80.0-96.0); PLATELET COUNT, AUTOMATED 478 10^3/uL (150-450); RED BLOOD COUNT 2.94 10^6/uL (4.00-5.40); RED CELL DISTRIBUTION WIDTH 15.9 % (11.5-14.5); WHITE BLOOD COUNT 14.2 10^3/uL (4.0-10.0)
[2017-09-09 07:17] LABS: ANION GAP 7 MEQ/L (8-16); BLOOD UREA NITROGEN 8 MG/DL (7-18); CALCIUM LEVEL 8.2 MG/DL (8.8-10.2); CARBON DIOXIDE LEVEL 33 MEQ/L (21-32); CHLORIDE LEVEL 92 MEQ/L (98-107); CREATININE FOR GFR 0.32 MG/DL (0.55-1.30); GLOMERULAR FILTRATION RATE > 60.0 (>45); GLUCOSE, FASTING 110 MG/DL (70-100); POTASSIUM SERUM 3.8 MEQ/L (3.5-5.1); SODIUM LEVEL 132 MEQ/L (136-145)
[2017-09-09] MEDS: TIOTROPIUM INHALER/CAPSULE (SPIRIVA) INH (07:23)
[2017-09-09] MEDS: ADVAIR HFA 230/21MCG INHALER INH ×2 (07:23→20:39)
[2017-09-09] MEDS: MAGNESIUM OXIDE 400 MG TAB (MAG-OX) PO ×2 (09:53→20:37)
[2017-09-09] MEDS: oxyBUTYnin *DITROPAN XL* 5 MG TABCR PO (09:54)
[2017-09-09] MEDS: SENOKOT S TAB PO ×2 (09:54→20:37)
[2017-09-09] MEDS: VITAMIN D 1,000 INTERNATIONAL UNITS TABLET PO (09:54)
[2017-09-09] MEDS: MULTIVITAMINS/MINERALS THERAP 1 TAB PO (09:54)
[2017-09-09] MEDS: LACTOBACILLUS ACIDOPHILUS CAP (BACID) PO (09:54)
[2017-09-09] MEDS: ASCORBIC ACID 500 MG TAB PO ×2 (09:54→20:37)
[2017-09-09] MEDS: PANTOPRAZOLE 40MG TAB (PROTONIX) PO ×2 (09:54→20:37)
[2017-09-09] MEDS: PERCOCET 5MG/325MG TAB PO ×3 (09:55→22:00)
[2017-09-09] MEDS: ENOXAPARIN 40 MG/0.4 ML SYRINGE (J1650) SC (10:00)
[2017-09-09] MEDS: MIRALAX *UNIT DOSE* 17GM PACKET PO (10:01)
[2017-09-09] MEDS: PIPERACILLIN/TAZOBACTAM SOD 3.375 GM in D5W MINI-BAG PLUS 50 ML IV ×2 (14:00→20:37)
[2017-09-10] MEDS: PIPERACILLIN/TAZOBACTAM SOD 3.375 GM in D5W MINI-BAG PLUS 50 ML IV ×4 (01:02→20:56)
[2017-09-10] MEDS: traMADol 50 MG TAB PO (01:02)
[2017-09-10] MEDS: MORPHINE 10MG/0.5ML ORAL CONCENTRATE SOLUTION U/D PO ×2 (06:15→18:50)
[2017-09-10 06:35] LABS: HEMATOCRIT 26.2 % (36.0-47.0); HEMOGLOBIN 8.2 g/dl (12.0-15.5); MEAN CORPUSCULAR HEMOGLOBIN 28.1 pg (27.0-33.0); MEAN CORPUSCULAR HGB CONC 31.3 g/dl (32.0-36.5); MEAN CORPUSCULAR VOLUME 89.7 fl (80.0-96.0); PLATELET COUNT, AUTOMATED 492 10^3/uL (150-450); RED BLOOD COUNT 2.92 10^6/uL (4.00-5.40); RED CELL DISTRIBUTION WIDTH 15.8 % (11.5-14.5); WHITE BLOOD COUNT 15.9 10^3/uL (4.0-10.0)
[2017-09-10 06:54] LABS: ANION GAP 4 MEQ/L (8-16); BLOOD UREA NITROGEN 6 MG/DL (7-18); CALCIUM LEVEL 8.3 MG/DL (8.8-10.2); CARBON DIOXIDE LEVEL 35 MEQ/L (21-32); CHLORIDE LEVEL 91 MEQ/L (98-107); CREATININE FOR GFR 0.33 MG/DL (0.55-1.30); GLOMERULAR FILTRATION RATE > 60.0 (>45); GLUCOSE, FASTING 116 MG/DL (70-100); POTASSIUM SERUM 3.7 MEQ/L (3.5-5.1); SODIUM LEVEL 130 MEQ/L (136-145)
[2017-09-10] MEDS: TIOTROPIUM INHALER/CAPSULE (SPIRIVA) INH (07:51)
[2017-09-10] MEDS: ADVAIR HFA 230/21MCG INHALER INH ×2 (07:52→20:29)
[2017-09-10 08:13] LABS: MAGNESIUM LEVEL 1.9 MG/DL (1.8-2.4)
[2017-09-10] MEDS: MIRALAX *UNIT DOSE* 17GM PACKET PO (09:04)
[2017-09-10] MEDS: LACTOBACILLUS ACIDOPHILUS CAP (BACID) PO (09:05)
[2017-09-10] MEDS: MAGNESIUM OXIDE 400 MG TAB (MAG-OX) PO ×2 (09:06→20:56)
[2017-09-10] MEDS: VITAMIN D 1,000 INTERNATIONAL UNITS TABLET PO (09:06)
[2017-09-10] MEDS: PANTOPRAZOLE 40MG TAB (PROTONIX) PO ×2 (09:06→20:56)
[2017-09-10] MEDS: oxyBUTYnin *DITROPAN XL* 5 MG TABCR PO (09:06)
[2017-09-10] MEDS: MULTIVITAMINS/MINERALS THERAP 1 TAB PO (09:06)
[2017-09-10] MEDS: ASCORBIC ACID 500 MG TAB PO ×2 (09:07→20:56)
[2017-09-10] MEDS: NS 1,000 ML IV (09:07)
[2017-09-10] MEDS: SENOKOT S TAB PO ×2 (09:07→20:56)
[2017-09-10] MEDS: ENOXAPARIN 40 MG/0.4 ML SYRINGE (J1650) SC (09:08)
[2017-09-10] MEDS: PERCOCET 5MG/325MG TAB PO ×2 (09:08→13:56)
[2017-09-10] MEDS: ACETAMINOPHEN TAB 650MG DOSE (2X325MG) PO (15:42)
[2017-09-10] MEDS: FLEET ENEMA PR (17:43)
[2017-09-11] MEDS: PERCOCET 5MG/325MG TAB PO ×4 (00:19→20:30)
[2017-09-11] MEDS: PIPERACILLIN/TAZOBACTAM SOD 3.375 GM in D5W MINI-BAG PLUS 50 ML IV ×4 (02:31→20:30)
[2017-09-11 06:47] LABS: HEMATOCRIT 25.7 % (36.0-47.0); HEMOGLOBIN 7.8 g/dl (12.0-15.5); MEAN CORPUSCULAR HEMOGLOBIN 28.2 pg (27.0-33.0); MEAN CORPUSCULAR HGB CONC 30.4 g/dl (32.0-36.5); MEAN CORPUSCULAR VOLUME 92.8 fl (80.0-96.0); PLATELET COUNT, AUTOMATED 455 10^3/uL (150-450); RED BLOOD COUNT 2.77 10^6/uL (4.00-5.40); RED CELL DISTRIBUTION WIDTH 15.9 % (11.5-14.5); WHITE BLOOD COUNT 15.3 10^3/uL (4.0-10.0)
[2017-09-11] MEDS: MORPHINE 10MG/0.5ML ORAL CONCENTRATE SOLUTION U/D PO (06:56)
[2017-09-11 07:14] LABS: ANION GAP 4 MEQ/L (8-16); BLOOD UREA NITROGEN 5 MG/DL (7-18); CARBON DIOXIDE LEVEL 34 MEQ/L (21-32); CHLORIDE LEVEL 93 MEQ/L (98-107); CREATININE FOR GFR 0.31 MG/DL (0.55-1.30); GLOMERULAR FILTRATION RATE > 60.0 (>45); GLUCOSE, FASTING 101 MG/DL (70-100); POTASSIUM SERUM 3.5 MEQ/L (3.5-5.1); SODIUM LEVEL 131 MEQ/L (136-145)
[2017-09-11 07:33] LABS: ERYTHROCYTE SEDIMENTATION RATE 77 mm/hr (0-30)
[2017-09-11] MEDS: TIOTROPIUM INHALER/CAPSULE (SPIRIVA) INH (08:07)
[2017-09-11] MEDS: ADVAIR HFA 230/21MCG INHALER INH ×2 (08:07→21:17)
[2017-09-11] MEDS: VITAMIN D 1,000 INTERNATIONAL UNITS TABLET PO (08:30)
[2017-09-11] MEDS: MIRALAX *UNIT DOSE* 17GM PACKET PO (08:30)
[2017-09-11] MEDS: PANTOPRAZOLE 40MG TAB (PROTONIX) PO ×2 (08:30→20:29)
[2017-09-11] MEDS: ASCORBIC ACID 500 MG TAB PO ×2 (08:31→20:29)
[2017-09-11] MEDS: LACTOBACILLUS ACIDOPHILUS CAP (BACID) PO (08:31)
[2017-09-11] MEDS: MAGNESIUM OXIDE 400 MG TAB (MAG-OX) PO ×2 (08:31→20:29)
[2017-09-11] MEDS: MULTIVITAMINS/MINERALS THERAP 1 TAB PO (08:31)
[2017-09-11] MEDS: oxyBUTYnin *DITROPAN XL* 5 MG TABCR PO (08:31)
[2017-09-11] MEDS: SENOKOT S TAB PO ×2 (08:31→20:29)
[2017-09-11 10:28] LABS: SLIDE REVIEW Report; SOURCE PERIPHERAL SMEAR
[2017-09-11] MEDS: ENOXAPARIN 40 MG/0.4 ML SYRINGE (J1650) SC (10:28)
[2017-09-11 10:29] LABS: REASON FOR REVIEW WBC/LEUKEMIA/BLAST
[2017-09-11 10:40] LABS: FERRITIN 269 NG/ML (8-252); IRON (FE) 9 UG/DL (50-170); PERCENT SATURATION 8.1 % (13.2-45.0); TOTAL IRON BINDING CAPACITY 111 UG/DL (250-450)
[2017-09-11 15:22] LABS: IMMEDIATE SPIN CROSSMATCH 1 1
[2017-09-12] MEDS: PIPERACILLIN/TAZOBACTAM SOD 3.375 GM in D5W MINI-BAG PLUS 50 ML IV ×4 (01:17→20:22)
[2017-09-12] MEDS: PERCOCET 5MG/325MG TAB PO ×4 (03:23→18:49)
[2017-09-12 06:54] LABS: HEMATOCRIT 28.8 % (36.0-47.0); HEMOGLOBIN 9.1 g/dl (12.0-15.5); MEAN CORPUSCULAR HEMOGLOBIN 27.6 pg (27.0-33.0); MEAN CORPUSCULAR HGB CONC 31.6 g/dl (32.0-36.5); MEAN CORPUSCULAR VOLUME 87.3 fl (80.0-96.0); PLATELET COUNT, AUTOMATED 490 10^3/uL (150-450); RED CELL DISTRIBUTION WIDTH 17.8 % (11.5-14.5); WHITE BLOOD COUNT 15.5 10^3/uL (4.0-10.0)
[2017-09-12 07:02] LABS: ANION GAP 6 MEQ/L (8-16); BLOOD UREA NITROGEN 5 MG/DL (7-18); CARBON DIOXIDE LEVEL 32 MEQ/L (21-32); CHLORIDE LEVEL 96 MEQ/L (98-107); CREATININE FOR GFR 0.26 MG/DL (0.55-1.30); GLOMERULAR FILTRATION RATE > 60.0 (>45); GLUCOSE, FASTING 100 MG/DL (70-100); POTASSIUM SERUM 3.7 MEQ/L (3.5-5.1); SODIUM LEVEL 134 MEQ/L (136-145)
[2017-09-12] MEDS: ADVAIR HFA 230/21MCG INHALER INH ×2 (07:31→20:09)
[2017-09-12] MEDS: TIOTROPIUM INHALER/CAPSULE (SPIRIVA) INH (07:31)
[2017-09-12] MEDS: MIRALAX *UNIT DOSE* 17GM PACKET PO (09:00)
[2017-09-12] MEDS: LACTOBACILLUS ACIDOPHILUS CAP (BACID) PO (09:34)
[2017-09-12] MEDS: MAGNESIUM OXIDE 400 MG TAB (MAG-OX) PO ×2 (09:35→20:21)
[2017-09-12] MEDS: PANTOPRAZOLE 40MG TAB (PROTONIX) PO ×2 (09:35→20:21)
[2017-09-12] MEDS: SENOKOT S TAB PO ×2 (09:35→20:21)
[2017-09-12] MEDS: ASCORBIC ACID 500 MG TAB PO ×2 (09:35→20:21)
[2017-09-12] MEDS: VITAMIN D 1,000 INTERNATIONAL UNITS TABLET PO (09:35)
[2017-09-12] MEDS: MULTIVITAMINS/MINERALS THERAP 1 TAB PO (09:35)
[2017-09-12] MEDS: oxyBUTYnin *DITROPAN XL* 5 MG TABCR PO (09:36)
[2017-09-12 11:13] LABS: VITAMIN B12 LEVEL 792 PG/ML (247-911)
[2017-09-12 11:14] LABS: FOLATE 9.7 NG/ML (>5.4)
[2017-09-12] MEDS ORDERED: LIDOCAINE 1% MDV 20ML VIAL As Ordered (14:01)
[2017-09-12] MEDS: traMADol 50 MG TAB PO (20:22)
[2017-09-13] MEDS: PERCOCET 5MG/325MG TAB PO ×4 (01:34→17:57)
[2017-09-13] MEDS: PIPERACILLIN/TAZOBACTAM SOD 3.375 GM in D5W MINI-BAG PLUS 50 ML IV ×2 (01:35→08:00)
[2017-09-13 06:08] LABS: HEMATOCRIT 29.3 % (36.0-47.0); HEMOGLOBIN 9.2 g/dl (12.0-15.5); MEAN CORPUSCULAR HEMOGLOBIN 27.7 pg (27.0-33.0); MEAN CORPUSCULAR HGB CONC 31.4 g/dl (32.0-36.5); MEAN CORPUSCULAR VOLUME 88.3 fl (80.0-96.0); PLATELET COUNT, AUTOMATED 508 10^3/uL (150-450); RED BLOOD COUNT 3.32 10^6/uL (4.00-5.40); RED CELL DISTRIBUTION WIDTH 17.4 % (11.5-14.5)
[2017-09-13 06:35] LABS: ANION GAP 7 MEQ/L (8-16); BLOOD UREA NITROGEN 6 MG/DL (7-18); CALCIUM LEVEL 8.6 MG/DL (8.8-10.2); CARBON DIOXIDE LEVEL 33 MEQ/L (21-32); CHLORIDE LEVEL 93 MEQ/L (98-107); CREATININE FOR GFR 0.28 MG/DL (0.55-1.30); GLOMERULAR FILTRATION RATE > 60.0 (>45); GLUCOSE, FASTING 96 MG/DL (70-100); POTASSIUM SERUM 3.9 MEQ/L (3.5-5.1); SODIUM LEVEL 133 MEQ/L (136-145)
[2017-09-13] MEDS: ADVAIR HFA 230/21MCG INHALER INH ×2 (08:01→21:15)
[2017-09-13] MEDS: TIOTROPIUM INHALER/CAPSULE (SPIRIVA) INH (08:02)
[2017-09-13] MEDS: MIRALAX *UNIT DOSE* 17GM PACKET PO (08:03)
[2017-09-13] MEDS: oxyBUTYnin *DITROPAN XL* 5 MG TABCR PO (08:03)
[2017-09-13] MEDS: MAGNESIUM OXIDE 400 MG TAB (MAG-OX) PO ×2 (08:04→21:09)
[2017-09-13] MEDS: SENOKOT S TAB PO ×2 (08:04→21:09)
[2017-09-13] MEDS: MULTIVITAMINS/MINERALS THERAP 1 TAB PO (08:04)
[2017-09-13] MEDS: PANTOPRAZOLE 40MG TAB (PROTONIX) PO ×2 (08:04→21:09)
[2017-09-13] MEDS: LACTOBACILLUS ACIDOPHILUS CAP (BACID) PO (08:04)
[2017-09-13] MEDS: VITAMIN D 1,000 INTERNATIONAL UNITS TABLET PO (08:04)
[2017-09-13] MEDS: ASCORBIC ACID 500 MG TAB PO ×2 (08:04→21:09)
[2017-09-13] MEDS: MEROPENEM INJ 1 GM in APPROPRIATE DILUENT 1 EA IV ×2 (10:13→17:08)
[2017-09-13] MEDS: ACETAMINOPHEN TAB 650MG DOSE (2X325MG) PO (21:09)
[2017-09-14] MEDS: MEROPENEM INJ 1 GM in APPROPRIATE DILUENT 1 EA IV ×2 (01:59→09:03)
[2017-09-14] MEDS: PERCOCET 5MG/325MG TAB PO ×3 (04:39→13:17)
[2017-09-14 06:54] LABS: HEMATOCRIT 31.6 % (36.0-47.0); HEMOGLOBIN 9.8 g/dl (12.0-15.5); MEAN CORPUSCULAR HEMOGLOBIN 27.4 pg (27.0-33.0); MEAN CORPUSCULAR VOLUME 88.3 fl (80.0-96.0); PLATELET COUNT, AUTOMATED 547 10^3/uL (150-450); RED BLOOD COUNT 3.58 10^6/uL (4.00-5.40); WHITE BLOOD COUNT 17.1 10^3/uL (4.0-10.0)
[2017-09-14 07:13] LABS: ANION GAP 6 MEQ/L (8-16); BLOOD UREA NITROGEN 6 MG/DL (7-18); CALCIUM LEVEL 8.4 MG/DL (8.8-10.2); CARBON DIOXIDE LEVEL 32 MEQ/L (21-32); CHLORIDE LEVEL 95 MEQ/L (98-107); CREATININE FOR GFR 0.26 MG/DL (0.55-1.30); GLOMERULAR FILTRATION RATE > 60.0 (>45); GLUCOSE, FASTING 111 MG/DL (70-100); POTASSIUM SERUM 3.9 MEQ/L (3.5-5.1); SODIUM LEVEL 133 MEQ/L (136-145)
[2017-09-14] MEDS: ADVAIR HFA 230/21MCG INHALER INH (07:37)
[2017-09-14] MEDS: TIOTROPIUM INHALER/CAPSULE (SPIRIVA) INH (07:37)
[2017-09-14] MEDS: MIRALAX *UNIT DOSE* 17GM PACKET PO (09:00)
[2017-09-14] MEDS: ENOXAPARIN 40 MG/0.4 ML SYRINGE (J1650) SC (09:00)
[2017-09-14] MEDS: VITAMIN D 1,000 INTERNATIONAL UNITS TABLET PO (09:03)
[2017-09-14] MEDS: PANTOPRAZOLE 40MG TAB (PROTONIX) PO (09:03)
[2017-09-14] MEDS: LACTOBACILLUS ACIDOPHILUS CAP (BACID) PO (09:03)
[2017-09-14] MEDS: ASCORBIC ACID 500 MG TAB PO (09:03)
[2017-09-14] MEDS: MULTIVITAMINS/MINERALS THERAP 1 TAB PO (09:04)
[2017-09-14] MEDS: MAGNESIUM OXIDE 400 MG TAB (MAG-OX) PO (09:04)
[2017-09-14] MEDS: SENOKOT S TAB PO (09:04)
[2017-09-14] MEDS: oxyBUTYnin *DITROPAN XL* 5 MG TABCR PO (09:04)
== END 2017-09-14 16:20 | disposition home or self-care (01) | DRG 690 ==
LOC: M MS5PR 22:30
PROC: 30233N1 Transfusion of Nonautologous Red Blood Cells into Peripheral Vein, Percutaneous Approach (ICD-10-PCS; 2017-09-11)
PROC: 0DBW3ZX Excision of Peritoneum, Percutaneous Approach, Diagnostic (ICD-10-PCS; principal; 2017-09-12)
DX: N13.6 Pyonephrosis (principal); C55 Malignant neoplasm of uterus, part unspecified; K59.03 Drug induced constipation; J43.9 Emphysema, unspecified; N32.81 Overactive bladder; K21.9 Gastro-esophageal reflux disease without esophagitis; J30.9 Allergic rhinitis, unspecified; R00.2 Palpitations; T40.2X5A Adverse effect of other opioids, initial encounter; H91.93 Unspecified hearing loss, bilateral; Z92.3 Personal history of irradiation; Z92.21 Personal history of antineoplastic chemotherapy; Z88.1 Allergy status to other antibiotic agents; Z88.8 Allergy status to other drugs, medicaments and biological substances; Z79.891 Long term (current) use of opiate analgesic; Z79.899 Other long term (current) drug therapy; Z99.81 Dependence on supplemental oxygen; Z87.891 Personal history of nicotine dependence; Z86.14 Personal history of Methicillin resistant Staphylococcus aureus infection

== ENCOUNTER → 2017-09-30 | Outpatient (REF) | payer MEDICARE ==
[2017-09-30 14:36] LABS: THYROID STIMULATING HORMONE 0.791 uIU/ML (0.358-3.740)
== END ==
LOC: M LAB REF 12:57
DX: C79.89 Secondary malignant neoplasm of other specified sites (principal); C54.1 Malignant neoplasm of endometrium; Z79.899 Other long term (current) drug therapy
CPT/HCPCS: 84443

== ENCOUNTER 2017-10-21 10:54 | Inpatient (IN) | payer MEDICARE ==
[2017-10-21 12:17] LABS: BASO % 0.4 % (0.0-1.0); EOS # 0.1 10^3/uL (0.0-0.50); EOS % 0.7 % (0.0-3.0); HEMATOCRIT 32.3 % (36.0-47.0); HEMOGLOBIN 9.6 g/dl (12.0-15.5); IMMATURE GRANULOCYTE % 0.5 % (0-3.0); LYMPH # 1.1 10^3/uL (1.5-4.5); LYMPH % 10.8 % (24.0-44.0); MEAN CORPUSCULAR HEMOGLOBIN 28.5 pg (27.0-33.0); MEAN CORPUSCULAR HGB CONC 29.7 g/dl (32.0-36.5); MEAN CORPUSCULAR VOLUME 95.8 fl (80.0-96.0); MONO # 0.8 10^3/uL (0.0-0.8); MONO % 7.8 % (0.0-5.0); NEUTROPHILS # 7.9 10^3/uL (1.8-7.7); NEUTROPHILS % 79.8 % (36.0-66.0); PLATELET COUNT, AUTOMATED 326 10^3/uL (150-450); RED BLOOD COUNT 3.37 10^6/uL (4.00-5.40); WHITE BLOOD COUNT 9.9 10^3/uL (4.0-10.0)
[2017-10-21 12:37] LABS: ANION GAP 6 MEQ/L (8-16); BLOOD UREA NITROGEN 8 MG/DL (7-18); CALCIUM LEVEL 9.1 MG/DL (8.8-10.2); CARBON DIOXIDE LEVEL 30 MEQ/L (21-32); CHLORIDE LEVEL 99 MEQ/L (98-107); CREATININE FOR GFR 0.34 MG/DL (0.55-1.30); GLOMERULAR FILTRATION RATE > 60.0 (>45); GLUCOSE, FASTING 93 MG/DL (70-100); POTASSIUM SERUM 3.9 MEQ/L (3.5-5.1); SODIUM LEVEL 135 MEQ/L (136-145)
[2017-10-21] MEDS: MORPHINE 2 MG/ML 1ML SYRINGE (J2270) IV (13:54)
[2017-10-21] MEDS ORDERED: ISOVUE-370 76% 100ML VIAL (Q9967) As Ordered (14:07)
[2017-10-21 14:18] LABS: INR 0.91; PARTIAL THROMBOPLASTIN TIME 30.8 SECONDS (25.4-37.6); PROTHROMBIN TIME 12.3 SECONDS (12.1-14.4)
[2017-10-21 14:30] LABS: ALBUMIN 2.6 GM/DL (3.2-5.2); ALBUMIN/GLOBULIN RATIO 0.62 (1.00-1.93); ALKALINE PHOSPHATASE 67 U/L (45-117); ALT/SGPT 14 U/L (12-78); AST/SGOT 14 U/L (7-37); BILIRUBIN,DIRECT 0.1 MG/DL (0.0-0.2); BILIRUBIN,TOTAL 0.5 MG/DL (0.2-1.0); LIPASE 76 U/L (73-393); TOTAL PROTEIN 6.8 GM/DL (6.4-8.2)
[2017-10-21] MEDS: NS 1,000 ML IV ×2 (15:12→18:10)
[2017-10-21] MEDS ORDERED: PANTOPRAZOLE 40MG INJ (PROTONIX) (C9113) IV (16:00)
[2017-10-21] MEDS ORDERED: ONDANSETRON 4MG/2ML VIAL (J2405) IV (16:00)
[2017-10-21 18:01] LABS: KETONE, URINE AUTO RFX NEGATIVE (NEGATIVE); NITRITE, URINE AUTO RFX NEGATIVE (NEGATIVE); RBC, URINE AUTO RFX 15 /HPF (0-3); SPECIFIC GRAVITY UR AUTO RFX 1.015 (1.002-1.035); SQUAM EPITHELIAL CELL UR AURFX 0 /HPF (0-6)
[2017-10-21 18:06] LABS: LEUKOCYTE ESTERASE UR AUTO RFX 3+ (NEGATIVE); WBC, URINE AUTO RFX TNTC /HPF (0-3)
[2017-10-21] MEDS: ACETAMINOPHEN TAB 650MG DOSE (2X325MG) PO (18:10)
[2017-10-21 18:52] LABS: HEMATOCRIT 33.1 % (36.0-47.0); HEMOGLOBIN 9.8 g/dl (12.0-15.5); MEAN CORPUSCULAR HEMOGLOBIN 28.2 pg (27.0-33.0); MEAN CORPUSCULAR HGB CONC 29.6 g/dl (32.0-36.5); MEAN CORPUSCULAR VOLUME 95.4 fl (80.0-96.0); PLATELET COUNT, AUTOMATED 349 10^3/uL (150-450); RED BLOOD COUNT 3.47 10^6/uL (4.00-5.40); RED CELL DISTRIBUTION WIDTH 20.1 % (11.5-14.5); WHITE BLOOD COUNT 10.6 10^3/uL (4.0-10.0)
[2017-10-21 19:19] LABS: CK-MB VALUE MASS < 1.0 NG/ML (<3.6); CPK CREATINE PHOSPHOKINASE 26 U/L (26-192); MB/CK RELATIVE INDEX 3.85 (< OR =4); TROPONIN I < 0.02 NG/ML (< 0.10)
[2017-10-21] MEDS: DOCUSATE SODIUM 100 MG CAP PO (21:00)
[2017-10-21] MEDS: ADVAIR HFA 230/21MCG INHALER INH (21:21)
[2017-10-21] MEDS: LACTOBACILLUS ACIDOPHILUS CAP (BACID) PO (23:37)
[2017-10-21] MEDS: PANTOPRAZOLE 40MG INJ (PROTONIX) (C9113) IV (23:37)
[2017-10-21] MEDS: FLECAINIDE 50MG TABLET PO (23:37)
[2017-10-21] MEDS: ASCORBIC ACID 500 MG TAB PO (23:37)
[2017-10-21] MEDS: FAMOTIDINE 20 MG TAB PO (23:37)
[2017-10-22] MEDS: LEVALBUTEROL 1.25 MG/0.5 ML CONCENTRATE NEB INH (01:40)
[2017-10-22 01:46] LABS: HEMATOCRIT 30.5 % (36.0-47.0); HEMOGLOBIN 9.1 g/dl (12.0-15.5); MEAN CORPUSCULAR HEMOGLOBIN 28.5 pg (27.0-33.0); MEAN CORPUSCULAR HGB CONC 29.8 g/dl (32.0-36.5); MEAN CORPUSCULAR VOLUME 95.6 fl (80.0-96.0); PLATELET COUNT, AUTOMATED 295 10^3/uL (150-450); RED BLOOD COUNT 3.19 10^6/uL (4.00-5.40); RED CELL DISTRIBUTION WIDTH 20.1 % (11.5-14.5); WHITE BLOOD COUNT 9.6 10^3/uL (4.0-10.0)
[2017-10-22 02:05] LABS: CK-MB VALUE MASS < 1.0 NG/ML (<3.6); CPK CREATINE PHOSPHOKINASE 18 U/L (26-192); MB/CK RELATIVE INDEX 5.56 (< OR =4); TROPONIN I < 0.02 NG/ML (< 0.10)
[2017-10-22] MEDS: NS 1,000 ML IV (03:46)
[2017-10-22 05:58] LABS: BASO % 0.3 % (0.0-1.0); EOS # 0.1 10^3/uL (0.0-0.50); EOS % 0.9 % (0.0-3.0); HEMATOCRIT 29.7 % (36.0-47.0); HEMOGLOBIN 8.9 g/dl (12.0-15.5); IMMATURE GRANULOCYTE % 0.2 % (0-3.0); LYMPH # 1.2 10^3/uL (1.5-4.5); LYMPH % 12.6 % (24.0-44.0); MEAN CORPUSCULAR HEMOGLOBIN 28.3 pg (27.0-33.0); MEAN CORPUSCULAR VOLUME 94.3 fl (80.0-96.0); MONO # 0.8 10^3/uL (0.0-0.8); MONO % 8.1 % (0.0-5.0); NEUTROPHILS # 7.5 10^3/uL (1.8-7.7); NEUTROPHILS % 77.9 % (36.0-66.0); PLATELET COUNT, AUTOMATED 316 10^3/uL (150-450); RED BLOOD COUNT 3.15 10^6/uL (4.00-5.40); WHITE BLOOD COUNT 9.6 10^3/uL (4.0-10.0)
[2017-10-22 06:38] LABS: ALBUMIN 2.1 GM/DL (3.2-5.2); ALKALINE PHOSPHATASE 60 U/L (45-117); ALT/SGPT 11 U/L (12-78); ANION GAP 8 MEQ/L (8-16); AST/SGOT 13 U/L (7-37); BILIRUBIN,TOTAL 0.6 MG/DL (0.2-1.0); BLOOD UREA NITROGEN 7 MG/DL (7-18); CALCIUM LEVEL 8.1 MG/DL (8.8-10.2); CARBON DIOXIDE LEVEL 29 MEQ/L (21-32); CHLORIDE LEVEL 102 MEQ/L (98-107); CREATININE FOR GFR 0.27 MG/DL (0.55-1.30); GLOMERULAR FILTRATION RATE > 60.0 (>45); GLUCOSE, FASTING 95 MG/DL (70-100); MAGNESIUM LEVEL 1.9 MG/DL (1.8-2.4); SODIUM LEVEL 139 MEQ/L (136-145); TOTAL PROTEIN 5.1 GM/DL (6.4-8.2)
[2017-10-22] MEDS: ADVAIR HFA 230/21MCG INHALER INH ×2 (08:10→20:11)
[2017-10-22] MEDS: TIOTROPIUM INHALER/CAPSULE (SPIRIVA) INH (08:10)
[2017-10-22] MEDS: DOCUSATE SODIUM 100 MG CAP PO ×3 (09:00→21:00)
[2017-10-22] MEDS: FLECAINIDE 50MG TABLET PO ×2 (09:04→21:28)
[2017-10-22] MEDS: VITAMIN D 1,000 INTERNATIONAL UNITS TABLET PO (09:04)
[2017-10-22] MEDS: ASCORBIC ACID 500 MG TAB PO ×2 (09:04→21:29)
[2017-10-22] MEDS: MULTIVITAMINS/MINERALS THERAP 1 TAB PO (09:05)
[2017-10-22] MEDS: PANTOPRAZOLE 40MG INJ (PROTONIX) (C9113) IV ×2 (09:05→21:28)
[2017-10-22 11:35] LABS: HEMATOCRIT 31.2 % (36.0-47.0); HEMOGLOBIN 9.3 g/dl (12.0-15.5); MEAN CORPUSCULAR HEMOGLOBIN 28.6 pg (27.0-33.0); MEAN CORPUSCULAR HGB CONC 29.8 g/dl (32.0-36.5); PLATELET COUNT, AUTOMATED 315 10^3/uL (150-450); RED BLOOD COUNT 3.25 10^6/uL (4.00-5.40); WHITE BLOOD COUNT 8.5 10^3/uL (4.0-10.0)
[2017-10-22 11:57] LABS: CK-MB VALUE MASS < 1.0 NG/ML (<3.6); CPK CREATINE PHOSPHOKINASE 21 U/L (26-192); MB/CK RELATIVE INDEX 4.76 (< OR =4); TROPONIN I < 0.02 NG/ML (< 0.10)
[2017-10-22] MEDS: INFLUENZA VIRUS VACCINE HIGH DOSE 0.5 ML SYRINGE (90662) IM (13:15)
[2017-10-22 18:25] LABS: HEMATOCRIT 30.9 % (36.0-47.0); HEMOGLOBIN 9.2 g/dl (12.0-15.5); MEAN CORPUSCULAR HEMOGLOBIN 28.4 pg (27.0-33.0); MEAN CORPUSCULAR HGB CONC 29.8 g/dl (32.0-36.5); MEAN CORPUSCULAR VOLUME 95.4 fl (80.0-96.0); PLATELET COUNT, AUTOMATED 286 10^3/uL (150-450); RED BLOOD COUNT 3.24 10^6/uL (4.00-5.40); RED CELL DISTRIBUTION WIDTH 19.7 % (11.5-14.5); WHITE BLOOD COUNT 8.5 10^3/uL (4.0-10.0)
[2017-10-22] MEDS: LACTOBACILLUS ACIDOPHILUS CAP (BACID) PO (21:28)
[2017-10-22] MEDS: FAMOTIDINE 20 MG TAB PO (21:28)
[2017-10-22] MEDS: ACETAMINOPHEN TAB 650MG DOSE (2X325MG) PO (21:28)
[2017-10-23 00:21] LABS: HEMATOCRIT 30.6 % (36.0-47.0); HEMOGLOBIN 9.1 g/dl (12.0-15.5); MEAN CORPUSCULAR HEMOGLOBIN 28.3 pg (27.0-33.0); MEAN CORPUSCULAR HGB CONC 29.7 g/dl (32.0-36.5); MEAN CORPUSCULAR VOLUME 95.3 fl (80.0-96.0); PLATELET COUNT, AUTOMATED 315 10^3/uL (150-450); RED BLOOD COUNT 3.21 10^6/uL (4.00-5.40); RED CELL DISTRIBUTION WIDTH 19.7 % (11.5-14.5); WHITE BLOOD COUNT 8.2 10^3/uL (4.0-10.0)
[2017-10-23] MEDS: ADVAIR HFA 230/21MCG INHALER INH ×2 (07:23→19:45)
[2017-10-23] MEDS: TIOTROPIUM INHALER/CAPSULE (SPIRIVA) INH (07:23)
[2017-10-23 07:37] LABS: BASO % 0.3 % (0.0-1.0); EOS # 0.1 10^3/uL (0.0-0.50); HEMATOCRIT 32.7 % (36.0-47.0); HEMOGLOBIN 9.8 g/dl (12.0-15.5); IMMATURE GRANULOCYTE % 0.5 % (0-3.0); LYMPH # 0.5 10^3/uL (1.5-4.5); LYMPH % 8.8 % (24.0-44.0); MEAN CORPUSCULAR HEMOGLOBIN 28.1 pg (27.0-33.0); MEAN CORPUSCULAR VOLUME 93.7 fl (80.0-96.0); MONO # 0.4 10^3/uL (0.0-0.8); MONO % 6.1 % (0.0-5.0); NEUTROPHILS # 4.9 10^3/uL (1.8-7.7); NEUTROPHILS % 83.3 % (36.0-66.0); PLATELET COUNT, AUTOMATED 321 10^3/uL (150-450); RED BLOOD COUNT 3.49 10^6/uL (4.00-5.40); RED CELL DISTRIBUTION WIDTH 19.6 % (11.5-14.5); WHITE BLOOD COUNT 5.9 10^3/uL (4.0-10.0)
[2017-10-23] MEDS: DOCUSATE SODIUM 100 MG CAP PO ×2 (07:46→20:34)
[2017-10-23] MEDS: PANTOPRAZOLE 40MG INJ (PROTONIX) (C9113) IV ×2 (07:46→20:33)
[2017-10-23] MEDS: ASCORBIC ACID 500 MG TAB PO ×2 (07:47→20:33)
[2017-10-23] MEDS: ACETAMINOPHEN TAB 650MG DOSE (2X325MG) PO ×2 (07:47→20:34)
[2017-10-23] MEDS: FLECAINIDE 50MG TABLET PO ×2 (07:47→20:33)
[2017-10-23] MEDS: MULTIVITAMINS/MINERALS THERAP 1 TAB PO (07:48)
[2017-10-23] MEDS: VITAMIN D 1,000 INTERNATIONAL UNITS TABLET PO (07:48)
[2017-10-23 07:52] LABS: ALBUMIN 2.3 GM/DL (3.2-5.2); ALBUMIN/GLOBULIN RATIO 0.68 (1.00-1.93); ALKALINE PHOSPHATASE 70 U/L (45-117); ALT/SGPT 12 U/L (12-78); ANION GAP 6 MEQ/L (8-16); AST/SGOT 14 U/L (7-37); BILIRUBIN,TOTAL 0.6 MG/DL (0.2-1.0); BLOOD UREA NITROGEN 6 MG/DL (7-18); CALCIUM LEVEL 8.9 MG/DL (8.8-10.2); CARBON DIOXIDE LEVEL 32 MEQ/L (21-32); CHLORIDE LEVEL 96 MEQ/L (98-107); CREATININE FOR GFR 0.35 MG/DL (0.55-1.30); GLOMERULAR FILTRATION RATE > 60.0 (>45); GLUCOSE, FASTING 98 MG/DL (70-100); POTASSIUM SERUM 4.4 MEQ/L (3.5-5.1); SODIUM LEVEL 134 MEQ/L (136-145); TOTAL PROTEIN 5.7 GM/DL (6.4-8.2)
[2017-10-23 12:01] LABS: HEMATOCRIT 30.8 % (36.0-47.0); HEMOGLOBIN 9.4 g/dl (12.0-15.5); MEAN CORPUSCULAR HEMOGLOBIN 28.8 pg (27.0-33.0); MEAN CORPUSCULAR HGB CONC 30.5 g/dl (32.0-36.5); MEAN CORPUSCULAR VOLUME 94.5 fl (80.0-96.0); PLATELET COUNT, AUTOMATED 274 10^3/uL (150-450); RED BLOOD COUNT 3.26 10^6/uL (4.00-5.40); RED CELL DISTRIBUTION WIDTH 19.6 % (11.5-14.5); WHITE BLOOD COUNT 6.1 10^3/uL (4.0-10.0)
[2017-10-23] MEDS: FAMOTIDINE 20 MG TAB PO (20:33)
[2017-10-23] MEDS: LACTOBACILLUS ACIDOPHILUS CAP (BACID) PO (20:33)
[2017-10-24 07:11] LABS: BASO % 0.6 % (0.0-1.0); EOS # 0.1 10^3/uL (0.0-0.50); EOS % 1.4 % (0.0-3.0); HEMATOCRIT 29.8 % (36.0-47.0); HEMOGLOBIN 9.1 g/dl (12.0-15.5); IMMATURE GRANULOCYTE % 0.4 % (0-3.0); LYMPH # 0.9 10^3/uL (1.5-4.5); LYMPH % 12.8 % (24.0-44.0); MEAN CORPUSCULAR HEMOGLOBIN 28.6 pg (27.0-33.0); MEAN CORPUSCULAR HGB CONC 30.5 g/dl (32.0-36.5); MEAN CORPUSCULAR VOLUME 93.7 fl (80.0-96.0); MONO # 0.7 10^3/uL (0.0-0.8); MONO % 9.7 % (0.0-5.0); NEUTROPHILS # 5.5 10^3/uL (1.8-7.7); NEUTROPHILS % 75.1 % (36.0-66.0); PLATELET COUNT, AUTOMATED 253 10^3/uL (150-450); RED BLOOD COUNT 3.18 10^6/uL (4.00-5.40); RED CELL DISTRIBUTION WIDTH 19.5 % (11.5-14.5); WHITE BLOOD COUNT 7.3 10^3/uL (4.0-10.0)
[2017-10-24 07:36] LABS: ALBUMIN/GLOBULIN RATIO 0.63 (1.00-1.93); ALKALINE PHOSPHATASE 65 U/L (45-117); ALT/SGPT 14 U/L (12-78); ANION GAP 9 MEQ/L (8-16); AST/SGOT 18 U/L (7-37); BILIRUBIN,TOTAL 0.4 MG/DL (0.2-1.0); BLOOD UREA NITROGEN 8 MG/DL (7-18); CALCIUM LEVEL 8.5 MG/DL (8.8-10.2); CARBON DIOXIDE LEVEL 30 MEQ/L (21-32); CHLORIDE LEVEL 98 MEQ/L (98-107); GLOMERULAR FILTRATION RATE > 60.0 (>45); GLUCOSE, FASTING 88 MG/DL (70-100); POTASSIUM SERUM 3.9 MEQ/L (3.5-5.1); SODIUM LEVEL 137 MEQ/L (136-145); TOTAL PROTEIN 5.2 GM/DL (6.4-8.2)
[2017-10-24] MEDS: TIOTROPIUM INHALER/CAPSULE (SPIRIVA) INH (07:39)
[2017-10-24] MEDS: ADVAIR HFA 230/21MCG INHALER INH (07:40)
[2017-10-24] MEDS: MULTIVITAMINS/MINERALS THERAP 1 TAB PO (09:54)
[2017-10-24] MEDS: DOCUSATE SODIUM 100 MG CAP PO (09:54)
[2017-10-24] MEDS: ASCORBIC ACID 500 MG TAB PO (09:54)
[2017-10-24] MEDS: VITAMIN D 1,000 INTERNATIONAL UNITS TABLET PO (09:54)
[2017-10-24] MEDS: PANTOPRAZOLE 40MG INJ (PROTONIX) (C9113) IV (09:54)
[2017-10-24] MEDS: FLECAINIDE 50MG TABLET PO (09:54)
== END 2017-10-24 13:50 | disposition home or self-care (01) | DRG 378 ==
LOC: M PCU 10-22 02:59 → M MS4PR 10-22 17:08 → M ED 10:54 → M ED INP 16:59
DX: K92.2 Gastrointestinal hemorrhage, unspecified (principal); J96.11 Chronic respiratory failure with hypoxia; K52.0 Gastroenteritis and colitis due to radiation; C55 Malignant neoplasm of uterus, part unspecified; J44.9 Chronic obstructive pulmonary disease, unspecified; G89.29 Other chronic pain; N32.81 Overactive bladder; K21.9 Gastro-esophageal reflux disease without esophagitis; R91.8 Other nonspecific abnormal finding of lung field; R01.1 Cardiac murmur, unspecified; M41.9 Scoliosis, unspecified; Z86.14 Personal history of Methicillin resistant Staphylococcus aureus infection; Z87.891 Personal history of nicotine dependence; Z79.899 Other long term (current) drug therapy; Z88.1 Allergy status to other antibiotic agents; Z88.8 Allergy status to other drugs, medicaments and biological substances; Z92.3 Personal history of irradiation; Z90.2 Acquired absence of lung [part of]; Z92.21 Personal history of antineoplastic chemotherapy

== ENCOUNTER → 2017-10-21 | Outpatient (REF) | payer MEDICARE | LOC: M LAB REF 13:28 | DX: C79.89 Secondary malignant neoplasm of other specified sites (principal); C54.1 Malignant neoplasm of endometrium; Z51.81 Encounter for therapeutic drug level monitoring; Z79.899 Other long term (current) drug therapy ==

== ENCOUNTER → 2017-12-14 | Outpatient (CLI) | payer MEDICARE ==
[~2017-12-14] MED LIST changes: -CYSTO-CONRAY II 17.2% 250ML VIAL (Q9958) As Ordered; +GASTROGRAFIN SOLUTION 30ML (Q9963) As Ordered; +ISOVUE-370 76% 100ML VIAL (Q9967) As Ordered
== END ==
LOC: M RAD 08:47
DX: C54.1 Malignant neoplasm of endometrium (principal); J84.10 Pulmonary fibrosis, unspecified; J44.9 Chronic obstructive pulmonary disease, unspecified; K57.30 Diverticulosis of large intestine without perforation or abscess without bleeding
CPT/HCPCS: Q9963

== ENCOUNTER → 2018-01-28 | Outpatient (CLI) | payer MEDICARE ==
[~2018-01-28] MED LIST changes: +ADV500INH INH; +ALB2.5NEB INH; +ALBU0.63 INH; +ALEN70TA57 PO; +ASCO25TA PO; +ASCO500T PO; +BACITAB PO; +CEFU1TAB20 PO; +DOCU100C16 PO; +DULO1CAP PO; +FERR325T3 PO; +FLEC50HA PO; +FLUT1SPR2; -GASTROGRAFIN SOLUTION 30ML (Q9963) As Ordered; +GUAI1TAB PO; -ISOVUE-370 76% 100ML VIAL (Q9967) As Ordered; +LASI40TA9 PO; +LEVA12INH INH; +LEVA1TAB2 PO; +LEVAINH INH; +MAG400TA PO; +MILK120011 PO; +MORP20SO3 PO; +ONDA4TAB6 PO; +OXYB10TA PO; +PERCOCET PO; +PRED10TA2 PO; +PROT1TAB2 PO; +PROTPAK PO; +RANI300T PO; +SENN1TAB2 PO; +SPIR1CAP INH; +TAMBOCAR PO; +TRAM50TA2 PO; +VITA-122 PO; +VITA100066 PO; +VITA500046 PO; +VITMTA PO; +ZANT300T9 PO; +[UNRECOGNIZED DRUG - CODE] PO
[2018-01-28 13:36] LABS: URINE TOTAL PROTEIN 20.8 MG/DL (0-12)
[2018-01-28 18:14] LABS: TOTAL PROTEIN 24 HOUR URINE 275.6 MG/24HR (50-150)
== END ==
LOC: M LAB 12:48
PROVIDERS: ATTEND Internal Medicine Medical Oncology
DX: R60.9 Edema, unspecified (principal)

== ENCOUNTER → 2018-01-30 | Outpatient (CLI) | payer MEDICARE | LOC: M LAB 08:00 | PROVIDERS: ATTEND Internal Medicine Medical Oncology | DX: R60.9 Edema, unspecified (principal) ==

== ENCOUNTER → 2018-04-06 | Outpatient (CLI) | payer MEDICARE ==
[~2018-04-06] MED LIST changes: +GASTROGRAFIN SOLUTION 30ML (Q9963) As Ordered ONE; +ISOVUE-370 76% 100ML VIAL (Q9967) As Ordered ONE
--- NOTE | 2018-04-06 17:04 | REP ---
Clinical: Metastatic endometrial carcinoma. Technique: Axial contrast enhanced images from the thoracic inlet to the upper abdomen with coronal and sagittal re-formations using 100 ml Isovue 370 intravenous contrast material. Findings: Advanced COPD and emphysematous changes with scattered areas of fibrosis and scarring are again identified and essentially stable. Associated dilated pulmonary arteries consistent with pulmonary hypertension unchanged. Few scattered pulmonary nodules and mass lesions measuring up to approximately 11.5 mm remains stable. No new suspicious nodule or mass lesion identified. No pleural effusion. No pneumothorax. No obvious mediastinal or hilar adenopathy noted. Atherosclerotic changes to the thoracic aorta and coronary arteries identified. No aortic aneurysm or dissection. No cardiomegaly. No pericardial effusion. Surrounding musculoskeletal structures demonstrate age-related degenerative changes and old healed rib fractures. Impression: 1. Advanced COPD and emphysematous changes with scarring and fibrosis as well as pulmonary hypertension unchanged. 2. Few scattered pulmonary lesions remains stable. No new nodule/mass or adenopathy appreciated. Electronically Signed by Brannon Zepeda MD 04/06/2018 04:56 P
--- NOTE | 2018-04-06 17:13 | REP ---
Clinical: History of metastatic endometrial carcinoma. Technique: Axial contrast enhanced images from the lung bases to the pubic symphysis using oral (per protocol) and 100 ml Isovue 370 intravenous contrast material along with precontrast and delayed images of the abdomen. Sagittal and coronal re-formations obtained. Comparison: 12/14/2017. Findings: Liver, spleen, pancreas, gallbladder, bilateral adrenal glands and kidneys are relatively normal / stable. Renal hypodensities are again identified and likely represent cysts. The enteric system is without obstruction or acute inflammatory process. A left inguinal hernia is identified containing nonobstructed small bowel similar to prior examination. Pelvis demonstrates a relatively stable appearance to the heterogeneous enhancing mass demonstrating central necrosis and gas currently measuring approximately 5.9 x 5.5 cm maximal diameter and roughly 7.7 cm craniocaudal length. The bladder appears unremarkable. No significant pelvic ascites. Small satellite lesions within the pelvis cannot definitively be excluded and evaluation is limited due to the lack of pelvic fat and proximity of the surrounding small and large bowel. No significant ascites. No free air. No obvious intraperitoneal or obvious retroperitoneal adenopathy. Atherosclerotic changes of the aorta and vasculature noted without aneurysm. Musculoskeletal structures demonstrate scoliosis and degenerative changes without focal osseous abnormality. Impression: 1. Heterogeneous necrotic pelvic mass essentially unchanged compared to prior examination. No obvious associated ascites, definite adenopathy or satellite lesion appreciated. 2. Renal hypodensities remain stable and compatible with cysts. 3. Left inguinal hernia contains nonobstructed small bowel. Electronically Signed by Brannon Zepeda MD 04/06/2018 05:05 P
== END ==
LOC: M RAD 14:58
PROVIDERS: ATTEND Internal Medicine Hematology & Oncology
DX: J44.9 Chronic obstructive pulmonary disease, unspecified (principal); I27.20 Pulmonary hypertension, unspecified; R93.41 Abnormal radiologic findings on diagnostic imaging of renal pelvis, ureter, or bladder; R93.429 Abnormal radiologic findings on diagnostic imaging of unspecified kidney; K40.90 Unilateral inguinal hernia, without obstruction or gangrene, not specified as recurrent
CPT/HCPCS: 71260; 74178; Q9963; Q9967

== ENCOUNTER → 2018-09-27 | Outpatient (CLI) | payer MEDICARE ==
[~2018-09-27] MED LIST changes: -ALEN70TA57 PO; +ALEN70TA74 PO; +ALPR0.25 PO; +AMOX500T2 PO; -ASCO25TA PO; +CEFU50TA PO; +CEPH25SS PO; +CVS50CAP PO; -DULO1CAP PO; +DULO1CAP4 PO; +FLEC25TA PO; +KEYT1INJ IV; -OXYB10TA PO; +OXYB10TA2 PO; +PRED10PA PO; +PRED5TA PO; -SENN1TAB2 PO; +SENN1TAB40 PO; +SULF1TAB93 PO; +VITA1TAB23 PO; +VITAD1000T PO
--- NOTE | 2018-09-28 10:31 | REP ---
CT of the chest with IV contrast for metastatic endometrial carcinoma: Comparisons are 12/14/2017 and 04/06/2018. The study is performed with IV contrast. Numerous bulla replace the lung parenchyma as previously. There are the following lung nodules: Right upper lobe on image 31, 9 mm, this measured 11 - 12 mm previously. Left upper lobe, image 42, 6 mm, this measured 12 mm previously. Left lower lobe, image 58, 9 mm, this measures eight - 10 mm previously. Left lower lobe, image 66, 8 mm. This measured 8 mm previously. There are focal areas of consolidation and scarring accompanied by surgical clips in the right upper lobe, unchanged. There is parenchymal scarring in the left upper lobe, unchanged. There are no new lung nodules. There are no acute infiltrates or pleural effusions. There is no mediastinal or hilar lymph node enlargement. There is no axillary lymph node enlargement. The thoracic aorta is unremarkable. Cardiac size is normal. There is no pericardial effusion. No lytic, blastic or destructive skeletal changes are identified. Impression: There are multiple lung nodules as described. No enlarging lung nodules are identified. There are There are chronic zones of parenchymal scarring, unchanged. There is extensive bullous replacement of the lung parenchyma, unchanged. There is no adenopathy, acute infiltrate or pleural effusion. Electronically Signed by Kory Muñoz MD 09/28/2018 10:23 A
--- NOTE | 2018-09-28 11:30 | REP ---
CT of the abdomen pelvis without and with IV contrast and with bowel contrast: Comparison is 04/06/2018. A large necrotic mass is 810 identified in the pelvis. This has increased in size today measuring 6.2 x 8.2 by 10.0 cm. This previously measured 5.9 x 5.5 x 7.7 cm and the head of the No pelvic adenopathy is identified. There is no ascites. There are bilateral inguinal hernias containing nonobstructed bowel bilaterally. The bladder is unremarkable. Abdomen: The hepatic parenchyma is homogeneous. The gallbladder, pancreas and spleen are unremarkable. The adrenals are unremarkable. There are small bilateral renal Bosniak type 1 cysts, unchanged. The kidneys are otherwise unremarkable. The abdominal aorta is unremarkable except for calcified atheroma. There is no periaortic adenopathy or mass. The bowel and mesentery are unremarkable. There is no ascites. Impression: The patient's known pelvic necrotic mass has increased in size. There are bilateral inguinal hernias containing nonobstructed bowel bilaterally. There is no adenopathy or ascites. Bilateral renal simple cysts are again identified. Electronically Signed by Kory Muñoz MD 09/28/2018 11:21 A
== END ==
LOC: M RAD 15:40
PROVIDERS: ATTEND Nurse Practitioner Family
DX: C54.1 Malignant neoplasm of endometrium (principal)
CPT/HCPCS: 71260; 74178; Q9963; Q9967

== ENCOUNTER → 2018-10-17 | Outpatient (CLI) | payer MEDICARE ==
[~2018-10-17] MED LIST changes: +CHOL100029 PO; -GASTROGRAFIN SOLUTION 30ML (Q9963) As Ordered ONE; -ISOVUE-370 76% 100ML VIAL (Q9967) As Ordered ONE; -VITAD1000T PO
--- NOTE | 2018-10-18 07:57 | ECHO ---
DATE OF PROCEDURE: 10/17/2018 REFERRING PHYSICIAN: Rosario Vieira MD INDICATION: Assessment of LV systolic function prior to chemotherapy. HEIGHT: 154 cm WEIGHT: 48 kg DIMENSIONS: RV 1.0 LV 4.2 LVPW 1.0 LA 2.4 Aorta 3.9 IVC 1.6 Left atrial volume index 22 Mitral E wave velocity 104, A-wave 79 E prime septal 8.5 E prime lateral 10.3 FINDINGS: The study is of acceptable technical quality. Left ventricle is normal size and systolic function. Left ventricular ejection fraction is computer calculated 62%. Right ventricle is also normal size and systolic function. Both atria appear normal. All four cardiac valves were reasonably well seen. There are minimal degenerative abnormalities of aortic and mitral valve but mobility of both is preserved. Tricuspid and pulmonic valves appear normal. There is marginally enlarged aortic root measuring 3.9 cm. Aortic arch was not well seen, abdominal aorta appears normal. No pericardial effusion is noted. Inferior vena cava is normal size. Doppler interrogation of aortic valve reveals no stenosis or insufficiency. There is trace mitral insufficiency and trace tricuspid insufficiency. It was not possible to calculate pulmonary artery pressure due to poor quality of tricuspid insufficiency jet. Pulmonic valve is functionally competent. Mitral inflow pattern and tissue Doppler image of mitral annulus reveal normal diastolic functional left ventricle. CONCLUSION: 1. Study is of acceptable technical quality. 2. Normal LV size with normal LV systolic and diastolic function. 3. No hemodynamically significant valvular disease. 4. Normal central venous pressure. 5. Unable to estimate pulmonary artery pressure. 6. Marginally dilated aortic root measuring 3.9 cm. COMMENTS: SBE prophylaxis is not recommended.
== END ==
LOC: M CARPUL 10:13
PROVIDERS: ATTEND Internal Medicine Hematology & Oncology
DX: C34.90 Malignant neoplasm of unspecified part of unspecified bronchus or lung (principal); Z79.899 Other long term (current) drug therapy

== ENCOUNTER 2018-10-26 17:20 | Outpatient (CLI) | payer MEDICARE ==
[~2018-10-26] VITALS: Ht 154.9 cm; Wt 48.2 kg
[2018-10-26 18:30] VITALS: BP 124/58
== END 2018-10-26 22:15 | disposition home or self-care (01) ==
LOC: M MSPAV 17:20 → M INFU 17:20
PROVIDERS: ATTEND Nurse Practitioner Family
DX: D64.9 Anemia, unspecified (principal)

== ENCOUNTER 2018-11-02 11:10 | Outpatient (RCR) | payer MEDICARE ==
[2017-11-11 09:09] LABS: HEMATOCRIT 37.1 % (37.0-51.0); HEMOGLOBIN 11.4 g/dl (12.0-18.0); LYMPH % 8.5 % (10.0-58.5); MEAN CORPUSCULAR HEMOGLOBIN 29.7 pg (26.0-32.0); MEAN CORPUSCULAR HGB CONC 30.7 g/dl (31.0-36.0); MEAN CORPUSCULAR VOLUME 96.5 fl (80.0-97.0); NEUTROPHILS # 12.9 10^3/uL (2.0-7.8); NEUTROPHILS % 88.9 % (37.0-92.0); RED BLOOD COUNT 3.84 10^6/uL (4.2-6.3); WHITE BLOOD COUNT 14.5 10^3/uL (4.1-10.9)
[2017-11-11 09:45] LABS: ALBUMIN 3.6 GM/DL (3.5-5.2); BLOOD UREA NITROGEN 12 MG/DL (6-20); CALCIUM LEVEL 9.9 MG/DL (8.5-10.2); CARBON DIOXIDE LEVEL 31.3 MEQ/L (23-31); CHLORIDE LEVEL 93 MMOL/L (98-107); CREATININE FOR GFR 0.49 MG/DL (0.60-1.10); GLUCOSE, FASTING 144 MG/DL (70-105); SODIUM LEVEL 129.9 MMOL/L (136-145); TOTAL PROTEIN 6.8 GM/DL (6.4-8.3)
[2017-11-11 09:46] LABS: GLOMERULAR FILTRATION RATE > 60.0 (>45)
[2017-11-11 09:59] VITALS: BP 123/74
[2017-11-11 11:27] LABS: CREATININE,RANDOM URINE 32.9 MG/DL
--- NOTE | 2017-11-15 06:42 | MEDONC ---
MEDICAL ONCOLOGY FOLLOWUP/TREATMENT VISIT DATE OF SERVICE: 11/11/2017 DIAGNOSIS: Local regional recurrence of papillary serous uterine carcinoma involving dominant left lower pelvic mass, poorly differentiated, MMR - mutated/MSI high, on palliative treatment with pembrolizumab. TREATMENT HISTORY: Pelvic radiation 08/07/2015 - 09/18/2015, 4000 cGy. Carboplatin/paclitaxel three cycles, stopped due to difficulty tolerating, third cycle November 2015 complicated by pneumonia, bronchopleural fistula, recurrent pneumothorax, status post talc pleurodesis and wedge resection. Followed closely in pulmonology by Dr. Mckeon. 07/2017 pelvic recurrence with 11 cm left pelvic sidewall mass, hypermetabolic, with numerous pleural-based hypermetabolic thoracic foci inflammatory versus post pleurodesis changes. Pelvic mass biopsy with high-grade carcinoma consistent with history of papillary serous carcinoma, MMR with MSH6 deficiency. CURRENT THERAPY: Pembrolizumab q. 3 weeks, day 1 cycle one 09/30/2017. Treatment has been complicated by C. difficile colitis and hospitalization for same. INTERVAL HISTORY: Soheila is feeling much better now, has completed an antibiotic course of vancomycin. Her diarrhea is gone. She feels her pelvic mass is reduced in size. She has less urinary urgency, less abdominal pain. REVIEW OF SYSTEMS: In addition to pertinent positives and negatives above, the patient denies any diarrhea, bloody stool. Denies urinary urgency, pain, early satiety, nausea, vomiting, postprandial vomiting, constipation, leg cramping or swelling, shortness of breath, cough. Remainder of 12 system review negative. PHYSICAL EXAMINATION: Weight 44 kg, temperature 96.7, blood pressure 123/74, heart rate 113, respiratory rate 89. Patient is a petite older woman, extremely hard of hearing, wearing hearing aids, with supplemental O2 via nasal cannula in no distress, well groomed, made up, pleasant, smiling, accompanied by her daughter. RESPIRATORY: Distant breath sounds, no wheezes audible. No rales audible. CARDIAC: Distant heart sounds S1-S2, regular rate and rhythm. ABDOMEN: Soft, bulbous, nontender. No palpable mass. No palpable pelvic tenderness. No hepatomegaly or splenomegaly. EXTREMITIES: No edema. LYMPH NODES: No palpable submandibular, cervical, supraclavicular or axillary adenopathy bilaterally. LABS: WBC 14, still elevated from baseline which is 7-9, hemoglobin 11, hematocrit 37, platelets 508. Sodium 129, again low which it has been over three weeks' time, previously normal, chloride 93, bicarb 31, BUN 12, creatinine 0.49, normal liver functions, albumin 3.6, TSH 0.917. CA-125 62 in August, today is pending. IMPRESSION: Soheila Harrison is a 66-year-old woman with chronic severe bronchopulmonary disease on supplemental oxygen, personal history of high-grade uterine carcinoma with pelvic recurrence in 2018, MSI high with MSH deficiency, on palliative treatment with pembrolizumab status post one cycle with clinical response complicated by C. difficile colitis, now clinically resolved, completing vancomycin antibiotics. Much improved by exam and clinically. Still with mild leukocytosis and some new hyponatremia uncertain etiology. PLAN: 1. Urine creatinine and sodium to check FENa. 2. Will proceed with pembrolizumab today. 3. Followup CA-125. 4. The patient still needs genetics counseling for possible Pulliam syndrome, but has had such an up and down renetta course of the last few months since recurrence, this has not been a high priority yet. Electronically Signed by Kaya Conway MD 11/18/2017 08:06 A DD: Kaya Conway MD 11/11/2017 05:04 P DT: [email or web address] 11/15/2017 06:30 A CC: Rick Mckeon DO, [facility] Bailey Kim DO
[2017-12-02 09:16] LABS: HEMATOCRIT 34.5 % (37.0-51.0); HEMOGLOBIN 10.4 g/dl (12.0-18.0); LYMPH % 10.5 % (10.0-58.5); MEAN CORPUSCULAR HEMOGLOBIN 29.9 pg (26.0-32.0); MEAN CORPUSCULAR HGB CONC 30.1 g/dl (31.0-36.0); MEAN CORPUSCULAR VOLUME 99.2 fl (80.0-97.0); NEUTROPHILS % 86.6 % (37.0-92.0); RED BLOOD COUNT 3.48 10^6/uL (4.2-6.3); WHITE BLOOD COUNT 11.5 10^3/uL (4.1-10.9)
[2017-12-02 09:20] VITALS: BP 110/68
[2017-12-02 09:27] LABS: ALBUMIN 3.4 GM/DL (3.5-5.2); BLOOD UREA NITROGEN 10 MG/DL (6-20); CALCIUM LEVEL 9.4 MG/DL (8.5-10.2); CARBON DIOXIDE LEVEL 28 MEQ/L (23-31); CHLORIDE LEVEL 97 MMOL/L (98-107); GLOMERULAR FILTRATION RATE > 60.0 (>45); GLUCOSE, FASTING 118 MG/DL (70-105); POTASSIUM SERUM 3.8 MMOL/L (3.5-5.1); SODIUM LEVEL 131 MMOL/L (136-145); TOTAL PROTEIN 6.2 GM/DL (6.4-8.3)
[2017-12-07 13:07] LABS: HEMATOCRIT 34.2 % (37.0-51.0); HEMOGLOBIN 10.9 g/dl (12.0-18.0); LYMPH % 13.5 % (10.0-58.5); MEAN CORPUSCULAR HEMOGLOBIN 31.5 pg (26.0-32.0); MEAN CORPUSCULAR HGB CONC 31.9 g/dl (31.0-36.0); MEAN CORPUSCULAR VOLUME 98.8 fl (80.0-97.0); NEUTROPHILS # 6.9 10^3/uL (2.0-7.8); RED BLOOD COUNT 3.46 10^6/uL (4.2-6.3); WHITE BLOOD COUNT 8.4 10^3/uL (4.1-10.9)
[2017-12-07 13:17] LABS: ALBUMIN 3.2 GM/DL (3.5-5.2); BLOOD UREA NITROGEN 9 MG/DL (6-20); CALCIUM LEVEL 8.9 MG/DL (8.5-10.2); CARBON DIOXIDE LEVEL 31 MEQ/L (23-31); CHLORIDE LEVEL 95 MMOL/L (98-107); GLOMERULAR FILTRATION RATE > 60.0 (>45); GLUCOSE, FASTING 114 MG/DL (70-105); POTASSIUM SERUM 3.6 MMOL/L (3.5-5.1); SODIUM LEVEL 129 MMOL/L (136-145); TOTAL PROTEIN 5.8 GM/DL (6.4-8.3)
[2017-12-07 13:32] VITALS: BP 108/64
--- NOTE | 2017-12-08 13:18 | MEDONC ---
MEDICAL ONCOLOGY FOLLOWUP/URGENT VISIT DATE OF SERVICE: 12/07/2017 DIAGNOSIS: Local - regional recurrence of papillary serous uterine carcinoma involving dominant left lower lobe pelvic mass poorly differentiated MMR - mutated/MSI high on palliative pembrolizumab status post three cycles. TREATMENT HISTORY: Please see 11/11/2017 note. CURRENT THERAPY: Pembrolizumab at every 3 weeks day one cycle one 09/30/2017. Treatment complications include C diff colitis. Most recent cycle #3 12/02/2017. INTERVAL HISTORY: Soheila is here for an urgent visit after complaining of abdominal pain and diarrhea for several days after her pembrolizumab which was given 5 days ago on a the . She by herself took a prednisone she had leftover and says she felt better. The diarrhea resolved on its own after a few days. She would have several loose bowel movements without blood early in the day, but not throughout the day. She is able to eat normally. She does notice some low grade low abdominal discomfort. On close questioning (the patient is extremely hard of hearing) the pain she is having is similar to the pain she has had on and off since her diagnosis the last spring. She has not had restaging at this point and it may be appropriate now after three cycles to take a look given this new complaint. Prior to that she was doing very well until developing C difficile colitis. She received vancomycin treatment for that with rapid resolution of symptoms. REVIEW OF SYSTEMS: In addition to pertinent positives and negatives above, the patient denies fevers, sweats unintended weight loss, shortness of breath that has changed (she has chronic O2 dependent) or new musculoskeletal pain. Remainder of 12 system review negative. PHYSICAL EXAMINATION: Weight 45.6 kg, temperature 98.7, blood pressure 108/64, heart rate 93, respiratory 24, O2 sat 93% on to 2 liters of O2. Respiratory: Clear lungs, distant. No wheezes or rales. Cardiac: S1-S2 regular rate and rhythm. No murmurs or gallops. Abdomen: Nondistended, soft, minimal diffuse lower abdominal tenderness without palpable mass and no rebound tenderness, able to tolerate palpation without flinching. No hepatomegaly or splenomegaly. No suprapubic tenderness. Extremities: No edema. Lymph nodes: No palpable submandibular, cervical, supraclavicular or axillary or inguinal adenopathy. LABORATORY DATA: WBC 8.4, hemoglobin 10.9, hematocrit 34, platelets 423, MCV 98, sodium remains low 129, potassium normal 3.6, BUN 9, creatinine 0.6. IMPRESSION: Soheila Harrison is a 67-year-old woman with pelvic recurrence of endometrial carcinoma which is MSI high on first-line palliative treatment with pembrolizumab. She was diagnosed with C diff colitis after her second cycle completed treatment and resumed treatment on that 02 of December had a few days of diarrhea which has resolved and has some crampy abdominal pain with a fairly bland and benign abdominal exam today. Notably WBC has normalized from previous leukocytosis during C diff infection. The signs and symptoms do not correlate with a immunotherapy mediated colitis, but that is in the differential. I am not able to appreciate a pelvic mass on exam today. She has hyponatremia which may be causing some of her GI symptoms, the cause of this is unexplained. PLAN: 1. Abdomen and pelvis CT with by mouth and IV contrast. 2. Chest CT with contrast. The above are restaging. 3. I will plan to see Soheila back in 3 weeks from the for her cycle for pembrolizumab. As long as she has no interval recurrence of diarrhea symptoms we can proceed as outlined and I will discuss the results when I see her. If there are concerning new findings or her diarrhea recurs, she is to return to clinic and we will regroup and rule out a C diff recurrence versus immunotherapy related colitis which would be treated diametrically differently vancomycin or another antibiotic in the first case, high-dose corticosteroids in the second case. Electronically Signed by Kaya Conway MD 12/09/2017 02:59 P DD: Kaya Conway MD 12/07/2017 06:05 P DT: buddy 12/08/2017 12:46 P CC: Bailey Kim DO
[2017-12-23 09:12] LABS: HEMATOCRIT 35.3 % (37.0-51.0); LYMPH % 12.2 % (10.0-58.5); MEAN CORPUSCULAR HEMOGLOBIN 30.3 pg (26.0-32.0); MEAN CORPUSCULAR HGB CONC 31.2 g/dl (31.0-36.0); MEAN CORPUSCULAR VOLUME 97.2 fl (80.0-97.0); NEUTROPHILS # 8.5 10^3/uL (2.0-7.8); NEUTROPHILS % 80.8 % (37.0-92.0); RED BLOOD COUNT 3.63 10^6/uL (4.2-6.3); WHITE BLOOD COUNT 10.5 10^3/uL (4.1-10.9)
[2017-12-23 09:24] LABS: ALBUMIN 2.8 GM/DL (3.5-5.2); BLOOD UREA NITROGEN 9 MG/DL (6-20); CALCIUM LEVEL 8.8 MG/DL (8.5-10.2); CARBON DIOXIDE LEVEL 31 MEQ/L (23-31); CHLORIDE LEVEL 91 MMOL/L (98-107); CREATININE FOR GFR 0.59 MG/DL (0.60-1.10); GLUCOSE, FASTING 99 MG/DL (70-105); POTASSIUM SERUM 3.7 MMOL/L (3.5-5.1); SODIUM LEVEL 124 MMOL/L (136-145); TOTAL PROTEIN 5.7 GM/DL (6.4-8.3)
[2017-12-23 09:25] LABS: GLOMERULAR FILTRATION RATE > 60.0 (>45)
[2017-12-23 09:40] LABS: THYROID STIMULATING HORMONE 1.09 uIU/ML (0.358-3.740)
[2017-12-23 09:53] VITALS: BP 108/62
[2017-12-23 10:15] LABS: CA 125 15.3 U/ML (<30.2)
[2017-12-23 11:21] LABS: APPEARANCE, URINE HAZY (CLEAR); BACTERIA, URINE AUTO 1+ (NEGATIVE); BILIRUBIN, URINE AUTO NEGATIVE (NEGATIVE); BLOOD, URINE BLOOD 1+ (NEGATIVE); COLOR, URINE YELLOW (YELLOW); GLUCOSE, URINE (UA) AUTO NEGATIVE (NEGATIVE); KETONE, URINE AUTO NEGATIVE (NEGATIVE); LEUKOCYTE ESTERASE, URINE AUTO 3+ (NEGATIVE); MUCUS, URINE SMALL (NEGATIVE); NITRITE, URINE AUTO NEGATIVE (NEGATIVE); PROTEIN, URINE AUTO NEGATIVE (NEGATIVE); RBC, URINE AUTO 3 /HPF (0-3); SPECIFIC GRAVITY URINE AUTO 1.013 (1.002-1.035); SQUAMOUS EPITHELIAL CELL UR AU 0 /HPF (0-6); UROBILINOGEN, URINE AUTO 0.2 mg/dL (0.0-2.0); WBC, URINE AUTO 85 /HPF (0-3)
[2017-12-23 11:58] LABS: OSMOLALITY URINE 433 MOSM/KG (500-800)
[2017-12-23 12:12] LABS: CHLORIDE,RANDOM URINE 121 MEQ/L; POTASSIUM RANDOM URINE 27.3 MEQ/L; SODIUM,RANDOM URINE 105 MEQ/L
[2017-12-23 12:14] LABS: CORTISOL AM 14.8 UG/DL (4.3-22.4)
--- NOTE | 2017-12-26 08:01 | MEDONC ---
MEDICAL ONCOLOGY FOLLOWUP VISIT DATE OF SERVICE: 12/23/2017 DIAGNOSIS: 1. Local - regional recurrence of papillary serous uterine carcinoma involving dominant left lower lobe pelvic mass poorly differentiated, MMR - mutated/MSI high, on palliative pembrolizumab, status post three cycles. 2. Progressive hyponatremia of unclear etiology. TREATMENT HISTORY: Please see 11/11/2017 note. CURRENT THERAPY: Pembrolizumab every 3 weeks, day 1 cycle one 09/30/2017. Treatment complicated by C. difficile colitis. Most recur recent cycle number three 12/02/2017. INTERVAL HISTORY: Soheila presents today for a followup visit, blood work and tentatively day 1 cycle four of pembrolizumab. At present, she claims to be in her usual state of health. She was seen most recently by Dr. Conway for recurrent diarrhea and some low grade low abdominal discomfort. Upon close questioning, the pain, however, is similar to the pain that Soheila has had on and off since her diagnosis last spring. Soheila presents today reporting no interval recurrence of diarrhea symptoms since we saw her on 12/07/2017. She offers no complaints of progressive dyspnea (she is O2 dependent on 2 liters of O2). She denies any fevers or chills, new lumps or bumps or rashes. Current restaging CT scans of the chest, abdomen and pelvis done on 12/14/2017 once again identified advanced COPD changes. Stable nodular and band-like pulmonary parenchymal opacities. No new pulmonary nodules seen. CT of the abdomen and pelvis fortunately confirms significant decrease in the size of the patient's necrotic peripheral enhancing pelvic mass currently measuring 5.5 x 6.3 x 6.4 cm, previous dimensions were 12.7 x 10.0 x 10.0 cm in October of 2017. These results were reviewed with Soheila and her daughter today. She was so happy to hear these findings. PHYSICAL EXAMINATION: Weight is 45.9 kg, temperature 98.5, pulse 92, respirations 24, BP 108/62, O2 sat 91%, currently on 3 liters of nasal O2. GENERAL: Exam reveals a petite older woman, extremely hard of hearing, wearing hearing aids, with supplemental O2 via nasal cannula in place. Well-groomed, smiling, accompanied by her daughter. CARDIAC: Distant S1-S2, regular rate and rhythm. RESPIRATORY: Distant breath sounds bilaterally. No wheezes or rales audible. ABDOMEN: Soft, nontender. No palpable mass. No palpable pelvic tenderness, hepatosplenomegaly. EXTREMITIES: No edema. LABORATORY DATA: CBC: Today WBC 10.5, ANC 8.5, RBC 3.63, hemoglobin and hematocrit 11 and 35.3, platelets 572. Chemistries reveal a sodium of 124, creatinine of 0.59. All other values are unremarkable. A CA-125 antigen is pending. TSH is within normal parameters at 1.090. IMPRESSION: Soheila is a williams 66-year-old female with chronic severe bronchopulmonary disease on supplemental oxygen, personal history of high-grade uterine carcinoma with pelvic recurrence in 2018, MSI high with MSH deficiency, on palliative treatment with pembrolizumab, status post three cycles to date with clinical response as evidenced on the patient's most recent restaging CT scans of the chest, abdomen and pelvis dated 12/14/2017. Unfortunately,the patient has progressive hyponatremia of uncertain etiology. PLAN: 1. Hold day 1 cycle number four pembrolizumab today. 2. Obtain additional laboratory testing including serum and urine osmolality, stat urine spot lytes, urine sodium and creatinine and a cortisol level. 3. The patient was advised to decrease her fluid intake to no more than four cups per day. 4. Return tentatively on 01/02/[address] Conway, repeat blood work, ongoing decision making regarding the patient's hyponatremia and for possible rescheduled day 1 cycle four of pembrolizumab. Soheila was advised to contact us in the interim with any new symptoms, questions or problems. Reviewed by Araseli Lancaster NP 12/27/2017 07:18 A Electronically Signed by Kaya Conway MD 12/28/2017 12:41 P DD: Araseil aLncaster NP 12/23/2017 10:12 A DT: ricardo 12/26/2017 07:50 A CC: Rick Mckeon DO, [facility] Bailey Kim DO
[2018-01-02 11:15] LABS: HEMATOCRIT 32.4 % (37.0-51.0); HEMOGLOBIN 10.3 g/dl (12.0-18.0); LYMPH % 10.2 % (10.0-58.5); MEAN CORPUSCULAR HEMOGLOBIN 30.7 pg (26.0-32.0); MEAN CORPUSCULAR HGB CONC 31.8 g/dl (31.0-36.0); MEAN CORPUSCULAR VOLUME 96.8 fl (80.0-97.0); NEUTROPHILS # 8.9 10^3/uL (2.0-7.8); NEUTROPHILS % 83.2 % (37.0-92.0); RED BLOOD COUNT 3.35 10^6/uL (4.2-6.3); WHITE BLOOD COUNT 10.7 10^3/uL (4.1-10.9)
[2018-01-02 11:27] LABS: ALBUMIN 2.5 GM/DL (3.5-5.2); BLOOD UREA NITROGEN 8 MG/DL (6-20); CALCIUM LEVEL 8.7 MG/DL (8.5-10.2); CARBON DIOXIDE LEVEL 32 MEQ/L (23-31); CHLORIDE LEVEL 96 MMOL/L (98-107); CREATININE FOR GFR 0.63 MG/DL (0.60-1.10); GLOMERULAR FILTRATION RATE > 60.0 (>45); GLUCOSE, FASTING 108 MG/DL (70-105); POTASSIUM SERUM 3.2 MMOL/L (3.5-5.1); SODIUM LEVEL 131 MMOL/L (136-145); TOTAL PROTEIN 5.3 GM/DL (6.4-8.3)
[2018-01-02 12:06] VITALS: BP 100/61
--- NOTE | 2018-01-03 08:03 | MEDONC ---
MEDICAL ONCOLOGY FOLLOWUP DATE OF SERVICE: 01/02/2018 DIAGNOSIS: 1. 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 2. Hyponatremia, uncertain etiology, emerging over the last 3 months or so. TREATMENT HISTORY: Please see 11/11/2017 note. CURRENT THERAPY: Pembrolizumab q. 3 weeks day 1, cycle one 09/30/2017. Restaging CT chest, abdomen and pelvis as of cycle three with evidence of major response to treatment with more than 50% reduction in the size of the dominant pelvic mass. No evidence of lung progression. INTERIM HISTORY: Soheila reports a few days of nausea. Sodium today is better at 131. She was asked to fluid restrict on her last visit here and her daughter and she report she has been drinking less free water. She denies any alcohol intake over several years. She does not have an alcohol abuse history. She follows with Dr. Kim for chronic pulmonary disease, frequent hospitalization, O2 dependence, bronchiectasis, off and on antibiotics. According to Dr. Kim there is no history of hyponatremia. She is not on a thiazide. She complains of some nausea, throwing up and a little dizziness in the last few days. We talked about a head CT with contrast and continuing off pembrolizumab. Her last dose was 12/02/2017. She has no other signs or symptoms consistent with hypopituitarism or hypophysitis, TSH currently 0.732, CA-125 now 15 down from baseline 63. PHYSICAL EXAMINATION: Weight 97 kg, temperature 98.5, blood pressure 100/61, heart rate 104, respiratory rate 18, O2 sat 88%. Patient is a petite extremely well groomed woman with nasal cannula in place. RESPIRATORY: Diffuse wheezes throughout. CARDIAC: S1-S2, mild tachycardia. No murmurs. ABDOMEN: Nondistended, nontender, no palpable dominant mass. EXTREMITIES: No edema. LYMPH NODES: No palpable submandibular, cervical, supraclavicular or axillary adenopathy bilaterally. LABS: WBC 10.7, hemoglobin 10, hematocrit 32, platelets 522. Sodium 131, potassium 3.2, chloride 96, bicarb 32, BUN 8, creatinine 0.63, glucose 108, undetectable AST/ALT. Albumin 2.5. MED LIST: - albuterol - ascorbic acid - vitamin D - flecainide - lactobacillus - albuterol - multivitamin - pantoprazole - ranitidine - salmeterol - tiotropium IMPRESSION: Abdominal pelvic recurrence of uterine carcinoma in a 71-year-old woman with chronic O2 dependent bronchiectasis/COPD on palliative first line therapy with pembrolizumab for MSI high endometrial cancer with evidence of major partial response after three cycles. Treatment has been complicated by hyponatremia of uncertain etiology, responding to fluid restriction. No other evidence of metabolic disarray. PLAN: 1. For the present will hold further treatment. 2. Head CT with contrast, rule out intracranial metastases. 3. Continue to follow electrolytes on mild fluid restriction. If the patient improves to normal off therapy, we may need to consider as demeclocycline or other treatment for SIADH in order to continue her. Will continue to evaluate the electrolyte problem, but so far Soheila is doing very well on current therapy. Electronically Signed by Kaya Conway MD 01/04/2018 09:02 A DD: Kaya Conway MD 01/02/2018 04:36 P DT: [email or web address] 01/03/2018 07:54 A CC: Bailey Kim DO
[2018-01-26 11:22] VITALS: BP 102/62
[2018-01-26 11:53] LABS: HEMATOCRIT 29.6 % (36.0-47.0); HEMOGLOBIN 9.4 g/dl (12.0-15.5); LYMPH % 11.9 % (24.0-44.0); MEAN CORPUSCULAR HEMOGLOBIN 31.3 pg (27.0-33.0); MEAN CORPUSCULAR HGB CONC 31.8 g/dl (32.0-36.5); MEAN CORPUSCULAR VOLUME 98.6 fl (80.0-96.0); NEUTROPHILS # 5.5 10^3/uL (1.8-7.7); NEUTROPHILS % 82.8 % (36.0-66.0); WHITE BLOOD COUNT 6.7 10^3/uL (4.0-10.0)
[2018-01-26 12:14] LABS: BLOOD UREA NITROGEN 11 MG/DL (6-20); CALCIUM LEVEL 8.1 MG/DL (8.5-10.2); CARBON DIOXIDE LEVEL 30 MEQ/L (23-31); CHLORIDE LEVEL 96 MMOL/L (98-107); CREATININE FOR GFR 0.54 MG/DL (0.60-1.10); GLUCOSE, FASTING 89 MG/DL (70-105); POTASSIUM SERUM 4.8 MMOL/L (3.5-5.1); SODIUM LEVEL 129 MMOL/L (136-145); TOTAL PROTEIN 4.4 GM/DL (6.4-8.3)
[2018-01-26 12:15] LABS: GLOMERULAR FILTRATION RATE > 60.0 (>45)
[2018-01-26 12:47] LABS: C REACTIVE PROTEIN QUANTITATIV 6.31 MG/DL (0.00-0.30)
--- NOTE | 2018-01-27 07:08 | MEDONC ---
MEDICAL ONCOLOGY FOLLOWUP DATE OF SERVICE: 01/26/2018 DIAGNOSES: 1. Local - regional recurrence of papillary serous uterine carcinoma involving dominant left lower lobe, left lower pelvic mass with poorly differentiated adenocarcinoma, MMR mutated/MSI high on palliative pembrolizumab with major partial response following three cycles. Treatment on hold due to intercurrent complications. 2. Intermittent hyponatremia of uncertain etiology emerging over 2-3 months, becoming severe in late December, early January, pembrolizumab held. Trials of fluid restriction improved sodium, recent normal sodium measured in [facility] emergency room, brain imaging reportedly negative at outside hospital. INTERVAL HISTORY: Soheila's last pembrolizumab was 12/02/2017, held because of hyponatremia. In the intervening time, she has been to the emergency room at [facility] twice, initially diagnosed with UTI and more recently under Dr. Kim diagnosed with pneumonia. She is completing an antibiotic course now. She has developed severe lower extremity edema bilaterally. Her albumin is very low. She is having difficulty taking in much food, feeling very poorly. Her leg swelling impairs her ability to simply get up and get going. She elevates her legs every day. She cannot tolerate pulling on pressure stockings as it makes her short of breath. At baseline, she is oxygen dependent with severe bronchiectasis, bronchiolitis, and COPD. 01/09/[address] at [facility] showed a large liver 17 cm, normal appearance of gallbladder, adrenals, kidneys, spleen, pancreas. Diffuse atherosclerotic vascular calcifications. Normal bladder appearance. No bowel obstruction. Wall thickening at the ascending and descending segments and sigmoid colonic segment, significant adenopathy not seen. Mild to moderate diffuse stranding in the mesenteric fat with moderate to severe stranding in the subcutaneous fat possibly due to edema or anasarca versus cellulitis or fibrosis. This was a noncontrast abdomen and pelvis CT. Labs in the emergency room at [facility] showed normalized sodium. Soheila's chief complaints are follows: Leg swelling severe bilateral, intermittent nausea and vomiting with difficulty tolerating p.o.'s without nausea and vomiting. PHYSICAL EXAMINATION: Vital signs are normal. Temperature 98.4, blood pressure 106/62, heart rate 101, respiratory 24, O2 sat 93 (this blood pressure is only slightly below the patient's baseline as is the heart rate). Respiratory: Distant but non wheezy and clear breath sounds throughout the lung dugan. Cardiac: S1, S2. 1/6 systolic murmur. Occasional ectopy. Abdomen: Soft. Nontender. No palpable mass. No pelvic tenderness or mass. No palpable hepatomegaly. Extremities: 2+ pitting edema up to the knees bilaterally. LABORATORY DATA: WBC 6.7, hemoglobin 9.4, hematocrit 29.6, platelets 462, MCV 82, normal eosinophil and neutrophil, monocyte and lymphocyte count. Sodium 129, potassium 4.8, chloride 96, creatinine 0.5, BUN 11, calcium 8.1. AST, ALT 10 and 12. Alk phos 261. Albumin 2.0. C-reactive protein very elevated 6.31. ANDRE, ACTH pending. TSH normal 2.4. Serial plasmin triglycerides and transferrin also pending. Quantitative immunoglobulins and ANDRE pending. IMPRESSION: Soheila Harrison is a 67-year-old woman with O2 dependent COPD/bronchiectasis and a history of recurrent MSI high endometrial carcinoma status post three cycles of pembrolizumab with major response near complete resolution of a large left pelvic mass present at presentation. Since starting pembrolizumab, she has developed gradual onset hyponatremia. This subtly predated the start of pembrolizumab but much worsened in late November and through December, improved at different points. She has now got severe hypoalbuminemia and leg edema of uncertain etiology. CRP is extremely high. Vital signs overall unremarkable. No fever. Alk phos is somewhat high today with the enlarged liver but no abnormalities within the liver seen on noncontrast CT. My clinical impression is clouded. I am not sure what is at work with Soheila, what is apparently SIADH and hyponatremia. Her hypoalbuminemia remains unexplained. Because of immunotherapy exposure a possible new autoimmune process such as an autoimmune rheumatologic process like lupus with associated protein-losing enteropathy might be invoked; alternatively in the in light of her progressive anemia, intermittent diarrhea and nausea possibly celiac disease query. TSH today is normal. CRP is exceedingly high. We await the ANDRE. PLAN: Though unlikely, and working up the hypoalbuminemia in the following ways. 1. Rule out a protein-losing enteropathy with 24-hour stool for alpha-1 antitrypsin, serum alpha-1 antitrypsin transferrin, ceruloplasmin. All of these should be low in the setting of a protein-losing enteropathy. 2. ACTH is pending to assess for possible adrenal insufficiency syndrome, though it does not tie together all of the different complications Soheila has developed. 3. Echocardiogram, rule out CHF which could be associated with a lupus syndrome/protein-losing enteropathy. 4. 24-hour urine for protein looking for nephrotic range proteinuria. 5. I will see Soheila back after the above. As her sodium came back after she had departed today, I will call in some demeclocycline to see if we can help her with the hyponatremia, which I believe is making her symptomatic with nausea. TIME STATEMENT 40 minutes spent face to face with the patient more than 50% counseling regarding differential diagnosis of her panoply of findings as discussed above and together forming the plan outlined above. Electronically Signed by Kaya Conway MD 01/27/2018 02:53 P DD: Kaya Conway MD 01/26/2018 04:19 P DT: [email or web address] 01/27/2018 06:32 A CC: Bailey Kim DO
[2018-01-27 14:14] LABS: ALPHA 1 ANTITRYPSIN 250 mg/dL (90-200); ANTINUCLEAR ANTIBODIES DIRECT Negative (Negative); CERULOPLASMIN 13.9 mg/dL (19.0-39.0); TRANSFERRIN 61 mg/dL (200-370)
[2018-03-23 14:20] LABS: HEMATOCRIT 29.9 % (36.0-47.0); HEMOGLOBIN 9.7 g/dl (12.0-15.5); LYMPH % 14.2 % (24.0-44.0); MEAN CORPUSCULAR HEMOGLOBIN 37.2 pg (27.0-33.0); MEAN CORPUSCULAR HGB CONC 32.4 g/dl (32.0-36.5); MEAN CORPUSCULAR VOLUME 114.4 fl (80.0-96.0); NEUTROPHILS # 6.7 10^3/uL (1.8-7.7); NEUTROPHILS % 78.3 % (36.0-66.0); RED BLOOD COUNT 2.61 10^6/uL (4.00-5.40); WHITE BLOOD COUNT 8.6 10^3/uL (4.0-10.0)
[2018-03-23 14:38] VITALS: BP 113/68
[2018-03-23 15:46] LABS: ALBUMIN 3.2 GM/DL (3.5-5.2); BLOOD UREA NITROGEN 14 MG/DL (6-20); CARBON DIOXIDE LEVEL 30 MEQ/L (23-31); CHLORIDE LEVEL 97 MMOL/L (98-107); CREATININE FOR GFR 0.64 MG/DL (0.60-1.10); GLOMERULAR FILTRATION RATE > 60.0 (>45); GLUCOSE, FASTING 105 MG/DL (70-105); POTASSIUM SERUM 4.1 MMOL/L (3.5-5.1); SODIUM LEVEL 133 MMOL/L (136-145); TOTAL PROTEIN 6.2 GM/DL (6.4-8.3)
--- NOTE | 2018-03-27 11:27 | MEDONC ---
MEDICAL ONCOLOGY FOLLOWUP DATE OF SERVICE: 03/23/2018 DIAGNOSES: 1. 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 No evidence of hypophysitis, uncorrected thyroiditis; workup for a protein-losing enteropathy negative; non nephrotic range proteinuria. Now with major resolution of symptoms spontaneously. 2. Intermittent hyponatremia uncertain etiology emerging over 2-3 months, becoming severe in late December/early January 2018, pembrolizumab held at that point, trials of fluid restriction, improved sodium but even without fluid restriction sodium has waxed and waned. INTERVAL HISTORY: Soheila's last pembrolizumab was in late November. She has had none since. She has not been seen here since January. The weather has kept her away on multiple occasions. Without intervention, spontaneously she is feeling much better. Her lower extremity edema nearly completely resolved. She was found to have a very high CRP, I tested stool for protein-losing enteropathy and the results were not consistent with that. She reports feeling much better. PHYSICAL EXAMINATION: Weight 40.7 kg, down 9 kg, temperature is 100.1, blood pressure 113/60, heart rate 105, respiratory 20, O2 sat 91%. The patient is a very slender, petite, older woman, nasal cannula in place on 2 liters of oxygen. Respiratory: Distant clear breath sounds bilaterally. No wheezes, no rales. Cardiac: S1, S2 regular rate and rhythm. No murmurs or gallops. Abdomen: Soft, nontender. In the low pelvis there is a soft, slightly bulky protuberant mass in the left low pelvis, just left of pubic symphysis. No palpable inguinal adenopathy. No other palpable abdominal or pelvic mass. No hepatosplenomegaly. Extremities: 1+ pitting edema symmetric in the ankles. LABORATORY DATA: WBC 8.6, hemoglobin 9.7, hematocrit 29.9 platelets 557. CMP pending. CA125 pending. IMPRESSION: Soheila Harrison is a 67-year-old woman with the recurrent papillary serous uterine carcinoma involving lung and pelvis, MSI high, on palliative pembrolizumab until November with major partial response but stopped due to diffuse lower extremity edema, hyponatremia, malaise of uncertain etiology with high CRP but no labs yet defining hypophysitis, thyroiditis. No evidence of an autoimmune protein-losing enteropathy. She is feeling much, much better. Her lower extremity edema is much improved. I will follow up today's CMP to see how albumin is. Meanwhile, we will attempt some restaging scans. It is unclear whether there is evidence of recurrence on today's exam. There is a soft, non firm but protuberance in the left lower pelvic area, uncertain whether this reflects a hernia versus mass. PLAN: 1. CT chest, abdomen, and pelvis with p.o. and IV contrast for restaging. 2. Return to clinic after CTs. Electronically Signed by Kaya Conway MD 03/27/2018 04:09 P DD: Kaya Conway MD 03/23/2018 03:42 P DT: [email or web address] 03/27/2018 11:20 A CC: Bailey Kim,
[2018-04-07 10:33] VITALS: BP 116/70
--- NOTE | 2018-04-08 10:04 | MEDONC ---
MEDICAL ONCOLOGY FOLLOWUP: DATE OF SERVICE: 04/07/2018 DIAGNOSIS: Regional recurrent papillary serous uterine carcinoma, MSI high, involving dominant left lower pelvic mass diagnosed originally early 2015 treated with up front radiation followed by three cycles of carboplatin / Taxol. July 2017 pelvic recurrence with a large pelvic sidewall mass. Major partial response to pembrolizumab stopped after three cycles due to ill-defined medical complications. Now with stable disease on restaging scans 04/06/2018. TREATMENT HISTORY: Early 2015 diagnosis of papillary serous uterine carcinoma, large left lower pelvic mass up to 11 cm at time of diagnosis due to oxygen-dependent COPD, severe bronchiectasis nonsurgical candidate. Pelvic radiation 08/07/2015-09/18/2015, 4000 centigray. Carboplatin / paclitaxel, three cycles, 10/20/2015 - 11/2015 stopped for respiratory infectious complications, recurrent pneumothorax status post talc pleurodesis and wedge resection. Followed closely in pulmonology by Dr. Mckeon. 07/2017 pelvic recurrence with 11 cm left pelvic sidewall mass biopsy positive for high-grade carcinoma consistent with papillary serous carcinoma history, dMMR with MSH 6 deficiency. Pembrolizumab three cycles 09/30/2017 - 12/02/2017 with major partial response mass on this 12/14/2017 CT measuring 6.3 x 6.4 cm down from 12.7 x 10.0. Stopped due to diffuse debility, non nephrotic proteinuria, lower extremity edema, hyponatremia. Germ line testing for Pulliam syndrome has to date not been done. OTHER MEDICAL PROBLEMS: O2 dependent COPD / chronic severe bronchiectasis, recurrent pneumothorax. Indeterminate pulmonary nodules. Hearing loss. Hyponatremia. Unexplained massive lower extremity edema hyponatremia with his workup for autoimmune related hypophysitis, thyroiditis protein-losing enteropathy or nephrotic range proteinuria all negative. Spontaneous resolution of symptoms as of March 2018. CURRENT THERAPY: Soheila is on hiatus from first-line palliative therapy with pembrolizumab as detailed above. INTERVAL HISTORY: CT chest, abdomen and pelvis 04/06/2018 showed essentially stable disease. The left pelvic sidewall mass currently measures 5.9 x 5.5 x 7.7, no ascites. In the chest advanced COPD and emphysematous changes, a few scattered pulmonary lesions up to 11.5 mm are stable. Soheila herself feels well and asks about resuming treatment. 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 No thiazide on her med list. Most recent sodium 03/23/2018 133 I reviewed with Soheila and her daughter risks of pembrolizumab including but not limited to autoimmune hypophysitis, thyroiditis, dermatitis, cardial myositis, pneumonitis, colitis transaminitis and obtained written informed consent, wrote new orders for 200 mg every 3-weeks. We reviewed the film results. I answered all of her in her daughter's questions. IMPRESSION: Recurrent MSI uterine papillary serous carcinoma, dMMR [id number] mutated. Pulliam syndrome testing not yet done due to multiple medical complications over the last year. Now with resolved diffuse nonspecific symptoms causing a hiatus in treatment. Status post three cycles of pembrolizumab with an approximate 40% reduction size of the left pelvic sidewall mass. No new disease progression. PLAN: 1. Return to clinic next week to resume pembrolizumab which will be day 1 cycle 4 next week, for next week, stat CMP, CBC, CA-125 that day. 2. I will see Soheila every other treatment day. 3. I cautioned regarding calling for any new symptoms and of course going to the emergency room for any acute new severe shortness of breath, severe diarrhea. Time statement: 25 minutes spent [id number] with the patient more than 50% involving counseling regarding pembrolizumab treatment risks, reviewing the scan results and discussing Pulliam syndrome testing is something which will be at goal but so far Soheila's medical course has not allowed us to pursue this. Electronically Signed by Kaya Conway MD 04/10/2018 05:27 P DD: Kaya Conway MD 04/07/2018 01:38 P DT: [email or web address] 04/08/2018 09:35 A CC: Rick Mckeon DO, [facility] Bailey Kim DO
[2018-04-14 09:14] LABS: HEMATOCRIT 31.5 % (36.0-47.0); HEMOGLOBIN 9.6 g/dl (12.0-15.5); LYMPH % 19.4 % (24.0-44.0); MEAN CORPUSCULAR HGB CONC 30.5 g/dl (32.0-36.5); MEAN CORPUSCULAR VOLUME 108.2 fl (80.0-96.0); NEUTROPHILS # 6.8 10^3/uL (1.8-7.7); NEUTROPHILS % 73.9 % (36.0-66.0); RED BLOOD COUNT 2.91 10^6/uL (4.00-5.40); WHITE BLOOD COUNT 9.2 10^3/uL (4.0-10.0)
[2018-04-14 09:17] VITALS: BP 113/65
[2018-04-14 09:21] LABS: ALBUMIN 3.2 GM/DL (3.5-5.2); BLOOD UREA NITROGEN 8 MG/DL (6-20); CALCIUM LEVEL 9.3 MG/DL (8.5-10.2); CARBON DIOXIDE LEVEL 31 MEQ/L (23-31); CHLORIDE LEVEL 94 MMOL/L (98-107); CREATININE FOR GFR 0.56 MG/DL (0.60-1.10); GLUCOSE, FASTING 118 MG/DL (70-105); POTASSIUM SERUM 4.1 MMOL/L (3.5-5.1); TOTAL PROTEIN 6.3 GM/DL (6.4-8.3)
[2018-04-14 09:25] LABS: GLOMERULAR FILTRATION RATE > 60.0 (>45); SODIUM LEVEL 131 MMOL/L (136-145)
[2018-05-05 09:15] VITALS: BP 110/58
[2018-05-05 09:21] LABS: HEMATOCRIT 29.7 % (36.0-47.0); HEMOGLOBIN 8.9 g/dl (12.0-15.5); LYMPH % 8.4 % (24.0-44.0); MEAN CORPUSCULAR HEMOGLOBIN 30.8 pg (27.0-33.0); MEAN CORPUSCULAR VOLUME 102.8 fl (80.0-96.0); NEUTROPHILS # 10.3 10^3/uL (1.8-7.7); NEUTROPHILS % 87.7 % (36.0-66.0); RED BLOOD COUNT 2.89 10^6/uL (4.00-5.40); WHITE BLOOD COUNT 11.7 10^3/uL (4.0-10.0)
[2018-05-05 09:34] LABS: ALBUMIN 3.2 GM/DL (3.5-5.2); BLOOD UREA NITROGEN 13 MG/DL (6-20); CALCIUM LEVEL 8.9 MG/DL (8.5-10.2); CARBON DIOXIDE LEVEL 33 MEQ/L (23-31); CHLORIDE LEVEL 95 MMOL/L (98-107); CREATININE FOR GFR 0.59 MG/DL (0.60-1.10); GLUCOSE, FASTING 123 MG/DL (70-105); POTASSIUM SERUM 4.2 MMOL/L (3.5-5.1); SODIUM LEVEL 132 MMOL/L (135-145); TOTAL PROTEIN 5.9 GM/DL (6.4-8.3)
[2018-05-05 09:35] LABS: GLOMERULAR FILTRATION RATE > 60.0 (>45)
--- NOTE | 2018-05-09 09:43 | MEDONC ---
MEDICAL ONCOLOGY FOLLOWUP DATE OF SERVICE: 05/05/2018 DIAGNOSES: 1. Recurrent papillary serous uterine carcinoma MSI high involving dominant left lower pelvic mass, on first-line palliative treatment with pembrolizumab with interruption. 2. History of unresectable papillary serous uterine carcinoma 11 cm left pelvic mass 2015, treated with primary pelvic radiation followed by carboplatin / Taxol three cycles completed 11/2015. Please see 04/07/2018 note for treatment history. OTHER MEDICAL PROBLEMS: Oxygen dependent COPD / bronchiectasis with chronic intermittent infection, recurrent pneumothoraces, status post talc pleurodesis and wedge resection, followed closely in pulmonology by Dr. Mckeon. CURRENT THERAPY: Pembrolizumab 09/30/2017 - 12/02/2017 with major partial response, held for anasarca, hyponatremia, lower extremity edema of unclear etiology, ultimately resolved. Resumed 04/14/2018 (cycle four). 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 Germ line testing for Pulliam syndrome not done to date. INTERVAL HISTORY: Soheila has had some recent infections again, requests that we hold treatment today. She is on antibiotics for another lung infection and she feels wiped out. This is reasonable. She denies new fluid accumulation, palpitations, headache, visual disturbance, abdominal discomfort, pelvic discomfort, vaginal bleeding or drainage, diarrhea, constipation or rash. PHYSICAL EXAMINATION: Slender, very hard of hearing woman with nasal cannula in place. Weight 43 kg, temperature 97, blood pressure 110/58, heart rate 77, respiratory 24, O2 sat 96% on 2 liters. Respiratory: Coarse breath sounds throughout the lung dugan, no dullness to percussion. Cardiac: S1, S2, 2/6 systolic murmur. No gallop. Abdomen: Soft, nontender, nondistended. No pelvic mass appreciable. No suprapubic tenderness. No hepatosplenomegaly. Extremities: No edema. Lymph nodes: No palpable submandibular, cervical, supraclavicular, axillary or inguinal adenopathy bilaterally. LABORATORY DATA: WBC 11.7, hemoglobin 8.9, hematocrit 29.7, platelets 551, sodium 132, potassium 4.2, chloride 95, bicarbonate 33, creatinine 0.59, GFR greater than 60, glucose 123. Liver functions unremarkable. Albumin 3.2, CA-125 22, down from 31 (peak 62 in August 2017). IMPRESSION: Soheila Harrison is a 67-year-old woman, O2 dependent, chronic bronchiectasis, COPD, hard of hearing, chronic low grade hyponatremia with recurrent papillary serous uterine carcinoma, MSI high on intermittent pembrolizumab with stopped and starts owing metabolic complications and pulmonary complications but with major partial response to treatment status post four total cycles. Most recent April 19 with an immediate reduction in CA-125, which had begun to creep up in the 3-month hiatus between treatment three and four. ECOG performance status currently 1. We will hold cycle five for 2 weeks to allow her to recover from current lung infection. PLAN: 1. Hold cycle five today. 2. Return in 2 weeks for durvalumab, CBC, CMP, CA-125, no office visit that day. 3. Return 2 weeks after cycle five for next cycle with CBC, CMP, CA-125, clinical exam. Electronically Signed by Kaya Conway MD 05/16/2018 04:24 P DD: Kaya Conway MD 05/05/2018 05:59 P DT: [email or web address] 05/09/2018 07:17 A CC: Rick Mckeon DO, [facility] Bailey Kim DO
[2018-05-19 08:31] VITALS: BP 107/64
[2018-05-19 08:45] LABS: BASO % 0.3 % (0.0-1.0); EOS # 0.1 10^3/uL (0.0-0.50); EOS % 0.4 % (0.0-3.0); HEMATOCRIT 32.3 % (36.0-47.0); HEMOGLOBIN 9.3 g/dl (12.0-15.5); LYMPH # 0.9 10^3/uL (1.5-4.5); LYMPH % 6.7 % (24.0-44.0); MEAN CORPUSCULAR HEMOGLOBIN 29.8 pg (27.0-33.0); MEAN CORPUSCULAR HGB CONC 28.8 g/dl (32.0-36.5); MEAN CORPUSCULAR VOLUME 103.5 fl (80.0-96.0); MONO # 0.6 10^3/uL (0.0-0.8); NEUTROPHILS # 11.1 10^3/uL (1.8-7.7); NEUTROPHILS % 86.3 % (36.0-66.0); PLATELET COUNT, AUTOMATED 393 10^3/uL (150-450); RED BLOOD COUNT 3.12 10^6/uL (4.00-5.40); WHITE BLOOD COUNT 12.9 10^3/uL (4.0-10.0)
[2018-05-19 09:06] LABS: ALBUMIN 2.8 GM/DL (3.2-5.2); ALT/SGPT 14 U/L (12-78); BILIRUBIN,TOTAL 0.4 MG/DL (0.2-1.0); BLOOD UREA NITROGEN 10 MG/DL (7-18); CALCIUM LEVEL 8.9 MG/DL (8.8-10.2); CARBON DIOXIDE LEVEL 33 MEQ/L (21-32); CHLORIDE LEVEL 98 MEQ/L (98-107); CREATININE FOR GFR 0.35 MG/DL (0.55-1.30); GLOMERULAR FILTRATION RATE > 60.0 (>45); GLUCOSE, FASTING 113 MG/DL (70-100); POTASSIUM SERUM 4.2 MEQ/L (3.5-5.1); SODIUM LEVEL 135 MEQ/L (136-145); TOTAL PROTEIN 6.1 GM/DL (6.4-8.2)
--- NOTE | 2018-05-20 09:00 | MEDONC ---
MEDICAL ONCOLOGY FOLLOWUP / TREATMENT VISIT. DATE OF SERVICE: 05/19/2018 DIAGNOSES: 1. Recurrent papillary serous uterine carcinoma, MSI high, involving dominant left lower pelvic mass on first-line palliative treatment with pembrolizumab. Now resuming after four cycles followed by several month interruption due to medical complications. 2. History of unresectable papillary serous uterine carcinoma, 11 cm left pelvic mass 2016 treated with primary pelvic radiation followed by carboplatin / paclitaxel three cycles completed 11/2015. See 04/07/2018 note for treatment history. OTHER MEDICAL PROBLEMS: O2 dependent COPD / chronic bronchiectasis with chronic intermittent infection, recurrent pneumothoraces status post talc pleurodesis and wedge resection, followed closely in pulmonology. Hyponatremia, uncertain etiology, chronic, likely multifactorial but certainly contribution of chronic pulmonary disease. CURRENT THERAPY: Pembrolizumab q. 3 weeks begun 09/30/2017 status post three cycles 09/30/2017 - 12/02/2017 with major partial response, held December through March for anasarca, hyponatremia, lower extremity edema, all spontaneously resolved. MSH 6 deficiency, MSI - high. Germ line testing for Pulliam syndrome not done to date. INTERVAL HISTORY: Soheila is here for cycle five pembrolizumab. She has no new symptoms or problems. Her lower extremity edema is resolved. She occasionally has some abdominal or lower pelvic cramping but this is unchanged, not new. Denies any pelvic bleeding. VITAL SIGNS: Weight 42 kg, temperature 98, blood pressure 107/64, heart rate 88, respiratory 20, O2 sat 99%. LABORATORY DATA: WBC 12.9, hemoglobin 9.3, hematocrit 32, platelets 393. Sodium 135, GFR greater than 60, albumin 2.8, alkaline phosphatase 76, CA-125 20. IMPRESSION: MSI - high recurrent endometrial carcinoma on first-line metastatic treatment with pembrolizumab, resumed after treatment holiday. Major partial response after three cycles. A drop in CA-125 after cycle four on resuming treatment. Clinically stable. Chronic mild hyponatremia, likely multifactorial. PLAN: 1. Cycle five today. 2. Return in 3 weeks for day one cycle six pembrolizumab, CBC, stat CMP, CA-125; no office visit that day. 3. Return in 6 weeks for day one cycle seven pembrolizumab stat CMP, CBC, CA-125, clinical exam that day. Electronically Signed by Day Smoot, MD 05/21/2018 03:59 P DD: Kaya Conway MD 05/19/2018 02:03 P DT: [email or web address] 05/20/2018 08:14 A CC: Rick Mckeno DO, [facility] Bailey Kim DO
[2018-06-09 08:38] VITALS: BP 119/61
[2018-06-09 08:44] LABS: HEMATOCRIT 30.6 % (36.0-47.0); HEMOGLOBIN 9.3 g/dl (12.0-15.5); LYMPH % 8.4 % (24.0-44.0); MEAN CORPUSCULAR HEMOGLOBIN 29.1 pg (27.0-33.0); MEAN CORPUSCULAR HGB CONC 30.4 g/dl (32.0-36.5); MEAN CORPUSCULAR VOLUME 95.7 fl (80.0-96.0); NEUTROPHILS # 8.8 10^3/uL (1.8-7.7); NEUTROPHILS % 88.9 % (36.0-66.0); RED BLOOD COUNT 3.2 10^6/uL (4.00-5.40); WHITE BLOOD COUNT 9.9 10^3/uL (4.0-10.0)
[2018-06-09 09:05] LABS: ALBUMIN 3.5 GM/DL (3.5-5.2); BLOOD UREA NITROGEN 10 MG/DL (6-20); CALCIUM LEVEL 8.9 MG/DL (8.5-10.2); CARBON DIOXIDE LEVEL 31 MEQ/L (23-31); CHLORIDE LEVEL 98 MMOL/L (98-107); CREATININE FOR GFR 0.59 MG/DL (0.60-1.10); GLOMERULAR FILTRATION RATE > 60.0 (>45); GLUCOSE, FASTING 127 MG/DL (70-105); POTASSIUM SERUM 3.8 MMOL/L (3.5-5.1); SODIUM LEVEL 134 MMOL/L (135-145)
[2018-06-09 09:41] LABS: FREE T4 1.19 NG/DL (0.76-1.46); THYROID STIMULATING HORMONE 1.08 uIU/ML (0.358-3.740)
[2018-06-30 08:31] VITALS: BP 127/60
[2018-06-30 08:49] LABS: HEMATOCRIT 31.2 % (36.0-47.0); HEMOGLOBIN 9.3 g/dl (12.0-15.5); LYMPH % 8.1 % (24.0-44.0); MEAN CORPUSCULAR HEMOGLOBIN 27.8 pg (27.0-33.0); MEAN CORPUSCULAR HGB CONC 29.8 g/dl (32.0-36.5); NEUTROPHILS # 10.2 10^3/uL (1.8-7.7); NEUTROPHILS % 88.6 % (36.0-66.0); RED BLOOD COUNT 3.35 10^6/uL (4.00-5.40); WHITE BLOOD COUNT 11.5 10^3/uL (4.0-10.0)
[2018-06-30 08:54] LABS: ALBUMIN 3.6 GM/DL (3.5-5.2); BLOOD UREA NITROGEN 14 MG/DL (6-20); CALCIUM LEVEL 9.4 MG/DL (8.5-10.2); CARBON DIOXIDE LEVEL 29 MEQ/L (23-31); CHLORIDE LEVEL 99 MMOL/L (98-107); CREATININE FOR GFR 0.64 MG/DL (0.60-1.10); GLOMERULAR FILTRATION RATE > 60.0 (>45); GLUCOSE, FASTING 151 MG/DL (70-105); POTASSIUM SERUM 4.1 MMOL/L (3.5-5.1); SODIUM LEVEL 135 MMOL/L (135-145); TOTAL PROTEIN 6.3 GM/DL (6.4-8.3)
[2018-06-30 09:21] LABS: FREE T4 1.05 NG/DL (0.76-1.46)
--- NOTE | 2018-07-01 06:46 | MEDONC ---
MEDICAL ONCOLOGY FOLLOWUP/TREATMENT VISIT DATE OF SERVICE: 06/30/2018 DIAGNOSES: 1. Recurrent papillary serous uterine carcinoma, MSI high, involving dominant left lower pelvic mass, on first-line palliative treatment with pembrolizumab. Resumed after four cycles followed by several month interruption due to other medical complications. 2. History of unresectable papillary serous uterine carcinoma, 11 cm left pelvic mass 2015, treated with primary pelvic radiation followed by carboplatin/paclitaxel three cycles completed 11/2015. Please see 04/07/2018 note for treatment history. OTHER MEDICAL PROBLEMS: O2 dependent COPD/chronic bronchiectasis with chronic intermittent infection, most recent hospital admission for COPD exacerbation 06/16/2018 through 06/18/2018, recurrent pneumothoraces status post talc pleurodesis and wedge resection, followed closely by pulmonary. Hyponatremia, uncertain etiology, chronic, likely multifactorial, but certainly contribution of chronic pulmonary disease. CURRENT THERAPY: Pembrolizumab q. 3 weeks begun 09/30/2017 status post three cycles 09/30/2017 through 12/02/2017 with major partial response, held December through March for anasarca, hyponatremia and lower extremity edema, all spontaneously resolved. MSH6 deficiency, MSI high. Germline testing for Pulliam syndrome not done to date. INTERVAL HISTORY: Soheila is here today for cycle seven pembrolizumab. As noted above, she had a hospital admission at [facility] 06/16/2018 through 06/18/2018 for COPD exacerbation. Treated effectively with antibiotic and prednisone. At present, Soheila indicates her respiratory status is back to baseline. She offers no new complaints. For a more recent history of blood per rectum, she has a pending GI consult on 07/20/2018 for possible colonoscopy. Soheila denies any recent blood per rectum. At present, she denies any abdominal or lower pelvic cramping. She denies any pelvic bleeding. No other complaints at this time. PHYSICAL EXAMINATION: Weight is 45.6 kg, temperature 97.9, pulse 86, respirations 20, BP 127/60, O2 sat 95% with 2.5 liters of nasal O2. GENERAL EXAM: Reveals a very thin pleasant hard of hearing white female who is clinically stable and in no acute distress. HEENT: No scleral icterus. Oral pharynx, oral mucous membranes normal. Conjunctivae normal. No thyroid enlargement or nodule. No jugular venous distention. Neck supple. Carotid upstrokes 1+, no bruits. Fundi normal bilaterally. RESPIRATORY: Positive for decreased breath sounds bilaterally. No rales, rhonchi, or wheezing. CARDIOVASCULAR: PMI 5th left intercostal space, midline. S1, S2 normal. No S3, S4 or murmurs. Regular rhythm. Femoral, dorsalis pedis pulses 2+ bilaterally. LYMPHATICS: No palpable lymphadenopathy. ABDOMEN: Soft, nontender. Bowel sounds normal. No tenderness, guarding, or rebound. No palpable masses or hepatosplenomegaly. MUSCULOSKELETAL: No focal skeletal tenderness to percussion. No joint swelling, warmth, tenderness, or erythema. SKIN: No rash, ecchymosis, or petechiae. Normal turgor. EXTREMITIES: No edema, clubbing, cyanosis. No thigh or calf tenderness. Normal range of motion. LABORATORY DATA: WBC 11.5, ANC 10.2, RBC 3.35, H/H 9.3/31.2, platelets 481. Chemistries and a CA-125 are pending as of this dictation. IMPRESSION: MSI high recurrent endometrial carcinoma on first line metastatic treatment with pembrolizumab resumed after treatment holiday. Major partial response after three cycles based on restaging CT scan of the chest, abdomen and pelvis on 04/06/2018. A drop in CA-125 after cycle four on resuming treatment. Clinically stable. PLAN: 1. Cycle seven Pembrolizumab today. 2. Return in 3 weeks for day one cycle eight pembrolizumab with a CBC, stat CMP and CA-125; no office visit that day. 3. Return in 6 weeks for day one cycle nine pembrolizumab, physical examination, CBC, stat CMP and CA-125 antigen. Soheila knows to contact us in the interim of her appointment with any new symptoms, questions or problems. Electronically Signed by Araseli Lancaster NP 07/04/2018 07:16 A DD: Araseli Lancaster NP 06/30/2018 09:30 A DT: [email or web address] 07/01/2018 06:37 A CC: Rick Mckeon DO, [facility] Bailey Kim DO
--- NOTE | 2018-07-18 06:39 | MEDONCTEEN ---
MEDICAL ONCOLOGY TELEPHONE NOTE DATE OF SERVICE: 07/17/2018 I spoke with Bailey Kim this morning after she sent me recent labs, notes and findings on Soheila who has been experiencing green productive sputum and apparent frequent pulmonary infections. At baseline, at Soheila has bronchiectasis, O2 dependent severe COPD status post pneumothorax and is currently on pembrolizumab for treating recurrent endometrial carcinoma with good response. Dr. Kim expressed concern Soheila's infections by be related to the pembrolizumab. I clarified pembrolizumab is immunotherapy which boosts not suppresses immune system. The typical pulmonary complication of pembrolizumab would be pneumonitis. Soheila, whose baseline O2 sat is in the low 90s would likely not tolerate the hypoxia associated with pneumonitis and not be able to function outpatient and Dr. Kim and I would agreed her clinical behavior is less consistent with hypoxic pneumonitis than with recurrent infection. Soheila is currently on steroid treatment and antibiotics. I spoke had left a message about possibly even giving up to 50 mg a day of prednisone. She is on 40, that is fine. Dr. Kim and I agreed we would watch over the next week or so for any signs of progressive hypoxia. If she develops these would proceed with 1 mg/kg prednisone dose but Dr. Kim will be back in touch with me watching Soheila closely. Meanwhile will plan to see her on her usual q. four weekly visit. Electronically Signed by Kaya Conway MD 07/18/2018 05:20 P DD: Kaya Conway MD 07/17/2018 11:56 A DT: [email or web address] 07/18/2018 06:34 A CC: Bailey Kim, DO
[2018-07-21 08:17] VITALS: BP 122/65
[2018-07-21 08:17] LABS: HEMATOCRIT 31.4 % (36.0-47.0); HEMOGLOBIN 9.3 g/dl (12.0-15.5); LYMPH % 8.3 % (24.0-44.0); MEAN CORPUSCULAR HEMOGLOBIN 27.3 pg (27.0-33.0); MEAN CORPUSCULAR HGB CONC 29.6 g/dl (32.0-36.5); MEAN CORPUSCULAR VOLUME 92.2 fl (80.0-96.0); NEUTROPHILS # 10.6 10^3/uL (1.8-7.7); NEUTROPHILS % 87.6 % (36.0-66.0); RED BLOOD COUNT 3.41 10^6/uL (4.00-5.40); WHITE BLOOD COUNT 12.1 10^3/uL (4.0-10.0)
[2018-07-21 08:40] LABS: ALBUMIN 3.4 GM/DL (3.5-5.2); BLOOD UREA NITROGEN 9 MG/DL (6-20); CALCIUM LEVEL 9.4 MG/DL (8.5-10.2); CARBON DIOXIDE LEVEL 31 MEQ/L (23-31); CHLORIDE LEVEL 95 MMOL/L (98-107); GLOMERULAR FILTRATION RATE > 60.0 (>45); GLUCOSE, FASTING 127 MG/DL (70-105); POTASSIUM SERUM 4.4 MMOL/L (3.5-5.1); TOTAL PROTEIN 6.5 GM/DL (6.4-8.3)
[2018-07-21 08:41] LABS: SODIUM LEVEL 134 MMOL/L (135-145)
[2018-07-21 08:55] LABS: FREE T4 1.2 NG/DL (0.76-1.46); THYROID STIMULATING HORMONE 1.38 uIU/ML (0.358-3.740)
--- NOTE | 2018-07-21 12:09 | ONC.PHACK ---
CHEMO ADMIN CHECKLIST Order Contains Pt ID: Name, Order on Chemo Order Form?: Yes Order Form Includes ALL: Correct Tx Day, Correct Date, Correct Cycle Number Pt ID on Order form Matches: Pt ID on PHA Label Med on Chemo OrderForm Matches: PHA Label, Med Used for Preparation [facility] Jul 21, 2018 12:09
[2018-08-11 08:14] VITALS: BP 121/70
[2018-08-11 08:23] LABS: BASO % 0.2 % (0.0-1.0); EOS # 0.1 10^3/uL (0.0-0.50); EOS % 0.4 % (0.0-3.0); HEMATOCRIT 32.5 % (36.0-47.0); HEMOGLOBIN 9.1 g/dl (12.0-15.5); LYMPH # 0.7 10^3/uL (1.5-4.5); LYMPH % 5.7 % (24.0-44.0); MEAN CORPUSCULAR HEMOGLOBIN 26.5 pg (27.0-33.0); MEAN CORPUSCULAR VOLUME 94.5 fl (80.0-96.0); MONO # 0.5 10^3/uL (0.0-0.8); NEUTROPHILS # 11.6 10^3/uL (1.8-7.7); NEUTROPHILS % 89.2 % (36.0-66.0); PLATELET COUNT, AUTOMATED 393 10^3/uL (150-450); RED BLOOD COUNT 3.44 10^6/uL (4.00-5.40)
--- NOTE | 2018-08-11 08:55 | ONC.PHACK ---
CHEMO ADMIN CHECKLIST Order Contains Pt ID: Name, Order on Chemo Order Form?: Yes Order Form Includes ALL: Correct Tx Day, Correct Date, Correct Cycle Number Pt ID on Order form Matches: Pt ID on PHA Label Med on Chemo OrderForm Matches: PHA Label, Med Used for Preparation [facility] Aug 11, 2018 08:55
[2018-08-11 08:58] LABS: ALBUMIN 2.8 GM/DL (3.2-5.2); ALT/SGPT 20 U/L (12-78); BILIRUBIN,TOTAL 0.3 MG/DL (0.2-1.0); BLOOD UREA NITROGEN 13 MG/DL (7-18); CALCIUM LEVEL 9.3 MG/DL (8.8-10.2); CARBON DIOXIDE LEVEL 30 MEQ/L (21-32); CHLORIDE LEVEL 97 MEQ/L (98-107); CREATININE FOR GFR 0.57 MG/DL (0.55-1.30); FREE T4 1.09 NG/DL (0.76-1.46); GLOMERULAR FILTRATION RATE > 60.0 (>45); GLUCOSE, FASTING 107 MG/DL (70-100); POTASSIUM SERUM 4.3 MEQ/L (3.5-5.1); SODIUM LEVEL 134 MEQ/L (136-145); TOTAL PROTEIN 6.4 GM/DL (6.4-8.2)
--- NOTE | 2018-08-12 07:15 | MEDONC ---
MEDICAL ONCOLOGY FOLLOWUP/TREATMENT VISIT DATE OF SERVICE: 08/11/2018 DIAGNOSES: 1. Recurrent papillary serous uterine carcinoma, MSI high, involving dominant left lower lobe pelvic mass on first-line palliative treatment with pembrolizumab. Resumed after four cycles followed by several month interruption due to other medical problems. 2. History of unresectable papillary serous uterine carcinoma, 11 cm left pelvic mass 2015, treated with primary pelvic radiation followed by carboplatin/paclitaxel three cycles completed 11/2015. Please see 04/07/2018 note for complete treatment history. OTHER MEDICAL PROBLEMS: O2 dependent COPD/chronic bronchiectasis with chronic intermittent infection, currently on Bactrim two p.o. b.i.d. for a recent infection, also on a tapered dose of prednisone, down to 30 mg p.o. daily. Recurrent pneumothoraces status post talc pleurodesis and wedge resection, followed closely by pulmonary. Hyponatremia, uncertain etiology, chronic, likely multifactorial, but certainly contribution of chronic pulmonary disease. CURRENT THERAPY: Pembrolizumab q. 3 weeks begun 09/30/2017, status post three cycles 09/30/2017 through 12/02/2017 with major partial response, held December through March for anasarca, hyponatremia and lower extremity edema - all resolved. MSH6 deficiency, MSI high. Germline testing for Pulliam syndrome to date not done. INTERVAL HISTORY: Soheila is here today for cycle #9 pembrolizumab. She has a few days remaining of Bactrim for a recent recurrent lower respiratory tract infection. She states her breathing is at baseline. She continues with 3 liters of nasal O2. Her productive cough producing green sputum has completely resolved. Soheila is also on a tapered dose of prednisone, currently down to 30 mg. At present, no other new complaints. Currently, Soheila denies headaches, visual changes, progressive dyspnea, fevers or chills, cough, diminished appetite, unintended weight loss, nausea, vomiting, diarrhea, constipation, new vaginal bleeding, new skeletal pain or extremity edema. PHYSICAL EXAMINATION: Weight is 45.6 kg, temperature 98.2, pulse 96, respirations 20, BP 121/70, O2 sat 96% with 3 liters of O2 via nasal cannula. GENERAL EXAM: Reveals a very thin, pleasant, hard of hearing white female who is clinically stable and in no acute distress. HEENT: No scleral icterus. Oral pharynx, oral mucous membranes normal. Conjunctivae normal. No thyroid enlargement or nodule. No jugular venous distention. Neck supple. Carotid upstrokes 1+, no bruits. Fundi normal bilaterally. RESPIRATORY: Decreased breath sounds bilaterally. No rales, rhonchi, or wheezing. CARDIOVASCULAR: PMI 5th left intercostal space, midline. S1, S2 normal. No S3, S4 or murmurs. Regular rhythm. Femoral, dorsalis pedis pulses 2+ bilaterally. LYMPHATICS: No palpable lymphadenopathy. ABDOMEN: Soft, nontender. Bowel sounds normal. No tenderness, guarding, or rebound. No palpable masses or hepatosplenomegaly. MUSCULOSKELETAL: No focal skeletal tenderness to percussion. No joint swelling, warmth, tenderness, or erythema. SKIN: No rash, ecchymosis, or petechiae. Normal turgor. EXTREMITIES: No edema, clubbing, cyanosis. No thigh or calf tenderness. Normal range of motion. LABORATORY DATA: WBC 13.0, ANC 11.6, RBC 3.44, H/H 9.1,/32.5, platelets 393. Chemistries and a current TSH and free T4 are pending. CA-125 antigen is also pending. IMPRESSION: MSI high recurrent endometrial carcinoma on first line metastatic treatment with pembrolizumab resumed after treatment holiday. Major partial response after three cycles based on restaging CT scans of the chest, abdomen and pelvis on 04/06/2018. Drop in the CA-125 after cycle four of resuming treatment. Currently Soheila has a few days remaining of antibiotic for recurrent lower respiratory tract infection. Symptoms, completely resolved. She is also on a prednisone taper down to 30 mg p.o. daily. PLAN: 1. Cycle #9 pembrolizumab today. 2. Return in 3 weeks for day one cycle #10 pembrolizumab with a CBC, stat CMP, TSH and free T4. 3. Return in 6 weeks for day one cycle #11 pembrolizumab, physical exam and labs including a CBC, stat CMP, TSH, free T4 and CA-125 antigen. 4. At Soheila's next office visit, we will plan on scheduling restaging scans of the chest, abdomen and pelvis. Electronically Signed by Araseli Lancaster NP 08/14/2018 06:43 A DD: Araseli Lancaster NP 08/11/2018 08:46 A DT: [email or web address] 08/12/2018 07:04 A CC: Rick Mckeon DO, [facility] Bailey Kim DO
[2018-09-01 08:18] VITALS: BP 100/57
[2018-09-01 08:23] LABS: HEMATOCRIT 31.1 % (36.0-47.0); HEMOGLOBIN 9.2 g/dl (12.0-15.5); LYMPH % 7.2 % (24.0-44.0); MEAN CORPUSCULAR HEMOGLOBIN 26.2 pg (27.0-33.0); MEAN CORPUSCULAR HGB CONC 29.6 g/dl (32.0-36.5); MEAN CORPUSCULAR VOLUME 88.5 fl (80.0-96.0); NEUTROPHILS # 10.8 10^3/uL (1.8-7.7); NEUTROPHILS % 88.5 % (36.0-66.0); RED BLOOD COUNT 3.51 10^6/uL (4.00-5.40); WHITE BLOOD COUNT 12.2 10^3/uL (4.0-10.0)
[2018-09-01 08:33] LABS: ALBUMIN 3.5 GM/DL (3.5-5.2); BLOOD UREA NITROGEN 12 MG/DL (6-20); CARBON DIOXIDE LEVEL 31 MEQ/L (23-31); CHLORIDE LEVEL 93 MMOL/L (98-107); GLOMERULAR FILTRATION RATE > 60.0 (>45); GLUCOSE, FASTING 127 MG/DL (70-105); SODIUM LEVEL 130 MMOL/L (135-145); TOTAL PROTEIN 6.2 GM/DL (6.4-8.3)
--- NOTE | 2018-09-01 08:47 | ONC.PHACK ---
CHEMO ADMIN CHECKLIST Order Contains Pt ID: Name, Order on Chemo Order Form?: Yes Order Form Includes ALL: Correct Tx Day, Correct Date, Correct Cycle Number Pt ID on Order form Matches: Pt ID on PHA Label Med on Chemo OrderForm Matches: PHA Label, Med Used for Preparation [facility] Sep 01, 2018 08:47
[2018-09-01 09:04] LABS: FREE T4 1.02 NG/DL (0.76-1.46); THYROID STIMULATING HORMONE 1.26 uIU/ML (0.358-3.740)
--- NOTE | 2018-09-01 09:55 | ONC.PHACK ---
CHEMO ADMIN CHECKLIST Order Contains Pt ID: Name, Order on Chemo Order Form?: Yes Order Form Includes ALL: Correct Tx Day, Correct Date, Correct Cycle Number Pt ID on Order form Matches: Pt ID on PHA Label Med on Chemo OrderForm Matches: PHA Label, Med Used for Preparation [facility] Sep 01, 2018 09:55
[2018-09-22 08:11] VITALS: BP 151/77
[2018-09-22 08:23] LABS: HEMOGLOBIN 9.4 g/dl (12.0-15.5); LYMPH % 6.1 % (24.0-44.0); MEAN CORPUSCULAR HEMOGLOBIN 25.8 pg (27.0-33.0); MEAN CORPUSCULAR HGB CONC 29.4 g/dl (32.0-36.5); MEAN CORPUSCULAR VOLUME 87.7 fl (80.0-96.0); NEUTROPHILS # 18.6 10^3/uL (1.8-7.7); NEUTROPHILS % 91.9 % (36.0-66.0); RED BLOOD COUNT 3.65 10^6/uL (4.00-5.40); WHITE BLOOD COUNT 20.2 10^3/uL (4.0-10.0)
[2018-09-22 08:44] LABS: ALBUMIN 3.3 GM/DL (3.5-5.2); BLOOD UREA NITROGEN 11 MG/DL (6-20); CARBON DIOXIDE LEVEL 33 MEQ/L (23-31); CHLORIDE LEVEL 92 MMOL/L (98-107); CREATININE FOR GFR 0.62 MG/DL (0.60-1.10); GLOMERULAR FILTRATION RATE > 60.0 (>45); GLUCOSE, FASTING 143 MG/DL (70-105); SODIUM LEVEL 130 MMOL/L (135-145); TOTAL PROTEIN 6.6 GM/DL (6.4-8.3)
[2018-09-22 09:00] LABS: FREE T4 1.27 NG/DL (0.76-1.46); THYROID STIMULATING HORMONE 0.983 uIU/ML (0.358-3.740)
[2018-09-22 10:23] LABS: CA 125 33.8 U/ML (<30.2)
--- NOTE | 2018-09-26 22:02 | MEDONC ---
MEDICAL ONCOLOGY FOLLOWUP VISIT: DATE OF SERVICE: 09/22/2018 Date of : 1950 Age: 67 DIAGNOSIS 1. Recurrent papillary serous uterine carcinoma, MSI high, involving dominant left lower lobe pelvic mass, on first-line palliative treatment with pembrolizumab. Resumed after four cycles followed by several month interruption due to other medical problems. 2. History of unresectable papillary serous uterine carcinoma, 11 cm left pelvic mass 2015, treated with primary pelvic radiation followed by carboplatin/paclitaxel three cycles completed 11/2015. Please see 04/07/2018 note for complete treatment history. OTHER MEDICAL PROBLEMS: O2 dependent COPD/chronic bronchiectasis with chronic intermittent infection, reportedly recently treated for recurrent infection with antibiotic and now on a tapered dose of prednisone down to 30 mg daily. Recurrent pneumothoraces, status post talc pleurodesis and wedge resection, followed closely by Dr. Mckeon of pulmonary. Hyponatremia, uncertain etiology, chronic, likely multifactorial, but certainly contribution of chronic pulmonary disease. CURRENT THERAPY Pembrolizumab q. 3 weeks begun 09/30/2017, status post three cycles 09/30/2017 through 12/02/2017 with major partial response, held December through March for anasarca, hyponatremia and lower extremity edema, all resolved. MSH6 deficiency, MSI high. Germ line testing for Pulliam syndrome to date not done. INTERVAL HISTORY Soheila presents today for day one cycle #11 of pembrolizumab. She reports persistent productive green sputum despite antibiotics per Dr. Kim. She is on a prednisone taper, currently down to 30 mg p.o. daily. Soheila continues with 3 liters of nasal O2. At present, she states her breathing is "not as good". Soheila specifically denies any fevers or chills. She also reports an approximate 2-week history of right-side low back pain that is intermittent of unclear etiology. Soheila also remains under the care of [facility] for an abrasion of her left lower extremity. Reportedly this is healing well and is covered today with a dry sterile dressing and a Coban wrap. At present, Soheila denies complaints of unusual headaches, visual disturbance, new lumps, bumps or rashes, diminished appetite, unintended weight loss, nausea, vomiting, diarrhea, constipation, urinary symptoms, vaginal discharge, skeletal pain elsewhere, unilateral extremity swelling, bilateral lower extremity swelling/edema. PHYSICAL EXAMINATION: Weight is 48.2 kg, temperature 98.5, pulse 92, respirations 20, BP 151/77, O2 sat 93% at rest with 3 liters of nasal O2 in place. GENERAL: Exam reveals a very thin pleasant hard of hearing white female who is clinically stable and in no acute distress. HEENT: No scleral icterus. Oral pharynx, oral mucous membranes normal. Conjunctivae normal. No thyroid enlargement or nodule. No jugular venous distention. Neck supple. Carotid upstrokes 1+, no bruits. Fundi normal bilaterally. RESPIRATORY: Decreased breath sounds bilaterally. No rales, rhonchi or wheezing. CARDIOVASCULAR: PMI 5th left intercostal space, midline. S1, S2 normal. No S3, S4 or murmurs. Regular rhythm. Femoral, dorsalis pedis pulses 2+ bilaterally. LYMPHATICS: No palpable lymphadenopathy. ABDOMEN: Soft, nontender. Bowel sounds normal. No tenderness, guarding, or rebound. No palpable masses or hepatosplenomegaly. MUSCULOSKELETAL: Positive for tenderness over the right paralumbar muscles. No discrete palpable masses. SKIN: No rash, ecchymosis, or petechiae. Normal turgor. EXTREMITIES: Positive for a Coban wrap left lower extremity. No lower extremity edema bilaterally. LABORATORY DATA WBC 20.2, ANC 18.6 (most likely secondary to the current use of prednisone). RBC 3.65, H and H 9.4, 32.0. Platelets 682. Chemistries and a TSH and free T4 pending as of this dictation. IMPRESSION MSI high recurrent endometrial carcinoma on first line metastatic treatment with pembrolizumab resumed after treatment holiday. Major partial response after three cycles based on restaging CT scans of the chest, abdomen and pelvis on 04/06/2018. Drop in the CA-125 after cycle four of resuming treatment. Sohelia presents today with complaints of exacerbation of COPD/chronic bronchiectasis with production of green sputum. Being managed currently by Dr. Kim. Soheila is off antibiotic at this time, but is scheduled to see Dr. Kim later today for reassessment. She is also on a tapered dose of prednisone, currently down to 30 mg. As noted above, she remains under the care of [facility] for a healing left lower extremity abrasion. Also reported today is an approximate two week history of right side low back pain of unclear etiology. PLAN 1. Hold day one cycle #11 pembrolizumab today. 2. Obtain current restaging CT scans of the chest, abdomen and pelvis with and without p.o. and IV contrast, hopefully on 09/26 or 09/27. 3. Return tentatively on 09/29/2018 for a follow-up visit with Dr. Conway and to review restaging scans and for further decision making. Soheila will tentatively be scheduled for delayed day one cycle 11 pembrolizumab that day with a repeat CBC and stat CMP. Soheila and her daughter are in agreement with our plan. They know to contact us in the interim of her appointment with any new symptoms, questions or problems. Electronically Signed by Araseli Lancaster NP 09/27/2018 07:08 A DD: Araseli Lancaster NP 09/22/2018 08:38 A DT: [email or web address] 09/26/2018 09:37 P CC: Rick Mckeon DO, [facility] Bailey Kim DO
[2018-09-29 08:22] LABS: HEMATOCRIT 30.4 % (36.0-47.0); HEMOGLOBIN 9.2 g/dl (12.0-15.5); LYMPH % 5.3 % (24.0-44.0); MEAN CORPUSCULAR HEMOGLOBIN 27.1 pg (27.0-33.0); MEAN CORPUSCULAR HGB CONC 30.3 g/dl (32.0-36.5); MEAN CORPUSCULAR VOLUME 89.5 fl (80.0-96.0); NEUTROPHILS # 18.3 10^3/uL (1.8-7.7); NEUTROPHILS % 91.7 % (36.0-66.0); RED BLOOD COUNT 3.4 10^6/uL (4.00-5.40)
[2018-09-29 08:45] VITALS: BP 111/62
[2018-09-29 08:48] LABS: ALBUMIN 3.6 GM/DL (3.5-5.2); BLOOD UREA NITROGEN 13 MG/DL (6-20); CARBON DIOXIDE LEVEL 30 MEQ/L (23-31); CREATININE FOR GFR 0.77 MG/DL (0.60-1.10); GLOMERULAR FILTRATION RATE > 60.0 (>45); GLUCOSE, FASTING 113 MG/DL (70-105); TOTAL PROTEIN 6.6 GM/DL (6.4-8.3)
[2018-09-29 08:49] LABS: CHLORIDE LEVEL 91 MMOL/L (98-107); SODIUM LEVEL 127 MMOL/L (135-145)
--- NOTE | 2018-10-03 07:41 | MEDONC ---
MEDICAL ONCOLOGY FOLLOWUP VISIT: DATE OF SERVICE: 09/29/2018 DIAGNOSIS: 1. Recurrent papillary serous uterine carcinoma, MSI high, involving dominant left lower lobe pelvic mass, on first-line palliative treatment with pembrolizumab. Resumed after four cycles followed by several months interruption due to other medical problems. 2. History of unresectable papillary serous uterine carcinoma, 7 cm left pelvic mass 2015, treated with primary pelvic radiation followed by carboplatin / paclitaxel three cycles completed 11/2015. Please see 04/07/2018 note for complete treatment history. OTHER MEDICAL PROBLEMS: O2 dependent COPD / chronic bronchiectasis with chronic intermittent infection, finishing current cycle of antibiotic today, on a tapered dose of prednisone as well, down to 20 mg by mouth daily. Recurrent pneumothoraces, status post talc pleural pieces and wedge resection, followed closely by Dr. Mckeon of pulmonary. Hyponatremia, uncertain etiology, chronic, likely multifactorial, but certainly contribution of chronic pulmonary disease. CURRENT THERAPY: Pembrolizumab every 3 weeks begun 09/30/2017 status post three cycles 09/30/2017 through 12/02/2017 with major partial response, held December through March for anasarca, hyponatremia and lower extremity edema, currently resolved. MSH six deficiency, MSI high. Germ line testing for Pulliam syndrome to date not done. INTERVAL HISTORY: Soheila presents today to review current restaging CT scans of the chest, abdomen and pelvis and possibly for delayed day one cycle 11 of pembrolizumab. As noted above, she completes her last dose of antibiotic today and continues with a prednisone taper, down to 20 mg by mouth daily. Reportedly her respiratory status is "slowly getting better" however not back to baseline. Soheila reports that she continues to have some productive green sputum. She remains afebrile. Scheduled to follow up with Dr. Denise Lawrence on 10/05/2018. At soheila's last visit, she reported intermittent right side low back pain. It is no better or worse than when we saw her last. She states that she takes either Tylenol or Aleve and her pain resolves. This may coincide with findings on her current CT of the abdomen and pelvis on 09/27/2018 that indicates the patient's known large necrotic mass in the pelvis has increased in size measuring 6.2 x 8.2 x 10 cm, previously measuring 5.9 x 5.5 x 7.7. On the current CT of the abdomen and pelvis. There are no other new findings. CT of the chest fortunately shows no new lung nodules or no new enlarging lung nodules. Many of the previously identified lung nodules are smaller in size. All of these findings were reviewed were reviewed today with Soheila and her daughter to their understanding. IMPRESSION: Soheila presents today for followup of recent restaging scans of chest, abdomen and pelvis done and 09/27/2018. Results as noted above. Soheila continues to have intermittent right side low back pain which is managed currently either with Tylenol or ibuprofen. Findings on CT the abdomen and pelvis show that the patient's known large necrotic mass in the pelvis has increased in size. PLAN: 1. Hold pembrolizumab until further notice. 2. Request, ER [place] her2 testing on original pathology from April 2015 biopsy done at [facility]. 3. Return in approximately 2 weeks to review those results and for further decision making regarding ongoing management. Soheila and her daughter are in agreement with our plan and recommendations. Electronically Signed by Araseli Lancaster NP 10/04/2018 06:40 A DD: Araseli Lancaster NP 09/29/2018 09:35 A DT: navneet 10/03/2018 07:19 A CC: [facility]keon DO, [facility] Bailey Kim DO
[2018-10-12 10:58] VITALS: BP 117/67
--- NOTE | 2018-10-12 21:29 | MEDONC ---
MEDICAL ONCOLOGY FOLLOWUP DATE OF SERVICE: 10/12/2018 DIAGNOSES 1. Recurrent papillary serous uterine carcinoma, high-grade, MSI high, ER positive, HER2 positive diagnosed 2016 presenting with dominant left pelvic sidewall mass. Treated with first-line single-agent pembrolizumab with major response, complicated by hyponatremia, fluid overload, ultimately stopped and restarted but with progression as of September 2018. 2. History of unresectable papillary serous uterine carcinoma, 7 cm left pelvic mass 2016 treated with primary followed by chemotherapy. TREATMENT HISTORY Pelvic radiation 2015. Carboplatin/Taxol q. 21 days three cycles completed 11/2015. Pembrolizumab single agent 09/30/2017 - 12/02/2017, major MT stopped for anasarca, hyponatremia. Germ line testing for Pulliam syndrome as yet undone. Pembrolizumab resumption April/2018 - 09/22/2018, held for recurrent bronchitis/pneumonia, new right low back pain. Restaging scans 10/03/2018 with evidence of disease progression involving dominant right pelvic mass; multiple subcentimeter pulmonary nodules, stable. INTERVAL HISTORY Soheila is here to discuss next steps. She was treated for pulmonary infection 3 weeks ago. She is on 3 liters of nasal cannula oxygen during the day, a little bit less at home. ER, MT, and HER2 testing of her pathology from [facility] (April/2015 biopsy) showed ER 50% positive, MT 1 - 4% positive, and HER2 positive by FISH, intermediate by immunohistochemistry. She is less eligible for HER2 targeting or estrogen targeting treatment. Standard option would be carboplatin/Taxol/trastuzumab q. 21 days possibly for about three cycles and continue Herceptin given her prior treatment with carboplatin/Taxol. Alternatively, she could receive six cycles of triple therapy then continue on trastuzumab monotherapy. Another possibility though not standard would be antiestrogen plus trastuzumab following on breast cancer models. Because she has fairly symptomatic large right pelvic mass now measuring up to 10 cm, combination chemotherapy with Herceptin may be the more potent and effective treatment to minimize her symptoms. I would plan dose reduction at baseline for example 20 or 25% based on her prior difficulties tolerating chemotherapy. She has chronic bronchiectasis, frequently on antibiotics for pulmonary infection. Echocardiogram from 2016 showed a normal ejection fraction. Will repeat this for new baseline. I reviewed the treatment of ER positive, uterine cancer and HER2 positive uterine cancer with Soheila and her daughter. I reviewed the options of pill therapy versus chemotherapy plus targeted HER2 therapy. I reviewed risks, benefits and side effects of carboplatin/Taxol plus Herceptin including but not limited to alopecia, myelosuppression, peripheral neuropathy, bruising, bleeding, fatigue, increased risk of infection, cardiomyopathy. Written informed consent for this treatment was obtained. IMPRESSION Recurrent high-grade papillary serous uterine carcinoma ER 50% positive, HER2 positive with dominant progressive disease focus now involving right pelvic sidewall symptomatic with low right back pain. Subcentimeter pulmonary nodules bilaterally in the setting of chronic bronchiectasis, O2 dependent COPD and bronchiectasis. ECOG performance status remarkably is 0/1. PLAN 1. Baseline echocardiogram. 2. Return to clinic to begin reduced dose carboplatin/paclitaxel/trastuzumab q. 21 days. Plan will be 4 to 6 cycles followed by trastuzumab maintenance. She will need pegfilgrastim support based on extensive prior therapy, pelvic radiation, age, all posing a risk for neutropenic fever. Time statement: 25 minutes [id number] with the patient more than 50% involving counseling regarding the above. Electronically Signed by Kaya Conway MD 10/13/2018 05:17 P DD: Kaya Conway MD 10/12/2018 12:38 P DT: jeanine 10/12/2018 08:51 P CC: Bailey Kim DO
[2018-10-26 09:12] VITALS: BP 123/73
[2018-10-26 09:22] LABS: HEMATOCRIT 29.5 % (36.0-47.0); HEMOGLOBIN 8.7 g/dl (12.0-15.5); LYMPH % 7.1 % (24.0-44.0); MEAN CORPUSCULAR HGB CONC 29.5 g/dl (32.0-36.5); MEAN CORPUSCULAR VOLUME 91.6 fl (80.0-96.0); NEUTROPHILS # 18.6 10^3/uL (1.8-7.7); NEUTROPHILS % 90.1 % (36.0-66.0); RED BLOOD COUNT 3.22 10^6/uL (4.00-5.40); WHITE BLOOD COUNT 20.6 10^3/uL (4.0-10.0)
[2018-10-26 09:54] LABS: ALBUMIN 3.4 GM/DL (3.5-5.2); BLOOD UREA NITROGEN 14 MG/DL (6-20); CARBON DIOXIDE LEVEL 33 MEQ/L (23-31); CHLORIDE LEVEL 93 MMOL/L (98-107); CREATININE FOR GFR 0.63 MG/DL (0.60-1.10); GLOMERULAR FILTRATION RATE > 60.0 (>45); GLUCOSE, FASTING 112 MG/DL (70-105); SODIUM LEVEL 131 MMOL/L (135-145)
--- NOTE | 2018-10-26 10:32 | ONC.PHACK ---
CHEMO ADMIN CHECKLIST Order Contains Pt ID: Name, Order on Chemo Order Form?: Yes Order Form Includes ALL: Correct Tx Day, Correct Date, Correct Cycle Number Pt ID on Order form Matches: Pt ID on PHA Label Med on Chemo OrderForm Matches: PHA Label, Med Used for Preparation [facility] Oct 26, 2018 10:32
--- NOTE | 2018-10-27 09:04 | MEDONC ---
MEDICAL ONCOLOGY FOLLOWUP / TREATMENT VISIT DATE OF SERVICE: 10/26/2018 DIAGNOSIS: 1. Recurrent papillary serous uterine carcinoma, high-grade, MSI high, ER positive, HER2 positive diagnosed 2016, presenting with dominant left pelvic sidewall mass. Treated with first line single-agent pembrolizumab with major response, complicated by hyponatremia, fluid overload, ultimately stopped and restarted but with progression as of September 2018. 2. History of unresectable papillary serous uterine carcinoma, 7 cm left pelvic mass 2016 treated with primary followed by chemotherapy. TREATMENT HISTORY: Pelvic radiation 2015. Carboplatin/Taxol every 21 days three cycles completed 11/2015. Pembrolizumab single agent 09/30/2017 through 12/02/2017, major partial response, stopped for anasarca, hyponatremia. Germ line testing for Pulliam syndrome as yet undone. Pembrolizumab resumption April 2018 through 09/22/2018 held for recurrent bronchitis/pneumonia, new right low back pain. Restaging scans 10/03/2018 with evidence of disease progression involving dominant right pelvic mass; multiple subcentimeter pulmonary nodules, stable. INTERVAL HISTORY: Soheila is here today to begin reduced dose carboplatin/paclitaxel/trastuzumab every 21 days for recurrent high-grade papillary serous uterine carcinoma, ER 50% positive, HER2 positive with dominant progressive disease focus now involving right pelvic sidewall, symptomatic with low right back pain and intermittent vaginal bleeding. At present, Soheila offers no new complaints. She is eager to restart treatment. Vital signs today are stable, weight is 49.3 kg, temperature 96.2, pulse 96, respirations 20, BP 123/73, O2 sat 97% with 3 liters of nasal O2 in place. LABORATORY DATA: WBC 20.6, ANC 18.6, RBC 3.22, H H 8.7 and 29.5 (down from 9.2 and 30.4 on 09/29/2018), platelets 572,000. Current chemistries are pending as of this dictation. A CA-125 antigen is also pending. Baseline TSH and free T4 on 09/22/2018 within normal parameters. IMPRESSION: Recurrent high-grade papillary serous uterine carcinoma, ER 50% positive HER2 positive with dominant progressive disease focus now involving right pelvic sidewall symptomatic with low right back pain and intermittent vaginal bleeding. Progressive anemia. Most likely secondary to blood loss. ECOG performance status remains remarkably 0 to 1. Baseline echocardiogram done on 10/17/2018 indicates a normal LVEF. PLAN: 1. Day one cycle one treatment today. 2. Following completion of chemotherapy/trastuzumab, Soheila will receive 1 unit of packed red blood cells. 3. Return in 1 week for a CBC and pink top tube. 4. Return in 3 weeks for an office visit day one cycle two of treatment and appropriate labs. Soheila knows to contact us in the interim with any new symptoms, questions or problems. Electronically Signed by Araseli Lancaster NP 10/27/2018 12:46 P DD: Araseli Lancaster NP 10/26/2018 09:49 A DT: buddy 10/27/2018 08:39 A CC: Bailey Kim DO
[~2018-11-02] VITALS: Ht 154.9 cm; Wt 49.3 kg
[~2018-11-02 11:10] MED LIST changes: +ACETAMINOPHEN 650 MG PO PO ONE; +CARBOPLATIN IV ONE; +FAMOTIDINE 20 MG IV IV ONE; +FAMOTIDINE IV BAG 20 MG in IV 1 EA IV ONE; +FOSAPREPITANT PERIPHERAL LINE 30 MIN INFUSION (PREMIX) IV ONE; +FOSAPREPITANT PERIPHERAL LINE 30 MIN INFUSION IV ONE; +NS IV ONE; +PACLITAXEL IV ONE; +PALONOSETRON 250 MCG IV IV ONE; +PEGFILGRASTIM 6MG/0.6ML ONPRO KIT (J2505 PER 6MG) (FOR ONCOLOGY) SC ONE; +PEMBROLIZUMAB OVER 30 MINUTES IV ONE; +SODIUM CHLORIDE 0.9% INJ 10 ML SYR IV PRN; +TRASTUZUMAB IV ONE; +dexameTHASONE 10 MG IV IV ONE; +diphenhydrAMINE 50 MG IV IV ONE
[2018-11-02 11:39] LABS: HEMOGLOBIN 10.3 g/dl (12.0-15.5); LYMPH % 4.9 % (24.0-44.0); MEAN CORPUSCULAR HGB CONC 31.2 g/dl (32.0-36.5); MEAN CORPUSCULAR VOLUME 89.8 fl (80.0-96.0); NEUTROPHILS # 18.4 10^3/uL (1.8-7.7); NEUTROPHILS % 91.5 % (36.0-66.0); RED BLOOD COUNT 3.68 10^6/uL (4.00-5.40); WHITE BLOOD COUNT 20.1 10^3/uL (4.0-10.0)
[2018-11-03] MEDS ORDERED: MAGICMW SSP (13:26)
[2018-11-17] MEDS ORDERED: dexameTHASONE 10 MG IV IV ONE (08:00)
[2018-11-17] MEDS ORDERED: diphenhydrAMINE 50 MG IV IV ONE (08:00)
[2018-11-17] MEDS ORDERED: FOSAPREPITANT PERIPHERAL LINE 30 MIN INFUSION (PREMIX) IV ONE ×2 (08:00)
[2018-11-17] MEDS ORDERED: PALONOSETRON 250 MCG IV IV ONE (08:00)
[2018-11-17] MEDS ORDERED: ACETAMINOPHEN 650 MG PO PO ONE (08:00)
[2018-11-17] MEDS ORDERED: FAMOTIDINE 20 MG IV IV ONE ×2 (08:00)
[2018-11-17] MEDS ORDERED: NS IV ONE ×3 (09:00→12:30)
[2018-11-17] MEDS ORDERED: TRASTUZUMAB IV ONE (09:00)
[2018-11-17] MEDS ORDERED: PACLITAXEL IV ONE (09:30)
[2018-11-17] MEDS ORDERED: CARBOPLATIN IV ONE (12:30)
== END 2018-11-02 11:30 | disposition home or self-care (01) ==
LOC: M ONCM 11:10
PROVIDERS: ATTEND Internal Medicine Medical Oncology
DX: Z51.11 Encounter for antineoplastic chemotherapy (principal); C54.1 Malignant neoplasm of endometrium; C79.89 Secondary malignant neoplasm of other specified sites; Z99.81 Dependence on supplemental oxygen; Z90.2 Acquired absence of lung [part of]; Z88.1 Allergy status to other antibiotic agents; Z88.8 Allergy status to other drugs, medicaments and biological substances; Z79.899 Other long term (current) drug therapy; M54.5 Low back pain; C55 Malignant neoplasm of uterus, part unspecified
CPT/HCPCS: 36415; 36430; 36591; 80053; 81001; 82024; 82103; 82390; 82436; 82465; 82533; 82570; 82784; 83930; 83935; 84133; 84300; 84439; 84443; 84466; 85027; 85384; 86038; 86140; 86304; 86850; 86900; 86901; 86920; 96365; 96367; 96375; 96377; 96413; 96415; 96417; G0463; J1100; J1200; J1453; J2469; J2505; J9045; J9267; J9271; J9355; P9016